=== PATIENT | female | born 1955 | race Caucasian/White ===

== ENCOUNTER 2018-04-07 22:37 | Emergency (ER) | payer BC ==
[2018-04-07 22:48] VITALS: RESP 18; TEMP 98
[2018-04-07] MEDS ORDERED: SODIUM CHLORIDE 0.9% 500 ML 500 ML IV STA (23:06)
[2018-04-07 23:51] LABS: Basophils # (A) 0.1 k/uL (0-0.2); Basophils % (A) 1 %; Eosinophils # (A) 0.3 k/uL (0-0.7); Eosinophils % (A) 3 %; HCT 47.1 % (34.0-46.0); HGB 15.8 gm/dL (11.4-16.0); Lymphocytes # (A) 3.2 k/uL (1.0-4.8); Lymphocytes % (A) 36 %; MCH 30.5 pg (25.0-35.0); MCHC 33.6 g/dL (31.0-37.0); MCV 90.6 fL (80.0-100.0); Mean Platelet Volume 6.6; Monocytes # (A) 0.4 k/uL (0-1.0); Monocytes % (A) 5 %; Neutrophils # (A) 4.8 k/uL (1.3-7.7); Neutrophils % (A) 54 %; Platelet Count 276 k/uL (150-450); RBC 5.19 m/uL (3.80-5.40); RDW 13.8 % (11.5-15.5); WBC 8.9 k/uL (3.8-10.6)
--- NOTE | 2018-04-08 00:03 | XR ---
EXAMINATION TYPE: XR chest 2V DATE OF EXAM: 04/07/2018 COMPARISON: NONE HISTORY: Chest pain TECHNIQUE: Frontal and lateral views of the chest are obtained. FINDINGS: There is no heart failure. There is linear density at the lung bases. Heart size is normal . Bony thorax is intact. There are chest leads. IMPRESSION: Subsegmental atelectasis at the lung bases. No heart failure. Normal heart.
--- NOTE | 2018-04-08 00:05 | ED ---
General Adult HPI - General Chief complaint: Chest Pain Stated complaint: Chest Pain Source: patient Mode of arrival: wheelchair Limitations: no limitations - History of Present Illness Initial comments: Dictation was produced using [employer] dictation software. please excuse any grammatical, word or spelling errors. Chief Complaint: 63-year-old female with no significant past medical history presents with left-sided chest pain. History of Present Illness: Patient is 63-year-old female presents with 2-3 days of left-sided chest pain. She states that she sleeps and opposition usually overnight after mastectomies. She states she will comply morning with sharp pain to her left chest. Patient states that her pain is exacerbated with movement. It's also worse with palpation. Denies any associated diaphoresis. There is no radiation of symptoms to her shoulders or jaw. Patient has any history of cardiac disease. Patient has history of smoking however quit 3 years ago. History of diabetes, hypertension, chronic disease. The ROS documented in this emergency department record has been reviewed and confirmed by me. Those systems with pertinent positive or negative responses have been documented in the HPI. All other systems are other negative and/or noncontributory. - Related Data Home Medications Medication Instructions Recorded Confirmed Calcium Carbonate/Vitamin D3 1 tab PO DAILY 04/07/18 04/07/18 [Calcium 600-Vit D3 200 Tablet] Cyanocobalamin (Vitamin B-12) 5,000 mcg PO DAILY 04/07/18 04/07/18 [Vitamin B12] Cyclobenzaprine [Flexeril] 10 mg PO HS PRN 04/07/18 04/07/18 Levothyroxine Sodium [Synthroid] 112 mcg PO DAILY 04/07/18 04/07/18 [place] 3,6,9 1600mg 1 cap PO DAILY 04/07/18 04/07/18 Vitamin B Complex 1 cap PO DAILY 04/07/18 04/07/18 Previous Rx's Medication Instructions Recorded Hydrocodone/Acetaminophen [[place] 1 tab PO Q6HR PRN 3 Days #10 tab 04/08/18 5-325] Allergies Allergy/AdvReac Type Severity Reaction Status Date / Time ciprofloxacin [From Cipro] AdvReac Nausea & Verified 04/07/18 23:17 Vomiting codeine AdvReac "GETS THE Verified 04/07/18 23:17 SHAKES" Review of Systems ROS Statement: Those systems with pertinent positive or pertinent negative responses have been documented in the HPI. ROS Other: All systems not noted in ROS Statement are negative. Past Medical History Past Medical History: Thyroid Disorder History of Any Multi-Drug Resistant Organisms: None Reported Past Surgical History: Appendectomy, Breast Surgery Past Psychological History: Anxiety Smoking Status: Former smoker Past Alcohol Use History: None Reported Past Drug Use History: None Reported General Exam - General Exam Comments Initial Comments: PHYSICAL EXAM: General Impression: Alert and oriented x3, not in acute distress HEENT: Normocephalic atraumatic, extra-ocular movements intact, pupils equal and reactive to light bilaterally, mucous membranes moist. Cardiovascular: Heart regular rate and rhythm, S1&S2 audible, no murmurs, rubs or gallops Chest: Tenderness to palpation reproduced with palpation and manipulation of left upper extremity. Abdomen: Bowel sounds present, abdomen soft, non-tender, non-distended, no organomegaly Musculoskeletal: Pulses present and equal in all extremities, no peripheral edema Motor: Power 5/5 bilaterally, no focal deficits noted Neurological: CN II-XII grossly intact, no focal motor or sensory deficits noted Skin: Intact with no visualized rashes Psych: Normal affect and mood Limitations: no limitations Course Vital Signs 04/07/18 04/07/18 04/08/18 22:43 23:51 00:54 Temperature 98.0 F Pulse Rate 121 H 111 H 111 H Respiratory 18 18 18 Rate Blood Pressure 165/115 180/100 189/111 O2 Sat by Pulse 96 94 L 96 Oximetry Medical Decision Making - Medical Decision Making ED course: 63-year-old female with atypical chest pain. Her pain is clearly atypical and musculoskeletal in origin. Vital signs upon arrival shows heart rate of 111. Blood pressure 180/100. Patient states she feels anxious and usually has elevated blood pressure and tachycardia in medical settings. EKGs benign showing sinus tachycardia. No signs of ischemia.Laboratory evaluation obtained. CBC unremarkable. Coag panel unremarkable. Metabolic panel is unremarkable. Cardiac enzymes are negative. Patient's clinical presentation is consistent with atypical chest pain. No need for further workup. Patient heart rate is improved however still tachycardic. Patient also has elevated blood pressure. Patient states that she has strong history of white coat hypertension. Patient not having any signs of hypertensive emergency. She given Toradol for her chest symptoms. She is given prescription for [place] to take when necessary pain. Patient warned of the dangers of opiates she is told to use this medication sparingly. She is understandable and agreeable to plan. Patient was requesting referral to a new primary care physician. EKG Interpretation: A 12 lead EKG was obtained. It was interpreted by myself and attending physician. There is a P wave before every QRS complex. Rate is 120. Rhythm is sinus tachycardia, DE interval 154, care is 72, QTc 469. QT is not prolonged. No ST segment depression or elevation. Overall, this EKG is unremarkable - Lab Data Result diagrams: 04/07/18 23:20 04/07/18 23:20 Lab Results 04/07/18 04/07/18 04/07/18 Range/Units 23:20 23:20 23:20 WBC 8.9 (3.8-10.6) k/uL RBC 5.19 (3.80-5.40) m/uL Hgb 15.8 (11.4-16.0) gm/dL Hct 47.1 H (34.0-46.0) % MCV 90.6 (80.0-100.0) fL MCH 30.5 (25.0-35.0) pg MCHC 33.6 (31.0-37.0) g/dL RDW 13.8 (11.5-15.5) % Plt Count 276 (150-450) k/uL Neutrophils % 54 % Lymphocytes % 36 % Monocytes % 5 % Eosinophils % 3 % Basophils % 1 % Neutrophils # 4.8 (1.3-7.7) k/uL Lymphocytes # 3.2 (1.0-4.8) k/uL Monocytes # 0.4 (0-1.0) k/uL Eosinophils # 0.3 (0-0.7) k/uL Basophils # 0.1 (0-0.2) k/uL PT (9.0-12.0) sec INR (<1.2) APTT (22.0-30.0) sec Sodium 138 (137-145) mmol/L Potassium 4.2 (3.5-5.1) mmol/L Chloride 103 (98-107) mmol/L Carbon Dioxide 26 (22-30) mmol/L Anion Gap 9 mmol/L BUN 15 (7-17) mg/dL Creatinine 1.02 (0.52-1.04) mg/dL Est GFR (CKD-EPI)AfAm 68 (>60 ml/min/1.73 sqM) Est GFR (CKD-EPI)NonAf 59 (>60 ml/min/1.73 sqM) Glucose 96 (74-99) mg/dL Calcium 10.9 H (8.4-10.2) mg/dL Magnesium 2.0 (1.6-2.3) mg/dL Total Bilirubin 0.6 (0.2-1.3) mg/dL AST 83 H (14-36) U/L ALT 46 (9-52) U/L Alkaline Phosphatase 152 H (38-126) U/L Total Creatine Kinase 114 (30-135) U/L CK-MB (CK-2) 0.7 (0.0-2.4) ng/mL CK-MB (CK-2) Rel Index 0.6 Troponin I 0.019 (0.000-0.034) ng/mL Total Protein 7.6 (6.3-8.2) g/dL Albumin 4.3 (3.5-5.0) g/dL 04/07/18 Range/Units 23:20 WBC (3.8-10.6) k/uL RBC (3.80-5.40) m/uL Hgb (11.4-16.0) gm/dL Hct (34.0-46.0) % MCV (80.0-100.0) fL MCH (25.0-35.0) pg MCHC (31.0-37.0) g/dL RDW (11.5-15.5) % Plt Count (150-450) k/uL Neutrophils % % Lymphocytes % % Monocytes % % Eosinophils % % Basophils % % Neutrophils # (1.3-7.7) k/uL Lymphocytes # (1.0-4.8) k/uL Monocytes # (0-1.0) k/uL Eosinophils # (0-0.7) k/uL Basophils # (0-0.2) k/uL PT 9.7 (9.0-12.0) sec INR 1.0 (<1.2) APTT 21.4 L (22.0-30.0) sec Sodium (137-145) mmol/L Potassium (3.5-5.1) mmol/L Chloride (98-107) mmol/L Carbon Dioxide (22-30) mmol/L Anion Gap mmol/L BUN (7-17) mg/dL Creatinine (0.52-1.04) mg/dL Est GFR (CKD-EPI)AfAm (>60 ml/min/1.73 sqM) Est GFR (CKD-EPI)NonAf (>60 ml/min/1.73 sqM) Glucose (74-99) mg/dL Calcium (8.4-10.2) mg/dL Magnesium (1.6-2.3) mg/dL Total Bilirubin (0.2-1.3) mg/dL AST (14-36) U/L ALT (9-52) U/L Alkaline Phosphatase (38-126) U/L Total Creatine Kinase (30-135) U/L CK-MB (CK-2) (0.0-2.4) ng/mL CK-MB (CK-2) Rel Index Troponin I (0.000-0.034) ng/mL Total Protein (6.3-8.2) g/dL Albumin (3.5-5.0) g/dL Disposition Clinical Impression: Strain of chest wall Disposition: HOME SELF-CARE Condition: Good Instructions: Costochondritis (ED) Prescriptions: Hydrocodone/Acetaminophen [[place] 5-325] 1 tab PO Q6HR PRN 3 Days #10 tab PRN Reason: Pain Is patient prescribed a controlled substance at d/c from ED?: Yes If prescribed controlled substance>3 days was MAPS reviewed?: Prescribed <3 Days Referrals: Toby Nava MD [REFERRING] - 1-2 days Time of Disposition: 01:15
[2018-04-08 00:11] LABS: Albumin 4.3 g/dL (3.5-5.0); Calcium 10.9 mg/dL (8.4-10.2); Potassium 4.2 mmol/L (3.5-5.1); Total Bilirubin 0.6 mg/dL (0.2-1.3); Total Protein 7.6 g/dL (6.3-8.2)
[2018-04-08 00:28] LABS: Creatine Kinase MB 0.7 ng/mL (0.0-2.4); Prothrombin Time 9.7 sec (9.0-12.0); Troponin I 0.019 ng/mL (0.000-0.034)
[2018-04-08 00:39] LABS: Partial Thromboplastin Time 21.4 sec (22.0-30.0)
[2018-04-08 00:56] VITALS: BP 189/111
[2018-04-08] MEDS ORDERED: KETOROLAC 30 MG/ML 1 ML VIAL IVP STA (01:12)
[2018-04-08 01:41] VITALS: PULSE 107
== END 2018-04-08 01:41 | disposition home or self-care (01) ==
LOC: EC 22:37
DX: S29.011A Strain of muscle and tendon of front wall of thorax, initial encounter (principal); R00.2 Palpitations; E07.9 Disorder of thyroid, unspecified; E11.9 Type 2 diabetes mellitus without complications; I10 Essential (primary) hypertension; Z79.899 Other long term (current) drug therapy; Z88.1 Allergy status to other antibiotic agents; Z88.5 Allergy status to narcotic agent; Z87.891 Personal history of nicotine dependence; X50.9XXA Other and unspecified overexertion or strenuous movements or postures, initial encounter
CPT/HCPCS: 36415; 93005; 80053; 82550; 82553; 83735; 84484; 85025; 85610; 85730; 71046; 99285; 96374; 96361 ×2; J1885

== ENCOUNTER 2018-04-18 11:18 | Emergency (ER) | payer BC ==
[2018-04-18] MEDS ORDERED: SODIUM CHLORIDE 0.9% 1,000 ML IV STA ×2 (11:55)
--- NOTE | 2018-04-18 12:57 | ED ---
Abdominal Pain HPI - General Chief Complaint: Abdominal Pain Stated Complaint: Vomiting and Diarrhea Time Seen by Provider: 04/18/18 11:55 Source: patient, RN notes reviewed, old records reviewed Mode of arrival: ambulatory Limitations: no limitations - History of Present Illness Initial Comments: 63-year-old male female presents emergency room today with 1 day of nausea vomiting and diarrhea. Patient ports she was treated for costochondritis is given I am slight Medrol and Toradol at PC's office yesterday. After that she started to have the vomiting and diarrhea. Patient states that she has been having some left-sided cost rope pain for the past few weeks. She was seen and treated in our emergency department 2 weeks ago for similar complaints. Her PCP was concerned on steroids and anti-inflammatory medication. Patient reports that at this time she has pain with moving on her left chest wall. History of mastectomy bilaterally few years ago. - Related Data Home Medications Medication Instructions Recorded Confirmed Calcium Carbonate/Vitamin D3 1 tab PO DAILY 04/07/18 04/18/18 [Calcium 600-Vit D3 200 Tablet] Cyanocobalamin (Vitamin B-12) 5,000 mcg PO DAILY 04/07/18 04/18/18 [Vitamin B12] Cyclobenzaprine [Flexeril] 10 mg PO HS PRN 04/07/18 04/18/18 Levothyroxine Sodium [Synthroid] 112 mcg PO DAILY 04/07/18 04/18/18 [place] 3,6,9 1600mg 1 cap PO DAILY 04/07/18 04/18/18 Vitamin B Complex 1 cap PO DAILY 04/07/18 04/18/18 Cholecalciferol (Vitamin D3) 2,000 unit PO DAILY 04/18/18 04/18/18 [Vitamin D3] Diclofenac Sodium [Voltaren] 75 mg PO DIRECTED 04/18/18 04/18/18 Flaxseed Oil 1,000 mg PO DAILY 04/18/18 04/18/18 L.acidoph,Paracasei, B.lactis 1 cap PO DAILY 04/18/18 04/18/18 [Probiotic] Magnesium Oxide [Mag-Ox] 250 mg PO TID 04/18/18 04/18/18 [place] 1 tab PO DAILY 04/18/18 Saffron Oil 1 cap PO DAILY 04/18/18 predniSONE [Deltasone] 40 mg PO DAILY 04/18/18 04/18/18 Previous Rx's Medication Instructions Recorded Hydrocodone/Acetaminophen [[place] 1 tab PO Q6HR PRN 3 Days #10 tab 04/08/18 5-325] Ondansetron Odt [Zofran Odt] 4 mg PO Q8HR PRN #12 tab 04/18/18 traMADol HCL [Ultram] 50 mg PO Q6HR PRN 3 Days #12 tab 04/18/18 Allergies Allergy/AdvReac Type Severity Reaction Status Date / Time ciprofloxacin [From Cipro] AdvReac Nausea & Verified 04/18/18 12:28 Vomiting codeine AdvReac "GETS THE Verified 04/18/18 12:28 SHAKES" Review of Systems ROS Statement: Those systems with pertinent positive or pertinent negative responses have been documented in the HPI. ROS Other: All systems not noted in ROS Statement are negative. Past Medical History Past Medical History: Thyroid Disorder History of Any Multi-Drug Resistant Organisms: None Reported Past Surgical History: Appendectomy, Breast Surgery Past Psychological History: Anxiety Smoking Status: Former smoker Past Alcohol Use History: None Reported Past Drug Use History: None Reported General Exam - General Exam Comments Initial Comments: Well appearing 63 year old female, no distress. Limitations: no limitations General appearance: alert, in no apparent distress Head exam: Present: atraumatic, normocephalic, normal inspection Eye exam: Present: normal appearance, PERRL, EOMI. Absent: scleral icterus, conjunctival injection, periorbital swelling ENT exam: Present: normal exam, mucous membranes moist Neck exam: Present: normal inspection. Absent: tenderness, meningismus, lymphadenopathy Respiratory exam: Present: normal lung sounds bilaterally, chest wall tenderness (over sternum and Left ribs). Absent: respiratory distress, wheezes , rales, rhonchi, stridor Cardiovascular Exam: Present: regular rate, normal rhythm, normal heart sounds. Absent: systolic murmur, diastolic murmur, rubs, gallop, clicks GI/Abdominal exam: Present: soft, normal bowel sounds. Absent: distended, tenderness, guarding, rebound, rigid Extremities exam: Present: normal inspection, full ROM, normal capillary refill. Absent: tenderness, pedal edema, joint swelling, calf tenderness Neurological exam: Present: alert, oriented X3, CN II-XII intact Psychiatric exam: Present: normal affect, normal mood Skin exam: Present: warm, dry, intact, normal color. Absent: rash Course Vital Signs 04/18/18 04/18/18 04/18/18 11:25 15:05 15:42 Temperature 98.3 F Pulse Rate 119 H 105 H 102 H Respiratory 18 20 Rate Blood Pressure 144/93 145/86 O2 Sat by Pulse 94 L 99 93 L Oximetry 04/18/18 18:15 Temperature 98.1 F Pulse Rate 106 H Respiratory 8 L Rate Blood Pressure 145/88 O2 Sat by Pulse 98 Oximetry Medical Decision Making - Medical Decision Making This is a 63 year old female with nausea, vomiting after receiving IM toradol and solumedrol for costochondritis. Patient has sternum tenderness. No abdominal tenderness. Patient has been given IV fluids. Labs show decreased GFR , likely due to dehydration. PAtient continued to complain of pleuritic chest pain, has had slgiht tachycardia. Patient was found to have an elevated Ddimer. She has history of breast cancer. VQ scan completed and low probability of PE. Liver enzymes were also increased, she had US gallbladder which was unremarkable. Discussed treatment for costochondritis and she will take meds from her PCP. Discussed return parametrs. - Lab Data Result diagrams: 04/18/18 12:45 04/18/18 12:45 Lab Results 04/18/18 04/18/18 04/18/18 Range/Units 12:45 12:45 12:45 WBC 12.3 H (3.8-10.6) k/uL RBC 5.02 (3.80-5.40) m/uL Hgb 15.0 (11.4-16.0) gm/dL Hct 46.3 H (34.0-46.0) % MCV 92.3 (80.0-100.0) fL MCH 29.9 (25.0-35.0) pg MCHC 32.4 (31.0-37.0) g/dL RDW 13.7 (11.5-15.5) % Plt Count 424 (150-450) k/uL Neutrophils % 76 % Lymphocytes % 18 % Monocytes % 4 % Eosinophils % 1 % Basophils % 0 % Neutrophils # 9.3 H (1.3-7.7) k/uL Lymphocytes # 2.2 (1.0-4.8) k/uL Monocytes # 0.5 (0-1.0) k/uL Eosinophils # 0.1 (0-0.7) k/uL Basophils # 0.1 (0-0.2) k/uL PT 10.1 (9.0-12.0) sec INR 1.0 (<1.2) APTT 22.9 (22.0-30.0) sec D-Dimer (<0.60) mg/L FEU Sodium 139 (137-145) mmol/L Potassium 4.2 (3.5-5.1) mmol/L Chloride 98 (98-107) mmol/L Carbon Dioxide 28 (22-30) mmol/L Anion Gap 13 mmol/L BUN 21 H (7-17) mg/dL Creatinine 1.47 H (0.52-1.04) mg/dL Est GFR (CKD-EPI)AfAm 43 (>60 ml/min/1.73 sqM) Est GFR (CKD-EPI)NonAf 37 (>60 ml/min/1.73 sqM) Glucose 105 H (74-99) mg/dL Calcium 11.4 H (8.4-10.2) mg/dL Total Bilirubin 0.8 (0.2-1.3) mg/dL AST 80 H (14-36) U/L ALT 70 H (9-52) U/L Alkaline Phosphatase 240 H (38-126) U/L Troponin I (0.000-0.034) ng/mL Total Protein 7.4 (6.3-8.2) g/dL Albumin 4.2 (3.5-5.0) g/dL Amylase 54 (30-110) U/L Lipase 73 (23-300) U/L Urine Color Urine Appearance (Clear) Urine pH (5.0-8.0) Ur Specific [place] (1.001-1.035) Urine Protein (Negative) Urine Glucose (UA) (Negative) Urine Ketones (Negative) Urine Blood (Negative) Urine Nitrite (Negative) Urine Bilirubin (Negative) Urine Urobilinogen (<2.0) mg/dL Ur Leukocyte Esterase (Negative) Urine RBC (0-5) /hpf Urine WBC (0-5) /hpf Ur Squamous Epith Cells (0-4) /hpf Hyaline Casts (0-2) /lpf Urine Mucus (None) /hpf 04/18/18 04/18/18 04/18/18 Range/Units 12:45 12:45 12:45 WBC (3.8-10.6) k/uL RBC (3.80-5.40) m/uL Hgb (11.4-16.0) gm/dL Hct (34.0-46.0) % MCV (80.0-100.0) fL MCH (25.0-35.0) pg MCHC (31.0-37.0) g/dL RDW (11.5-15.5) % Plt Count (150-450) k/uL Neutrophils % % Lymphocytes % % Monocytes % % Eosinophils % % Basophils % % Neutrophils # (1.3-7.7) k/uL Lymphocytes # (1.0-4.8) k/uL Monocytes # (0-1.0) k/uL Eosinophils # (0-0.7) k/uL Basophils # (0-0.2) k/uL PT (9.0-12.0) sec INR (<1.2) APTT (22.0-30.0) sec D-Dimer 5.00 H (<0.60) mg/L FEU Sodium (137-145) mmol/L Potassium (3.5-5.1) mmol/L Chloride (98-107) mmol/L Carbon Dioxide (22-30) mmol/L Anion Gap mmol/L BUN (7-17) mg/dL Creatinine (0.52-1.04) mg/dL Est GFR (CKD-EPI)AfAm (>60 ml/min/1.73 sqM) Est GFR (CKD-EPI)NonAf (>60 ml/min/1.73 sqM) Glucose (74-99) mg/dL Calcium (8.4-10.2) mg/dL Total Bilirubin (0.2-1.3) mg/dL AST (14-36) U/L ALT (9-52) U/L Alkaline Phosphatase (38-126) U/L Troponin I <0.012 (0.000-0.034) ng/mL Total Protein (6.3-8.2) g/dL Albumin (3.5-5.0) g/dL Amylase (30-110) U/L Lipase (23-300) U/L Urine Color Yellow Urine Appearance Clear (Clear) Urine pH 5.0 (5.0-8.0) Ur Specific [place] 1.008 (1.001-1.035) Urine Protein Negative (Negative) Urine Glucose (UA) Negative (Negative) Urine Ketones Negative (Negative) Urine Blood Negative (Negative) Urine Nitrite Negative (Negative) Urine Bilirubin Negative (Negative) Urine Urobilinogen <2.0 (<2.0) mg/dL Ur Leukocyte Esterase Trace H (Negative) Urine RBC 1 (0-5) /hpf Urine WBC 2 (0-5) /hpf Ur Squamous Epith Cells <1 (0-4) /hpf Hyaline Casts 29 H (0-2) /lpf Urine Mucus Rare H (None) /hpf 04/18/18 14:32 Sinus tach. Possible left atrial enlargement. Left at that urgent workup or 2. Normal EKG noted. Ventricular rate 102 beats per minute. MN intervals 148 ms. QRS duration 74 ms. QT QTc is 362/471 ms. No evidence of ST elevation or T-wave inversion. - Radiology Data Radiology results: report reviewed Gallbladder US is negative. VQ scan shows low probability for PE. Disposition Clinical Impression: Costochondritis, Nausea & vomiting, Dehydration, Elevated transaminase level, Elevated d-dimer Disposition: HOME SELF-CARE Condition: Good Instructions: Costochondritis (ED), Acute Nausea and Vomiting (ED) Additional Instructions: Patient advised to follow-up with primary care physician. Return to the emergency department if any alarming signs or symptoms occur. I would continue the medications as prescribed by her primary care physician. Nausea medicine as needed. Have strict return parameters if there is any worsening pains or symptoms please return to emergency department for reevaluation. Prescriptions: Ondansetron Odt [Zofran Odt] 4 mg PO Q8HR PRN #12 tab PRN Reason: Nausea traMADol HCL [Ultram] 50 mg PO Q6HR PRN 3 Days #12 tab PRN Reason: Pain Is patient prescribed a controlled substance at d/c from ED?: No Referrals: Ninoska Tovar MD [Primary Care Provider] - 1-2 days Mariza Cantor MD [STAFF PHYSICIAN] - 1-2 days Time of Disposition: 17:54
--- NOTE | 2018-04-18 13:01 | XR ---
EXAMINATION TYPE: XR chest 2V DATE OF EXAM: 04/18/2018 COMPARISON: 04/07/2018 HISTORY: Shortness of breath TECHNIQUE: Frontal and lateral views of the chest are obtained. FINDINGS: Scattered senescent parenchymal changes noted. Hyperinflation compatible with COPD. There is linear basilar atelectasis and small left-sided pleural effusion. Heart size is stable. Mediastinal structures are stable and grossly unremarkable. No evidence for hilar prominence. Degenerative changes dorsal spine. IMPRESSION: 1. No evidence for acute pulmonary disease.
[2018-04-18 13:06] LABS: Basophils # (A) 0.1 k/uL (0-0.2); Basophils % (A) 0 %; Eosinophils # (A) 0.1 k/uL (0-0.7); Eosinophils % (A) 1 %; HCT 46.3 % (34.0-46.0); Lymphocytes # (A) 2.2 k/uL (1.0-4.8); Lymphocytes % (A) 18 %; MCH 29.9 pg (25.0-35.0); MCHC 32.4 g/dL (31.0-37.0); MCV 92.3 fL (80.0-100.0); Mean Platelet Volume 6.4; Monocytes # (A) 0.5 k/uL (0-1.0); Monocytes % (A) 4 %; Neutrophils # (A) 9.3 k/uL (1.3-7.7); Neutrophils % (A) 76 %; Platelet Count 424 k/uL (150-450); RBC 5.02 m/uL (3.80-5.40); RDW 13.7 % (11.5-15.5); WBC 12.3 k/uL (3.8-10.6)
[2018-04-18 13:08] LABS: Albumin 4.2 g/dL (3.5-5.0); Calcium 11.4 mg/dL (8.4-10.2); Potassium 4.2 mmol/L (3.5-5.1); Total Bilirubin 0.8 mg/dL (0.2-1.3); Total Protein 7.4 g/dL (6.3-8.2)
[2018-04-18 13:11] LABS: Partial Thromboplastin Time 22.9 sec (22.0-30.0); Prothrombin Time 10.1 sec (9.0-12.0)
[2018-04-18 13:16] LABS: Appearance,Urine Clear (Clear); Bilirubin,Urine Negative (Negative); Blood,Urine Negative (Negative); Color,Urine Yellow; Glucose,Urine (UA) Negative (Negative); Hyaline Casts,Urine 29 /lpf (0-2); Ketones,Urine Negative (Negative); Leukocyte Esterase,Urine Trace (Negative); Mucus,Urine Rare /hpf; Nitrite,Urine Negative (Negative); Protein,Urine Negative (Negative); RBC,Urine 1 /hpf (0-5); Specific Gravity,Urine 1.008 (1.001-1.035); Squamous Epithelial Cell,Urine <1 /hpf (0-4); Urobilinogen,Urine <2.0 mg/dL (<2.0); WBC,Urine 2 /hpf (0-5)
[2018-04-18] MEDS ORDERED: ONDANSETRON 4 MG/2 ML VIAL IVP STA (13:26)
[2018-04-18] MEDS ORDERED: KETOROLAC 30 MG/ML 1 ML VIAL IVP STA (13:27)
--- NOTE | 2018-04-18 14:49 | US ---
EXAMINATION TYPE: US gallbladder DATE OF EXAM: 04/18/2018 COMPARISON: NONE CLINICAL HISTORY: Pain. Abdomen pain and N/V/D x 2 days EXAM MEASUREMENTS: Liver Length: 16.0 cm Gallbladder Wall: 0.2 cm CBD: 0.3 cm Right Kidney: 9.4 x 4.4 x 5.1 cm Pancreas: visualized portions wnl, limited by overlying midline bowel gas Liver: wnl Gallbladder: wnl Evidence for sonographic Kramer's sign: no CBD: visualized portions wnl, limited by overlying bowel gas Right Kidney: wnl IMPRESSION: 1.wnl
--- NOTE | 2018-04-18 17:37 | NM ---
EXAMINATION TYPE: NM pul vent and perfuse DATE OF EXAM: 04/18/2018 COMPARISON: PA and lateral chest radiographs 04/18/2018 at 1:00 PM HISTORY: Elevated d-dimer with chest pain and dyspnea TECHNIQUE: Utilizing inhalation of 41.4 mCi Tc 99m DTPA aerosol and intravenous injection of 5.3 mCi of Tc 99m MAA, ventilation and perfusion images are acquired post injection in multiple projections. FINDINGS: Prominent bilateral upper lung zone matched ventilation/perfusion photopenic defects are no eric. However, there is no evidence of mismatched defects. IMPRESSION: Low probability for the diagnosis of pulmonary embolism.
[2018-04-18 18:19] VITALS: BP 145/88; PULSE 106; RESP 8; TEMP 98.1
== END 2018-04-18 18:22 | disposition home or self-care (01) ==
LOC: EC 11:18
DX: M94.0 Chondrocostal junction syndrome [Tietze] (principal); R11.2 Nausea with vomiting, unspecified; E86.0 Dehydration; R74.0 Nonspecific elevation of levels of transaminase and lactic acid dehydrogenase [LDH]; R79.1 Abnormal coagulation profile; R00.0 Tachycardia, unspecified; E07.9 Disorder of thyroid, unspecified; F41.9 Anxiety disorder, unspecified; Z87.891 Personal history of nicotine dependence; Z79.52 Long term (current) use of systemic steroids; Z79.899 Other long term (current) drug therapy; Z88.1 Allergy status to other antibiotic agents; Z88.5 Allergy status to narcotic agent; Z90.49 Acquired absence of other specified parts of digestive tract
CPT/HCPCS: 36415; 93005; 85379; 80053; 82150; 83690; 84484; 85025; 85610; 85730; 81001; 71046; 76705; 78582; 99285; 96374; 96375; 96361; A9540; A9567; J2405; J1885

== ENCOUNTER 2018-07-16 07:44 | Inpatient (IN) | payer BC, MEDICARE ==
[2018-07-16] MEDS ORDERED: SODIUM CHLORIDE 0.9% 1,000 ML IV ONE ×3 (07:51→15:09)
--- NOTE | 2018-07-16 07:56 | ED ---
General Adult HPI - General Chief complaint: Altered Mental Status Stated complaint: unresponsive Time Seen by Provider: 07/16/18 07:44 Source: EMS, RN notes reviewed Mode of arrival: EMS Limitations: altered mental status - History of Present Illness Initial comments: This is a 63-year-old female who presents emergency Department unresponsive. According to EMS the states she's been like this for 24 hours. Patient has a history of hypothyroidism and I lateral mastectomies for breast cancer. Patient is unable to give any history is not here. No other history was available at this time. EMS stated her heart rate was about 160 bpm. Patient had a normal sugar and blood pressure was in the normal range. - Related Data Home Medications Medication Instructions Recorded Confirmed Calcium Carbonate/Vitamin D3 1 tab PO DAILY 04/07/18 07/16/18 [Calcium 600-Vit D3 200 Tablet] Cyclobenzaprine [Flexeril] 10 mg PO HS PRN 04/07/18 07/16/18 Levothyroxine Sodium [Synthroid] 112 mcg PO DAILY 04/07/18 07/16/18 [place] 3,6,9 1600mg 1 cap PO DAILY 04/07/18 07/16/18 Cholecalciferol (Vitamin D3) 2,000 unit PO DAILY 04/18/18 07/16/18 [Vitamin D3] Flaxseed Oil 1,000 mg PO DAILY 04/18/18 07/16/18 Magnesium Oxide [Mag-Ox] 500 mg PO DAILY 04/18/18 07/16/18 ALPRAZolam [Xanax] 0.25 mg PO HS PRN 07/16/18 07/16/18 Ascorbic Acid [Vitamin C] 1,000 mg PO DAILY 07/16/18 07/16/18 Cyanocobalamin (Vitamin B-12) 2,500 mcg PO DAILY 07/16/18 07/16/18 [Vitamin B-12] Ibuprofen [Motrin] 600 mg PO Q8HR 07/16/18 07/16/18 Ranitidine HCl [Zantac] 150 mg PO BID 07/16/18 07/16/18 Allergies Allergy/AdvReac Type Severity Reaction Status Date / Time ciprofloxacin [From Cipro] AdvReac Nausea & Verified 07/16/18 08:30 Vomiting codeine AdvReac "GETS THE Verified 07/16/18 08:30 SHAKES" Review of Systems ROS Statement: Those systems with pertinent positive or pertinent negative responses have been documented in the HPI. ROS Other: All systems not noted in ROS Statement are negative. Past Medical History Past Medical History: Thyroid Disorder History of Any Multi-Drug Resistant Organisms: None Reported Past Surgical History: Appendectomy, Breast Surgery Additional Past Surgical History / Comment(s): double mastectomy Past Psychological History: Anxiety Smoking Status: Former smoker Past Alcohol Use History: None Reported Past Drug Use History: None Reported General Exam - General Exam Comments Initial Comments: GENERAL: Patient is well-developed and is very dehydrated appearing. ENT: Neck is soft and supple. No significant lymphadenopathy is noted. Dry mucous membranes Neck has full range of motion without eliciting any pain. There is no thyroid enlargement and no masses were felt. EYES: The sclera were anicteric and conjunctiva were pink and moist. Pupils are equal and responsive to light PULMONARY: Unlabored respirations. Unable to assess fully. Because she does not take deep breaths CARDIOVASCULAR: Patient is tachycardic at over 150 beats a minute ABDOMEN: Soft and nontender with normal bowel sounds. SKIN: Skin is clear with no lesions or rashes and otherwise unremarkable. NEUROLOGIC: Patient does not answer any questions but she does respond to painful stimuli verbally. MUSCULOSKELETAL: Patient moves all 4 extremities difficult to assess range of motion LYMPHATICS: No significant lymphadenopathy is noted PSYCHIATRIC: Unable to assess Limitations: altered mental status Course Vital Signs 07/16/18 07/16/18 07/16/18 07:46 07:54 08:11 Temperature 101.6 F H Pulse Rate 165 H 149 H Respiratory 18 20 Rate Blood Pressure 186/136 172/127 O2 Sat by Pulse 86 L 94 L Oximetry 07/16/18 07/16/18 07/16/18 08:36 09:14 10:00 Temperature 98.5 F Pulse Rate 137 H 141 H 144 H Respiratory 18 18 20 Rate Blood Pressure 201/134 172/110 203/127 O2 Sat by Pulse 96 95 94 L Oximetry 07/16/18 07/16/18 10:46 11:15 Temperature Pulse Rate 151 H 152 H Respiratory 16 18 Rate Blood Pressure 178/154 163/102 O2 Sat by Pulse 93 L 93 L Oximetry Procedures - Lumbar Puncture Consent Obtained: verbal consent Indication for Procedure: fever work up Patient Position: right lateral decubitus Local Anesthetic Used: Lidocaine 1% Spinal Needle Gauge: 20G Spinal Needle Length: 3.5in Interspace Used: L4-L5 Fluid Initially Obtained: clear Complications: none Patient Tolerated Procedure: well Medical Decision Making - Medical Decision Making EKG shows sinus tachycardia at 157 bpm NM interval 220 QRS 72 QT interval 310 QTC is 51. arrived and stated that she's been unresponsive for 26 hours about. also stated for the last week she's had intermittent slurred speech and slight confusion and he describes her being confused when she was trying to use the remote control for the TV. He also has noted intermittent stumbling that the is having. All the symptoms seemed to worsen over the last 3 days until she became unresponsive yesterday. CT of the brain shows no intracranial masses however the skull does show some possible metastatic lytic lesions. Patient remains tachycardic and was given labetalol and slowed her heart rate down to 120. I spoke with Dr. akins he agreed to admit the patient I spoke with Dr. Narayanan he agreed to accept the patient the ICU he did want a CT of the chest and abdomen and wanted a lumbar puncture if possible. I performed a lumbar puncture excessively. CT of the chest abdomen pelvis showed metastatic disease to the bones diffusely. Patient also has a sternal fracture and hydronephrosis and hydroureter on the right. - Lab Data Result diagrams: 07/16/18 08:00 07/16/18 08:00 Lab Results 07/16/18 07/16/18 07/16/18 Range/Units 08:00 08:00 08:00 WBC 17.6 H (3.8-10.6) k/uL RBC 5.58 H (3.80-5.40) m/uL Hgb 17.0 H (11.4-16.0) gm/dL Hct 50.1 H (34.0-46.0) % MCV 89.9 (80.0-100.0) fL MCH 30.5 (25.0-35.0) pg MCHC 33.9 (31.0-37.0) g/dL RDW 14.3 (11.5-15.5) % Plt Count 384 (150-450) k/uL Neutrophils % 80 % Lymphocytes % 12 % Monocytes % 6 % Eosinophils % 1 % Basophils % 0 % Neutrophils # 14.1 H (1.3-7.7) k/uL Lymphocytes # 2.1 (1.0-4.8) k/uL Monocytes # 1.0 (0-1.0) k/uL Eosinophils # 0.2 (0-0.7) k/uL Basophils # 0.0 (0-0.2) k/uL PT (9.0-12.0) sec INR (<1.2) APTT (22.0-30.0) sec D-Dimer (<0.60) mg/L FEU Sodium 149 H (137-145) mmol/L Potassium 4.1 (3.5-5.1) mmol/L Chloride 103 (98-107) mmol/L Carbon Dioxide 30 (22-30) mmol/L Anion Gap 16 mmol/L BUN 44 H (7-17) mg/dL Creatinine 1.85 H (0.52-1.04) mg/dL Est GFR (CKD-EPI)AfAm 33 (>60 ml/min/1.73 sqM) Est GFR (CKD-EPI)NonAf 28 (>60 ml/min/1.73 sqM) Glucose 116 H (74-99) mg/dL POC Glucose (mg/dL) (75-99) mg/dL POC Glu Fermentologist ID Plasma Lactic Acid Maximino (0.7-2.0) mmol/L Calcium 18.0 H* (8.4-10.2) mg/dL Phosphorus (2.5-4.5) mg/dL Magnesium (1.6-2.3) mg/dL Total Bilirubin 1.1 (0.2-1.3) mg/dL AST 122 H (14-36) U/L ALT 43 (9-52) U/L Alkaline Phosphatase 181 H (38-126) U/L Creatine Kinase 497 H (30-135) U/L Troponin I 0.123 H* (0.000-0.034) ng/mL Total Protein 9.2 H (6.3-8.2) g/dL Albumin 5.1 H (3.5-5.0) g/dL TSH (0.465-4.680) mIU/L Free T4 (0.78-2.19) ng/dL Urine Color Urine Appearance (Clear) Urine pH (5.0-8.0) Ur Specific [place] (1.001-1.035) Urine Protein (Negative) Urine Glucose (UA) (Negative) Urine Ketones (Negative) Urine Blood (Negative) Urine Nitrite (Negative) Urine Bilirubin (Negative) Urine Urobilinogen (<2.0) mg/dL Ur Leukocyte Esterase (Negative) Urine RBC (0-5) /hpf Urine WBC (0-5) /hpf Hyaline Casts (0-2) /lpf Urine Mucus (None) /hpf Urine Opiates Screen (NotDetected) Ur Oxycodone Screen (NotDetected) Urine Methadone Screen (NotDetected) Ur Propoxyphene Screen (NotDetected) Ur Barbiturates Screen (NotDetected) U Tricyclic Antidepress (NotDetected) Ur Phencyclidine Scrn (NotDetected) Ur Amphetamines Screen (NotDetected) U Methamphetamines Scrn (NotDetected) U Benzodiazepines Scrn (NotDetected) Urine Cocaine Screen (NotDetected) U Marijuana (THC) Screen (NotDetected) Influenza Type A RNA (Not Detectd) Influenza Type B (PCR) (Not Detectd) 07/16/18 07/16/18 07/16/18 Range/Units 08:00 08:00 08:04 WBC (3.8-10.6) k/uL RBC (3.80-5.40) m/uL Hgb (11.4-16.0) gm/dL Hct (34.0-46.0) % MCV (80.0-100.0) fL MCH (25.0-35.0) pg MCHC (31.0-37.0) g/dL RDW (11.5-15.5) % Plt Count (150-450) k/uL Neutrophils % % Lymphocytes % % Monocytes % % Eosinophils % % Basophils % % Neutrophils # (1.3-7.7) k/uL Lymphocytes # (1.0-4.8) k/uL Monocytes # (0-1.0) k/uL Eosinophils # (0-0.7) k/uL Basophils # (0-0.2) k/uL PT (9.0-12.0) sec INR (<1.2) APTT (22.0-30.0) sec D-Dimer (<0.60) mg/L FEU Sodium (137-145) mmol/L Potassium (3.5-5.1) mmol/L Chloride (98-107) mmol/L Carbon Dioxide (22-30) mmol/L Anion Gap mmol/L BUN (7-17) mg/dL Creatinine (0.52-1.04) mg/dL Est GFR (CKD-EPI)AfAm (>60 ml/min/1.73 sqM) Est GFR (CKD-EPI)NonAf (>60 ml/min/1.73 sqM) Glucose (74-99) mg/dL POC Glucose (mg/dL) 100 H (75-99) mg/dL POC Glu Fermentologist ID Jonnie Weathers Plasma Lactic Acid Maxim[place] 3.0 H* (0.7-2.0) mmol/L Calcium (8.4-10.2) mg/dL Phosphorus 4.1 (2.5-4.5) mg/dL Magnesium 2.1 (1.6-2.3) mg/dL Total Bilirubin (0.2-1.3) mg/dL AST (14-36) U/L ALT (9-52) U/L Alkaline Phosphatase (38-126) U/L Creatine Kinase (30-135) U/L Troponin I (0.000-0.034) ng/mL Total Protein (6.3-8.2) g/dL Albumin (3.5-5.0) g/dL TSH <0.015 L (0.465-4.680) mIU/L Free T4 2.60 H (0.78-2.19) ng/dL Urine Color Urine Appearance (Clear) Urine pH (5.0-8.0) Ur Specific [place] (1.001-1.035) Urine Protein (Negative) Urine Glucose (UA) (Negative) Urine Ketones (Negative) Urine Blood (Negative) Urine Nitrite (Negative) Urine Bilirubin (Negative) Urine Urobilinogen (<2.0) mg/dL Ur Leukocyte Esterase (Negative) Urine RBC (0-5) /hpf Urine WBC (0-5) /hpf Hyaline Casts (0-2) /lpf Urine Mucus (None) /hpf Urine Opiates Screen (NotDetected) Ur Oxycodone Screen (NotDetected) Urine Methadone Screen (NotDetected) Ur Propoxyphene Screen (NotDetected) Ur Barbiturates Screen (NotDetected) U Tricyclic Antidepress (NotDetected) Ur Phencyclidine Scrn (NotDetected) Ur Amphetamines Screen (NotDetected) U Methamphetamines Scrn (NotDetected) U Benzodiazepines Scrn (NotDetected) Urine Cocaine Screen (NotDetected) U Marijuana (THC) Screen (NotDetected) Influenza Type A RNA (Not Detectd) Influenza Type B (PCR) (Not Detectd) 07/16/18 07/16/18 07/16/18 Range/Units 08:17 08:20 09:00 WBC (3.8-10.6) k/uL RBC (3.80-5.40) m/uL Hgb (11.4-16.0) gm/dL Hct (34.0-46.0) % MCV (80.0-100.0) fL MCH (25.0-35.0) pg MCHC (31.0-37.0) g/dL RDW (11.5-15.5) % Plt Count (150-450) k/uL Neutrophils % % Lymphocytes % % Monocytes % % Eosinophils % % Basophils % % Neutrophils # (1.3-7.7) k/uL Lymphocytes # (1.0-4.8) k/uL Monocytes # (0-1.0) k/uL Eosinophils # (0-0.7) k/uL Basophils # (0-0.2) k/uL PT 11.0 (9.0-12.0) sec INR 1.0 (<1.2) APTT 20.3 L (22.0-30.0) sec D-Dimer (<0.60) mg/L FEU Sodium (137-145) mmol/L Potassium (3.5-5.1) mmol/L Chloride (98-107) mmol/L Carbon Dioxide (22-30) mmol/L Anion Gap mmol/L BUN (7-17) mg/dL Creatinine (0.52-1.04) mg/dL Est GFR (CKD-EPI)AfAm (>60 ml/min/1.73 sqM) Est GFR (CKD-EPI)NonAf (>60 ml/min/1.73 sqM) Glucose (74-99) mg/dL POC Glucose (mg/dL) (75-99) mg/dL POC Glu Fermentologist ID Plasma Lactic Acid Maximino (0.7-2.0) mmol/L Calcium (8.4-10.2) mg/dL Phosphorus (2.5-4.5) mg/dL Magnesium (1.6-2.3) mg/dL Total Bilirubin (0.2-1.3) mg/dL AST (14-36) U/L ALT (9-52) U/L Alkaline Phosphatase (38-126) U/L Creatine Kinase (30-135) U/L Troponin I (0.000-0.034) ng/mL Total Protein (6.3-8.2) g/dL Albumin (3.5-5.0) g/dL TSH (0.465-4.680) mIU/L Free T4 (0.78-2.19) ng/dL Urine Color Yellow Urine Appearance Clear (Clear) Urine pH 5.5 (5.0-8.0) Ur Specific [place] 1.011 (1.001-1.035) Urine Protein 1+ H (Negative) Urine Glucose (UA) Negative (Negative) Urine Ketones Trace H (Negative) Urine Blood Trace H (Negative) Urine Nitrite Negative (Negative) Urine Bilirubin Negative (Negative) Urine Urobilinogen <2.0 (<2.0) mg/dL Ur Leukocyte Esterase Negative (Negative) Urine RBC 1 (0-5) /hpf Urine WBC 2 (0-5) /hpf Hyaline Casts 11 H (0-2) /lpf Urine Mucus Rare H (None) /hpf Urine Opiates Screen Not Detected (NotDetected) Ur Oxycodone Screen Not Detected (NotDetected) Urine Methadone Screen Not Detected (NotDetected) Ur Propoxyphene Screen Not Detected (NotDetected) Ur Barbiturates Screen Not Detected (NotDetected) U Tricyclic Antidepress Not Detected (NotDetected) Ur Phencyclidine Scrn Not Detected (NotDetected) Ur Amphetamines Screen Not Detected (NotDetected) U Methamphetamines Scrn Not Detected (NotDetected) U Benzodiazepines Scrn Not Detected (NotDetected) Urine Cocaine Screen Not Detected (NotDetected) U Marijuana (THC) Screen Not Detected (NotDetected) Influenza Type A RNA Not Detected (Not Detectd) Influenza Type B (PCR) Not Detected (Not Detectd) 07/16/18 Range/Units 09:00 WBC (3.8-10.6) k/uL RBC (3.80-5.40) m/uL Hgb (11.4-16.0) gm/dL Hct (34.0-46.0) % MCV (80.0-100.0) fL MCH (25.0-35.0) pg MCHC (31.0-37.0) g/dL RDW (11.5-15.5) % Plt Count (150-450) k/uL Neutrophils % % Lymphocytes % % Monocytes % % Eosinophils % % Basophils % % Neutrophils # (1.3-7.7) k/uL Lymphocytes # (1.0-4.8) k/uL Monocytes # (0-1.0) k/uL Eosinophils # (0-0.7) k/uL Basophils # (0-0.2) k/uL PT (9.0-12.0) sec INR (<1.2) APTT (22.0-30.0) sec D-Dimer 4.85 H (<0.60) mg/L FEU Sodium (137-145) mmol/L Potassium (3.5-5.1) mmol/L Chloride (98-107) mmol/L Carbon Dioxide (22-30) mmol/L Anion Gap mmol/L BUN (7-17) mg/dL Creatinine (0.52-1.04) mg/dL Est GFR (CKD-EPI)AfAm (>60 ml/min/1.73 sqM) Est GFR (CKD-EPI)NonAf (>60 ml/min/1.73 sqM) Glucose (74-99) mg/dL POC Glucose (mg/dL) (75-99) mg/dL POC Glu Fermentologist ID Plasma Lactic Acid Maximino (0.7-2.0) mmol/L Calcium (8.4-10.2) mg/dL Phosphorus (2.5-4.5) mg/dL Magnesium (1.6-2.3) mg/dL Total Bilirubin (0.2-1.3) mg/dL AST (14-36) U/L ALT (9-52) U/L Alkaline Phosphatase (38-126) U/L Creatine Kinase (30-135) U/L Troponin I (0.000-0.034) ng/mL Total Protein (6.3-8.2) g/dL Albumin (3.5-5.0) g/dL TSH (0.465-4.680) mIU/L Free T4 (0.78-2.19) ng/dL Urine Color Urine Appearance (Clear) Urine pH (5.0-8.0) Ur Specific [place] (1.001-1.035) Urine Protein (Negative) Urine Glucose (UA) (Negative) Urine Ketones (Negative) Urine Blood (Negative) Urine Nitrite (Negative) Urine Bilirubin (Negative) Urine Urobilinogen (<2.0) mg/dL Ur Leukocyte Esterase (Negative) Urine RBC (0-5) /hpf Urine WBC (0-5) /hpf Hyaline Casts (0-2) /lpf Urine Mucus (None) /hpf Urine Opiates Screen (NotDetected) Ur Oxycodone Screen (NotDetected) Urine Methadone Screen (NotDetected) Ur Propoxyphene Screen (NotDetected) Ur Barbiturates Screen (NotDetected) U Tricyclic Antidepress (NotDetected) Ur Phencyclidine Scrn (NotDetected) Ur Amphetamines Screen (NotDetected) U Methamphetamines Scrn (NotDetected) U Benzodiazepines Scrn (NotDetected) Urine Cocaine Screen (NotDetected) U Marijuana (THC) Screen (NotDetected) Influenza Type A RNA (Not Detectd) Influenza Type B (PCR) (Not Detectd) Critical Care Time Critical Care Time: Yes Total Critical Care Time: 50 Disposition Clinical Impression: Renal insufficiency, Elevated troponin, Hypercalcemia, Carcinoma of breast metastatic to bone, Sepsis Disposition: ADMITTED IP TO THIS HOSP Referrals: Ninoska Tovar MD [Primary Care Provider] - 1-2 days Time of Disposition: 12:23
[2018-07-16] MEDS ORDERED: ACETAMINOPHEN IV (For NPO) 1,000 MG in EMPTY BAG 1 BAG IVPB STA (07:58)
[2018-07-16] MEDS ORDERED: IBUPROFEN IV 800 MG in SODIUM CHLORIDE 0.9% 250 ML IV ONE (07:58)
[2018-07-16 08:05] LABS: Glucose,Whole Blood 100 mg/dL (75-99)
[2018-07-16] MEDS ORDERED: SODIUM CHLORIDE 0.9% 500 ML 500 ML IV ONE ×2 (08:15→11:21)
[2018-07-16 08:21] LABS: Basophils % (A) 0 %; Eosinophils # (A) 0.2 k/uL (0-0.7); Eosinophils % (A) 1 %; HCT 50.1 % (34.0-46.0); Lymphocytes # (A) 2.1 k/uL (1.0-4.8); Lymphocytes % (A) 12 %; MCH 30.5 pg (25.0-35.0); MCHC 33.9 g/dL (31.0-37.0); MCV 89.9 fL (80.0-100.0); Mean Platelet Volume 7.1; Monocytes % (A) 6 %; Neutrophils # (A) 14.1 k/uL (1.3-7.7); Neutrophils % (A) 80 %; Platelet Count 384 k/uL (150-450); RBC 5.58 m/uL (3.80-5.40); RDW 14.3 % (11.5-15.5); WBC 17.6 k/uL (3.8-10.6)
[2018-07-16 08:29] LABS: Albumin 5.1 g/dL (3.5-5.0); Total Bilirubin 1.1 mg/dL (0.2-1.3); Total Protein 9.2 g/dL (6.3-8.2)
[2018-07-16 08:44] LABS: Appearance,Urine Clear (Clear); Bilirubin,Urine Negative (Negative); Blood,Urine Trace (Negative); Color,Urine Yellow; Glucose,Urine (UA) Negative (Negative); Hyaline Casts,Urine 11 /lpf (0-2); Ketones,Urine Trace (Negative); Leukocyte Esterase,Urine Negative (Negative); Mucus,Urine Rare /hpf; Nitrite,Urine Negative (Negative); PH, Urine 5.5 (5.0-8.0); Protein,Urine 1+ (Negative); RBC,Urine 1 /hpf (0-5); Specific Gravity,Urine 1.011 (1.001-1.035); Urobilinogen,Urine <2.0 mg/dL (<2.0); WBC,Urine 2 /hpf (0-5)
[2018-07-16 08:47] LABS: Potassium 4.1 mmol/L (3.5-5.1)
[2018-07-16 08:50] LABS: Amphetamine Screen,Urine Not Detected (NotDetected); Barbiturate Screen,Urine Not Detected (NotDetected); Benzodiazepines Screen,Urine Not Detected (NotDetected); Cocaine Screen,Urine Not Detected (NotDetected); Methadone Screen, Urine Not Detected (NotDetected); Opiate Screen,Urine Not Detected (NotDetected); Oxycodone Screen, Urine Not Detected (NotDetected); Phencyclidine Screen,Urine Not Detected (NotDetected); Tricyclic Antidepressant,Urine Not Detected (NotDetected); Urn Cannabinoid Scrn Not Detected (NotDetected)
--- NOTE | 2018-07-16 09:19 | XR ---
EXAMINATION TYPE: XR chest 2V DATE OF EXAM: 07/16/2018 COMPARISON: 04/18/2018 TECHNIQUE: PA and lateral views submitted. HISTORY: Pain FINDINGS: Reduced inspiration with atherosclerotic change aorta. Coarsened interstitium with subsegmental conso lidation at both lung bases. Could not exclude tiny effusions. IMPRESSION: 1. Basilar atelectasis or early infiltrate with tiny effusion. Correlate for central interstitial pne umonitis or venous congestion.
[2018-07-16 09:31] LABS: Magnesium 2.1 mg/dL (1.6-2.3)
[2018-07-16 09:39] LABS: Phosphorus 4.1 mg/dL (2.5-4.5)
--- NOTE | 2018-07-16 09:59 | CT ---
EXAMINATION TYPE: CT brain wo con DATE OF EXAM: 07/16/2018 COMPARISON: None INDICATION: altered mental status DLP: 1217.4 mGycm, Automated exposure control for dose reduction was used. CONTRAST: None CT of the brain is performed utilizing 3 mm thick sections through the posterior fossa and 3 mm thick sections through the remaining calvarium. Study is performed within 24 hours of arrival to the hosp [place]. Beam hardening artifact from dental amalgam is present causing limitation in the posterior klaus a. No abnormal hyperdensity is present to suggest an acute intracranial hemorrhage. No mass lesion is evident. No acute infarcts are evident. There appears to be a prior infarct of the right occipital lobe. Some ex vacuo effect and prominence of the extra-axial space is present. Ventricles and sulci are appropriate for the patient age. Paranasal sinuses and mastoid air cells within the [id number] are clear. IMPRESSIONS: 1. 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 2. No acute intracranial process.
[2018-07-16 10:09] LABS: Partial Thromboplastin Time 20.3 sec (22.0-30.0)
[2018-07-16] MEDS ORDERED: hydrALAZINE HCL 20 MG/ML 1 ML VIAL IVP STA (10:19)
[2018-07-16] MEDS ORDERED: LABETALOL SYRINGE 5 MG/ML IVP STA ×2 (11:15→13:11)
--- NOTE | 2018-07-16 12:34 | CT ---
EXAMINATION TYPE: CT ChestAbdPelvis wo con DATE OF EXAM: 07/16/2018 INDICATION: pain COMPARISON: None CT DLP: 743 mGycm CONTRAST: Performed without Oral Contrast and no intravenous contrast TECHNIQUE: Axial images at 5 mm thick sections. Reconstructed images in the coronal plane. Delayed images through the kidneys. FINDINGS: CT CHEST: Portion of the thyroid visualized is normal. There is some compressive atelectasis and/or small left pleural effusion present. Emphysematous maurer es are present No enlarged mediastinal or hilar adenopathy is evident. Smaller lymph nodes are present The ascending aorta diameter at the level of the main pulmonary artery is 3.6 cm. The main pulmonary artery diameter at the bifurcation is 2.7 cm. Some coronary artery calcifications present. CT ABDOMEN: Liver: Normal Spleen: Normal Pancreas: Normal Adrenal glands: The adrenal glands are normal. Gallbladder: Normal Kidneys: No masses are evident. Some mild prominence the right renal collecting system may be present . Mild right hydroureter may be present. Extends towards the urinary bladder. No obstructing renal or ureteral stones are identified. Left renal collecting system appears normal No cysts are present. N o renal stones are identified. Aorta: Vascular calcification is within the aorta. Inferior vena cava: Normal. CT PELVIS: Loops of bowel within the abdomen and pelvis are normal. There are loops of bowel which are incom pletely distended or lack oral contrast limiting their evaluation. Prior bowel surgery at the cecum i s present. Appendix: Not visualized. This may be post surgically absent. Urinary bladder: Normal. Genitourinary structures: Uterus is unremarkable. Adnexal regions are clear. Osseous structures: There are scattered diffuse lytic areas. Most notably along the anterior medial r ight iliac wing with destruction of the cortical margin. Multiple metastatic lesions are within the v ertebral bodies of the lumbar spine but also present within lower thoracic and mid thoracic regions. Some upper thoracic lesions are present. Some sclerotic lesions may be within the left ribs. Old nonu nion rib fractures present on the right at T11. A midsternal fracture is present. Mild compression de formities of L2 and T9 are noted. Milder endplate changes may be present within additional vertebral levels. IMPRESSIONS: 1. Extensive osseous metastasis. 2. Mid sternal fracture. 3. Mild right hydronephrosis and hydroureter. A distal obstructing stone is not identified. 4. Mild compressive atelectasis and/or small left pleural effusion.
[2018-07-16] MEDS ORDERED: NALOXONE 0.4 MG/ML 1 ML VIAL IV PRN (12:53)
[2018-07-16 13:34] LABS: Glucose,CSF 74 mg/dL (40-70); Total Protein,CSF 62 mg/dL (12-60)
[2018-07-16 13:55] LABS: Appearance,CSF Clear; CSF Tube Number 4; CSF Tube Volume 0.8; Nucleated Cells, CSF 1 u/L (0-5); Red Blood Cell,CSF 2 u/L (0-10)
[2018-07-16] MEDS ORDERED: CALCITONIN INJ 200 UNIT/ML (MDV) VIAL SQ SCH (14:30)
--- NOTE | 2018-07-16 14:36 | P.HPIM ---
History of Present Illness 63-year-old female was brought emergency department with complaints of decreased responsiveness has been going on since Saturday progressively gotten worse and the patient is able to protect airway but barely arousable with verbal stimuli. Patient was comparing of her back pain sciatic pain for about 2 months or more. Patient has history of breast cancer with bilateral mastectomies in the past followed by hormonal therapy. She had a CAT scan which showed extensive osseous metastasis mild sternal fracture mild right- sided hydronephrosis and hydroureter I'm unable to get much of the history from the patient patient is afebrile patient is found to have highly elevated lactic acid and the patient's a serum calcium is around 16. Patient renal function is worse from her baseline of 1.04 to 1.8. Because of decreased responsiveness patient underwent lumbar puncture which which is not impression impressive for viral or bacterial meningitis. Although have has minimally elevated protein in the CSF. Patient had a CAT scan of the head which did not show any metastatic disease patient decreased responsiveness is probably metabolic in origin and the secondary to hypercalcemia patient is also hemoconcentrated. Patient is presently on IV fluids I'll start her on calcitonin. Patient Phyllis chest x-ray is not impressive for urinary tract infection or pneumonia because of the hydronephrosis although it and continue her Rocephin that was started in ER. Patient does have history of hypothyroidism with elevated T4 and low TSH will cut down the levothyroxine 100 from 112 Review of Systems Unable to obtain due to patient's clinical condition Past Medical History Past Medical History: Thyroid Disorder History of Any Multi-Drug Resistant Organisms: None Reported Past Surgical History: Appendectomy, Breast Surgery Additional Past Surgical History / Comment(s): double mastectomy Past Psychological History: Anxiety Smoking Status: Former smoker Past Alcohol Use History: None Reported Past Drug Use History: None Reported Medications and Allergies Home Medications Medication Instructions Recorded Confirmed Type Calcium Carbonate/Vitamin D3 1 tab PO DAILY 04/07/18 07/16/18 History [Calcium 600-Vit D3 200 Tablet] Cyclobenzaprine [Flexeril] 10 mg PO HS PRN 04/07/18 07/16/18 History Levothyroxine Sodium [Synthroid] 112 mcg PO DAILY 04/07/18 07/16/18 History [place] 3,6,9 1600mg 1 cap PO DAILY 04/07/18 07/16/18 History Cholecalciferol (Vitamin D3) 2,000 unit PO DAILY 04/18/18 07/16/18 History [Vitamin D3] Flaxseed Oil 1,000 mg PO DAILY 04/18/18 07/16/18 History Magnesium Oxide [Mag-Ox] 500 mg PO DAILY 04/18/18 07/16/18 History ALPRAZolam [Xanax] 0.25 mg PO HS PRN 07/16/18 07/16/18 History Ascorbic Acid [Vitamin C] 1,000 mg PO DAILY 07/16/18 07/16/18 History Cyanocobalamin (Vitamin B-12) 2,500 mcg PO DAILY 07/16/18 07/16/18 History [Vitamin B-12] Ibuprofen [Motrin] 600 mg PO Q8HR 07/16/18 07/16/18 History Ranitidine HCl [Zantac] 150 mg PO BID 07/16/18 07/16/18 History Allergies Allergy/AdvReac Type Severity Reaction Status Date / Time ciprofloxacin [From Cipro] AdvReac Nausea & Verified 07/16/18 08:30 Vomiting codeine AdvReac "GETS THE Verified 07/16/18 08:30 SHAKES" Physical Exam Vitals: Vital Signs Temp Pulse Resp BP Pulse Ox 07/16/18 12:52 131 H 171/110 91 L 07/16/18 11:15 152 H 18 163/102 93 L 07/16/18 10:46 151 H 16 178/154 93 L 07/16/18 10:00 98.5 F 144 H 20 203/127 94 L 07/16/18 09:14 141 H 18 172/110 95 07/16/18 08:36 137 H 18 201/134 96 07/16/18 08:11 149 H 20 172/127 94 L 07/16/18 07:54 101.6 F H 07/16/18 07:46 165 H 18 186/136 86 L Intake and Output 07/15/18 07/16/18 07/16/18 22:59 06:59 14:59 Other: Weight 73.9 kg PHYSICAL EXAMINATION: GENERAL: The patient is drowsy hard to arouse with her. Able to protect the airway, he appears to be lethargic HEENT: Pupils are round and equally reacting to light. EOMI. No scleral icterus. No conjunctival pallor. Normocephalic, atraumatic. No pharyngeal erythema. No thyromegaly. CARDIOVASCULAR: S1 and S2 present. No murmurs, rubs, or gallops. PULMONARY: Chest is clear to auscultation, no wheezing or crackles. ABDOMEN: Soft, nontender, nondistended, normoactive bowel sounds. No palpable organomegaly. MUSCULOSKELETAL: No joint swelling or deformity. EXTREMITIES: No cyanosis, clubbing, or pedal edema. NEUROLOGICAL: Patient is moving all 4 limbs unable to assess rest of the neuro system SKIN: No rashes. Results CBC & Chem 7: 07/16/18 08:00 07/16/18 08:00 Labs: Abnormal Lab Results - Last 24 Hours (Table) 07/16/18 07/16/18 07/16/18 Range/Units 08:00 08:00 08:00 WBC 17.6 H (3.8-10.6) k/uL RBC 5.58 H (3.80-5.40) m/uL Hgb 17.0 H (11.4-16.0) gm/dL Hct 50.1 H (34.0-46.0) % Neutrophils # 14.1 H (1.3-7.7) k/uL APTT (22.0-30.0) sec D-Dimer (<0.60) mg/L FEU Sodium 149 H (137-145) mmol/L BUN 44 H (7-17) mg/dL Creatinine 1.85 H (0.52-1.04) mg/dL Glucose 116 H (74-99) mg/dL POC Glucose (mg/dL) (75-99) mg/dL Plasma Lactic Acid Maximino (0.7-2.0) mmol/L Calcium 18.0 H* (8.4-10.2) mg/dL AST 122 H (14-36) U/L Alkaline Phosphatase 181 H (38-126) U/L Creatine Kinase 497 H (30-135) U/L Troponin I 0.123 H* (0.000-0.034) ng/mL Total Protein 9.2 H (6.3-8.2) g/dL Albumin 5.1 H (3.5-5.0) g/dL TSH (0.465-4.680) mIU/L Free T4 (0.78-2.19) ng/dL Urine Protein (Negative) Urine Ketones (Negative) Urine Blood (Negative) Hyaline Casts (0-2) /lpf Urine Mucus (None) /hpf CSF Glucose (40-70) mg/dL CSF Total Protein (12-60) mg/dL 07/16/18 07/16/18 07/16/18 Range/Units 08:00 08:00 08:04 WBC (3.8-10.6) k/uL RBC (3.80-5.40) m/uL Hgb (11.4-16.0) gm/dL Hct (34.0-46.0) % Neutrophils # (1.3-7.7) k/uL APTT (22.0-30.0) sec D-Dimer (<0.60) mg/L FEU Sodium (137-145) mmol/L BUN (7-17) mg/dL Creatinine (0.52-1.04) mg/dL Glucose (74-99) mg/dL POC Glucose (mg/dL) 100 H (75-99) mg/dL Plasma Lactic Acid Maximino 3.0 H* (0.7-2.0) mmol/L Calcium (8.4-10.2) mg/dL AST (14-36) U/L Alkaline Phosphatase (38-126) U/L Creatine Kinase (30-135) U/L Troponin I (0.000-0.034) ng/mL Total Protein (6.3-8.2) g/dL Albumin (3.5-5.0) g/dL TSH <0.015 L (0.465-4.680) mIU/L Free T4 2.60 H (0.78-2.19) ng/dL Urine Protein (Negative) Urine Ketones (Negative) Urine Blood (Negative) Hyaline Casts (0-2) /lpf Urine Mucus (None) /hpf CSF Glucose (40-70) mg/dL CSF Total Protein (12-60) mg/dL 07/16/18 07/16/18 07/16/18 Range/Units 08:20 09:00 09:00 WBC (3.8-10.6) k/uL RBC (3.80-5.40) m/uL Hgb (11.4-16.0) gm/dL Hct (34.0-46.0) % Neutrophils # (1.3-7.7) k/uL APTT 20.3 L (22.0-30.0) sec D-Dimer 4.85 H (<0.60) mg/L FEU Sodium (137-145) mmol/L BUN (7-17) mg/dL Creatinine (0.52-1.04) mg/dL Glucose (74-99) mg/dL POC Glucose (mg/dL) (75-99) mg/dL Plasma Lactic Acid Maximino (0.7-2.0) mmol/L Calcium (8.4-10.2) mg/dL AST (14-36) U/L Alkaline Phosphatase (38-126) U/L Creatine Kinase (30-135) U/L Troponin I (0.000-0.034) ng/mL Total Protein (6.3-8.2) g/dL Albumin (3.5-5.0) g/dL TSH (0.465-4.680) mIU/L Free T4 (0.78-2.19) ng/dL Urine Protein 1+ H (Negative) Urine Ketones Trace H (Negative) Urine Blood Trace H (Negative) Hyaline Casts 11 H (0-2) /lpf Urine Mucus Rare H (None) /hpf CSF Glucose (40-70) mg/dL CSF Total Protein (12-60) mg/dL 07/16/18 Range/Units 12:37 WBC (3.8-10.6) k/uL RBC (3.80-5.40) m/uL Hgb (11.4-16.0) gm/dL Hct (34.0-46.0) % Neutrophils # (1.3-7.7) k/uL APTT (22.0-30.0) sec D-Dimer (<0.60) mg/L FEU Sodium (137-145) mmol/L BUN (7-17) mg/dL Creatinine (0.52-1.04) mg/dL Glucose (74-99) mg/dL POC Glucose (mg/dL) (75-99) mg/dL Plasma Lactic Acid Maximino (0.7-2.0) mmol/L Calcium (8.4-10.2) mg/dL AST (14-36) U/L Alkaline Phosphatase (38-126) U/L Creatine Kinase (30-135) U/L Troponin I (0.000-0.034) ng/mL Total Protein (6.3-8.2) g/dL Albumin (3.5-5.0) g/dL TSH (0.465-4.680) mIU/L Free T4 (0.78-2.19) ng/dL Urine Protein (Negative) Urine Ketones (Negative) Urine Blood (Negative) Hyaline Casts (0-2) /lpf Urine Mucus (None) /hpf CSF Glucose 74 H (40-70) mg/dL CSF Total Protein 62 H (12-60) mg/dL Assessment and Plan Plan: -Altered mental status, unresponsiveness: Secondary to severe metabolic encephalopathy from acute renal failure lactic acidosis and hypercalcemia. -Hypercalcemia: Probably secondary to metastatic breast cancer which may have relapsed now oncology will be consulted patient was started on calcitonin continue with the IV fluids nephrology will be consulted will also obtain intact PTH in one 25 hydroxy vitamin D along with 25 hydroxyvitamin D levels. -Acute renal failure possibly multifactorial 1 prerenal azotemia from severe intravascular depletion dehydration, #2 hypercalcemia related to tubular injury , #3 ibuprofen. Patient does have hydronephrosis on the right side we'll obtain ultrasound of the kidney, nephrology was consulted will obtain urine random sodium urine and creatinine year did show proteinuria -Hydronephrosis: Although there is no evidence of urinary tract infection although continue with the ceftriaxone for now -Hypothyroidism with elevated free T4 and low TSH will cut down the levothyroxine dose. -Low back pain, radicular pain with extensive osseous metastasis mild compression deformities at L2 T9, will start her on Decadron. -Possible relapsed of breast cancer: Consulted oncology Patient will need pharmacologic GI and DVT prophylaxis
--- NOTE | 2018-07-16 14:52 | US ---
EXAMINATION TYPE: US kidneys/renal and bladder DATE OF EXAM: 07/16/2018 COMPARISON: CT CLINICAL HISTORY: Hydronephrosis. Abnormal CT EXAM MEASUREMENTS: Right Kidney: 10.5 x 5.6 x 6.2 cm Left Kidney: 10.1 x 5.8 x 4.8 cm Very limited views of right kidney due to pt's position and uncontrolled moving of body during exam Right Kidney: Limited views, unable to visualize medial collecting system Left Kidney: Appeared wnl Bladder: Unable to visualize due to pt's position IMPRESSION: Markedly limited exam as discussed above demonstrates no definite abnormality as visualized within th e left kidney. See above.
[2018-07-16] MEDS ORDERED: SODIUM CHLORIDE 0.9% 250 ML with PAMIDRONATE 60 MG IV ONE ×2 (15:02)
[2018-07-16] MEDS ORDERED: SODIUM CHLORIDE 0.9% 2,000 ML IV ONE (15:07)
[2018-07-16] MEDS: DEXAMETHASONE SOD PHOSPHATE 4 MG/ML 1 ML VIAL IV SCH ×2 (15:38→18:24)
--- NOTE | 2018-07-16 16:25 | P.CNPUL ---
History of Present Illness Consult date: 07/16/18 Chief complaint: Altered mental status History of present illness: This is a 63-year-old female patient was brought into the emergency department unresponsive. I cannot obtain any information from the patient and information was obtained from the . The patient has [facility] and as the patient moved to closer location to [place] the patient started coming into our hospital. She has a history of breast cancer and she has undergone bilateral mastectomy back in 2010 following that she had received Arimidex. According to the , he is not aware if there was any progression of her disease or breast cancer. The patient has been gradually getting worse pressure over the past 1 month. She had becoming progressively more weak, lethargic, tired, had been unsteady, on and off walking, and confused and over the past 3 days the patient became progressively more lethargic to the point where she became completely unresponsive and she was unable to eat and meter daily functions. For that reason the patient was brought into the hospital. In the ED, the patient was febrile. She was completely unresponsive. On and off she was moaning. There has been also history of ongoing pain which has been progressively getting worse. The patient had chest pain sternal pain in addition to back pain which was thought to be related to sciatica. The patient was found to have marked abnormal findings on her blood work. She was found to have hypercalcemia with a calcium level of 18. He was also found to have hyponatremia. She was in acute kidney injury. The patient was severely dehydrated. CAT scan of the brain was done that showed no acute abnormalities. Nevertheless, it showed subtle lucency in the left and the right calvarium consistent with lytic lesions. There was also some subarachnoid granulation within the calvarium. Based on that, at the patient to have a CAT scan of the chest abdomen and pelvis which got completed in the emergency department and the patient was found to have extensive osseous metastases. There was multiple mesenteric lesions within the vertebral body of the lumbar spine but also present in the lower thoracic and the midthoracic regions and some in the upper thoracic region. There was also sclerotic lesions within the left rib. An old rib fracture was present on the right at the level of T11. A mid sternal infection was also present. Compression fracture deformity at the level of L2 and T9 was also seen. Based on all this, the patient was started on aggressive IV fluid resuscitation. She had already received 3 L of IV fluids in the emergency department. I recommended an additional 2 L. I gave her a dose of pamidronate which has not been infused yet. The patient was started on IV Decadron and she was started also on Miacalcin 200 units IM twice a day. Had oral mucous membranes are extremely dry. Lumbar puncture was also done and the findings are essentially negative thus far. She was given IV Rocephin as empiric antibiotic coverage. She'll be moved to the intensive care unit for now. Review of Systems ROS unobtainable: due to mental status Past Medical History Past Medical History: Thyroid Disorder Additional Past Medical History / Comment(s): Breast cancer, with bilateral mastectomy followed by Arimidex treatment, hypothyroidism, COPD History of Any Multi-Drug Resistant Organisms: None Reported Past Surgical History: Appendectomy, Breast Surgery Additional Past Surgical History / Comment(s): double mastectomy Past Psychological History: Anxiety Smoking Status: Former smoker Past Alcohol Use History: None Reported Past Drug Use History: None Reported Medications and Allergies Home Medications Medication Instructions Recorded Confirmed Type Calcium Carbonate/Vitamin D3 1 tab PO DAILY 04/07/18 07/16/18 History [Calcium 600-Vit D3 200 Tablet] Cyclobenzaprine [Flexeril] 10 mg PO HS PRN 04/07/18 07/16/18 History Levothyroxine Sodium [Synthroid] 112 mcg PO DAILY 04/07/18 07/16/18 History [place] 3,6,9 1600mg 1 cap PO DAILY 04/07/18 07/16/18 History Cholecalciferol (Vitamin D3) 2,000 unit PO DAILY 04/18/18 07/16/18 History [Vitamin D3] Flaxseed Oil 1,000 mg PO DAILY 04/18/18 07/16/18 History Magnesium Oxide [Mag-Ox] 500 mg PO DAILY 04/18/18 07/16/18 History ALPRAZolam [Xanax] 0.25 mg PO HS PRN 07/16/18 07/16/18 History Ascorbic Acid [Vitamin C] 1,000 mg PO DAILY 07/16/18 07/16/18 History Cyanocobalamin (Vitamin B-12) 2,500 mcg PO DAILY 07/16/18 07/16/18 History [Vitamin B-12] Ibuprofen [Motrin] 600 mg PO Q8HR 07/16/18 07/16/18 History Ranitidine HCl [Zantac] 150 mg PO BID 07/16/18 07/16/18 History Allergies Allergy/AdvReac Type Severity Reaction Status Date / Time ciprofloxacin [From Cipro] AdvReac Nausea & Verified 07/16/18 08:30 Vomiting codeine AdvReac "GETS THE Verified 07/16/18 08:30 SHAKES" Physical Exam Vitals: Vital Signs Temp Pulse Resp BP Pulse Ox 07/16/18 12:52 131 H 171/110 91 L 07/16/18 11:15 152 H 18 163/102 93 L 07/16/18 10:46 151 H 16 178/154 93 L 07/16/18 10:00 98.5 F 144 H 20 203/127 94 L 07/16/18 09:14 141 H 18 172/110 95 07/16/18 08:36 137 H 18 201/134 96 07/16/18 08:11 149 H 20 172/127 94 L 07/16/18 07:54 101.6 F H 07/16/18 07:46 165 H 18 186/136 86 L Intake and Output 07/16/18 07/16/18 07/16/18 06:59 14:59 22:59 Other: Weight 73.9 kg The patient is unresponsive, lethargic, withdraws only to deep pain stimulation. She is laying down in bed on her right side. No agitation. Head exam was generally normal. There was no scleral icterus or corneal arcus. Mucous membranes were moist. No neck stiffness. Neck was supple and without jugular venous distension, thyromegaly, or carotid bruits. Carotids were easily palpable bilaterally. There was no adenopathy. The patient has significant dryness of the oral mucosa. Lungs were clear to auscultation and percussion, and with normal diaphragmatic excursion. No wheezes or rales were noted. Cardiac exam revealed the PMI to be normally situated and sized. The rhythm was regular and no extrasystoles were noted during several minutes of auscultation. The first and second heart sounds were normal and physiologic splitting of the second heart sound was noted. There were no murmurs, rubs, clicks, or gallops. Abdominal exam revealed normal bowel sounds. The abdomen was soft, non-tender, and without masses, organomegaly, or appreciable enlargement of the abdominal aorta. Examination of the extremities revealed easily palpable radial, femoral and pedal pulses. There was no cyanosis, clubbing or edema. Examination of the skin revealed no evidence of significant rashes, suspicious appearing nevi or other concerning lesions. The patient has scars of previous mastectomy bilaterally. Palpation of the axillary area and the supra clavicular area reveals no evidence of any lymphadenopathy. Neurologically, the patient has equal and symmetrical pupils. They are reactive to light. No neck stiffness. No facial asymmetry. She withdraws to only painful stimulation. No Babinski. No clonus. Results - Laboratory Findings CBC and BMP: 07/16/18 08:00 07/16/18 08:00 PT/INR, D-dimer PT 11.0 sec (9.0-12.0) 07/16/18 09:00 INR 1.0 (<1.2) 07/16/18 09:00 D-Dimer 4.85 mg/L FEU (<0.60) H 07/16/18 09:00 Abnormal lab findings: Abnormal Labs 07/16/18 07/16/18 07/16/18 08:00 08:00 08:00 WBC 17.6 H RBC 5.58 H Hgb 17.0 H Hct 50.1 H Neutrophils # 14.1 H APTT D-Dimer Sodium 149 H BUN 44 H Creatinine 1.85 H Glucose 116 H POC Glucose (mg/dL) Plasma Lactic Acid Maximino Calcium 18.0 H* AST 122 H Alkaline Phosphatase 181 H Creatine Kinase 497 H Troponin I 0.123 H* Total Protein 9.2 H Albumin 5.1 H TSH Free T4 Urine Protein Urine Ketones Urine Blood Hyaline Casts Urine Mucus CSF Glucose CSF Total Protein 07/16/18 07/16/18 07/16/18 08:00 08:00 08:04 WBC RBC Hgb Hct Neutrophils # APTT D-Dimer Sodium BUN Creatinine Glucose POC Glucose (mg/dL) 100 H Plasma Lactic Acid Maximino 3.0 H* Calcium AST Alkaline Phosphatase Creatine Kinase Troponin I Total Protein Albumin TSH <0.015 L Free T4 2.60 H Urine Protein Urine Ketones Urine Blood Hyaline Casts Urine Mucus CSF Glucose CSF Total Protein 07/16/18 07/16/18 07/16/18 08:20 09:00 09:00 WBC RBC Hgb Hct Neutrophils # APTT 20.3 L D-Dimer 4.85 H Sodium BUN Creatinine Glucose POC Glucose (mg/dL) Plasma Lactic Acid Maximino Calcium AST Alkaline Phosphatase Creatine Kinase Troponin I Total Protein Albumin TSH Free T4 Urine Protein 1+ H Urine Ketones Trace H Urine Blood Trace H Hyaline Casts 11 H Urine Mucus Rare H CSF Glucose CSF Total Protein 07/16/18 12:37 WBC RBC Hgb Hct Neutrophils # APTT D-Dimer Sodium BUN Creatinine Glucose POC Glucose (mg/dL) Plasma Lactic Acid Maximino Calcium AST Alkaline Phosphatase Creatine Kinase Troponin I Total Protein Albumin TSH Free T4 Urine Protein Urine Ketones Urine Blood Hyaline Casts Urine Mucus CSF Glucose 74 H CSF Total Protein 62 H - Diagnostic Findings Chest x-ray: image reviewed CT scan - chest: image reviewed Assessment and Plan Plan: Assessment 1 acute hypercalcemia with profound dehydration and intravascular volume depletion. The cause of the hypercalcemia is related to metastatic skeletal/ osseous involvement. The primary malignancy of origin is not clear. Could be related to metastatic breast cancer knowing that the patient has history of breast cancer and she is bilateral mastectomy back in 2010. Nevertheless, other solid tumors that have been metastatic to the skeletal system cannot be ruled out. Myeloma is within the differential diagnosis. 2 acute kidney injury secondary to massive dehydration and intravascular volume depletion 3 acute hyponatremia secondary to above 4 altered mentation secondary to above 5 history of breast cancer with bilateral mastectomy 2010 followed by Arimidex treatment 6 hypothyroidism 7 COPD which is currently inactive in stable 8 back pain related to skeletal metastases 9 fever, currently under investigation. Blood culture been sent. Doubt meningitis. Lumbar puncture has been performed Plan Give the patient additional 2 L of IV fluids of normal saline. Give the patient pamidronate. Give the patient calcitonin 200 units IM twice a day. Started patient on Decadron. Monitor mental status. Paredes catheter inserted. Send urine cultures. Send blood cultures. Empiric antibiotic coverage with Rocephin. Oncology consultation. Nephrology consultation. ICU transfer for further monitoring. DVT and GI prophylaxis. The patient will be switched to IV Synthroid 50 g on a daily basis. IV Protonix. Subcu heparin. Workup hypercalcemia. Serum protein electrophoresis. Intact PTH. Monitor the calcium level every 4 hours. We'll continue to follow. Prognosis poor state based on the above-mentioned comorbidities. Time with Patient: Greater than 30
[2018-07-16] MEDS: CALCITONIN INJ 200 UNIT/ML (MDV) VIAL IM SCH ×2 (17:13→18:23)
[2018-07-16 18:14] LABS: Glucose,Whole Blood 90 mg/dL (75-99)
[2018-07-16] MEDS ORDERED: hydrALAZINE HCL 20 MG/ML 1 ML VIAL IVP PRN (18:18)
[2018-07-16] MEDS: SODIUM CHLORIDE 0.9% 1,000 ML IV SCH ×2 (18:29→21:58)
[2018-07-16] MEDS: HEPARIN SODIUM,PORCINE 5,000 UNIT/ML 1 ML VIAL SQ SCH (18:48)
[2018-07-16] MEDS ORDERED: FAMOTIDINE 20 MG TAB PO SCH (21:00)
[2018-07-16] MEDS ORDERED: CALCITONIN INJ 200 UNIT/ML (MDV) VIAL IM SCH (21:00)
[2018-07-16] MEDS: CLEVIDIPINE BUTYRATE 25 MG in EMPTY BAG 1 BAG IV SCH (23:00)
[2018-07-16 23:07] LABS: Potassium 2.8 mmol/L (3.5-5.1)
[2018-07-17] MEDS: DEXAMETHASONE SOD PHOSPHATE 4 MG/ML 1 ML VIAL IV SCH ×5 (00:11→23:25)
[2018-07-17] MEDS: HEPARIN SODIUM,PORCINE 5,000 UNIT/ML 1 ML VIAL SQ SCH ×4 (00:11→23:28)
[2018-07-17] MEDS: POTASSIUM CHLORIDE 20 MEQ in WATER FOR INJECTION 1 100ML.BAG IVPB SCH ×5 (01:37→13:22)
[2018-07-17] MEDS: SODIUM CHLORIDE 0.9% 1,000 ML IV SCH (04:55)
[2018-07-17] MEDS: CLEVIDIPINE BUTYRATE 25 MG in EMPTY BAG 1 BAG IV SCH ×5 (04:57→23:21)
[2018-07-17] MEDS ORDERED: SODIUM CHLORIDE 0.45% 1,000 ML IV SCH (05:00)
[2018-07-17 05:18] LABS: HCT 45.6 % (34.0-46.0); HGB 14.6 gm/dL (11.4-16.0); MCH 29.5 pg (25.0-35.0); MCV 92.2 fL (80.0-100.0); Mean Platelet Volume 6.5; Platelet Count 275 k/uL (150-450); RBC 4.95 m/uL (3.80-5.40); RDW 14.8 % (11.5-15.5); WBC 14.2 k/uL (3.8-10.6)
[2018-07-17 05:29] LABS: Albumin 3.6 g/dL (3.5-5.0); Calcium 12.7 mg/dL (8.4-10.2); Potassium 3.8 mmol/L (3.5-5.1); Total Protein 6.6 g/dL (6.3-8.2)
[2018-07-17] MEDS ORDERED: LEVOTHYROXINE 100 MCG TAB PO SCH (06:30)
[2018-07-17] MEDS ORDERED: LEVOTHYROXINE 125 MCG TAB PO SCH (06:30)
[2018-07-17] MEDS: PANTOPRAZOLE 40 MG/10 ML VIAL IVP SCH (08:33)
[2018-07-17] MEDS: LEVOTHYROXINE IVP 100 MCG/5 ML VIAL IV SCH (08:34)
[2018-07-17] MEDS: CALCITONIN INJ 200 UNIT/ML (MDV) VIAL IM SCH ×2 (08:44→21:45)
--- NOTE | 2018-07-17 09:56 | P.NPCON ---
History of Present Illness - Reason for Consult acute renal failure - History of Present Illness Reason for consultation: Acute kidney injury and hypercalcemia History of present illness: Patient is a 63-year-old female seen in renal consultation for acute kidney injury and hypercalcemia. Patient's creatinine in March 2018 was near 1. It was elevated at 1.85 this admission and is down to 1.41 today. Additionally her calcium level was 18 on admission and is down to 12.7 today. She did receive a dose of pamidronate as well as 5 L of normal saline in the ER yesterday. She is currently maintained on half-normal saline at 1 50 mL an hour. According to her she's been quite lethargic the last 2-3 days. Her oral intake has been poor. No vomiting or diarrhea. She was taking Motrin 2-3 times daily. Additionally she was also taking calcium and vitamin D supplementation. is unsure as to how often she was taken this. She's been hypertensive and is maintained on clever proximal. Sodium level up to 153 today. She is nonoliguric. Vital signs are stable. General: The patient appears lethargic. Does not respond to verbal commands. HEENT: Head exam is unremarkable. Neck is without jugular venous distension. LUNGS: Breath sounds decreased. HEART: Rate and Rhythm are regular. First and second heart sounds normal. No murmurs, rubs or gallops. ABDOMEN: Abdominal exam reveals normal bowel sounds. Non-tender and non- distended. No evidence of peritonitis. EXTREMITITES: No clubbing, cyanosis, or edema. Past Medical History Past Medical History: Thyroid Disorder Additional Past Medical History / Comment(s): Breast cancer, with bilateral mastectomy followed by Arimidex treatment, hypothyroidism, COPD History of Any Multi-Drug Resistant Organisms: None Reported Past Surgical History: Appendectomy, Breast Surgery Additional Past Surgical History / Comment(s): double mastectomy Past Anesthesia/Blood Transfusion Reactions: No Reported Reaction Past Psychological History: Anxiety Smoking Status: Former smoker Past Alcohol Use History: None Reported Past Drug Use History: None Reported - Past Family History Mother Family Medical History: Liver Disease Additional Family Medical History / Comment(s): young from cirrhosis/etoh related Father Family Medical History: Cancer Additional Family Medical History / Comment(s): age 87 Medications and Allergies Home Medications Medication Instructions Recorded Confirmed Type Calcium Carbonate/Vitamin D3 1 tab PO DAILY 04/07/18 07/16/18 History [Calcium 600-Vit D3 200 Tablet] Cyclobenzaprine [Flexeril] 10 mg PO HS PRN 04/07/18 07/16/18 History Levothyroxine Sodium [Synthroid] 112 mcg PO DAILY 04/07/18 07/16/18 History [place] 3,6,9 1600mg 1 cap PO DAILY 04/07/18 07/16/18 History Cholecalciferol (Vitamin D3) 2,000 unit PO DAILY 04/18/18 07/16/18 History [Vitamin D3] Flaxseed Oil 1,000 mg PO DAILY 04/18/18 07/16/18 History Magnesium Oxide [Mag-Ox] 500 mg PO DAILY 04/18/18 07/16/18 History ALPRAZolam [Xanax] 0.25 mg PO HS PRN 07/16/18 07/16/18 History Ascorbic Acid [Vitamin C] 1,000 mg PO DAILY 07/16/18 07/16/18 History Cyanocobalamin (Vitamin B-12) 2,500 mcg PO DAILY 07/16/18 07/16/18 History [Vitamin B-12] Ibuprofen [Motrin] 600 mg PO Q8HR 07/16/18 07/16/18 History Ranitidine HCl [Zantac] 150 mg PO BID 07/16/18 07/16/18 History Allergies Allergy/AdvReac Type Severity Reaction Status Date / Time ciprofloxacin [From Cipro] AdvReac Nausea & Verified 07/16/18 08:30 Vomiting codeine AdvReac "GETS THE Verified 07/16/18 08:30 SHAKES" Physical Exam Vitals: Vital Signs Temp Pulse Resp BP Pulse Ox 07/17/18 09:00 134 H 31 H 141/90 94 L 07/17/18 08:00 99.2 F 138 H 28 H 123/77 95 07/17/18 07:00 137 H 40 H 148/78 96 07/17/18 06:00 138 H 9 L 144/91 94 L 07/17/18 05:00 141 H 31 H 152/83 95 07/17/18 04:00 98.8 F 140 H 28 H 139/82 95 07/17/18 03:00 141 H 20 152/80 94 L 07/17/18 02:00 141 H 26 H 150/85 94 L 07/17/18 01:00 140 H 43 H 149/77 94 L 07/17/18 00:00 98.1 F 146 H 18 141/83 95 07/16/18 23:00 147 H 20 181/98 95 07/16/18 22:00 142 H 31 H 175/104 94 L 07/16/18 21:00 140 H 11 L 156/94 95 07/16/18 20:00 98.4 F 141 H 12 163/92 91 L 07/16/18 19:00 137 H 24 189/113 93 L 07/16/18 18:00 129 H 14 93 L 07/16/18 17:30 98.6 F 128 H 22 191/129 93 L 07/16/18 17:00 123 H 20 189/117 94 L 07/16/18 16:30 125 H 20 182/116 93 L 07/16/18 15:30 123 H 20 174/110 93 L 07/16/18 14:00 117 H 156/98 07/16/18 13:30 114 H 171/106 07/16/18 13:00 171/110 07/16/18 12:52 131 H 171/110 91 L 07/16/18 12:30 126 H 184/122 07/16/18 12:00 120 H 149/100 07/16/18 11:30 158 H 163/102 92 L 07/16/18 11:15 154 H 18 165/108 91 L 07/16/18 10:46 151 H 16 178/154 93 L 07/16/18 10:00 98.5 F 144 H 20 203/127 94 L Intake and Output 07/16/18 07/17/18 07/17/18 22:59 06:59 14:59 Intake Total 5500 1509 459.033 Output Total 2550 1050 375 Balance 2950 459 84.033 Intake: IV 500 1200 450 .9 135 412 6946 150 Sodium Chloride 0.45% 1, 300 000 ml @ 150 mls/hr IV . Q6H40M [facility] Rx#:[id number] Intake, IV Titration 5000 309 9.033 Amount Clevidipine Butyrate 25 9 9.033 mg In Empty Bag 1 bag @ 1 MG/HR 2 mls/hr IV .Q24H [facility] Rx#:[id number] Potassium Chloride 20 meq 300 In Water For Injection 1 100ml.bag @ 50 mls/hr IVPB Q2H [facility] Rx#: [id number] Sodium Chloride 0.9% 1, 5000 000 ml @ 999 mls/hr IV . Q1H1M [facility] Rx#:[id number] Output: Urine 2550 1050 375 Other: Voiding Method Indwelling Catheter Indwelling Catheter Weight 74.2 kg Results - Lab Results Most recent lab results Calcium 12.7 mg/dL (8.4-10.2) H 07/17/18 05:00 Phosphorus 4.1 mg/dL (2.5-4.5) 07/16/18 08:00 Magnesium 2.1 mg/dL (1.6-2.3) 07/16/18 08:00 07/17/18 05:00 07/17/18 05:00 Assessment and Plan Plan: Assessment: 1. Acute kidney injury secondary to ATN secondary to hypercalcemia and nonsteroidals. Creatinine was 1.85 on admission and is 1.41 today. Creatinine in March 2018 was near 1. Urine eosinophils negative. No hydronephrosis noted on renal ultrasound. 2. Hypercalcemia secondary to calcium supplementation and volume contraction. She does have history of breast cancer as well. Improving. PTH was 30.6 which is still high for the level of hypercalcemia. 3. Hypokalemia from poor oral intake. Improved posterior placement. 4. Hypernatremia secondary to lack of oral water intake. 5. History of breast cancer. CAT scan this admission revealed extensive osseous metastasis. Plan: I will change IV fluids to D5W to be run at 125 mL an hour. Follow-up vitamin D, 125 D3 level as well as electrophoresis studies. Check AISSATOU and PTHrp. Check NM parathyroid scan. Maintain calcitonin for now. S/p pamidronate 60 mg 07/16. Follow-up oncology recommendations. Continue to monitor renal function and urine output. Continue to replace potassium. Repeat sodium level this evening. Thank you for the consultation. I will continue to follow the patient with you during her hospital stay.
[2018-07-17 11:48] LABS: Glucose,Whole Blood 117 mg/dL (75-99)
[2018-07-17] MEDS: DEXTROSE 5% IN WATER 1,000 ML IV SCH ×2 (11:56→18:02)
[2018-07-17 12:15] LABS: Magnesium 1.6 mg/dL (1.6-2.3); Phosphorus 1.5 mg/dL (2.5-4.5)
[2018-07-17] MEDS ORDERED: Potassium Replacement Protocol 1 EACH MISC MISCELLANE PRN (13:19)
[2018-07-17] MEDS: POTASSIUM CHLORIDE 10 MEQ in WATER FOR INJECTION 1 100ML.BAG IVPB SCH ×4 (13:36→16:42)
[2018-07-17] MEDS ORDERED: Phosphorus Replacement Protoco 1 EACH MISC MISCELLANE PRN (13:55)
[2018-07-17] MEDS ORDERED: Magnesium Replacement Protocol 1 EACH MISC MISCELLANE PRN (13:56)
[2018-07-17] MEDS ORDERED: POTASSIUM PHOSPHATE 10 MMOL in SODIUM CHLORIDE 0.9% 250 ML IV SCH (14:00)
[2018-07-17] MEDS: MAGNESIUM SULFATE-D5W PMX 1 GM in DEXTROSE/WATER 1 100ML.BAG IVPB SCH ×2 (14:08→15:18)
--- NOTE | 2018-07-17 14:39 | P.PN ---
Subjective 63-year-old female admitted secondary to unresponsiveness lethargy secondary to hypercalcemia, acute renal failure. Patient received calcitonin and pamidronate , improved serum calcium to 12 can you with IV fluids but IV fluids were switched to D5 water because of elevated serum sodium and chloride. Creatinine improved from 1.8-1.4. Troponin remained stable. AST and ALT are bit elevated which is a nonspecific elevation is still significant other provided abnormalities which we are correcting slowly. Patient is little bit more responsive than yesterday still unable to provide any history still bit lethargic was evaluated with pulmonology, nephrology, oncology. Objective - Vital Signs Vital signs: Vital Signs Temp 98.0 F 07/17/18 12:00 Pulse 123 H 07/17/18 14:00 Resp 21 07/17/18 14:00 BP 150/85 07/17/18 14:00 Pulse Ox 95 07/17/18 14:00 Intake & Output 07/16/18 07/17/18 07/17/18 18:59 06:59 18:59 Intake Total 5000 2009 1092.266 Output Total 1800 1800 825 Balance 3200 209 267.266 Weight 73.9 kg 74.2 kg Intake: IV 1700 1075 .9 150 1700 150 Dextrose 5% in Water 1, 625 000 ml @ 125 mls/hr IV . Q8H [facility] Rx#:[id number] Sodium Chloride 0.45% 1, 300 000 ml @ 150 mls/hr IV . Q6H40M [facility] Rx#:[id number] Intake, IV Titration 5000 309 17.266 Amount Clevidipine Butyrate 25 9 17.266 mg In Empty Bag 1 bag @ 1 MG/HR 2 mls/hr IV .Q24H [facility] Rx#:[id number] Potassium Chloride 20 meq 300 In Water For Injection 1 100ml.bag @ 50 mls/hr IVPB Q2H [facility] Rx#: [id number] Sodium Chloride 0.9% 1, 5000 000 ml @ 999 mls/hr IV . Q1H1M [facility] Rx#:[id number] Output: Urine 1800 1800 825 Other: Voiding Method Indwelling Catheter Indwelling Catheter Indwelling Catheter - Exam PHYSICAL EXAMINATION: GENERAL: More awake still quite a bit lethargic not in a position to give any history Able to protect the airway, he appears to be lethargic HEENT: Pupils are round and equally reacting to light. EOMI. No scleral icterus. No conjunctival pallor. Normocephalic, atraumatic. No pharyngeal erythema. No thyromegaly. CARDIOVASCULAR: S1 and S2 present. No murmurs, rubs, or gallops. PULMONARY: Chest is clear to auscultation, no wheezing or crackles. ABDOMEN: Soft, nontender, nondistended, normoactive bowel sounds. No palpable organomegaly. MUSCULOSKELETAL: No joint swelling or deformity. EXTREMITIES: No cyanosis, clubbing, or pedal edema. NEUROLOGICAL: Patient is moving all 4 limbs unable to assess rest of the neuro system SKIN: No rashes. - Labs CBC & Chem 7: 07/17/18 05:00 07/17/18 11:37 Labs: Abnormal Lab Results - Last 24 Hours (Table) 07/16/18 07/16/18 07/16/18 Range/Units 22:45 22:45 22:45 WBC (3.8-10.6) k/uL Sodium 151 H (137-145) mmol/L Potassium 2.8 L (3.5-5.1) mmol/L Chloride 117 H (98-107) mmol/L BUN 39 H (7-17) mg/dL Creatinine 1.52 H (0.52-1.04) mg/dL Glucose 112 H (74-99) mg/dL POC Glucose (mg/dL) (75-99) mg/dL Plasma Lactic Acid Maximino 2.1 H* (0.7-2.0) mmol/L Calcium 13.0 H (8.4-10.2) mg/dL Phosphorus (2.5-4.5) mg/dL AST (14-36) U/L ALT (9-52) U/L Alkaline Phosphatase (38-126) U/L Troponin I 0.133 H* (0.000-0.034) ng/mL Total Protein (PEP) (6.2-8.2) g/dL 07/17/18 07/17/18 07/17/18 Range/Units 05:00 05:00 05:00 WBC 14.2 H (3.8-10.6) k/uL Sodium (137-145) mmol/L Potassium (3.5-5.1) mmol/L Chloride (98-107) mmol/L BUN (7-17) mg/dL Creatinine (0.52-1.04) mg/dL Glucose (74-99) mg/dL POC Glucose (mg/dL) (75-99) mg/dL Plasma Lactic Acid Maximino (0.7-2.0) mmol/L Calcium (8.4-10.2) mg/dL Phosphorus (2.5-4.5) mg/dL AST (14-36) U/L ALT (9-52) U/L Alkaline Phosphatase (38-126) U/L Troponin I 0.178 H* (0.000-0.034) ng/mL Total Protein (PEP) 6.0 L (6.2-8.2) g/dL 07/17/18 07/17/18 07/17/18 Range/Units 05:00 05:00 11:37 WBC (3.8-10.6) k/uL Sodium 153 H (137-145) mmol/L Potassium 3.1 L (3.5-5.1) mmol/L Chloride 120 H (98-107) mmol/L BUN 40 H (7-17) mg/dL Creatinine 1.41 H (0.52-1.04) mg/dL Glucose 106 H (74-99) mg/dL POC Glucose (mg/dL) (75-99) mg/dL Plasma Lactic Acid Maximino (0.7-2.0) mmol/L Calcium 12.7 H (8.4-10.2) mg/dL Phosphorus 1.5 L (2.5-4.5) mg/dL AST 128 H (14-36) U/L ALT 66 H (9-52) U/L Alkaline Phosphatase 150 H (38-126) U/L Troponin I (0.000-0.034) ng/mL Total Protein (PEP) (6.2-8.2) g/dL 07/17/18 Range/Units 11:45 WBC (3.8-10.6) k/uL Sodium (137-145) mmol/L Potassium (3.5-5.1) mmol/L Chloride (98-107) mmol/L BUN (7-17) mg/dL Creatinine (0.52-1.04) mg/dL Glucose (74-99) mg/dL POC Glucose (mg/dL) 117 H (75-99) mg/dL Plasma Lactic Acid Maximino (0.7-2.0) mmol/L Calcium (8.4-10.2) mg/dL Phosphorus (2.5-4.5) mg/dL AST (14-36) U/L ALT (9-52) U/L Alkaline Phosphatase (38-126) U/L Troponin I (0.000-0.034) ng/mL Total Protein (PEP) (6.2-8.2) g/dL Microbiology - Last 24 Hours (Table) 07/16/18 08:00 Blood Culture - Preliminary Blood No Growth after 24 hours 07/16/18 12:37 CSF Gram Stain - Preliminary Cerebral Spinal Fluid CSF Culture - Preliminary Assessment and Plan Plan: -Altered mental status, unresponsiveness: Secondary to severe metabolic encephalopathy from acute renal failure lactic acidosis and hypercalcemia. All of these are improving at this time -Hypercalcemia: Probably secondary to metastatic breast cancer which may have relapsed now oncology will be consulted patient did receive calcitonin, pamidronate yesterday continue with the IV fluids nephrology evaluated the patient PTH levels are normal but such a high calcium PTH levels are expected to be low -Acute renal failure possibly multifactorial 1 prerenal azotemia from severe intravascular depletion dehydration, #2 hypercalcemia related to tubular injury , #3 ibuprofen. Ultrasound of the kidney did not see show any obstructive process -Hydronephrosis: Although there is no evidence of urinary tract infection although continue with the ceftriaxone for now. Ceftriaxone probably can be discontinued -Hypothyroidism with elevated free T4 and low TSH levothyroxine dose was cut down. -Low back pain, radicular pain with extensive osseous metastasis mild compression deformities at L2 T9, will start her on Decadron. -Possible relapsed of breast cancer: Oncology evaluated the patient -Hypertension patient was started on IV calcium channel maribell but will titrated to a higher blood pressure until her kidney function recovers Patient will need pharmacologic GI and DVT prophylaxis
--- NOTE | 2018-07-17 17:12 | P.PN ---
Subjective Progress Note Date: 07/17/18 This is a 63-year-old female patient was brought into the emergency department unresponsive. I cannot obtain any information from the patient and information was obtained from the . The patient has received her previous care at [facility] and [facility] and as the patient moved to closer location to [place] the patient started coming into our hospital. She has a history of breast cancer and she has undergone bilateral mastectomy back in 2010 following that she had received Arimidex. According to the , he is not aware if there was any progression of her disease or breast cancer. The patient has been gradually getting worse pressure over the past 1 month. She had becoming progressively more weak, lethargic, tired, had been unsteady, on and off walking, and confused and over the past 3 days the patient became progressively more lethargic to the point where she became completely unresponsive and she was unable to eat and meter daily functions. For that reason the patient was brought into the hospital. In the ED, the patient was febrile. She was completely unresponsive. On and off she was moaning. There has been also history of ongoing pain which has been progressively getting worse. The patient had chest pain sternal pain in addition to back pain which was thought to be related to sciatica. The patient was found to have marked abnormal findings on her blood work. She was found to have hypercalcemia with a calcium level of 18. He was also found to have hyponatremia. She was in acute kidney injury. The patient was severely dehydrated. CAT scan of the brain was done that showed no acute abnormalities. Nevertheless, it showed subtle lucency in the left and the right calvarium consistent with lytic lesions. There was also some subarachnoid granulation within the calvarium. Based on that, at the patient to have a CAT scan of the chest abdomen and pelvis which got completed in the emergency department and the patient was found to have extensive osseous metastases. There was multiple mesenteric lesions within the vertebral body of the lumbar spine but also present in the lower thoracic and the midthoracic regions and some in the upper thoracic region. There was also sclerotic lesions within the left rib. An old rib fracture was present on the right at the level of T11. A mid sternal infection was also present. Compression fracture deformity at the level of L2 and T9 was also seen. Based on all this, the patient was started on aggressive IV fluid resuscitation. She had already received 3 L of IV fluids in the emergency department. I recommended an additional 2 L. I gave her a dose of pamidronate which has not been infused yet. The patient was started on IV Decadron and she was started also on Miacalcin 200 units IM twice a day. Had oral mucous membranes are extremely dry. Lumbar puncture was also done and the findings are essentially negative thus far. She was given IV Rocephin as empiric antibiotic coverage. She'll be moved to the intensive care unit for now. On today's evaluation of 07/17/2018 the patient Is being seen in follow-up. I met the family again in the ICU. I was able to retrieve some of the records from her oncologist office. Apparently the patient had a stage II breast cancer treated with surgery and following that she was placed on hormonal treatment. She had an ER/VA positive disease with a HER-2 new negative disease. I also noted that her last calcium level at her oncologist office was borderline elevated. She progressively developed his hypercalcemia. She is currently being resuscitated IV fluids. The patient was switched to half- normal saline and subsequently to D5 water as the patient developed some hypernatremia. She has received pamidronate. She was given also calcitonin. Her most recent calcium level is down to 12.7. Neurologically, she is slightly more awake yet still not fully responsive. No neck stiffness. No fever or chills. The CSF findings showed a glucose of 74 and the protein was slightly elevated at 62 and the nucleated cells were negative. The cultures are also negative. Meanwhile, the patient is undergoing an investigation regarding his hypercalcemia. Serum protein electrophoresis and immune freezes were sent. Oncology consultation was also requested. Intact PTH is low. CAT scan of the brain was negative. He developed some hypertensive reaction overnight. For that reason the patient was started on side effects drip which is currently running at 1 mg an hour. The patient is also on empiric antibiotic coverage with IV ceftriaxone. The patient is on DVT and GI prophylaxis. Objective - Vital Signs Vital signs: Vital Signs Temp 97.8 F 07/17/18 16:00 Pulse 123 H 07/17/18 16:00 Resp 20 07/17/18 16:00 BP 147/95 07/17/18 16:00 Pulse Ox 93 L 07/17/18 16:00 Intake & Output 07/16/18 07/17/1807/17/19 18:59 06:59 18:59 Intake Total 5000 2009 1217.266 Output Total 1800 1800 970 Balance 3200 209 247.266 Weight 73.9 kg 74.2 kg Intake: IV 1700 1200 .9 150 1700 150 Dextrose 5% in Water 1, 750 000 ml @ 125 mls/hr IV . Q8H TEVIN Rx#:[id number] Sodium Chloride 0.45% 1, 300 000 ml @ 150 mls/hr IV . Q6H40M TEVIN Rx#:[id number] Intake, IV Titration 5000 309 17.266 Amount Clevidipine Butyrate 25 9 17.266 mg In Empty Bag 1 bag @ 1 MG/HR 2 mls/hr IV .Q24H TEVIN Rx#:[id number] Potassium Chloride 20 meq 300 In Water For Injection 1 100ml.bag @ 50 mls/hr IVPB Q2H TEVIN Rx#: [id number] Sodium Chloride 0.9% 1, 5000 000 ml @ 999 mls/hr IV . Q1H1M ONE Rx#:[id number] Output: Urine 1800 1800 970 Other: Voiding Method Indwelling Catheter Indwelling Catheter Indwelling Catheter - Exam The patient is more responsive compared to yesterday however still lethargic, withdraws only to deep pain stimulation. She would open up her eyes and she would look around and till now she is not following any commands. No neck stiffness. No facial asymmetry. She will go 4 extremities. Head exam was generally normal. There was no scleral icterus or corneal arcus. Mucous membranes were moist. No neck stiffness. Neck was supple and without jugular venous distension, thyromegaly, or carotid bruits. Carotids were easily palpable bilaterally. There was no adenopathy. The patient has significant dryness of the oral mucosa. Lungs were clear to auscultation and percussion, and with normal diaphragmatic excursion. No wheezes or rales were noted. Cardiac exam revealed the PMI to be normally situated and sized. The rhythm was regular and no extrasystoles were noted during several minutes of auscultation. The first and second heart sounds were normal and physiologic splitting of the second heart sound was noted. There were no murmurs, rubs, clicks, or gallops. Abdominal exam revealed normal bowel sounds. The abdomen was soft, non-tender, and without masses, organomegaly, or appreciable enlargement of the abdominal aorta. Examination of the extremities revealed easily palpable radial, femoral and pedal pulses. There was no cyanosis, clubbing or edema. Examination of the skin revealed no evidence of significant rashes, suspicious appearing nevi or other concerning lesions. The patient has scars of previous mastectomy bilaterally. Palpation of the axillary area and the supra clavicular area reveals no evidence of any lymphadenopathy. Neurologically, the patien is confused. She is able to talk. Worse but she is not making sense and she is moving moving all 4 extremities. No Babinski. No clonus. - Labs CBC & Chem 7: 07/17/18 05:00 07/17/18 11:37 Labs: Abnormal Lab Results - Last 24 Hours (Table) 07/16/18 07/16/18 07/16/18 Range/Units 22:45 22:45 22:45 WBC (3.8-10.6) k/uL Sodium 151 H (137-145) mmol/L Potassium 2.8 L (3.5-5.1) mmol/L Chloride 117 H (98-107) mmol/L BUN 39 H (7-17) mg/dL Creatinine 1.52 H (0.52-1.04) mg/dL Glucose 112 H (74-99) mg/dL POC Glucose (mg/dL) (75-99) mg/dL Plasma Lactic Acid Maximino 2.1 H* (0.7-2.0) mmol/L Calcium 13.0 H (8.4-10.2) mg/dL Phosphorus (2.5-4.5) mg/dL AST (14-36) U/L ALT (9-52) U/L Alkaline Phosphatase (38-126) U/L Troponin I 0.133 H* (0.000-0.034) ng/mL Total Protein (PEP) (6.2-8.2) g/dL 07/17/18 07/17/18 07/17/18 Range/Units 05:00 05:00 05:00 WBC 14.2 H (3.8-10.6) k/uL Sodium (137-145) mmol/L Potassium (3.5-5.1) mmol/L Chloride (98-107) mmol/L BUN (7-17) mg/dL Creatinine (0.52-1.04) mg/dL Glucose (74-99) mg/dL POC Glucose (mg/dL) (75-99) mg/dL Plasma Lactic Acid Maximino (0.7-2.0) mmol/L Calcium (8.4-10.2) mg/dL Phosphorus (2.5-4.5) mg/dL AST (14-36) U/L ALT (9-52) U/L Alkaline Phosphatase (38-126) U/L Troponin I 0.178 H* (0.000-0.034) ng/mL Total Protein (PEP) 6.0 L (6.2-8.2) g/dL 07/17/18 07/17/18 07/17/18 Range/Units 05:00 05:00 11:37 WBC (3.8-10.6) k/uL Sodium 153 H (137-145) mmol/L Potassium 3.1 L (3.5-5.1) mmol/L Chloride 120 H (98-107) mmol/L BUN 40 H (7-17) mg/dL Creatinine 1.41 H (0.52-1.04) mg/dL Glucose 106 H (74-99) mg/dL POC Glucose (mg/dL) (75-99) mg/dL Plasma Lactic Acid Maximino (0.7-2.0) mmol/L Calcium 12.7 H (8.4-10.2) mg/dL Phosphorus 1.5 L (2.5-4.5) mg/dL AST 128 H (14-36) U/L ALT 66 H (9-52) U/L Alkaline Phosphatase 150 H (38-126) U/L Troponin I (0.000-0.034) ng/mL Total Protein (PEP) (6.2-8.2) g/dL 07/17/18 Range/Units 11:45 WBC (3.8-10.6) k/uL Sodium (137-145) mmol/L Potassium (3.5-5.1) mmol/L Chloride (98-107) mmol/L BUN (7-17) mg/dL Creatinine (0.52-1.04) mg/dL Glucose (74-99) mg/dL POC Glucose (mg/dL) 117 H (75-99) mg/dL Plasma Lactic Acid Maximino (0.7-2.0) mmol/L Calcium (8.4-10.2) mg/dL Phosphorus (2.5-4.5) mg/dL AST (14-36) U/L ALT (9-52) U/L Alkaline Phosphatase (38-126) U/L Troponin I (0.000-0.034) ng/mL Total Protein (PEP) (6.2-8.2) g/dL Microbiology - Last 24 Hours (Table) 07/16/18 08:00 Blood Culture - Preliminary Blood No Growth after 24 hours 07/16/18 12:37 CSF Gram Stain - Preliminary Cerebral Spinal Fluid CSF Culture - Preliminary Assessment and Plan Plan: Assessment 1 acute hypercalcemia with profound dehydration and intravascular volume depletion. The cause of the hypercalcemia is related to metastatic skeletal/ osseous involvement. The primary malignancy of origin is not clear. Could be related to metastatic breast cancer knowing that the patient has history of breast cancer and she is bilateral mastectomy back in 2010. Nevertheless, other solid tumors that have been metastatic to the skeletal system cannot be ruled out. Myeloma is within the differential diagnosis. On 07/17/2018, the patient is was resuscitated IV fluids. The patient's calcium level is up to 12.7. The workup is in progress. Of concern is mental status which has not fully recovered yet. The patient is still confused. There is some progress in the mentation yet she is not making any sense.. I am concerned knowing that the electrodes are improving and her mentation should improve along with that. Will proceed with an MRI of the brain with the next 12 hours if there is no for the recovery of her mentation. 2 acute kidney injury secondary to massive dehydration and intravascular volume depletion, improving 3 acute hypernatremia currently on D5 water 4 altered mentation secondary to above, see discussion above 5 history of breast cancer with bilateral mastectomy 2010 followed by Arimidex treatment 6 hypothyroidism 7 COPD which is currently inactive in stable 8 back pain related to skeletal metastases Plan Continue D5 water. Order an MRI of the brain for tomorrow if the mental status has not improved. Proceed with a bone scan. Oncology consultation. Awaiting serum protein electrophoresis and immune phoresis. Monitor electrolytes. Aspiration precautions. DVT and GI prophylaxis. Keep the patient denies to follow 24 hours. Keep the Decadron. Keep the calcitonin.
[2018-07-17] MEDS: POTASSIUM PHOSPHATE 10 MMOL in SODIUM CHLORIDE 0.9% 250 ML IV SCH ×2 (17:37→20:54)
[2018-07-17 18:30] LABS: Glucose 112 mg/dL (74-99); Sodium 152 mmol/L (137-145)
--- NOTE | 2018-07-17 19:31 | P.CONS ---
History of Present Illness - Reason for Consult Consult date: 07/17/18 bone metastasis, malignant hypercalcemia, Hx breast cancer - History of Present Illness the patient is a 63-year-old white female, with overall well-controlled medical Problems. The patient was brought in by her family, because they had noted decreased responsiveness starting around 07/14/18. This had steadily progressed to where the patient had become barely arousable. Oral intake was markedly reduced since the onset of these symptoms. No seizure activity or actual loss of consciousness noted. The patient was brought into the emergency room, where labs revealed a markedly increased calcium of 18. Patient clinically appeared to be quite dehydrated, and creatinine was also elevated from her baseline. She underwent a CT scan of the chest abdomen and pelvis that showed widespread metastatic-appearing lesions in the skeleton. There was concern regarding the patient being able to protect her airway. She was therefore admitted to the ICU for further management and consult placed. The patient has been treated aggressively with IV hydration, as well as calcitonin. She also underwent a lumbar puncture to rule out meningitis. She was placed on IV antibiotics empirically. The patient is unable to provide any history. This is obtained from the patient's chart, as well as multiple family members including her daughter-in- law, son, and . The patient was diagnosed with bilateral breast cancer according to them, in 2010. She underwent bilateral mastectomy. According to the family, based on stage, chemotherapy or radiation was not recommended and the patient was treated with anastrozole for 5 years. She subsequently stopped the medication. Her care so far had been under Dr. Bonnie Doan at [facility]. Her last visit with her was in 03/06. According to the family, since then the patient had been having some back pain and chest wall pain that seems to have been somewhat nonspecific. She was seen in the ER twice in 04/06, with labs showing only mildly elevated calcium. Review of Systems Constitutional: Reports fatigue, Reports poor appetite, Reports weakness Eyes: denies blurred vision, denies pain Ears: deny: decreased hearing, ear discharge, earache, tinnitus Ears, nose, mouth and throat: Denies headache, Denies sore throat Breasts: Reports as per HPI Cardiovascular: Reports chest pain, Reports decreased exercise tolerance Respiratory: Denies cough Gastrointestinal: Reports constipation Genitourinary: Denies dysuria, Denies hematuria Menstruation: Reports postmenopausal Musculoskeletal: Reports as per HPI, Reports muscle weakness Integumentary: Reports as per HPI, Denies pruritus, Denies rash Neurological: Reports change in mentation, Reports change in speech, Reports confusion, Reports weakness Psychiatric: Reports confusion Endocrine: Reports fatigue Hematologic/Lymphatic: Reports as per HPI Past Medical History Past Medical History: Thyroid Disorder Additional Past Medical History / Comment(s): Breast cancer, with bilateral mastectomy followed by Arimidex treatment, hypothyroidism, COPD History of Any Multi-Drug Resistant Organisms: None Reported Past Surgical History: Appendectomy, Breast Surgery Additional Past Surgical History / Comment(s): double mastectomy Past Anesthesia/Blood Transfusion Reactions: No Reported Reaction Past Psychological History: Anxiety Smoking Status: Former smoker Past Alcohol Use History: None Reported Past Drug Use History: None Reported - Past Family History Mother Family Medical History: Liver Disease Additional Family Medical History / Comment(s): young from cirrhosis/etoh related Father Family Medical History: Cancer Additional Family Medical History / Comment(s): age 87 Medications and Allergies Home Medications Medication Instructions Recorded Confirmed Type Calcium Carbonate/Vitamin D3 1 tab PO DAILY 04/07/18 07/16/18 History [Calcium 600-Vit D3 200 Tablet] Cyclobenzaprine [Flexeril] 10 mg PO HS PRN 04/07/18 07/16/18 History Levothyroxine Sodium [Synthroid] 112 mcg PO DAILY 04/07/18 07/16/18 History [place] 3,6,9 1600mg 1 cap PO DAILY 04/07/18 07/16/18 History Cholecalciferol (Vitamin D3) 2,000 unit PO DAILY 04/18/18 07/16/18 History [Vitamin D3] Flaxseed Oil 1,000 mg PO DAILY 04/18/18 07/16/18 History Magnesium Oxide [Mag-Ox] 500 mg PO DAILY 04/18/18 07/16/18 History ALPRAZolam [Xanax] 0.25 mg PO HS PRN 07/16/18 07/16/18 History Ascorbic Acid [Vitamin C] 1,000 mg PO DAILY 07/16/18 07/16/18 History Cyanocobalamin (Vitamin B-12) 2,500 mcg PO DAILY 07/16/18 07/16/18 History [Vitamin B-12] Ibuprofen [Motrin] 600 mg PO Q8HR 07/16/18 07/16/18 History Ranitidine HCl [Zantac] 150 mg PO BID 07/16/18 07/16/18 History Allergies Allergy/AdvReac Type Severity Reaction Status Date / Time ciprofloxacin [From Cipro] AdvReac Nausea & Verified 07/16/18 08:30 Vomiting codeine AdvReac "GETS THE Verified 07/16/18 08:30 SHAKES" Physical Exam Vitals: Vital Signs Temp Pulse Resp BP Pulse Ox 07/17/18 19:00 125 H 31 H 154/95 92 L 07/17/18 18:00 125 H 30 H 164/99 92 L 07/17/18 17:00 124 H 28 H 150/97 92 L 07/17/18 16:00 97.8 F 123 H 20 147/95 93 L 07/17/18 15:00 123 H 31 H 131/91 94 L 07/17/18 14:00 123 H 21 150/85 95 07/17/18 13:00 124 H 17 146/90 94 L 07/17/18 12:00 98.0 F 124 H 14 147/92 95 07/17/18 11:00 128 H 27 H 159/90 95 07/17/18 10:00 131 H 57 H 157/93 94 L 07/17/18 09:00 134 H 31 H 141/90 94 L 07/17/18 08:00 99.2 F 138 H 28 H 123/77 95 07/17/18 07:00 137 H 40 H 148/78 96 07/17/18 06:00 138 H 9 L 144/91 94 L 07/17/18 05:00 141 H 31 H 152/83 95 07/17/18 04:00 98.8 F 140 H 28 H 139/82 95 07/17/18 03:00 141 H 20 152/80 94 L 07/17/18 02:00 141 H 26 H 150/85 94 L 07/17/18 01:00 140 H 43 H 149/77 94 L 07/17/18 00:00 98.1 F 146 H 18 141/83 95 07/16/18 23:00 147 H 20 181/98 95 07/16/18 22:00 142 H 31 H 175/104 94 L 07/16/18 21:00 140 H 11 L 156/94 95 07/16/18 20:00 98.4 F 141 H 12 163/92 91 L Intake and Output 07/17/18 07/17/18 07/17/18 06:59 14:59 22:59 Intake Total 1509 0090.873 5771 Output Total 1050 825 430 Balance 459 482.693 3416 Intake: IV 1200 1075 1475 .9 150 1200 150 Dextrose 5% in Water 1, 625 625 000 ml @ 125 mls/hr IV . Q8H TEVIN Rx#:[id number] Magnesium Sulfate-D5w Pmx 200 1 gm In Dextrose/Water 1 100ml.bag @ 100 mls/hr IVPB Q1H TEVIN Rx#: [id number] Potassium Chloride 10 meq 400 In Water For Injection 1 100ml.bag @ 100 mls/hr IVPB Q1HR TEVIN Rx#: [id number] Potassium Phosphate 10 250 mmol In Sodium Chloride 0 .9% 250 ml @ 125 mls/hr IV Q2H TEVIN Rx#:[id number] Sodium Chloride 0.45% 1, 300 000 ml @ 150 mls/hr IV . Q6H40M TEVIN Rx#:[id number] Intake, IV Titration 309 22.266 16 Amount Clevidipine Butyrate 25 9 22.266 16 mg In Empty Bag 1 bag @ 1 MG/HR 2 mls/hr IV .Q24H TEVIN Rx#:[id number] Potassium Chloride 20 meq 300 In Water For Injection 1 100ml.bag @ 50 mls/hr IVPB Q2H TEVIN Rx#: [id number] Output: Urine 1050 825 430 Other: Voiding Method Indwelling Catheter Indwelling Catheter Indwelling Catheter Weight 74.2 kg - Constitutional the patient is arousable and opens eyes to voice. However she has not appropriately responsive, or verbal. She is moving all extremities but no purposeful movements were observed General appearance: mild distress - EENT Eyes: EOMI ENT: hearing grossly normal, normal oropharynx - Neck Neck: no lymphadenopathy Thyroid: bilateral: normal size - Respiratory Respiratory: bilateral: CTA - Cardiovascular Rhythm: regular Heart sounds: normal: S1, S2 - Gastrointestinal General gastrointestinal: normal bowel sounds, soft - Integumentary Integumentary: normal - Neurologic mental status, as noted above Neurologic: CNII-XII intact - Musculoskeletal Musculoskeletal: generalized weakness, strength equal bilaterally - Psychiatric confused. As noted above Results CBC & Chem 7: 07/17/18 05:00 07/17/18 17:11 Labs: Abnormal Lab Results - Last 24 Hours (Table) 07/16/18 07/16/18 07/16/18 Range/Units 22:45 22:45 22:45 WBC (3.8-10.6) k/uL Sodium 151 H (137-145) mmol/L Potassium 2.8 L (3.5-5.1) mmol/L Chloride 117 H (98-107) mmol/L BUN 39 H (7-17) mg/dL Creatinine 1.52 H (0.52-1.04) mg/dL Glucose 112 H (74-99) mg/dL POC Glucose (mg/dL) (75-99) mg/dL Plasma Lactic Acid Maximino 2.1 H* (0.7-2.0) mmol/L Calcium 13.0 H (8.4-10.2) mg/dL Phosphorus (2.5-4.5) mg/dL AST (14-36) U/L ALT (9-52) U/L Alkaline Phosphatase (38-126) U/L Troponin I 0.133 H* (0.000-0.034) ng/mL Total Protein (PEP) (6.2-8.2) g/dL CA 15-3 Antigen (0.0-32.3) U/mL CA 27-29 (0.0-38.5) U/mL 07/17/18 07/17/18 07/17/18 Range/Units 05:00 05:00 05:00 WBC 14.2 H (3.8-10.6) k/uL Sodium (137-145) mmol/L Potassium (3.5-5.1) mmol/L Chloride (98-107) mmol/L BUN (7-17) mg/dL Creatinine (0.52-1.04) mg/dL Glucose (74-99) mg/dL POC Glucose (mg/dL) (75-99) mg/dL Plasma Lactic Acid Maximino (0.7-2.0) mmol/L Calcium (8.4-10.2) mg/dL Phosphorus (2.5-4.5) mg/dL AST (14-36) U/L ALT (9-52) U/L Alkaline Phosphatase (38-126) U/L Troponin I 0.178 H* (0.000-0.034) ng/mL Total Protein (PEP) 6.0 L (6.2-8.2) g/dL CA 15-3 Antigen (0.0-32.3) U/mL CA 27-29 (0.0-38.5) U/mL 07/17/18 07/17/18 07/17/18 Range/Units 05:00 05:00 11:37 WBC (3.8-10.6) k/uL Sodium 153 H (137-145) mmol/L Potassium (3.5-5.1) mmol/L Chloride 120 H (98-107) mmol/L BUN 40 H (7-17) mg/dL Creatinine 1.41 H (0.52-1.04) mg/dL Glucose 106 H (74-99) mg/dL POC Glucose (mg/dL) (75-99) mg/dL Plasma Lactic Acid Maximino (0.7-2.0) mmol/L Calcium 12.7 H (8.4-10.2) mg/dL Phosphorus 1.5 L (2.5-4.5) mg/dL AST 128 H (14-36) U/L ALT 66 H (9-52) U/L Alkaline Phosphatase 150 H (38-126) U/L Troponin I (0.000-0.034) ng/mL Total Protein (PEP) (6.2-8.2) g/dL CA 15-3 Antigen 975.5 H (0.0-32.3) U/mL CA 27-29 937.0 H (0.0-38.5) U/mL 07/17/18 07/17/18 07/17/18 Range/Units 11:37 11:45 17:11 WBC (3.8-10.6) k/uL Sodium 152 H (137-145) mmol/L Potassium 3.1 L (3.5-5.1) mmol/L Chloride (98-107) mmol/L BUN (7-17) mg/dL Creatinine (0.52-1.04) mg/dL Glucose 112 H (74-99) mg/dL POC Glucose (mg/dL) 117 H (75-99) mg/dL Plasma Lactic Acid Maximino (0.7-2.0) mmol/L Calcium (8.4-10.2) mg/dL Phosphorus (2.5-4.5) mg/dL AST (14-36) U/L ALT (9-52) U/L Alkaline Phosphatase (38-126) U/L Troponin I (0.000-0.034) ng/mL Total Protein (PEP) (6.2-8.2) g/dL CA 15-3 Antigen (0.0-32.3) U/mL CA 27-29 (0.0-38.5) U/mL Microbiology - Last 24 Hours (Table) 07/16/18 08:00 Blood Culture - Preliminary Blood No Growth after 24 hours 07/16/18 12:37 CSF Gram Stain - Preliminary Cerebral Spinal Fluid CSF Culture - Preliminary Chest x-ray: report reviewed CT scan - abdomen: report reviewed CT scan - chest: report reviewed CT Scan - head: report reviewed CT scan - pelvis: report reviewed US - abdomen: report reviewed Assessment and Plan (1) Hypercalcemia Narrative/Plan: Based on her clinical presentation, this definitely appears to be malignant hypercalcemia. It was discussed with the family, that this can explain her symptomatology on its own. Therefore correction of the same is the most acute concern The patient is being dehydrated, and is also on calcitonin. She has received pamidronate. Calcium level is improved though still higher than normal. Continue current treatment. Current Visit: Yes Status: Acute Code(s): E83.52 - HYPERCALCEMIA SNOMED Code(s): 77410921 (2) Renal insufficiency Narrative/Plan: due to dehydration, and hypercalcemia. Continue to monitor with expectation of improvement as these are corrected. Nephrology is on consult Current Visit: Yes Status: Acute Code(s): N28.9 - DISORDER OF KIDNEY AND URETER, UNSPECIFIED SNOMED Code(s): 528402472 (3) Carcinoma of breast metastatic to bone Narrative/Plan: Given the presence of multiple bone metastasis, and prior history of breast cancer, metastatic recurrence of breast cancer is the main differential diagnosis. However other primaries are not ruled out. - Breast cancer tumor markers will be ordered - The patient's CT scan of the chest abdomen and pelvis did not show any obvious visceral lesions. Her liver enzymes are elevated. If these are persistently elevated, then contrast study will be performed. When more stable , the patient will need a repeat biopsy to confirm the diagnosis. Even if this is recurrent breast cancer, given the time elapsed since her initial diagnosis, repeat biopsies recommended to check marker status. - If the patient's mental status does not return to baseline with correction of her calcium and hydration status, she will need to contrast imaging of the brain. Lumbar puncture has already been performed. Await CSF cytology Current Visit: Yes Status: Acute Code(s): C50.919 - MALIGNANT NEOPLASM OF UNSP SITE OF UNSPECIFIED FEMALE BREAST; C79.51 - SECONDARY MALIGNANT NEOPLASM OF BONE SNOMED Code(s): 899924341
[2018-07-18 01:24] LABS: Glucose,Whole Blood 128 mg/dL (75-99)
[2018-07-18] MEDS: DEXTROSE 5% IN WATER 1,000 ML IV SCH ×3 (02:30→20:31)
[2018-07-18] MEDS: DEXAMETHASONE SOD PHOSPHATE 4 MG/ML 1 ML VIAL IV SCH ×4 (05:41→23:52)
[2018-07-18 06:02] LABS: Basophils # (A) 0.1 k/uL (0-0.2); Basophils % (A) 0 %; Eosinophils # (A) 0.1 k/uL (0-0.7); Eosinophils % (A) 1 %; HCT 43.7 % (34.0-46.0); HGB 14.3 gm/dL (11.4-16.0); Lymphocytes # (A) 2.7 k/uL (1.0-4.8); Lymphocytes % (A) 17 %; MCH 30.5 pg (25.0-35.0); MCHC 32.7 g/dL (31.0-37.0); MCV 93.2 fL (80.0-100.0); Mean Platelet Volume 6.6; Monocytes # (A) 0.7 k/uL (0-1.0); Monocytes % (A) 5 %; Neutrophils # (A) 12.3 k/uL (1.3-7.7); Neutrophils % (A) 77 %; Platelet Count 319 k/uL (150-450); RBC 4.69 m/uL (3.80-5.40); RDW 14.9 % (11.5-15.5); WBC 15.9 k/uL (3.8-10.6)
[2018-07-18 06:06] LABS: Calcium 11.3 mg/dL (8.4-10.2); Magnesium 1.9 mg/dL (1.6-2.3); Potassium 3.3 mmol/L (3.5-5.1)
[2018-07-18 06:09] LABS: Glucose,Whole Blood 129 mg/dL (75-99)
[2018-07-18] MEDS: POTASSIUM CHLORIDE 10 MEQ in WATER FOR INJECTION 1 100ML.BAG IVPB SCH ×4 (06:47→10:32)
[2018-07-18] MEDS: MAGNESIUM SULFATE-D5W PMX 1 GM in DEXTROSE/WATER 1 100ML.BAG IVPB SCH ×2 (06:48→08:07)
[2018-07-18] MEDS: HEPARIN SODIUM,PORCINE 5,000 UNIT/ML 1 ML VIAL SQ SCH ×3 (07:50→23:52)
[2018-07-18] MEDS: PANTOPRAZOLE 40 MG/10 ML VIAL IVP SCH (07:50)
[2018-07-18] MEDS: LEVOTHYROXINE IVP 100 MCG/5 ML VIAL IV SCH (07:51)
[2018-07-18] MEDS: CALCITONIN INJ 200 UNIT/ML (MDV) VIAL IM SCH ×2 (07:59→20:30)
--- NOTE | 2018-07-18 08:26 | P.PN ---
Subjective Patient is seen in follow-up for acute kidney injury and hypercalcemia. Patient 's creatinine in March 2018 was near 1. It was elevated at 1.85 this admission and is down to 1.24 today. Calcium was 18 on admission and is down to 11.3 today. She is maintained on D5 W at 1 25 mL an hour. Sodium level is trending down. Her mentation has improved. She is more awake today. She remains nonoliguric. Vital signs are stable. General: The patient appeared well nourished and normally developed. HEENT: Head exam is unremarkable. Neck is without jugular venous distension. LUNGS: Lungs are clear to auscultation and percussion. Breath sounds decreased. HEART: Rate and Rhythm are regular. First and second heart sounds normal. No murmurs, rubs or gallops. ABDOMEN: Abdominal exam reveals normal bowel sounds. Non-tender and non- distended. No evidence of peritonitis. EXTREMITITES: No clubbing, cyanosis, or edema. Objective - Vital Signs Vital signs: Vital Signs Temp 97.8 F 07/18/18 08:00 Pulse 122 H 07/18/18 08:00 Resp 26 H 07/18/18 08:00 BP 160/102 07/18/18 08:00 Pulse Ox 91 L 07/18/18 08:00 Intake & Output 07/17/18 07/18/18 07/18/18 18:59 06:59 18:59 Intake Total 2463.266 1816.800 650 Output Total 1195 1310 120 Balance 1268.266 506.800 530 Weight 74.6 kg Intake: IV 2425 1750 650 .9 150 150 Dextrose 5% in Water 1, 1125 1500 250 000 ml @ 125 mls/hr IV . Q8H TEVIN Rx#:[id number] Magnesium Sulfate-D5w Pmx 200 200 1 gm In Dextrose/Water 1 100ml.bag @ 100 mls/hr IVPB Q1H TEVIN Rx#: [id number] Potassium Chloride 10 meq 400 200 In Water For Injection 1 100ml.bag @ 100 mls/hr IVPB Q1HR TEVIN Rx#: [id number] Potassium Phosphate 10 250 250 mmol In Sodium Chloride 0 .9% 250 ml @ 125 mls/hr IV Q2H TEVIN Rx#:[id number] Sodium Chloride 0.45% 1, 300 000 ml @ 150 mls/hr IV . Q6H40M TEVIN Rx#:[id number] Intake, IV Titration 38.266 66.800 Amount Clevidipine Butyrate 25 38.266 66.800 mg In Empty Bag 1 bag @ 1 MG/HR 2 mls/hr IV .Q24H TEIVN Rx#:[id number] Output: Urine 1195 1310 120 Other: Voiding Method Indwelling Catheter Indwelling Catheter - Labs CBC & Chem 7: 07/18/18 05:22 07/18/18 05:22 Labs: Abnormal Lab Results - Last 24 Hours (Table) 07/17/18 07/17/18 07/17/18 Range/Units 05:00 05:00 11:37 WBC (3.8-10.6) k/uL Neutrophils # (1.3-7.7) k/uL Sodium (137-145) mmol/L Potassium (3.5-5.1) mmol/L Chloride (98-107) mmol/L BUN (7-17) mg/dL Creatinine (0.52-1.04) mg/dL Glucose (74-99) mg/dL POC Glucose (mg/dL) (75-99) mg/dL Calcium (8.4-10.2) mg/dL Phosphorus 1.5 L (2.5-4.5) mg/dL Total Protein (PEP) 6.0 L (6.2-8.2) g/dL CA 15-3 Antigen 975.5 H (0.0-32.3) U/mL CA 27-29 937.0 H (0.0-38.5) U/mL 07/17/18 07/17/18 07/17/18 Range/Units 11:37 11:45 17:11 WBC (3.8-10.6) k/uL Neutrophils # (1.3-7.7) k/uL Sodium 152 H (137-145) mmol/L Potassium 3.1 L (3.5-5.1) mmol/L Chloride (98-107) mmol/L BUN (7-17) mg/dL Creatinine (0.52-1.04) mg/dL Glucose 112 H (74-99) mg/dL POC Glucose (mg/dL) 117 H (75-99) mg/dL Calcium (8.4-10.2) mg/dL Phosphorus (2.5-4.5) mg/dL Total Protein (PEP) (6.2-8.2) g/dL CA 15-3 Antigen (0.0-32.3) U/mL CA 27-29 (0.0-38.5) U/mL 07/18/18 07/18/18 07/18/18 Range/Units 01:21 05:22 05:22 WBC 15.9 H (3.8-10.6) k/uL Neutrophils # 12.3 H (1.3-7.7) k/uL Sodium 149 H (137-145) mmol/L Potassium 3.3 L (3.5-5.1) mmol/L Chloride 114 H (98-107) mmol/L BUN 32 H (7-17) mg/dL Creatinine 1.24 H (0.52-1.04) mg/dL Glucose 154 H (74-99) mg/dL POC Glucose (mg/dL) 128 H (75-99) mg/dL Calcium 11.3 H (8.4-10.2) mg/dL Phosphorus (2.5-4.5) mg/dL Total Protein (PEP) (6.2-8.2) g/dL CA 15-3 Antigen (0.0-32.3) U/mL CA 27-29 (0.0-38.5) U/mL 07/18/18 Range/Units 05:54 WBC (3.8-10.6) k/uL Neutrophils # (1.3-7.7) k/uL Sodium (137-145) mmol/L Potassium (3.5-5.1) mmol/L Chloride (98-107) mmol/L BUN (7-17) mg/dL Creatinine (0.52-1.04) mg/dL Glucose (74-99) mg/dL POC Glucose (mg/dL) 129 H (75-99) mg/dL Calcium (8.4-10.2) mg/dL Phosphorus (2.5-4.5) mg/dL Total Protein (PEP) (6.2-8.2) g/dL CA 15-3 Antigen (0.0-32.3) U/mL CA 27-29 (0.0-38.5) U/mL Microbiology - Last 24 Hours (Table) 07/16/18 08:00 Blood Culture - Preliminary Blood No Growth after 24 hours 07/16/18 12:37 CSF Gram Stain - Preliminary Cerebral Spinal Fluid CSF Culture - Preliminary Assessment and Plan Plan: Assessment: 1. Acute kidney injury secondary to ATN secondary to hypercalcemia and nonsteroidals. Creatinine was 1.85 on admission and is 1.24 today. Creatinine in March 2018 was near 1. Urine eosinophils negative. No hydronephrosis noted on renal ultrasound. 2. Hypercalcemia secondary to malignancy. Also component of calcium supplementation and volume contraction. Improving. PTH was 30.6 which is still high for the level of hypercalcemia. Vitamin D 64. 3. Hypokalemia from poor oral intake. 4. Hypernatremia secondary to lack of oral water intake. Improving. 5. History of breast cancer. CAT scan this admission revealed extensive osseous metastasis. Oncology following. Plan: Maintain D5W to be run at 125 mL an hour. Follow-up 125 D3 level as well as electrophoresis studies. Follow-up AISSATOU and PTHrp. Maintain calcitonin for now. S/p pamidronate 60 mg 07/16. Replace potassium. 60 mg today.
[2018-07-18] MEDS ORDERED: POTASSIUM CHLORIDE 20 MEQ in WATER FOR INJECTION 1 100ML.BAG IVPB ONE (11:00)
[2018-07-18 11:27] LABS: Albumin 2.97 g/dL (3.80-4.90); Gamma Globulin 0.82 g/dL (0.70-1.50)
[2018-07-18] MEDS: CLEVIDIPINE BUTYRATE 25 MG in EMPTY BAG 1 BAG IV SCH ×3 (11:54→23:51)
[2018-07-18 12:19] LABS: Glucose,Whole Blood 114 mg/dL (75-99)
--- NOTE | 2018-07-18 13:58 | P.PN ---
Subjective Progress Note Date: 07/18/18 This is a 63-year-old female patient was brought into the emergency department unresponsive. I cannot obtain any information from the patient and information was obtained from the . The patient has received her previous care at [facility] and [facility] and as the patient moved to closer location to [place] the patient started coming into our hospital. She has a history of breast cancer and she has undergone bilateral mastectomy back in 2010 following that she had received Arimidex. According to the , he is not aware if there was any progression of her disease or breast cancer. The patient has been gradually getting worse pressure over the past 1 month. She had becoming progressively more weak, lethargic, tired, had been unsteady, on and off walking, and confused and over the past 3 days the patient became progressively more lethargic to the point where she became completely unresponsive and she was unable to eat and meter daily functions. For that reason the patient was brought into the hospital. In the ED, the patient was febrile. She was completely unresponsive. On and off she was moaning. There has been also history of ongoing pain which has been progressively getting worse. The patient had chest pain sternal pain in addition to back pain which was thought to be related to sciatica. The patient was found to have marked abnormal findings on her blood work. She was found to have hypercalcemia with a calcium level of 18. He was also found to have hyponatremia. She was in acute kidney injury. The patient was severely dehydrated. CAT scan of the brain was done that showed no acute abnormalities. Nevertheless, it showed subtle lucency in the left and the right calvarium consistent with lytic lesions. There was also some subarachnoid granulation within the calvarium. Based on that, at the patient to have a CAT scan of the chest abdomen and pelvis which got completed in the emergency department and the patient was found to have extensive osseous metastases. There was multiple mesenteric lesions within the vertebral body of the lumbar spine but also present in the lower thoracic and the midthoracic regions and some in the upper thoracic region. There was also sclerotic lesions within the left rib. An old rib fracture was present on the right at the level of T11. A mid sternal infection was also present. Compression fracture deformity at the level of L2 and T9 was also seen. Based on all this, the patient was started on aggressive IV fluid resuscitation. She had already received 3 L of IV fluids in the emergency department. I recommended an additional 2 L. I gave her a dose of pamidronate which has not been infused yet. The patient was started on IV Decadron and she was started also on Miacalcin 200 units IM twice a day. Had oral mucous membranes are extremely dry. Lumbar puncture was also done and the findings are essentially negative thus far. She was given IV Rocephin as empiric antibiotic coverage. She'll be moved to the intensive care unit for now. On today's evaluation of 07/17/2018 the patient Is being seen in follow-up. I met the family again in the ICU. I was able to retrieve some of the records from her oncologist office. Apparently the patient had a stage II breast cancer treated with surgery and following that she was placed on hormonal treatment. She had an ER/[place] positive disease with a HER-2 new negative disease. I also noted that her last calcium level at her oncologist office was borderline elevated. She progressively developed his hypercalcemia. She is currently being resuscitated IV fluids. The patient was switched to half- normal saline and subsequently to D5 water as the patient developed some hypernatremia. She has received pamidronate. She was given also calcitonin. Her most recent calcium level is down to 12.7. Neurologically, she is slightly more awake yet still not fully responsive. No neck stiffness. No fever or chills. The CSF findings showed a glucose of 74 and the protein was slightly elevated at 62 and the nucleated cells were negative. The cultures are also negative. Meanwhile, the patient is undergoing an investigation regarding his hypercalcemia. Serum protein electrophoresis and immune freezes were sent. Oncology consultation was also requested. Intact PTH is low. CAT scan of the brain was negative. He developed some hypertensive reaction overnight. For that reason the patient was started on side effects drip which is currently running at 1 mg an hour. The patient is also on empiric antibiotic coverage with IV ceftriaxone. The patient is on DVT and GI prophylaxis. On today's evaluation, the patient is noted to be slightly more awake compared to yesterday. She was able to mention her name and her 's name. She is not agitated. She seems to be gradually recovering her mentation. However she is not fully alert and appropriate for the time being. The patient is on D5 water and her sodium level is improving. Calcium level is also down to 11.3. The patient has no fever. She is on drip for blood pressure control. She is not fully awake for feeding or oral intake yet. Family is at the bedside. The tumor markers including the CA 15 3 and CA-27-29 are both elevated. CSF cultures are negative. The patient's renal function is stable and is improving and the creatinine is down to 1.24. She is much better hydrated for now. Objective - Vital Signs Vital signs: Vital Signs Temp 97.5 F L 07/18/18 12:00 Pulse 118 H 07/18/18 12:00 Resp 18 07/18/18 12:00 BP 159/97 07/18/18 12:00 Pulse Ox 91 L 07/18/18 12:00 Intake & Output 07/17/18 07/18/18 07/18/18 18:59 06:59 18:59 Intake Total 2463.266 8977.865 9185.2 Output Total 1195 1310 445 Balance 1268.266 882.181 8872.2 Weight 74.6 kg Intake: IV 2425 1750 1750 .9 150 150 Dextrose 5% in Water 1, 1125 1500 750 000 ml @ 125 mls/hr IV . Q8H [facility] Rx#:[id number] Magnesium Sulfate-D5w Pmx 200 300 1 gm In Dextrose/Water 1 100ml.bag @ 100 mls/hr IVPB Q1H [facility] Rx#: [id number] Potassium Chloride 10 meq 400 500 In Water For Injection 1 100ml.bag @ 100 mls/hr IVPB Q1HR [facility] Rx#: [id number] Potassium Chloride 20 meq 100 In Water For Injection 1 100ml.bag @ 50 mls/hr IVPB ONCE ONE Rx#: [id number] Potassium Phosphate 10 250 250 mmol In Sodium Chloride 0 .9% 250 ml @ 125 mls/hr IV Q2H [facility] Rx#:[id number] Sodium Chloride 0.45% 1, 300 000 ml @ 150 mls/hr IV . Q6H40M [facility] Rx#:[id number] cefTRIAXone 1 gm In 100 Sodium Chloride 0.9% 50 ml @ 100 mls/hr IVPB Q24HR [facility] Rx#:[id number] Intake, IV Titration 38.266 66.800 12.2 Amount Clevidipine Butyrate 25 38.266 66.800 12.2 mg In Empty Bag 1 bag @ 1 MG/HR 2 mls/hr IV .Q24H [facility] Rx#:[id number] Output: Urine 1195 1310 445 Other: Voiding Method Indwelling Catheter Indwelling Catheter Indwelling Catheter - Exam The patient is more responsive compared to yesterday, and the patient was able to follow some commands. She is oriented to self not to place and time. Head exam was generally normal. There was no scleral icterus or corneal arcus. Mucous membranes were moist. No neck stiffness. Neck was supple and without jugular venous distension, thyromegaly, or carotid bruits. Carotids were easily palpable bilaterally. There was no adenopathy. The patient has significant dryness of the oral mucosa. Lungs were clear to auscultation and percussion, and with normal diaphragmatic excursion. No wheezes or rales were noted. Cardiac exam revealed the PMI to be normally situated and sized. The rhythm was regular and no extrasystoles were noted during several minutes of auscultation. The first and second heart sounds were normal and physiologic splitting of the second heart sound was noted. There were no murmurs, rubs, clicks, or gallops. Abdominal exam revealed normal bowel sounds. The abdomen was soft, non-tender, and without masses, organomegaly, or appreciable enlargement of the abdominal aorta. Examination of the extremities revealed easily palpable radial, femoral and pedal pulses. There was no cyanosis, clubbing or edema. Examination of the skin revealed no evidence of significant rashes, suspicious appearing nevi or other concerning lesions. The patient has scars of previous mastectomy bilaterally. Palpation of the axillary area and the supra clavicular area reveals no evidence of any lymphadenopathy. Neurologically, the patien is confused although much more alert and interactive compared to yesterday. She is not restless. She is comfortable in bed.. She is able to talk. Worse but she is not making sense and she is moving moving all 4 extremities. No Babinski. No clonus. - Labs CBC & Chem 7: 07/18/18 05:22 07/18/18 05:22 Labs: Abnormal Lab Results - Last 24 Hours (Table) 07/17/18 07/17/18 07/17/18 Range/Units 05:00 11:37 17:11 WBC (3.8-10.6) k/uL Neutrophils # (1.3-7.7) k/uL Sodium 152 H (137-145) mmol/L Potassium (3.5-5.1) mmol/L Chloride (98-107) mmol/L BUN (7-17) mg/dL Creatinine (0.52-1.04) mg/dL Glucose 112 H (74-99) mg/dL POC Glucose (mg/dL) (75-99) mg/dL Calcium (8.4-10.2) mg/dL Albumin (PEP) 2.97 L (3.80-4.90) g/dL Wexgt-3-Fmkhpmzlx 1.02 H (0.60-1.00) g/dL CA 15-3 Antigen 975.5 H (0.0-32.3) U/mL CA 27-29 937.0 H (0.0-38.5) U/mL 07/18/18 07/18/18 07/18/18 Range/Units 01:21 05:22 05:22 WBC 15.9 H (3.8-10.6) k/uL Neutrophils # 12.3 H (1.3-7.7) k/uL Sodium 149 H (137-145) mmol/L Potassium 3.3 L (3.5-5.1) mmol/L Chloride 114 H (98-107) mmol/L BUN 32 H (7-17) mg/dL Creatinine 1.24 H (0.52-1.04) mg/dL Glucose 154 H (74-99) mg/dL POC Glucose (mg/dL) 128 H (75-99) mg/dL Calcium 11.3 H (8.4-10.2) mg/dL Albumin (PEP) (3.80-4.90) g/dL Qeewg-6-Uqwyrcjma (0.60-1.00) g/dL CA 15-3 Antigen (0.0-32.3) U/mL CA 27-29 (0.0-38.5) U/mL 07/18/18 07/18/18 Range/Units 05:54 12:17 WBC (3.8-10.6) k/uL Neutrophils # (1.3-7.7) k/uL Sodium (137-145) mmol/L Potassium (3.5-5.1) mmol/L Chloride (98-107) mmol/L BUN (7-17) mg/dL Creatinine (0.52-1.04) mg/dL Glucose (74-99) mg/dL POC Glucose (mg/dL) 129 H 114 H (75-99) mg/dL Calcium (8.4-10.2) mg/dL Albumin (PEP) (3.80-4.90) g/dL Szqaw-2-Iorrzxhnv (0.60-1.00) g/dL CA 15-3 Antigen (0.0-32.3) U/mL CA 27-29 (0.0-38.5) U/mL Microbiology - Last 24 Hours (Table) 07/16/18 12:37 CSF Gram Stain - Preliminary Cerebral Spinal Fluid CSF Culture - Preliminary 07/16/18 08:00 Blood Culture - Preliminary Blood No Growth after 48 hours Assessment and Plan Plan: Assessment 1 acute hypercalcemia with profound dehydration and intravascular volume depletion. The cause of the hypercalcemia is related to metastatic skeletal/ osseous involvement. The primary malignancy of origin is not clear. Could be related to metastatic breast cancer knowing that the patient has history of breast cancer and she is bilateral mastectomy back in 2010. Nevertheless, other solid tumors that have been metastatic to the skeletal system cannot be ruled out. Myeloma is within the differential diagnosis. On 07/17/2018, the patient is was resuscitated IV fluids. The patient's calcium level is up to 12.7. The workup is in progress. Of concern is mental status which has not fully recovered yet. The patient is still confused. There is some progress in the mentation yet she is not making any sense.. I am concerned knowing that the electrodes are improving and her mentation should improve along with that. Will proceed with an MRI of the brain with the next 12 hours if there is no for the recovery of her mentation. On 07/18/2018, the patient continues to BE resuscitated. Electrolyte imbalance has improved in calcium level continues to improve. The patient also is on D5 water regarding her hypernatremia. This is most likely consistent with metastatic disease with hypercalcemia related to skeletal metastases. His serum markers for breast cancer including CA 15 3 and 27- 29 are both elevated. Oncology is on the case. 2 acute kidney injury secondary to massive dehydration and intravascular volume depletion, improving 3 acute hypernatremia currently on D5 water, improving 4 altered mentation secondary to above, see discussion above, improving although not fully alert and appropriate.. Rule out [employer] metastases. Rule out paraneoplastic syndrome. 5 history of breast cancer with bilateral mastectomy 2010 followed by Arimidex treatment 6 hypothyroidism 7 COPD which is currently inactive in stable 8 back pain related to skeletal metastases Plan Continue D5 water. Order an MRI of the brain once the patient is much more rested and appropriate. I don't think she'll be staying still in the MRI machine yet. She will need a bone scan to later stage. Continue fluid resuscitation. Continue blood pressure management. Renal function is improving. Sodium level is improved. Calcium level is improved. Oncology is on the case. Not ready for oral intake yet. We'll continue to follow.
--- NOTE | 2018-07-18 14:39 | P.PN ---
Subjective 63-year-old female admitted secondary to unresponsiveness lethargy secondary to hypercalcemia, acute renal failure. Patient received calcitonin and pamidronate , improved serum calcium to 12 can you with IV fluids but IV fluids were switched to D5 water because of elevated serum sodium and chloride. Creatinine improved from 1.8-1.4. Troponin remained stable. AST and ALT are bit elevated which is a nonspecific elevation is still significant other provided abnormalities which we are correcting slowly. Patient is little bit more responsive than yesterday still unable to provide any history still bit lethargic was evaluated with pulmonology, nephrology, oncology. 07/18/2018 Patient mental status significant improvement competitors today patient is almost alert oriented 2 able to tell her name she says she does remember me. Her for hypercalcemia is improving creatinine improved. Patient tumor markers are consistent with recurrence of breast cancer.CC is approved is not significantly elevated the other differential being leptomeningeal involvement possibly is extremely low as the as the CSF protein is not very high, he waking CSF cytology. There was an addendum added to the CAT scan of the hand which cannot completely rule out metastatic disease to the brain patient will need an MRI. Patient is already on Decadron which will be continued. Possibility of paraneoplastic syndromes is low Objective - Vital Signs Vital signs: Vital Signs Temp 97.5 F L 07/18/18 12:00 Pulse 118 H 07/18/18 12:00 Resp 18 07/18/18 12:00 BP 159/97 07/18/18 12:00 Pulse Ox 91 L 07/18/18 12:00 Intake & Output 07/17/18 07/18/18 07/18/18 18:59 06:59 18:59 Intake Total 2463.266 8137.036 8266.2 Output Total 1195 1310 445 Balance 1268.266 873.539 2680.2 Weight 74.6 kg Intake: IV 2425 1750 1750 .9 150 150 Dextrose 5% in Water 1, 1125 1500 750 000 ml @ 125 mls/hr IV . Q8H [facility] Rx#:[id number] Magnesium Sulfate-D5w Pmx 200 300 1 gm In Dextrose/Water 1 100ml.bag @ 100 mls/hr IVPB Q1H [facility] Rx#: [id number] Potassium Chloride 10 meq 400 500 In Water For Injection 1 100ml.bag @ 100 mls/hr IVPB Q1HR [facility] Rx#: [id number] Potassium Chloride 20 meq 100 In Water For Injection 1 100ml.bag @ 50 mls/hr IVPB ONCE ONE Rx#: [id number] Potassium Phosphate 10 250 250 mmol In Sodium Chloride 0 .9% 250 ml @ 125 mls/hr IV Q2H [facility] Rx#:[id number] Sodium Chloride 0.45% 1, 300 000 ml @ 150 mls/hr IV . Q6H40M [facility] Rx#:[id number] cefTRIAXone 1 gm In 100 Sodium Chloride 0.9% 50 ml @ 100 mls/hr IVPB Q24HR [facility] Rx#:[id number] Intake, IV Titration 38.266 66.800 12.2 Amount Clevidipine Butyrate 25 38.266 66.800 12.2 mg In Empty Bag 1 bag @ 1 MG/HR 2 mls/hr IV .Q24H [facility] Rx#:[id number] Output: Urine 1195 1310 445 Other: Voiding Method Indwelling Catheter Indwelling Catheter Indwelling Catheter - Exam PHYSICAL EXAMINATION: GENERAL: patient is alert oriented 2 still quite a bit confused. Able to protect the airway, he appears to be lethargic HEENT: Pupils are round and equally reacting to light. EOMI. No scleral icterus. No conjunctival pallor. Normocephalic, atraumatic. No pharyngeal erythema. No thyromegaly. CARDIOVASCULAR: S1 and S2 present. No murmurs, rubs, or gallops. PULMONARY: Chest is clear to auscultation, no wheezing or crackles. ABDOMEN: Soft, nontender, nondistended, normoactive bowel sounds. No palpable organomegaly. MUSCULOSKELETAL: No joint swelling or deformity. EXTREMITIES: No cyanosis, clubbing, or pedal edema. NEUROLOGICAL: Patient is moving all 4 limbs unable to assess rest of the neuro system SKIN: No rashes. - Labs CBC & Chem 7: 07/18/18 05:22 07/18/18 05:22 Labs: Abnormal Lab Results - Last 24 Hours (Table) 07/17/18 07/17/18 07/17/18 Range/Units 05:00 11:37 17:11 WBC (3.8-10.6) k/uL Neutrophils # (1.3-7.7) k/uL Sodium 152 H (137-145) mmol/L Potassium (3.5-5.1) mmol/L Chloride (98-107) mmol/L BUN (7-17) mg/dL Creatinine (0.52-1.04) mg/dL Glucose 112 H (74-99) mg/dL POC Glucose (mg/dL) (75-99) mg/dL Calcium (8.4-10.2) mg/dL Albumin (PEP) 2.97 L (3.80-4.90) g/dL Whgiv-4-Yagkjtzkt 1.02 H (0.60-1.00) g/dL CA 15-3 Antigen 975.5 H (0.0-32.3) U/mL CA 27-29 937.0 H (0.0-38.5) U/mL 07/18/18 07/18/18 07/18/18 Range/Units 01:21 05:22 05:22 WBC 15.9 H (3.8-10.6) k/uL Neutrophils # 12.3 H (1.3-7.7) k/uL Sodium 149 H (137-145) mmol/L Potassium 3.3 L (3.5-5.1) mmol/L Chloride 114 H (98-107) mmol/L BUN 32 H (7-17) mg/dL Creatinine 1.24 H (0.52-1.04) mg/dL Glucose 154 H (74-99) mg/dL POC Glucose (mg/dL) 128 H (75-99) mg/dL Calcium 11.3 H (8.4-10.2) mg/dL Albumin (PEP) (3.80-4.90) g/dL Uosll-2-Mihkcrgou (0.60-1.00) g/dL CA 15-3 Antigen (0.0-32.3) U/mL CA 27-29 (0.0-38.5) U/mL 07/18/18 07/18/18 Range/Units 05:54 12:17 WBC (3.8-10.6) k/uL Neutrophils # (1.3-7.7) k/uL Sodium (137-145) mmol/L Potassium (3.5-5.1) mmol/L Chloride (98-107) mmol/L BUN (7-17) mg/dL Creatinine (0.52-1.04) mg/dL Glucose (74-99) mg/dL POC Glucose (mg/dL) 129 H 114 H (75-99) mg/dL Calcium (8.4-10.2) mg/dL Albumin (PEP) (3.80-4.90) g/dL Fiscm-1-Vwsohmmdl (0.60-1.00) g/dL CA 15-3 Antigen (0.0-32.3) U/mL CA 27-29 (0.0-38.5) U/mL Microbiology - Last 24 Hours (Table) 07/16/18 12:37 CSF Gram Stain - Preliminary Cerebral Spinal Fluid CSF Culture - Preliminary 07/16/18 08:00 Blood Culture - Preliminary Blood No Growth after 48 hours Assessment and Plan Plan: -Altered mental status, unresponsiveness: Secondary to severe metabolic encephalopathy from acute renal failure lactic acidosis and hypercalcemia. All of these are improving at this timewe'll continue with IV fluids D5 water. Continue Decadron. Metastatic disease to the brain cannot be ruled out will obtain MRI and patient is bit more stable to get an MRI. -Hypercalcemia: Probably secondary to metastatic breast cancer which may have relapsed now oncology, tumor markers are consistent with breast cancer patient did receive calcitonin, pamidronate continue with the IV fluids nephrology evaluated the patient PTH levels are normal but such a high calcium PTH levels are expected to be low -Acute renal failure possibly multifactorial 1 prerenal azotemia from severe intravascular depletion dehydration, #2 hypercalcemia related to tubular injury , #3 ibuprofen. Ultrasound of the kidney did not see show any obstructive process, serum creatinine improving -Hydronephrosis: Although there is no evidence of urinary tract infection although continue with the ceftriaxone for now. Ceftriaxone probably can be discontinued -Hypothyroidism with elevated free T4 and low TSH levothyroxine dose was cut down. -Low back pain, radicular pain with extensive osseous metastasis mild compression deformities at L2 T9, will start her on Decadron. -Possible relapsed of breast cancer: Oncology evaluated the patient -Hypertension patient was started on IV calcium channel maribell but will titrated to a higher blood pressure until her kidney function recovers Patient will need pharmacologic GI and DVT prophylaxis
[2018-07-18 18:15] LABS: Glucose,Whole Blood 116 mg/dL (75-99)
--- NOTE | 2018-07-18 22:55 | P.PN ---
Subjective Progress Note Date: 07/18/18 Pt is now awake and verbal. She is still confused and intermittently lethargic. Per physician notes, she has been AO x 2 off and on. No f/c/n/v. Pain appears to be controlled Objective - Vital Signs Vital signs: Vital Signs Temp 98.4 F 07/18/18 20:00 Pulse 113 H 07/18/18 21:00 Resp 29 H 07/18/18 21:00 BP 154/96 07/18/18 21:00 Pulse Ox 91 L 07/18/18 21:00 Intake & Output 07/18/18 07/18/18 07/19/18 06:59 18:59 06:59 Intake Total 7863.673 0919.000 375 Output Total 1310 1005 190 Balance 176.850 9350.000 185 Weight 74.6 kg Intake: IV 1750 2500 375 Dextrose 5% in Water 1, 1500 1500 375 000 ml @ 125 mls/hr IV . Q8H [facility] Rx#:[id number] Magnesium Sulfate-D5w Pmx 300 1 gm In Dextrose/Water 1 100ml.bag @ 100 mls/hr IVPB Q1H [facility] Rx#: [id number] Potassium Chloride 10 meq 500 In Water For Injection 1 100ml.bag @ 100 mls/hr IVPB Q1HR [facility] Rx#: [id number] Potassium Chloride 20 meq 100 In Water For Injection 1 100ml.bag @ 50 mls/hr IVPB ONCE ONE Rx#: [id number] Potassium Phosphate 10 250 mmol In Sodium Chloride 0 .9% 250 ml @ 125 mls/hr IV Q2H [facility] Rx#:[id number] cefTRIAXone 1 gm In 100 Sodium Chloride 0.9% 50 ml @ 100 mls/hr IVPB Q24HR [facility] Rx#:[id number] Intake, IV Titration 66.800 59.000 Amount Clevidipine Butyrate 25 66.800 59.000 mg In Empty Bag 1 bag @ 1 MG/HR 2 mls/hr IV .Q24H [facility] Rx#:[id number] Output: Urine 1310 1005 190 Other: Voiding Method Indwelling Catheter Indwelling Catheter Indwelling Catheter - Constitutional General appearance: Present: no acute distress - EENT Eyes: Present: EOMI ENT: Present: hearing grossly normal, normal oropharynx - Respiratory Respiratory: bilateral: CTA - Cardiovascular Rhythm: regular Heart sounds: normal: S1, S2 - Gastrointestinal General gastrointestinal: Present: normal bowel sounds, soft - Integumentary Integumentary: Present: normal - Neurologic Neurologic: Present: CNII-XII intact - Musculoskeletal Musculoskeletal: Present: generalized weakness, strength equal bilaterally - Psychiatric Psychiatric Comment(s): As noted above - Labs CBC & Chem 7: 07/18/18 05:22 07/18/18 17:20 Labs: Abnormal Lab Results - Last 24 Hours (Table) 07/17/18 07/17/18 07/18/18 Range/Units 05:00 05:00 01:21 WBC (3.8-10.6) k/uL Neutrophils # (1.3-7.7) k/uL Sodium (137-145) mmol/L Potassium (3.5-5.1) mmol/L Chloride (98-107) mmol/L BUN (7-17) mg/dL Creatinine (0.52-1.04) mg/dL Glucose (74-99) mg/dL POC Glucose (mg/dL) 128 H (75-99) mg/dL Calcium (8.4-10.2) mg/dL Albumin (PEP) 2.97 L (3.80-4.90) g/dL Pvsfo-5-Tbvxmgjys 1.02 H (0.60-1.00) g/dL Vit D 1,25-Dihydroxy 16 L (20 - 79) pg/mL 07/18/18 07/18/18 07/18/18 Range/Units 05:22 05:22 05:54 WBC 15.9 H (3.8-10.6) k/uL Neutrophils # 12.3 H (1.3-7.7) k/uL Sodium 149 H (137-145) mmol/L Potassium 3.3 L (3.5-5.1) mmol/L Chloride 114 H (98-107) mmol/L BUN 32 H (7-17) mg/dL Creatinine 1.24 H (0.52-1.04) mg/dL Glucose 154 H (74-99) mg/dL POC Glucose (mg/dL) 129 H (75-99) mg/dL Calcium 11.3 H (8.4-10.2) mg/dL Albumin (PEP) (3.80-4.90) g/dL Wfall-6-Pcgckfekx (0.60-1.00) g/dL Vit D 1,25-Dihydroxy (20 - 79) pg/mL 07/18/18 07/18/18 Range/Units 12:17 17:59 WBC (3.8-10.6) k/uL Neutrophils # (1.3-7.7) k/uL Sodium (137-145) mmol/L Potassium (3.5-5.1) mmol/L Chloride (98-107) mmol/L BUN (7-17) mg/dL Creatinine (0.52-1.04) mg/dL Glucose (74-99) mg/dL POC Glucose (mg/dL) 114 H 116 H (75-99) mg/dL Calcium (8.4-10.2) mg/dL Albumin (PEP) (3.80-4.90) g/dL Djytb-5-Vnshijesq (0.60-1.00) g/dL Vit D 1,25-Dihydroxy (20 - 79) pg/mL Microbiology - Last 24 Hours (Table) 07/16/18 12:37 CSF Gram Stain - Preliminary Cerebral Spinal Fluid CSF Culture - Preliminary 07/16/18 08:00 Blood Culture - Preliminary Blood No Growth after 48 hours Assessment and Plan (1) Hypercalcemia Narrative/Plan: Continues to improve, to 11.3 today. S/P Pamidronate. Continue Iv hydration, calcitonin. Current Visit: Yes Status: Acute Code(s): E83.52 - HYPERCALCEMIA SNOMED Code(s): 72832951 (2) Renal insufficiency Narrative/Plan: This is improving with ongoing hydration and correction of ca++ Current Visit: Yes Status: Acute Code(s): N28.9 - DISORDER OF KIDNEY AND URETER, UNSPECIFIED SNOMED Code(s): 244217434 (3) Carcinoma of breast metastatic to bone Narrative/Plan: Breast ca Tumor markers are elevated in the [address] CAP did not show any visceral lesions. The clinical picture is most c/w metastatic recurrence of breast cancer. Pt has received Pamidronate. Plan for biopsy if possible, when pt is more stable Check bone scan for baseline Current Visit: Yes Status: Acute Code(s): C50.919 - MALIGNANT NEOPLASM OF UNSP SITE OF UNSPECIFIED FEMALE BREAST; C79.51 - SECONDARY MALIGNANT NEOPLASM OF BONE SNOMED Code(s): 404455185 (4) Mental status alteration Narrative/Plan: Most likely due to hypercalcemia, given improvement with reduction in Ca++. Case d/w IM, and Pulmonary medicine in detail. The mental status improvement can lag by 1-2 days behind the normalisation of ca++. CSF analysis so far is not s/o carcinomatosis. Await cytology. CT scan of the brain shows skull mets, but no parenchymal lesions. If mental status remains impaired after correction of Ca++, MRI will be ordered Current Visit: Yes Status: Acute Code(s): R41.82 - ALTERED MENTAL STATUS, UNSPECIFIED SNOMED Code(s): 615881187 Plan: Case d/w family
[2018-07-19 00:17] LABS: Glucose,Whole Blood 122 mg/dL (75-99)
[2018-07-19] MEDS: DEXTROSE 5% IN WATER 1,000 ML IV SCH ×3 (02:00→21:09)
[2018-07-19] MEDS: CLEVIDIPINE BUTYRATE 25 MG in EMPTY BAG 1 BAG IV SCH ×4 (04:28→21:07)
[2018-07-19 05:08] LABS: Basophils # (A) 0.1 k/uL (0-0.2); Basophils % (A) 1 %; Eosinophils # (A) 0.2 k/uL (0-0.7); Eosinophils % (A) 1 %; HCT 44.2 % (34.0-46.0); HGB 14.4 gm/dL (11.4-16.0); Lymphocytes # (A) 2.3 k/uL (1.0-4.8); Lymphocytes % (A) 16 %; MCHC 32.5 g/dL (31.0-37.0); MCV 92.3 fL (80.0-100.0); Mean Platelet Volume 6.5; Monocytes # (A) 0.4 k/uL (0-1.0); Monocytes % (A) 3 %; Neutrophils # (A) 11.7 k/uL (1.3-7.7); Neutrophils % (A) 79 %; Platelet Count 291 k/uL (150-450); RBC 4.79 m/uL (3.80-5.40); RDW 14.8 % (11.5-15.5); WBC 14.7 k/uL (3.8-10.6)
[2018-07-19 05:24] LABS: Calcium 9.5 mg/dL (8.4-10.2); Magnesium 1.9 mg/dL (1.6-2.3); Phosphorus 2.6 mg/dL (2.5-4.5)
[2018-07-19] MEDS: MAGNESIUM SULFATE-D5W PMX 1 GM in DEXTROSE/WATER 1 100ML.BAG IVPB SCH ×2 (05:44→06:55)
[2018-07-19] MEDS: DEXAMETHASONE SOD PHOSPHATE 4 MG/ML 1 ML VIAL IV SCH ×2 (05:45→11:46)
[2018-07-19] MEDS: HEPARIN SODIUM,PORCINE 5,000 UNIT/ML 1 ML VIAL SQ SCH ×2 (08:21→15:47)
[2018-07-19] MEDS: LEVOTHYROXINE IVP 100 MCG/5 ML VIAL IV SCH (08:21)
[2018-07-19] MEDS: CALCITONIN INJ 200 UNIT/ML (MDV) VIAL IM SCH ×2 (08:24→21:33)
[2018-07-19] MEDS: PANTOPRAZOLE 40 MG/10 ML VIAL IVP SCH (08:24)
[2018-07-19] MEDS: amLODIPine 5 MG TAB PO SCH (10:41)
--- NOTE | 2018-07-19 11:41 | P.PN ---
Subjective Progress Note Date: 07/19/18 Seen and examined for the follow-up of acute kidney injury and hypercalcemia. Today seems to be appropriate as per the nursing staff and the family. Talking in full sentences but at times getting confused. No nausea vomiting or diarrhea. Good urine output. Objective - Vital Signs Vital signs: Vital Signs Temp 97.5 F L 07/19/18 08:00 Pulse 106 H 07/19/18 11:00 Resp 26 H 07/19/18 11:00 BP 142/103 07/19/18 11:00 Pulse Ox 91 L 07/19/18 11:00 Intake & Output 07/18/18 07/19/18 07/19/18 18:59 06:59 18:59 Intake Total 2559.000 1689.234 475 Output Total 1005 965 190 Balance 1554.000 724.234 285 Weight 78.3 kg Intake: IV 2500 1500 475 Dextrose 5% in Water 1, 1500 1500 375 000 ml @ 125 mls/hr IV . Q8H [facility] Rx#:[id number] Magnesium Sulfate-D5w Pmx 300 1 gm In Dextrose/Water 1 100ml.bag @ 100 mls/hr IVPB Q1H [facility] Rx#: [id number] Potassium Chloride 10 meq 500 In Water For Injection 1 100ml.bag @ 100 mls/hr IVPB Q1HR [facility] Rx#: [id number] Potassium Chloride 20 meq 100 In Water For Injection 1 100ml.bag @ 50 mls/hr IVPB ONCE ONE Rx#: [id number] cefTRIAXone 1 gm In 100 100 Sodium Chloride 0.9% 50 ml @ 100 mls/hr IVPB Q24HR [facility] Rx#:[id number] Intake, IV Titration 59.000 189.234 Amount Clevidipine Butyrate 25 59.000 89.234 mg In Empty Bag 1 bag @ 1 MG/HR 2 mls/hr IV .Q24H [facility] Rx#:[id number] Magnesium Sulfate-D5w Pmx 100 1 gm In Dextrose/Water 1 100ml.bag @ 100 mls/hr IVPB Q1H [facility] Rx#: [id number] Output: Urine 1005 965 190 Other: Voiding Method Indwelling Catheter Indwelling Catheter Indwelling Catheter - Exam No acute distress S1-S2 heard Lungs clear Paredes catheter Trace edema - Labs CBC & Chem 7: 07/19/18 04:51 07/19/18 04:51 Labs: Abnormal Lab Results - Last 24 Hours (Table) 07/16/18 07/17/18 07/18/18 Range/Units 11:12 05:00 12:17 WBC (3.8-10.6) k/uL Neutrophils # (1.3-7.7) k/uL Chloride (98-107) mmol/L BUN (7-17) mg/dL Creatinine (0.52-1.04) mg/dL Glucose (74-99) mg/dL POC Glucose (mg/dL) 114 H (75-99) mg/dL Vit D 1,25-Dihydroxy 16 L (20 - 79) pg/mL HSV I DNA PCR DETECTED H (Not detected) 07/18/18 07/18/18 07/19/18 Range/Units 17:59 23:50 04:51 WBC (3.8-10.6) k/uL Neutrophils # (1.3-7.7) k/uL Chloride 109 H (98-107) mmol/L BUN 28 H (7-17) mg/dL Creatinine 1.05 H (0.52-1.04) mg/dL Glucose 144 H (74-99) mg/dL POC Glucose (mg/dL) 116 H 122 H (75-99) mg/dL Vit D 1,25-Dihydroxy (20 - 79) pg/mL HSV I DNA PCR (Not detected) 07/19/18 Range/Units 04:51 WBC 14.7 H (3.8-10.6) k/uL Neutrophils # 11.7 H (1.3-7.7) k/uL Chloride (98-107) mmol/L BUN (7-17) mg/dL Creatinine (0.52-1.04) mg/dL Glucose (74-99) mg/dL POC Glucose (mg/dL) (75-99) mg/dL Vit D 1,25-Dihydroxy (20 - 79) pg/mL HSV I DNA PCR (Not detected) Microbiology - Last 24 Hours (Table) 07/16/18 08:00 Blood Culture - Preliminary Blood No Growth after 72 hours 07/16/18 12:37 CSF Gram Stain - Preliminary Cerebral Spinal Fluid CSF Culture - Preliminary Assessment and Plan Assessment: #1 acute kidney injury secondary to prerenal process/ATN from hypercalcemia. Creatinine close to baseline. #2 hypercalcemia suspect malignancy with lytic lesions on the skull. PTH appropriately high which also raises underlying hyper parathyroidism. #3 encephalopathy suspect metabolic from hypercalcemia improving #4 hypokalemia with hypophosphatemia secondary to poor oral intake and hypercalcemia. #5 hypertension #6 history of breast cancer. Plan: #1 renal function back to baseline, calcium is better in normal range. #2 mental status improving, encourage oral intake. #3 myeloma workup pending, appreciate oncology input #4 stop calcitonin by tomorrow if calcium within normal range. #5 currently on D5 water, can be stopped once oral intake is better. #6 repeat labs in the morning
[2018-07-19 12:06] LABS: Glucose,Whole Blood 120 mg/dL (75-99)
--- NOTE | 2018-07-19 13:44 | P.PN ---
Subjective Progress Note Date: 07/19/18 This is a 63-year-old female patient was brought into the emergency department unresponsive. I cannot obtain any information from the patient and information was obtained from the . The patient has received her previous care at [facility] and [facility] and as the patient moved to closer location to [place] the patient started coming into our hospital. She has a history of breast cancer and she has undergone bilateral mastectomy back in 2010 following that she had received Arimidex. According to the , he is not aware if there was any progression of her disease or breast cancer. The patient has been gradually getting worse pressure over the past 1 month. She had becoming progressively more weak, lethargic, tired, had been unsteady, on and off walking, and confused and over the past 3 days the patient became progressively more lethargic to the point where she became completely unresponsive and she was unable to eat and meter daily functions. For that reason the patient was brought into the hospital. In the ED, the patient was febrile. She was completely unresponsive. On and off she was moaning. There has been also history of ongoing pain which has been progressively getting worse. The patient had chest pain sternal pain in addition to back pain which was thought to be related to sciatica. The patient was found to have marked abnormal findings on her blood work. She was found to have hypercalcemia with a calcium level of 18. He was also found to have hyponatremia. She was in acute kidney injury. The patient was severely dehydrated. CAT scan of the brain was done that showed no acute abnormalities. Nevertheless, it showed subtle lucency in the left and the right calvarium consistent with lytic lesions. There was also some subarachnoid granulation within the calvarium. Based on that, at the patient to have a CAT scan of the chest abdomen and pelvis which got completed in the emergency department and the patient was found to have extensive osseous metastases. There was multiple mesenteric lesions within the vertebral body of the lumbar spine but also present in the lower thoracic and the midthoracic regions and some in the upper thoracic region. There was also sclerotic lesions within the left rib. An old rib fracture was present on the right at the level of T11. A mid sternal infection was also present. Compression fracture deformity at the level of L2 and T9 was also seen. Based on all this, the patient was started on aggressive IV fluid resuscitation. She had already received 3 L of IV fluids in the emergency department. I recommended an additional 2 L. I gave her a dose of pamidronate which has not been infused yet. The patient was started on IV Decadron and she was started also on Miacalcin 200 units IM twice a day. Had oral mucous membranes are extremely dry. Lumbar puncture was also done and the findings are essentially negative thus far. She was given IV Rocephin as empiric antibiotic coverage. She'll be moved to the intensive care unit for now. On today's evaluation of 07/17/2018 the patient Is being seen in follow-up. I met the family again in the ICU. I was able to retrieve some of the records from her oncologist office. Apparently the patient had a stage II breast cancer treated with surgery and following that she was placed on hormonal treatment. She had an ER/[place] positive disease with a HER-2 new negative disease. I also noted that her last calcium level at her oncologist office was borderline elevated. She progressively developed his hypercalcemia. She is currently being resuscitated IV fluids. The patient was switched to half- normal saline and subsequently to D5 water as the patient developed some hypernatremia. She has received pamidronate. She was given also calcitonin. Her most recent calcium level is down to 12.7. Neurologically, she is slightly more awake yet still not fully responsive. No neck stiffness. No fever or chills. The CSF findings showed a glucose of 74 and the protein was slightly elevated at 62 and the nucleated cells were negative. The cultures are also negative. Meanwhile, the patient is undergoing an investigation regarding his hypercalcemia. Serum protein electrophoresis and immune freezes were sent. Oncology consultation was also requested. Intact PTH is low. CAT scan of the brain was negative. He developed some hypertensive reaction overnight. For that reason the patient was started on side effects drip which is currently running at 1 mg an hour. The patient is also on empiric antibiotic coverage with IV ceftriaxone. The patient is on DVT and GI prophylaxis. On today's evaluation, the patient is noted to be slightly more awake compared to yesterday. She was able to mention her name and her 's name. She is not agitated. She seems to be gradually recovering her mentation. However she is not fully alert and appropriate for the time being. The patient is on D5 water and her sodium level is improving. Calcium level is also down to 11.3. The patient has no fever. She is on drip for blood pressure control. She is not fully awake for feeding or oral intake yet. Family is at the bedside. The tumor markers including the CA 15 3 and CA-27-29 are both elevated. CSF cultures are negative. The patient's renal function is stable and is improving and the creatinine is down to 1.24. She is much better hydrated for now. On 07/19/2018, the patient is obviously more awake. She is able to speak full sentences. She was able to recognize the place and her and family members. She is making more sense compared to yesterday although, was still feel that there is an underlying component of confusion there is still present. The patient has no fever or chills. The patient is less tachycardic compared to yesterday. She is able to swallow as the patient is more awake and we're going to provide diet for her. No fever or chills. No nausea or vomiting. Abdominal pain. No focal neurological deficit. She strong and she should be able to sit up on a chair. As mentioned earlier, the tumor markers are elevated is consistent with metastatic breast cancer with skeletal involvement. Calcium level has normalized. The patient is still on clevidipine drip which will be weaned off and the patient will be started on oral antihypertensive medication in the form of Norvasc. Objective - Vital Signs Vital signs: Vital Signs Temp 98.2 F 07/19/18 12:00 Pulse 98 07/19/18 13:00 Resp 15 07/19/18 13:00 BP 161/116 07/19/18 13:00 Pulse Ox 92 L 07/19/18 13:00 Intake & Output 07/18/18 07/19/18 07/19/18 18:59 06:59 18:59 Intake Total 2559.000 1689.234 900 Output Total 1005 965 410 Balance 1554.000 724.234 490 Weight 78.3 kg Intake: IV 2500 1500 850 Dextrose 5% in Water 1, 1500 1500 750 000 ml @ 125 mls/hr IV . Q8H [facility] Rx#:[id number] Magnesium Sulfate-D5w Pmx 300 1 gm In Dextrose/Water 1 100ml.bag @ 100 mls/hr IVPB Q1H [facility] Rx#: [id number] Potassium Chloride 10 meq 500 In Water For Injection 1 100ml.bag @ 100 mls/hr IVPB Q1HR [facility] Rx#: [id number] Potassium Chloride 20 meq 100 In Water For Injection 1 100ml.bag @ 50 mls/hr IVPB ONCE ONE Rx#: [id number] cefTRIAXone 1 gm In 100 100 Sodium Chloride 0.9% 50 ml @ 100 mls/hr IVPB Q24HR [facility] Rx#:[id number] Intake, IV Titration 59.000 189.234 50 Amount Clevidipine Butyrate 25 59.000 89.234 50 mg In Empty Bag 1 bag @ 1 MG/HR 2 mls/hr IV .Q24H [facility] Rx#:[id number] Magnesium Sulfate-D5w Pmx 100 1 gm In Dextrose/Water 1 100ml.bag @ 100 mls/hr IVPB Q1H [facility] Rx#: [id number] Output: Urine 1005 965 410 Other: Voiding Method Indwelling Catheter Indwelling Catheter Indwelling Catheter - Exam The patient is awake and alert with episodes of confusion. She is making much more sense and she seems to more oriented compared to yesterday. Head exam was generally normal. There was no scleral icterus or corneal arcus. Mucous membranes were moist. No neck stiffness. Neck was supple and without jugular venous distension, thyromegaly, or carotid bruits. Carotids were easily palpable bilaterally. There was no adenopathy. The patient has significant dryness of the oral mucosa. Lungs were clear to auscultation and percussion, and with normal diaphragmatic excursion. No wheezes or rales were noted. Cardiac exam revealed the PMI to be normally situated and sized. The rhythm was regular and no extrasystoles were noted during several minutes of auscultation. The first and second heart sounds were normal and physiologic splitting of the second heart sound was noted. There were no murmurs, rubs, clicks, or gallops. Abdominal exam revealed normal bowel sounds. The abdomen was soft, non-tender, and without masses, organomegaly, or appreciable enlargement of the abdominal aorta. Examination of the extremities revealed easily palpable radial, femoral and pedal pulses. There was no cyanosis, clubbing or edema. Examination of the skin revealed no evidence of significant rashes, suspicious appearing nevi or other concerning lesions. The patient has scars of previous mastectomy bilaterally. Palpation of the axillary area and the supra clavicular area reveals no evidence of any lymphadenopathy. Neurologically, episodic confusion yet overall improved compared to yesterday.. She is comfortable in bed.. She is able to talk. He is moving all 4 extremities. No focal neurological deficit. No Babinski. No clonus. - Labs CBC & Chem 7: 07/19/18 04:51 07/19/18 04:51 Labs: Abnormal Lab Results - Last 24 Hours (Table) 07/16/18 07/17/18 07/18/18 Range/Units 11:12 05:00 17:59 WBC (3.8-10.6) k/uL Neutrophils # (1.3-7.7) k/uL Chloride (98-107) mmol/L BUN (7-17) mg/dL Creatinine (0.52-1.04) mg/dL Glucose (74-99) mg/dL POC Glucose (mg/dL) 116 H (75-99) mg/dL Vit D 1,25-Dihydroxy 16 L (20 - 79) pg/mL HSV I DNA PCR DETECTED H (Not detected) 07/18/18 07/19/18 07/19/18 Range/Units 23:50 04:51 04:51 WBC 14.7 H (3.8-10.6) k/uL Neutrophils # 11.7 H (1.3-7.7) k/uL Chloride 109 H (98-107) mmol/L BUN 28 H (7-17) mg/dL Creatinine 1.05 H (0.52-1.04) mg/dL Glucose 144 H (74-99) mg/dL POC Glucose (mg/dL) 122 H (75-99) mg/dL Vit D 1,25-Dihydroxy (20 - 79) pg/mL HSV I DNA PCR (Not detected) 07/19/18 Range/Units 11:50 WBC (3.8-10.6) k/uL Neutrophils # (1.3-7.7) k/uL Chloride (98-107) mmol/L BUN (7-17) mg/dL Creatinine (0.52-1.04) mg/dL Glucose (74-99) mg/dL POC Glucose (mg/dL) 120 H (75-99) mg/dL Vit D 1,25-Dihydroxy (20 - 79) pg/mL HSV I DNA PCR (Not detected) Microbiology - Last 24 Hours (Table) 07/16/18 12:37 CSF Gram Stain - Preliminary Cerebral Spinal Fluid CSF Culture - Preliminary 07/16/18 08:00 Blood Culture - Preliminary Blood No Growth after 72 hours Assessment and Plan Plan: Assessment 1 acute hypercalcemia with profound dehydration and intravascular volume depletion. The cause of the hypercalcemia is related to metastatic skeletal/ osseous involvement. The primary malignancy of origin is not clear. Could be related to metastatic breast cancer knowing that the patient has history of breast cancer and she is bilateral mastectomy back in 2010. Nevertheless, other solid tumors that have been metastatic to the skeletal system cannot be ruled out. Myeloma is within the differential diagnosis. On 07/17/2018, the patient is was resuscitated IV fluids. The patient's calcium level is up to 12.7. The workup is in progress. Of concern is mental status which has not fully recovered yet. The patient is still confused. There is some progress in the mentation yet she is not making any sense.. I am concerned knowing that the electrodes are improving and her mentation should improve along with that. Will proceed with an MRI of the brain with the next 12 hours if there is no for the recovery of her mentation. On 07/18/2018, the patient continues to BE resuscitated. Electrolyte imbalance has improved in calcium level continues to improve. The patient also is on D5 water regarding her hypernatremia. This is most likely consistent with metastatic disease with hypercalcemia related to skeletal metastases. His serum markers for breast cancer including CA 15 3 and 27- 29 are both elevated. Oncology is on the case. On 07/19/2018 the patient's calcium level is normalized. The patient is currently on D5 water at the rate of 1 25 mL an hour and the patient's sodium level is also down to 142. 2 acute kidney injury secondary to massive dehydration and intravascular volume depletion, improving, recovered, the creatinine is down to 1.05 3 acute hypernatremia currently on D5 water, , recovered 4 altered mentation secondary to above, see discussion above, improving although not fully alert and appropriate.. Rule out [employer] metastases. Rule out paraneoplastic syndrome. The patient has shown ongoing improvement in mental status over the past 24-48 hours. Despite this improvement, she is still having some episodes of on and off confusion. 5 history of breast cancer with bilateral mastectomy 2010 followed by Arimidex treatment 6 hypothyroidism 7 COPD which is currently inactive in stable 8 back pain related to skeletal metastases Plan Advance diet. Kept on D5 water to 50 mL an hour. Sodium level is normalized. Calcium level is normalized. Carotids on the case. Advance diet. Bone scan once more comfortable and cooperative. Possibly also MRI of the brain. Continue calcitonin. Continue Rocephin. Kept on the Decadron dose to once a day. We'll follow.
--- NOTE | 2018-07-19 14:55 | P.PN ---
Subjective 63-year-old female admitted secondary to unresponsiveness lethargy secondary to hypercalcemia, acute renal failure. Patient received calcitonin and pamidronate , improved serum calcium to 12 can you with IV fluids but IV fluids were switched to D5 water because of elevated serum sodium and chloride. Creatinine improved from 1.8-1.4. Troponin remained stable. AST and ALT are bit elevated which is a nonspecific elevation is still significant other provided abnormalities which we are correcting slowly. Patient is little bit more responsive than yesterday still unable to provide any history still bit lethargic was evaluated with pulmonology, nephrology, oncology. 07/18/2018 Patient mental status significant improvement competitors today patient is almost alert oriented 2 able to tell her name she says she does remember me. Her for hypercalcemia is improving creatinine improved. Patient tumor markers are consistent with recurrence of breast cancer.CC is approved is not significantly elevated the other differential being leptomeningeal involvement possibly is extremely low as the as the CSF protein is not very high, he waking CSF cytology. There was an addendum added to the CAT scan of the hand which cannot completely rule out metastatic disease to the brain patient will need an MRI. Patient is already on Decadron which will be continued. Possibility of paraneoplastic syndromes is low 07/19/2018 Patient the has significant clinical improving more awake alert oriented 2-3 today. Although patient may need an MRI to rule out any metastatic disease and kidney function improved serum Creatinine improved to 1.0 serum calcium has come down with disc any calcitonin tomorrow. Constitutional: Denied any fatigue denied any fever. Cardio vascular: denied any chest pain, palpitations Gastrointestinal denied any nausea vomiting Pulmonary: Denied any shortness of breath cough Neurologic denied any new focal deficits All inpatient medications were reviewed and appropriate changes in these medications as dictated in the interval history and assessment and plan. Objective - Vital Signs Vital signs: Vital Signs Temp 98.2 F 07/19/18 12:00 Pulse 87 07/19/18 14:00 Resp 22 07/19/18 14:00 BP 135/83 07/19/18 14:00 Pulse Ox 91 L 07/19/18 14:00 Intake & Output 07/18/18 07/19/18 07/19/18 18:59 06:59 18:59 Intake Total 2559.000 5832.187 6939 Output Total 1005 965 520 Balance 1554.000 724.234 480 Weight 78.3 kg Intake: IV 2500 1500 950 Dextrose 5% in Water 1, 1500 1500 850 000 ml @ 50 mls/hr IV . Q20H [facility] Rx#:[id number] Magnesium Sulfate-D5w Pmx 300 1 gm In Dextrose/Water 1 100ml.bag @ 100 mls/hr IVPB Q1H [facility] Rx#: [id number] Potassium Chloride 10 meq 500 In Water For Injection 1 100ml.bag @ 100 mls/hr IVPB Q1HR [facility] Rx#: [id number] Potassium Chloride 20 meq 100 In Water For Injection 1 100ml.bag @ 50 mls/hr IVPB ONCE ONE Rx#: [id number] cefTRIAXone 1 gm In 100 100 Sodium Chloride 0.9% 50 ml @ 100 mls/hr IVPB Q24HR [facility] Rx#:[id number] Intake, IV Titration 59.000 189.234 50 Amount Clevidipine Butyrate 25 59.000 89.234 50 mg In Empty Bag 1 bag @ 1 MG/HR 2 mls/hr IV .Q24H [facility] Rx#:[id number] Magnesium Sulfate-D5w Pmx 100 1 gm In Dextrose/Water 1 100ml.bag @ 100 mls/hr IVPB Q1H [facility] Rx#: [id number] Output: Urine 1005 965 520 Other: Voiding Method Indwelling Catheter Indwelling Catheter Indwelling Catheter - Exam PHYSICAL EXAMINATION: GENERAL: patient is alert oriented 3 still, confusion significant improved Able to protect the airway, he appears to be lethargic HEENT: Pupils are round and equally reacting to light. EOMI. No scleral icterus. No conjunctival pallor. Normocephalic, atraumatic. No pharyngeal erythema. No thyromegaly. CARDIOVASCULAR: S1 and S2 present. No murmurs, rubs, or gallops. PULMONARY: Chest is clear to auscultation, no wheezing or crackles. ABDOMEN: Soft, nontender, nondistended, normoactive bowel sounds. No palpable organomegaly. MUSCULOSKELETAL: No joint swelling or deformity. EXTREMITIES: No cyanosis, clubbing, or pedal edema. NEUROLOGICAL: And appeared to have any focal deficits at this time SKIN: No rashes. - Labs CBC & Chem 7: 07/19/18 04:51 07/19/18 04:51 Labs: Abnormal Lab Results - Last 24 Hours (Table) 07/16/18 07/17/18 07/18/18 Range/Units 11:12 05:00 17:59 WBC (3.8-10.6) k/uL Neutrophils # (1.3-7.7) k/uL Chloride (98-107) mmol/L BUN (7-17) mg/dL Creatinine (0.52-1.04) mg/dL Glucose (74-99) mg/dL POC Glucose (mg/dL) 116 H (75-99) mg/dL Vit D 1,25-Dihydroxy 16 L (20 - 79) pg/mL HSV I DNA PCR DETECTED H (Not detected) 07/18/18 07/19/18 07/19/18 Range/Units 23:50 04:51 04:51 WBC 14.7 H (3.8-10.6) k/uL Neutrophils # 11.7 H (1.3-7.7) k/uL Chloride 109 H (98-107) mmol/L BUN 28 H (7-17) mg/dL Creatinine 1.05 H (0.52-1.04) mg/dL Glucose 144 H (74-99) mg/dL POC Glucose (mg/dL) 122 H (75-99) mg/dL Vit D 1,25-Dihydroxy (20 - 79) pg/mL HSV I DNA PCR (Not detected) 07/19/18 Range/Units 11:50 WBC (3.8-10.6) k/uL Neutrophils # (1.3-7.7) k/uL Chloride (98-107) mmol/L BUN (7-17) mg/dL Creatinine (0.52-1.04) mg/dL Glucose (74-99) mg/dL POC Glucose (mg/dL) 120 H (75-99) mg/dL Vit D 1,25-Dihydroxy (20 - 79) pg/mL HSV I DNA PCR (Not detected) Microbiology - Last 24 Hours (Table) 07/16/18 12:37 CSF Gram Stain - Preliminary Cerebral Spinal Fluid CSF Culture - Preliminary 07/16/18 08:00 Blood Culture - Preliminary Blood No Growth after 72 hours Assessment and Plan Plan: -Altered mental status, unresponsiveness: Secondary to severe metabolic encephalopathy from acute renal failure lactic acidosis and hypercalcemia. All of these are improving at this timewe'll continue with IV fluids D5 water. Continue Decadron. Metastatic disease to the brain cannot be ruled out will obtain MRI and patient is bit more stable to get an MRI. Decreasing IV fluids to 75 mL per hour -Hypercalcemia: Probably secondary to metastatic breast cancer which may have relapsed now oncology, tumor markers are consistent with breast cancer patient did receive calcitonin, pamidronate continue with the IV fluids nephrology evaluated the patient PTH levels are normal but such a high calcium PTH levels are expected to be low -Acute renal failure possibly multifactorial 1 prerenal azotemia from severe intravascular depletion dehydration, #2 hypercalcemia related to tubular injury , #3 ibuprofen. Ultrasound of the kidney did not see show any obstructive process, serum creatinine improving -Hydronephrosis: Although there is no evidence of urinary tract infection although continue with the ceftriaxone for now. Ceftriaxone probably can be discontinued -Hypothyroidism with elevated free T4 and low TSH levothyroxine dose was cut down. -Low back pain, radicular pain with extensive osseous metastasis mild compression deformities at L2 T9, will start her on Decadron. -Possible relapsed of breast cancer: Oncology evaluated the patient -Hypertension patient was started on IV calcium channel maribell but will titrated to a higher blood pressure until her kidney function recovers Patient will need pharmacologic GI and DVT prophylaxis
--- NOTE | 2018-07-19 15:18 | PN ---
PROGRESS NOTE DATE OF SERVICE: 07/19/2018 CHIEF COMPLAINT: Tired. Melanie is seen today in followup. She feels tired and weak, but overall she feels better since she has been admitted. She is less confused. She recognizes where she is -- the place, the surroundings -- and she does not appear to be in acute distress. Her vital signs are temperature 98.2, afebrile. Pulse 98, regular, respiration 15, blood pressure 161/116. Again, she is alert. She answers questions appropriately. She knows where she is and she does not appear to be in distress. LABORATORY: Her laboratory workup from today shows WBC of 14.7, hemoglobin 14.4, hematocrit 44.2, platelets 295. Her calcium is 9.5. IMPRESSION: 1. Hypercalcemia secondary to diffuse bone metastases. 2. Metastatic bone disease without any visceral involvement. This is likely related to her remote history of breast carcinoma. RECOMMENDATIONS: 1. I did discuss the laboratory findings with the patient and her at bedside. 2. The plan is to continue IV hydration. Her calcium has significantly improved now after pamidronate treatment. 3. We will attempt to obtain a tissue diagnosis to confirm recurrent breast carcinoma. If this is confirmed and it is ER/OH positive and her 2 negative, then first-line hormonal therapy would be indicated such as a combination of oral CDK inhibitor along with either aromatase inhibitor or Faslodex. Also in the future the patient will benefit from intermittent treatment with either Xgeva or IV Zometa. The above was discussed with the patient and her at bedside, and I answered all their questions to their satisfaction. Thank you. BETH / AGATHA: [id number] /
[2018-07-19 17:29] LABS: Glucose,Whole Blood 104 mg/dL (75-99)
[2018-07-20] MEDS: HEPARIN SODIUM,PORCINE 5,000 UNIT/ML 1 ML VIAL SQ SCH ×3 (00:30→17:21)
[2018-07-20 05:22] LABS: Basophils # (A) 0.1 k/uL (0-0.2); Basophils % (A) 0 %; Eosinophils # (A) 0.1 k/uL (0-0.7); Eosinophils % (A) 1 %; HCT 43.9 % (34.0-46.0); HGB 14.4 gm/dL (11.4-16.0); Lymphocytes # (A) 3.2 k/uL (1.0-4.8); Lymphocytes % (A) 24 %; MCH 29.7 pg (25.0-35.0); MCHC 32.9 g/dL (31.0-37.0); MCV 90.3 fL (80.0-100.0); Monocytes # (A) 0.6 k/uL (0-1.0); Monocytes % (A) 5 %; Neutrophils % (A) 69 %; Platelet Count 207 k/uL (150-450); RBC 4.87 m/uL (3.80-5.40); RDW 14.8 % (11.5-15.5); WBC 13.1 k/uL (3.8-10.6)
[2018-07-20 05:47] LABS: Calcium 8.1 mg/dL (8.4-10.2); Potassium 3.9 mmol/L (3.5-5.1)
[2018-07-20] MEDS ORDERED: POTASSIUM CHLORIDE ER 20 MEQ TAB.ER PO SCH (06:00)
[2018-07-20] MEDS: amLODIPine 5 MG TAB PO SCH (08:09)
[2018-07-20] MEDS: PANTOPRAZOLE 40 MG/10 ML VIAL IVP SCH (08:15)
[2018-07-20] MEDS: DEXAMETHASONE SOD PHOSPHATE 4 MG/ML 1 ML VIAL IV SCH (08:19)
[2018-07-20] MEDS: LEVOTHYROXINE IVP 100 MCG/5 ML VIAL IV SCH (08:22)
[2018-07-20] MEDS: CALCITONIN INJ 200 UNIT/ML (MDV) VIAL IM SCH ×2 (09:55→21:24)
--- NOTE | 2018-07-20 12:08 | P.PN ---
Subjective Progress Note Date: 07/20/18 Seen and examined for the follow-up of acute kidney injury and hypercalcemia. Sitting in the chair. No nausea vomiting diarrhea. Tolerating oral diet. Mentally alert awake. Good urine output still has Paredes catheter in place Objective - Vital Signs Vital signs: Vital Signs Temp 98.3 F 07/20/18 08:00 Pulse 100 07/20/18 11:00 Resp 20 07/20/18 11:35 BP 118/82 07/20/18 11:00 Pulse Ox 94 L 07/20/18 11:00 Intake & Output 07/19/18 07/20/18 07/20/18 18:59 06:59 18:59 Intake Total 1226.267 696.567 250 Output Total 810 845 280 Balance 416.267 -148.433 -30 Weight 76.3 kg Intake: IV 1150 650 250 Dextrose 5% in Water 1, 1050 650 200 000 ml @ 50 mls/hr IV . Q20H [facility] Rx#:[id number] cefTRIAXone 1 gm In 100 50 Sodium Chloride 0.9% 50 ml @ 100 mls/hr IVPB Q24HR [facility] Rx#:[id number] Intake, IV Titration 76.267 46.567 Amount Clevidipine Butyrate 25 76.267 46.567 mg In Empty Bag 1 bag @ 1 MG/HR 2 mls/hr IV .Q24H [facility] Rx#:[id number] Output: Urine 810 845 280 Other: Voiding Method Indwelling Catheter Indwelling Catheter Indwelling Catheter - Exam No acute distress S1-S2 heard Lungs clear Paredes catheter Trace edema - Labs CBC & Chem 7: 07/20/18 04:50 07/20/18 04:50 Labs: Abnormal Lab Results - Last 24 Hours (Table) 07/19/18 07/19/18 07/20/18 Range/Units 11:50 17:14 04:50 WBC 13.1 H (3.8-10.6) k/uL Neutrophils # 9.0 H (1.3-7.7) k/uL Chloride (98-107) mmol/L BUN (7-17) mg/dL Glucose (74-99) mg/dL POC Glucose (mg/dL) 120 H 104 H (75-99) mg/dL Calcium (8.4-10.2) mg/dL 07/20/18 Range/Units 04:50 WBC (3.8-10.6) k/uL Neutrophils # (1.3-7.7) k/uL Chloride 109 H (98-107) mmol/L BUN 30 H (7-17) mg/dL Glucose 100 H (74-99) mg/dL POC Glucose (mg/dL) (75-99) mg/dL Calcium 8.1 L (8.4-10.2) mg/dL Microbiology - Last 24 Hours (Table) 07/16/18 12:37 CSF Gram Stain - Final Cerebral Spinal Fluid CSF Culture - Final 07/16/18 08:00 Blood Culture - Preliminary Blood No Growth after 96 hours Assessment and Plan Assessment: #1 acute kidney injury secondary to prerenal process/ATN from hypercalcemia. Creatinine close to baseline. #2 hypercalcemia suspect malignancy with lytic lesions on the skull. PTH appropriately high which also raises underlying hyper parathyroidism on top of malignancy. #3 encephalopathy suspect metabolic from hypercalcemia improving. #4 hypokalemia with hypophosphatemia secondary to poor oral intake and hypercalcemia. #5 hypertension #6 history of breast cancer with recurrence and suspected metastases. Plan: #1 renal function back to baseline, calcium is better in normal range. #2 mental status improving, encourage oral intake. #3 myeloma workup pending, appreciate oncology input #4 stop calcitonin #5 currently on D5 water, can be stopped once oral intake is better. #6 okay for MRI with contrast.
[2018-07-20 12:23] LABS: Glucose,Whole Blood 111 mg/dL (75-99)
--- NOTE | 2018-07-20 13:02 | P.PN ---
Subjective Progress Note Date: 07/20/18 This is a 63-year-old female patient was brought into the emergency department unresponsive. I cannot obtain any information from the patient and information was obtained from the . The patient has received her previous care at [facility] and [facility] and as the patient moved to closer location to [place] the patient started coming into our hospital. She has a history of breast cancer and she has undergone bilateral mastectomy back in 2010 following that she had received Arimidex. According to the , he is not aware if there was any progression of her disease or breast cancer. The patient has been gradually getting worse pressure over the past 1 month. She had becoming progressively more weak, lethargic, tired, had been unsteady, on and off walking, and confused and over the past 3 days the patient became progressively more lethargic to the point where she became completely unresponsive and she was unable to eat and meter daily functions. For that reason the patient was brought into the hospital. In the ED, the patient was febrile. She was completely unresponsive. On and off she was moaning. There has been also history of ongoing pain which has been progressively getting worse. The patient had chest pain sternal pain in addition to back pain which was thought to be related to sciatica. The patient was found to have marked abnormal findings on her blood work. She was found to have hypercalcemia with a calcium level of 18. He was also found to have hyponatremia. She was in acute kidney injury. The patient was severely dehydrated. CAT scan of the brain was done that showed no acute abnormalities. Nevertheless, it showed subtle lucency in the left and the right calvarium consistent with lytic lesions. There was also some subarachnoid granulation within the calvarium. Based on that, at the patient to have a CAT scan of the chest abdomen and pelvis which got completed in the emergency department and the patient was found to have extensive osseous metastases. There was multiple mesenteric lesions within the vertebral body of the lumbar spine but also present in the lower thoracic and the midthoracic regions and some in the upper thoracic region. There was also sclerotic lesions within the left rib. An old rib fracture was present on the right at the level of T11. A mid sternal infection was also present. Compression fracture deformity at the level of L2 and T9 was also seen. Based on all this, the patient was started on aggressive IV fluid resuscitation. She had already received 3 L of IV fluids in the emergency department. I recommended an additional 2 L. I gave her a dose of pamidronate which has not been infused yet. The patient was started on IV Decadron and she was started also on Miacalcin 200 units IM twice a day. Had oral mucous membranes are extremely dry. Lumbar puncture was also done and the findings are essentially negative thus far. She was given IV Rocephin as empiric antibiotic coverage. She'll be moved to the intensive care unit for now. On today's evaluation of 07/17/2018 the patient Is being seen in follow-up. I met the family again in the ICU. I was able to retrieve some of the records from her oncologist office. Apparently the patient had a stage II breast cancer treated with surgery and following that she was placed on hormonal treatment. She had an ER/DE positive disease with a HER-2 new negative disease. I also noted that her last calcium level at her oncologist office was borderline elevated. She progressively developed his hypercalcemia. She is currently being resuscitated IV fluids. The patient was switched to half- normal saline and subsequently to D5 water as the patient developed some hypernatremia. She has received pamidronate. She was given also calcitonin. Her most recent calcium level is down to 12.7. Neurologically, she is slightly more awake yet still not fully responsive. No neck stiffness. No fever or chills. The CSF findings showed a glucose of 74 and the protein was slightly elevated at 62 and the nucleated cells were negative. The cultures are also negative. Meanwhile, the patient is undergoing an investigation regarding his hypercalcemia. Serum protein electrophoresis and immune freezes were sent. Oncology consultation was also requested. Intact PTH is low. CAT scan of the brain was negative. He developed some hypertensive reaction overnight. For that reason the patient was started on side effects drip which is currently running at 1 mg an hour. The patient is also on empiric antibiotic coverage with IV ceftriaxone. The patient is on DVT and GI prophylaxis. On today's evaluation, the patient is noted to be slightly more awake compared to yesterday. She was able to mention her name and her 's name. She is not agitated. She seems to be gradually recovering her mentation. However she is not fully alert and appropriate for the time being. The patient is on D5 water and her sodium level is improving. Calcium level is also down to 11.3. The patient has no fever. She is on drip for blood pressure control. She is not fully awake for feeding or oral intake yet. Family is at the bedside. The tumor markers including the CA 15 3 and CA-27-29 are both elevated. CSF cultures are negative. The patient's renal function is stable and is improving and the creatinine is down to 1.24. She is much better hydrated for now. On 07/19/2018, the patient is obviously more awake. She is able to speak full sentences. She was able to recognize the place and her and family members. She is making more sense compared to yesterday although, was still feel that there is an underlying component of confusion there is still present. The patient has no fever or chills. The patient is less tachycardic compared to yesterday. She is able to swallow as the patient is more awake and we're going to provide diet for her. No fever or chills. No nausea or vomiting. Abdominal pain. No focal neurological deficit. She strong and she should be able to sit up on a chair. As mentioned earlier, the tumor markers are elevated is consistent with metastatic breast cancer with skeletal involvement. Calcium level has normalized. The patient is still on clevidipine drip which will be weaned off and the patient will be started on oral antihypertensive medication in the form of Norvasc. On 07/21/1999 and I do not see this patient for a follow-up. Mental status gradually continues to improve. Is not fully back to his baseline. She is awake and alert. She is conversing. She is following commands and answering questions appropriately. Calcium level is normalized. No electrodes imbalance. She is tolerating her diet. The plan is to undergo a MRI of the brain and a bone scan as part of her workup for metastatic breast cancer. Oncology is also on the case. No falls. No seizure activity. No aspiration. No other significant events overnight. Objective - Vital Signs Vital signs: Vital Signs Temp 98.6 F 07/20/18 12:00 Pulse 101 H 07/20/18 12:00 Resp 22 07/20/18 12:00 BP 129/88 07/20/18 12:00 Pulse Ox 93 L 07/20/18 12:00 Intake & Output 07/19/18 07/20/18 07/20/18 18:59 06:59 18:59 Intake Total 1226.267 696.567 300 Output Total 810 845 320 Balance 416.267 -148.433 -20 Weight 76.3 kg Intake: IV 1150 650 300 Dextrose 5% in Water 1, 1050 650 250 000 ml @ 50 mls/hr IV . Q20H TEVIN Rx#:[id number] cefTRIAXone 1 gm In 100 50 Sodium Chloride 0.9% 50 ml @ 100 mls/hr IVPB Q24HR TEVIN Rx#:[id number] Intake, IV Titration 76.267 46.567 Amount Clevidipine Butyrate 25 76.267 46.567 mg In Empty Bag 1 bag @ 1 MG/HR 2 mls/hr IV .Q24H TEVIN Rx#:[id number] Output: Urine 810 845 320 Other: Voiding Method Indwelling Catheter Indwelling Catheter Indwelling Catheter - Exam The patient is awake and alert with episodes of confusion. Head exam was generally normal. There was no scleral icterus or corneal arcus. Mucous membranes were moist. No neck stiffness. Neck was supple and without jugular venous distension, thyromegaly, or carotid bruits. Carotids were easily palpable bilaterally. There was no adenopathy. The patient has significant dryness of the oral mucosa. Lungs were clear to auscultation and percussion, and with normal diaphragmatic excursion. No wheezes or rales were noted. Cardiac exam revealed the PMI to be normally situated and sized. The rhythm was regular and no extrasystoles were noted during several minutes of auscultation. The first and second heart sounds were normal and physiologic splitting of the second heart sound was noted. There were no murmurs, rubs, clicks, or gallops. Abdominal exam revealed normal bowel sounds. The abdomen was soft, non-tender, and without masses, organomegaly, or appreciable enlargement of the abdominal aorta. Examination of the extremities revealed easily palpable radial, femoral and pedal pulses. There was no cyanosis, clubbing or edema. Examination of the skin revealed no evidence of significant rashes, suspicious appearing nevi or other concerning lesions. The patient has scars of previous mastectomy bilaterally. Palpation of the axillary area and the supra clavicular area reveals no evidence of any lymphadenopathy. Neurologically, episodic confusion yet overall improved compared to yesterday.. She is comfortable in bed.. She is able to talk. He is moving all 4 extremities. No focal neurological deficit. No Babinski. No clonus. - Labs CBC & Chem 7: 07/20/18 04:50 07/20/18 04:50 Labs: Abnormal Lab Results - Last 24 Hours (Table) 07/19/18 07/20/18 07/20/18 Range/Units 17:14 04:50 04:50 WBC 13.1 H (3.8-10.6) k/uL Neutrophils # 9.0 H (1.3-7.7) k/uL Chloride 109 H (98-107) mmol/L BUN 30 H (7-17) mg/dL Glucose 100 H (74-99) mg/dL POC Glucose (mg/dL) 104 H (75-99) mg/dL Calcium 8.1 L (8.4-10.2) mg/dL 07/20/18 Range/Units 12:19 WBC (3.8-10.6) k/uL Neutrophils # (1.3-7.7) k/uL Chloride (98-107) mmol/L BUN (7-17) mg/dL Glucose (74-99) mg/dL POC Glucose (mg/dL) 111 H (75-99) mg/dL Calcium (8.4-10.2) mg/dL Microbiology - Last 24 Hours (Table) 07/16/18 12:37 CSF Gram Stain - Final Cerebral Spinal Fluid CSF Culture - Final 07/16/18 08:00 Blood Culture - Preliminary Blood No Growth after 96 hours Assessment and Plan Plan: Assessment 1 acute hypercalcemia with profound dehydration and intravascular volume depletion. The cause of the hypercalcemia is related to metastatic skeletal/ osseous involvement. The primary malignancy of origin is not clear. Could be related to metastatic breast cancer knowing that the patient has history of breast cancer and she is bilateral mastectomy back in 2010. Nevertheless, other solid tumors that have been metastatic to the skeletal system cannot be ruled out. Myeloma is within the differential diagnosis. On 07/17/2018, the patient is was resuscitated IV fluids. The patient's calcium level is up to 12.7. The workup is in progress. Of concern is mental status which has not fully recovered yet. The patient is still confused. There is some progress in the mentation yet she is not making any sense.. I am concerned knowing that the electrodes are improving and her mentation should improve along with that. Will proceed with an MRI of the brain with the next 12 hours if there is no for the recovery of her mentation. On 07/18/2018, the patient continues to BE resuscitated. Electrolyte imbalance has improved in calcium level continues to improve. This is most likely consistent with metastatic disease with hypercalcemia related to skeletal metastases. His serum markers for breast cancer including CA 15 3 and 27- 29 are both elevated. Oncology is on the case. On 07/19/2018 the patient's calcium level is normalized. The patient is currently on D5 water at the rate of 1 25 mL an hour and the patient's sodium level is also down to 142. 3. Thousand 19 the calcium level remains within normal limits. The patient on calcitonin. 2 acute kidney injury secondary to massive dehydration and intravascular volume depletion, improving, recovered, the creatinine is down to 0.9 3 acute hypernatremia currently on D5 water, , recovered 4 altered mentation secondary to above, see discussion above, improving although not fully alert and appropriate.. Rule out ELECTRICIAN SHOP metastases. Rule out paraneoplastic syndrome. The patient has shown ongoing improvement in mental status over the past 24-48 hours. Despite this improvement, she is still having some episodes of on and off confusion. 5 history of breast cancer with bilateral mastectomy 2010 followed by Arimidex treatment 6 hypothyroidism 7 COPD which is currently inactive in stable 8 back pain related to skeletal metastases Plan This patient will be transferred to an oncology unit. Calcium level is within normal limits. The patient will need an MRI of the brain. Patient will need a bone scan. The patient has a controlled blood pressure. Sinus tachycardia is recovered. Currently she is on 5 mg of Norvasc. Transfer to oncology.
[2018-07-20] MEDS: DEXTROSE 5% IN WATER 1,000 ML IV SCH (13:21)
--- NOTE | 2018-07-20 13:34 | P.PN ---
Subjective 63-year-old female admitted secondary to unresponsiveness lethargy secondary to hypercalcemia, acute renal failure. Patient received calcitonin and pamidronate , improved serum calcium to 12 can you with IV fluids but IV fluids were switched to D5 water because of elevated serum sodium and chloride. Creatinine improved from 1.8-1.4. Troponin remained stable. AST and ALT are bit elevated which is a nonspecific elevation is still significant other provided abnormalities which we are correcting slowly. Patient is little bit more responsive than yesterday still unable to provide any history still bit lethargic was evaluated with pulmonology, nephrology, oncology. 07/18/2018 Patient mental status significant improvement competitors today patient is almost alert oriented 2 able to tell her name she says she does remember me. Her for hypercalcemia is improving creatinine improved. Patient tumor markers are consistent with recurrence of breast cancer.CC is approved is not significantly elevated the other differential being leptomeningeal involvement possibly is extremely low as the as the CSF protein is not very high, he waking CSF cytology. There was an addendum added to the CAT scan of the hand which cannot completely rule out metastatic disease to the brain patient will need an MRI. Patient is already on Decadron which will be continued. Possibility of paraneoplastic syndromes is low 07/19/2018 Patient the has significant clinical improving more awake alert oriented 2-3 today. Although patient may need an MRI to rule out any metastatic disease and kidney function improved serum Creatinine improved to 1.0 serum calcium has come down with disc any calcitonin tomorrow. 07/20/2018 Patient is doing much better sitting in the chair, this can you Paredes catheter and discontinue IV antibiotics. MRI of the head tomorrow. IV fluids are being switched to D5 half-normal. IV calcium channel maribell is being discussed and patient was started on oral that she began maribell patient will be transferred out of ICU. 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 Cardio vascular: denied any chest pain, palpitations Gastrointestinal denied any nausea vomiting Pulmonary: Denied any shortness of breath cough Neurologic denied any new focal deficits All inpatient medications were reviewed and appropriate changes in these medications as dictated in the interval history and assessment and plan. Objective - Vital Signs Vital signs: Vital Signs Temp 98.6 F 07/20/18 12:00 Pulse 108 H 07/20/18 13:00 Resp 18 07/20/18 13:00 BP 139/92 07/20/18 13:00 Pulse Ox 95 07/20/18 13:00 Intake & Output 07/19/18 07/20/18 07/20/18 18:59 06:59 18:59 Intake Total 1226.267 696.567 350 Output Total 810 845 322 Balance 416.267 -148.433 28 Weight 76.3 kg Intake: IV 1150 650 350 Dextrose 5% in Water 1, 1050 650 300 000 ml @ 50 mls/hr IV . Q20H TEVIN Rx#:[id number] cefTRIAXone 1 gm In 100 50 Sodium Chloride 0.9% 50 ml @ 100 mls/hr IVPB Q24HR TEVIN Rx#:[id number] Intake, IV Titration 76.267 46.567 Amount Clevidipine Butyrate 25 76.267 46.567 mg In Empty Bag 1 bag @ 1 MG/HR 2 mls/hr IV .Q24H TEVIN Rx#:[id number] Output: Urine 810 845 320 Stool 2 Other: Voiding Method Indwelling Catheter Indwelling Catheter Indwelling Catheter - Exam PHYSICAL EXAMINATION: GENERAL: patient is alert oriented 3, no confusion today Able to protect the airway, he appears to be lethargic HEENT: Pupils are round and equally reacting to light. EOMI. No scleral icterus. No conjunctival pallor. Normocephalic, atraumatic. No pharyngeal erythema. No thyromegaly. CARDIOVASCULAR: S1 and S2 present. No murmurs, rubs, or gallops. PULMONARY: Chest is clear to auscultation, no wheezing or crackles. ABDOMEN: Soft, nontender, nondistended, normoactive bowel sounds. No palpable organomegaly. MUSCULOSKELETAL: No joint swelling or deformity. EXTREMITIES: No cyanosis, clubbing, or pedal edema. NEUROLOGICAL: And appeared to have any focal deficits at this time SKIN: No rashes. - Labs CBC & Chem 7: 07/20/18 04:50 07/20/18 04:50 Labs: Abnormal Lab Results - Last 24 Hours (Table) 07/19/18 07/20/18 07/20/18 Range/Units 17:14 04:50 04:50 WBC 13.1 H (3.8-10.6) k/uL Neutrophils # 9.0 H (1.3-7.7) k/uL Chloride 109 H (98-107) mmol/L BUN 30 H (7-17) mg/dL Glucose 100 H (74-99) mg/dL POC Glucose (mg/dL) 104 H (75-99) mg/dL Calcium 8.1 L (8.4-10.2) mg/dL 07/20/18 Range/Units 12:19 WBC (3.8-10.6) k/uL Neutrophils # (1.3-7.7) k/uL Chloride (98-107) mmol/L BUN (7-17) mg/dL Glucose (74-99) mg/dL POC Glucose (mg/dL) 111 H (75-99) mg/dL Calcium (8.4-10.2) mg/dL Microbiology - Last 24 Hours (Table) 07/16/18 12:37 CSF Gram Stain - Final Cerebral Spinal Fluid CSF Culture - Final 07/16/18 08:00 Blood Culture - Preliminary Blood No Growth after 96 hours Assessment and Plan Plan: -Altered mental status, unresponsiveness: Secondary to severe metabolic encephalopathy from acute renal failure lactic acidosis and hypercalcemia. All of these are improving at this timewe'll continue with IV fluids D5 water. Continue Decadron. Metastatic disease to the brain cannot be ruled out Continue gentle hydration MRI tomorrow -Hypercalcemia: Probably secondary to metastatic breast cancer which may have relapsed now oncology, tumor markers are consistent with breast cancer patient did receive calcitonin, pamidronate and calcitonin can be discontinued continue with gentle hydration -Acute renal failure possibly multifactorial 1 prerenal azotemia from severe intravascular depletion dehydration, #2 hypercalcemia related to tubular injury , #3 ibuprofen. Patient's creatinine improved -Hydronephrosis: Although there is no evidence of urinary tract infection although continue with the ceftriaxone for now. Ceftriaxone was discontinued -Hypothyroidism with elevated free T4 and low TSH levothyroxine dose was cut down. -Low back pain, radicular pain with extensive osseous metastasis mild compression deformities at L2 T9, will start her on Decadron. -Possible relapsed of breast cancer: Oncology evaluated the patient -Hypertension patient was started on IV calcium channel maribell but will titrated to a higher blood pressure until her kidney function recovers Patient will need pharmacologic GI and DVT prophylaxis
[2018-07-21] MEDS: HEPARIN SODIUM,PORCINE 5,000 UNIT/ML 1 ML VIAL SQ SCH ×4 (00:32→23:54)
[2018-07-21] MEDS: amLODIPine 5 MG TAB PO SCH (08:13)
[2018-07-21] MEDS: DEXAMETHASONE SOD PHOSPHATE 4 MG/ML 1 ML VIAL IV SCH (08:13)
[2018-07-21] MEDS: PANTOPRAZOLE 40 MG/10 ML VIAL IVP SCH (08:13)
[2018-07-21] MEDS: LEVOTHYROXINE IVP 100 MCG/5 ML VIAL IV SCH (08:14)
[2018-07-21] MEDS: DEXTROSE 5% IN WATER 1,000 ML IV SCH (08:15)
[2018-07-21 08:25] LABS: HCT 43.9 % (34.0-46.0); HGB 14.4 gm/dL (11.4-16.0); MCH 30.1 pg (25.0-35.0); MCHC 32.9 g/dL (31.0-37.0); MCV 91.5 fL (80.0-100.0); Mean Platelet Volume 7.3; Platelet Count 230 k/uL (150-450); RBC 4.79 m/uL (3.80-5.40); RDW 14.7 % (11.5-15.5); WBC 11.1 k/uL (3.8-10.6)
[2018-07-21 08:39] LABS: Calcium 7.8 mg/dL (8.4-10.2); Potassium 3.8 mmol/L (3.5-5.1)
[2018-07-21] MEDS: CALCITONIN INJ 200 UNIT/ML (MDV) VIAL IM SCH (09:08)
--- NOTE | 2018-07-21 12:01 | MR ---
EXAMINATION TYPE: MR brain wo/w con DATE OF EXAM: 07/21/2018 COMPARISON: CT brain July 16, 2018. HISTORY: Recent abnormal CT with extensive osseous metastatic disease. Recent admission for confusion and altered mental status. TECHNIQUE: Multiplanar, multisequence images of the brain and brainstem is performed without and with IV contras t, utilizing 7.5 mL intravenous Gadavist . FINDINGS: Diffusion weighted images demonstrate no evidence of a recent infarct or other diffusion ab normality. There is no worrisome extra-axial fluid collection. There is mild ventricular and sulcal prominence consistent with mild diffuse age-related cerebral atrophy. There are multifocal areas of T 2 hyperintensity seen throughout the superficial, deep, and periventricular white matter. Lesions are nonspecific in appearance and distribution but most likely on basis of product of chronic small vess el ischemic change in patient of this age. There is focal area of old infarct or encephalomalacia rig ht occipital level near axial image 16 noted. This is less well-seen on CT due to marked tilting of h ead in the gantry causing streak artifact at skull base level. Midline structures demonstrate normal morphology. The craniocervical junction appears within normal limits. Post contrast images demonstrate small elongated area of homogeneous enhancement right infer ior frontal region axial image 35 series 603 measuring 7 x 6 mm, and sagittal and coronal images this is elongated extra-axial location and could reflect small meningioma. Eccentric vessel not excluded but felt less likely. No suspicious enhancing intraparenchymal masses are identified. Incidental aissatou nant left vertebral artery. The dural venous sinuses appear patent. The visualized sinuses are clear and the globes are intact. Multifocal osseous deposits felt present for reference right parietal lesi on axial image [address] vague lucent lesion. IMPRESSION: 1. Mild diffuse age-related cerebral atrophy and moderate chronic small vessel ischemic change. Suspe ct tiny inferior frontal meningioma just right of midline subcentimeter in size. No metastatic intrap arenchymal malignancy identified. Osseous metastatic disease felt present should be correlated with bone scan.
--- NOTE | 2018-07-21 12:43 | P.PN ---
Subjective Progress Note Date: 07/21/18 Principal diagnosis: Acute hypercalcemia and mental status change. This is a 63-year-old female patient was brought into the emergency department unresponsive. I cannot obtain any information from the patient and information was obtained from the . The patient has received her previous care at [facility] and [facility] and as the patient moved to closer location to [place] the patient started coming into our hospital. She has a history of breast cancer and she has undergone bilateral mastectomy back in 2010 following that she had received Arimidex. According to the , he is not aware if there was any progression of her disease or breast cancer. The patient has been gradually getting worse pressure over the past 1 month. She had becoming progressively more weak, lethargic, tired, had been unsteady, on and off walking, and confused and over the past 3 days the patient became progressively more lethargic to the point where she became completely unresponsive and she was unable to eat and meter daily functions. For that reason the patient was brought into the hospital. In the ED, the patient was febrile. She was completely unresponsive. On and off she was moaning. There has been also history of ongoing pain which has been progressively getting worse. The patient had chest pain sternal pain in addition to back pain which was thought to be related to sciatica. The patient was found to have marked abnormal findings on her blood work. She was found to have hypercalcemia with a calcium level of 18. He was also found to have hyponatremia. She was in acute kidney injury. The patient was severely dehydrated. CAT scan of the brain was done that showed no acute abnormalities. Nevertheless, it showed subtle lucency in the left and the right calvarium consistent with lytic lesions. There was also some subarachnoid granulation within the calvarium. Based on that, at the patient to have a CAT scan of the chest abdomen and pelvis which got completed in the emergency department and the patient was found to have extensive osseous metastases. There was multiple mesenteric lesions within the vertebral body of the lumbar spine but also present in the lower thoracic and the midthoracic regions and some in the upper thoracic region. There was also sclerotic lesions within the left rib. An old rib fracture was present on the right at the level of T11. A mid sternal infection was also present. Compression fracture deformity at the level of L2 and T9 was also seen. Based on all this, the patient was started on aggressive IV fluid resuscitation. She had already received 3 L of IV fluids in the emergency department. I recommended an additional 2 L. I gave her a dose of pamidronate which has not been infused yet. The patient was started on IV Decadron and she was started also on Miacalcin 200 units IM twice a day. Had oral mucous membranes are extremely dry. Lumbar puncture was also done and the findings are essentially negative thus far. She was given IV Rocephin as empiric antibiotic coverage. She'll be moved to the intensive care unit for now. On today's evaluation of 07/17/2018 the patient Is being seen in follow-up. I met the family again in the ICU. I was able to retrieve some of the records from her oncologist office. Apparently the patient had a stage II breast cancer treated with surgery and following that she was placed on hormonal treatment. She had an ER/NM positive disease with a HER-2 new negative disease. I also noted that her last calcium level at her oncologist office was borderline elevated. She progressively developed his hypercalcemia. She is currently being resuscitated IV fluids. The patient was switched to half- normal saline and subsequently to D5 water as the patient developed some hypernatremia. She has received pamidronate. She was given also calcitonin. Her most recent calcium level is down to 12.7. Neurologically, she is slightly more awake yet still not fully responsive. No neck stiffness. No fever or chills. The CSF findings showed a glucose of 74 and the protein was slightly elevated at 62 and the nucleated cells were negative. The cultures are also negative. Meanwhile, the patient is undergoing an investigation regarding his hypercalcemia. Serum protein electrophoresis and immune freezes were sent. Oncology consultation was also requested. Intact PTH is low. CAT scan of the brain was negative. He developed some hypertensive reaction overnight. For that reason the patient was started on side effects drip which is currently running at 1 mg an hour. The patient is also on empiric antibiotic coverage with IV ceftriaxone. The patient is on DVT and GI prophylaxis. On today's evaluation, the patient is noted to be slightly more awake compared to yesterday. She was able to mention her name and her 's name. She is not agitated. She seems to be gradually recovering her mentation. However she is not fully alert and appropriate for the time being. The patient is on D5 water and her sodium level is improving. Calcium level is also down to 11.3. The patient has no fever. She is on drip for blood pressure control. She is not fully awake for feeding or oral intake yet. Family is at the bedside. The tumor markers including the CA 15 3 and CA-27-29 are both elevated. CSF cultures are negative. The patient's renal function is stable and is improving and the creatinine is down to 1.24. She is much better hydrated for now. On 07/19/2018, the patient is obviously more awake. She is able to speak full sentences. She was able to recognize the place and her and family members. She is making more sense compared to yesterday although, was still feel that there is an underlying component of confusion there is still present. The patient has no fever or chills. The patient is less tachycardic compared to yesterday. She is able to swallow as the patient is more awake and we're going to provide diet for her. No fever or chills. No nausea or vomiting. Abdominal pain. No focal neurological deficit. She strong and she should be able to sit up on a chair. As mentioned earlier, the tumor markers are elevated is consistent with metastatic breast cancer with skeletal involvement. Calcium level has normalized. The patient is still on clevidipine drip which will be weaned off and the patient will be started on oral antihypertensive medication in the form of Norvasc. On 07/20/2018 and I do not see this patient for a follow-up. Mental status gradually continues to improve. Is not fully back to his baseline. She is awake and alert. She is conversing. She is following commands and answering questions appropriately. Calcium level is normalized. No electrodes imbalance. She is tolerating her diet. The plan is to undergo a MRI of the brain and a bone scan as part of her workup for metastatic breast cancer. Oncology is also on the case. No falls. No seizure activity. No aspiration. No other significant events overnight. Seen today on 07/21/2018, patient is doing well, in no distress, alert oriented 3 , and she has no gross focal deficits. Denies any cough no wheezing no shortness of breath. MRI of the brain came back basically nondiagnostic. Bone scan is pending. Her hypercalcemia is still felt to be related to diffuse bone metastasis, felt to be most likely related to her remote history of breast cancer. Patient remains on IV hydration, and she received pamidronate for her hypercalcemia. Patient is being considered for tissue diagnosis to confirm recurrent breast cancer. Pulmonary-torres, patient is doing great, and relatively asymptomatic. We were seeing the patient while she was in the ICU. Serum calcium today is 7.8. It was as high as 18.0 on admission. Objective - Vital Signs Vital signs: Vital Signs Temp 97.1 F L 07/21/18 05:00 Pulse 93 07/21/18 05:00 Resp 16 07/21/18 05:00 BP 168/78 07/21/18 05:00 Pulse Ox 94 L 07/21/18 05:00 Intake & Output 07/20/18 07/21/18 07/21/18 18:59 06:59 18:59 Intake Total 450 990 Output Total 322 Balance 128 990 Intake: IV 450 400 Dextrose 5% in Water 1, 400 400 000 ml @ 50 mls/hr IV . Q20H [facility] Rx#:[id number] cefTRIAXone 1 gm In 50 Sodium Chloride 0.9% 50 ml @ 100 mls/hr IVPB Q24HR [facility] Rx#:[id number] Oral 590 Output: Urine 320 Stool 2 Other: Voiding Method Toilet Toilet Toilet Diaper Incontinent # Voids 0 - Exam Physical Exam: Revealed a 63-year-old female in no distress. Head: Atraumatic normocephalic. HEENT:[Neck is supple.] [No neck masses.] [No thyromegaly.] [No JVD.] Chest: [Clear throughout, no crackles, no rhonchi, no wheezes.] Cardiac Exam: [Normal S1 and S2, no S3 gallop, no murmur.] Abdomen: [Soft, nontender, no megaly, no rebound, no guarding, normal bowel sounds.] Extremities: [No clubbing, no edema, no cyanosis.] Neurological Exam: [No focal neurologic deficit.] Skin: No rashes. Lymphatics: No lymphadenopathy. - Labs CBC & Chem 7: 07/21/18 08:08 07/21/18 08:08 Labs: Abnormal Lab Results - Last 24 Hours (Table) 07/21/18 07/21/18 Range/Units 08:08 08:08 WBC 11.1 H (3.8-10.6) k/uL BUN 26 H (7-17) mg/dL Glucose 104 H (74-99) mg/dL Calcium 7.8 L (8.4-10.2) mg/dL Microbiology - Last 24 Hours (Table) 07/16/18 08:00 Blood Culture - Preliminary Blood No Growth after 120 hours 07/16/18 12:37 CSF Gram Stain - Final Cerebral Spinal Fluid CSF Culture - Final Assessment and Plan Assessment: Impression: 1 acute hypercalcemia most likely secondary to skeletal metastasis of breast cancer. Awaiting tissue diagnosis, this is being recommended by oncology. 2 multiple comorbidities including acute kidney injury improved, responded to hydration, and it was related to intravascular volume depletion. 3 acute hypernatremia, improved. This was again related to dehydration. 4 in active COPD 5 history of breast cancer and bilateral mastectomy in 2010. 6 chronic back pain secondary to skeletal metastasis. Recommendation: Continue present treatment plan as per the admitting service, and as per oncology, will sign off, and we'll see the patient on when necessary basis. Discussed her condition with her was actually a patient of mine. Time with Patient: Less than 30
--- NOTE | 2018-07-21 15:02 | NM ---
EXAMINATION TYPE: NM bone scan whole body DATE OF EXAM: 07/21/2018 COMPARISON: CT chest, abdomen, and pelvis dated 07/16/2018 HISTORY: Osseous metastasis. Delayed whole-body scanning was performed following the injection of 21 mCi Tc 99m MDP. Images acqui red 3.5 hours post injection. FINDINGS: Diffuse osseous metastasis is confirmed as there is abnormal multifocal radiotracer uptake throughout the axial skeleton. Locations include multifocal uptake within the bilateral 11th ribs, left 12th ri b, left 10th rib, bilateral eighth ribs, left seventh and sixth rib, bilateral iliac bones and acetab ulum as well as left ischium, sternum, thoracic spine, cervical thoracic junction, lumbar spine, and proximal femurs. Degenerative uptake is seen within the sternoclavicular joints, glenohumeral joints, acromioclavicular joints, femoral acetabular joints, and sacroiliac joints. Diffuse calvarial uptake is also seen and suspicious for metastasis. IMPRESSION: Confirmation of multifocal osseous metastasis of the skull and axial skeleton and described above.
--- NOTE | 2018-07-21 15:32 | PN ---
PROGRESS NOTE Patient is seen for followup for hypercalcemia and acute kidney injury. Her renal function has improved. Calcium is also improved and she is actually low at 7.8. Patient was maintained on calcitonin which will now be discontinued. There is concern for metastatic bone disease, so is possibly breast cancer. However, it is not diagnosed yet. PHYSICAL EXAMINATION: This morning, blood pressure 121/77, heart rate 97 per minute. Patient is afebrile. Examination of the heart, S1, S2. Examination of the lungs, bilateral breath sounds are heard. Abdomen is soft, nontender. Examination of the lower extremities, shows no evidence of edema. [employer] exam is grossly intact. LABS: Revealed sodium 139, potassium 3.8, chloride 107, BUN 26, serum creatinine 1.0, calcium 7.8, hemoglobin 14.4 g/dL. ASSESSMENT: 1. Acute kidney injury secondary to hypercalcemia and prerenal state, currently improved significantly. 2. Hypercalcemia secondary to metastatic bone disease, currently improved. I will discontinue the calcitonin. PTH should have been lower than 30 for a calcium as high as 18 on initial admission. These will need to be rechecked down the road. 3. There is also concern for a small protein peak in the gamma region, on immunofixation. PLAN: DC calcitonin. Continue IV fluids. Repeat labs. Follow up on the skeletal survey. MMODL / IJN: [id number] /
[2018-07-21] MEDS: ACYCLOVIR SODIUM 750 MG in SODIUM CHLORIDE 0.9% 250 ML IV SCH ×2 (16:47→23:56)
--- NOTE | 2018-07-21 17:10 | P.PN ---
Subjective Progress Note Date: 07/21/18 Interval history:63-year-old female admitted secondary to unresponsiveness lethargy secondary to hypercalcemia, acute renal failure. Patient received calcitonin and pamidronate, improved serum calcium to 12 can you with IV fluids but IV fluids were switched to D5 water because of elevated serum sodium and chloride. Creatinine improved from 1.8-1.4. Troponin remained stable. AST and ALT are bit elevated which is a nonspecific elevation is still significant other provided abnormalities which we are correcting slowly. Patient is little bit more responsive than yesterday still unable to provide any history still bit lethargic was evaluated with pulmonology, nephrology, oncology. 07/18/2018 Patient mental status significant improvement competitors today patient is almost alert oriented 2 able to tell her name she says she does remember me. Her for hypercalcemia is improving creatinine improved. Patient tumor markers are consistent with recurrence of breast cancer.CC is approved is not significantly elevated the other differential being leptomeningeal involvement possibly is extremely low as the as the CSF protein is not very high, he waking CSF cytology. There was an addendum added to the CAT scan of the hand which cannot completely rule out metastatic disease to the brain patient will need an MRI. Patient is already on Decadron which will be continued. Possibility of paraneoplastic syndromes is low 07/19/2018 Patient the has significant clinical improving more awake alert oriented 2-3 today. Although patient may need an MRI to rule out any metastatic disease and kidney function improved serum Creatinine improved to 1.0 serum calcium has come down with disc any calcitonin tomorrow. 07/20/2018 Patient is doing much better sitting in the chair, this can you Paredes catheter and discontinue IV antibiotics. MRI of the head tomorrow. IV fluids are being switched to D5 half-normal. IV calcium channel maribell is being discussed and patient was started on oral that she began maribell patient will be transferred out of ICU. 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 Continues on Decadron. Maintaining on IV fluids of D5W. Sodium 139, Creatinine 1.0. Bone scan in progress. Calcium 7.8, calcitonin discontinued. Tissue biopsy to diagnose recurrent breast cancer being discussed. Constitutional: Denied any fatigue denied any fever. Cardio vascular: denied any chest pain, palpitations Gastrointestinal denied any nausea vomiting Pulmonary: Denied any shortness of breath cough Neurologic denied any new focal deficits All inpatient medications were reviewed and appropriate changes in these medications as dictated in the interval history and assessment and plan. Objective - Vital Signs Vital signs: Vital Signs Temp 97.1 F L 07/21/18 05:00 Pulse 93 07/21/18 05:00 Resp 16 07/21/18 05:00 BP 168/78 07/21/18 05:00 Pulse Ox 94 L 07/21/18 05:00 Intake & Output 07/20/18 07/21/18 07/21/18 18:59 06:59 18:59 Intake Total 450 990 Output Total 322 Balance 128 990 Intake: IV 450 400 Dextrose 5% in Water 1, 400 400 000 ml @ 50 mls/hr IV . Q20H [facility] Rx#:[id number] cefTRIAXone 1 gm In 50 Sodium Chloride 0.9% 50 ml @ 100 mls/hr IVPB Q24HR [facility] Rx#:[id number] Oral 590 Output: Urine 320 Stool 2 Other: Voiding Method Toilet Toilet # Voids 0 - Exam EXAMINATION: GENERAL: patient is sitting up in chair, alert oriented 3, conversing appropriately, lethargic HEENT: Pupils are round and equally reacting to light. EOMI. No scleral icterus. No conjunctival pallor. Normocephalic, atraumatic. CARDIOVASCULAR: S1 and S2 present. No murmurs, rubs, or gallops. PULMONARY: Chest is clear to auscultation, no wheezing or crackles. ABDOMEN: Soft, nontender, nondistended, normoactive bowel sounds. No palpable organomegaly. MUSCULOSKELETAL: No joint swelling or deformity. EXTREMITIES: No cyanosis, clubbing, or pedal edema. NEUROLOGICAL: And appeared to have any focal deficits at this time SKIN: No rashes. Microbiology 07/16/18 08:00 Blood Blood Culture - Preliminary No Growth after 120 hours 07/16/18 12:37 Cerebral Spinal Fluid CSF Gram Stain - Final 07/16/18 12:37 Cerebral Spinal Fluid CSF Culture - Final - Labs CBC & Chem 7: 07/21/18 08:08 07/21/18 08:08 Labs: Abnormal Lab Results - Last 24 Hours (Table) 07/20/18 Range/Units 12:19 POC Glucose (mg/dL) 111 H (75-99) mg/dL Microbiology - Last 24 Hours (Table) 07/16/18 12:37 CSF Gram Stain - Final Cerebral Spinal Fluid CSF Culture - Final 07/16/18 08:00 Blood Culture - Preliminary Blood No Growth after 96 hours Assessment and Plan Assessment: -Altered mental status, unresponsiveness: Secondary to severe metabolic encephalopathy from acute renal failure lactic acidosis and hypercalcemia. All of these are improving. -Metastatic disease to the brain cannot be ruled out -Hypercalcemia: Probably secondary to metastatic breast cancer, -Acute renal failure possibly multifactorial;1) prerenal azotemia from severe intravascular depletion dehydration, #2 hypercalcemia related to tubular injury , #3 ibuprofen. -Hydronephrosis, without evidence of UTI -Hypothyroidism with elevated free T4 and low TSH levothyroxine dose decreased -Low back pain, radicular pain with extensive osseous metastasis mild compression deformities at L2 T9 -Possible relapsed of breast cancer, tumor markers consistent with breast cancer -Hypertension -Acute hypernatremia secondary to dehydration, improved -History of breast cancer with bilateral mastectomy 2010 Plan: Continue on current medication regime ,monitoring and symptomatic treatment. Maintain Decadron, gentle IV fluid hydration. Brain MRI pending. Bone scan results pending. PT OT. Potential subacute rehab with discharge planning in progress possibly as soon as tomorrow-tissue biopsy for diagnosis of breast cancer being discussed. Close monitoring of renal function, electrolytes, repeat labs ordered for a.m. prognosis guarded given multiple complex medical issues. The impression and plan of care has been dictated as directed. : I performed a history and examination of this patient, discussed the same with the dictator. I agree with the dictator's note ,documented as a scribe. Any additional findings or plans will be noted.
--- NOTE | 2018-07-21 21:07 | P.PN ---
Subjective Progress Note Date: 07/21/18 Principal diagnosis: Suspect hypercalcemia of metastatic breast malignancy Pt continues to have some trouble with putting information together and staying on track with conversation, mild confusion but, states significantly improved mental status from admit. Pt denies fever, has mild nausea and thinks she may be constipated, no KATLYN, chest discomfort. Objective - Vital Signs Vital signs: Vital Signs Temp 97.9 F 07/21/18 12:47 Pulse 97 07/21/18 16:00 Resp 16 07/21/18 16:00 BP 121/77 07/21/18 12:47 Pulse Ox 97 07/21/18 12:47 Intake & Output 07/21/18 07/21/18 07/22/18 06:59 18:59 06:59 Intake Total 990 2110 Balance 990 2110 Intake: IV 400 600 Dextrose 5% in Water 1, 400 600 000 ml @ 50 mls/hr IV . Q20H [facility] Rx#:[id number] Oral 590 1510 Other: Voiding Method Toilet Toilet # Voids 2 - Constitutional General appearance: Present: average body habitus, cooperative, no acute distress - EENT Eyes: Present: anicteric sclerae, EOMI ENT: Present: hearing grossly normal, normal oropharynx - Respiratory Respiratory: bilateral: CTA - Cardiovascular Heart sounds: normal: S1, S2 Abnormal Heart Sounds: Absent: systolic murmur, diastolic murmur, rub, S3 Gallop , S4 Gallop, click, other - Peripheral edema leg Peripheral Edema: bilateral: None - Gastrointestinal General gastrointestinal: Present: soft - Integumentary Integumentary: Present: pale - Musculoskeletal Musculoskeletal: Present: strength equal bilaterally - Psychiatric Psychiatric: Present: A&O x's 3, appropriate affect - Labs CBC & Chem 7: 07/21/18 08:08 07/21/18 08:08 Labs: Abnormal Lab Results - Last 24 Hours (Table) 07/16/18 07/21/18 07/21/18 Range/Units 11:12 08:08 08:08 WBC 11.1 H (3.8-10.6) k/uL BUN 26 H (7-17) mg/dL Glucose 104 H (74-99) mg/dL Calcium 7.8 L (8.4-10.2) mg/dL HSV I DNA PCR DETECTED H (Not detected) Microbiology - Last 24 Hours (Table) 07/16/18 08:00 Blood Culture - Preliminary Blood No Growth after 120 hours Assessment and Plan (1) Carcinoma of breast metastatic to bone Narrative/Plan: Highly suspect with abnormal calcium-bone scan pending this AM. Also, tumor markers are significantly elevated. Will follow up Current Visit: Yes Status: Acute Priority: High Code(s): C50.919 - MALIGNANT NEOPLASM OF UNSP SITE OF UNSPECIFIED FEMALE BREAST; C79.51 - SECONDARY MALIGNANT NEOPLASM OF BONE SNOMED Code(s): 142320162 (2) Hypercalcemia Narrative/Plan: Treated with pamodronate and fluids, Resolved Current Visit: Yes Status: Acute Priority: High Code(s): E83.52 - HYPERCALCEMIA SNOMED Code(s): 70492484 (3) Mental status alteration Narrative/Plan: Secondary to hypercalcemia, Improved per , speech is clear, some confusing statements at times. MRI brain is negative for malignancy CSF was not sent for cytology, request has been made, order will be faxed Current Visit: Yes Status: Acute Code(s): R41.82 - ALTERED MENTAL STATUS, UNSPECIFIED SNOMED Code(s): 492934125 Plan: It appears as though there may be plans for rehabilitation. All treatments would be held until such time that pt completes rehab and is able to return home. Pt states she would like to follow up with her previous Oncologist for another opinion before beginning any treatment here.
--- NOTE | 2018-07-22 01:01 | CONS ---
CONSULTATION DATE OF SERVICE: 07/21/2018. REASON FOR CONSULTATION: Positive CSF HSV 1 PCR. HISTORY OF PRESENT ILLNESS: The patient is a 63-year-old female who was brought into the ER at [facility] on 07/16/2018 by the with chief complaint of unresponsiveness. EMS was called to the patient's house as per as the patient had been unresponsive for 24 hours before calling EMS. The patient's did mention that she was getting slowly weaker a few days before and when she became unresponsive he had to call the EMS. He did not recall if the patient was having any fever at home. However, on arrival to the ER, the patient did have a fever of 101 degrees Fahrenheit. The patient on admission did have elevated white count of 17.6, however, she was noticed to have a calcium level of 18. The patient has been subsequently evaluated by Nephrology and Oncology Services. The patient did have a history of breast cancer and workup did reveal diffuse bony metastatic lesions. The patient was found unresponsive after having a lumbar puncture completed on the , which showed a glucose at 52, white count of . The patient's came back positive today, almost 6 days after the test had been completed. That prompted this infectious disease consultation. Patient subsequently on admission did not show improvement in her mentation. She was awake and noted she was in the hospital at [facility]. Mild headache but denies any photophobia. No chest pain or shortness of breath or cough. No abdominal pain. No nausea, vomiting, diarrhea. However, the still mentioned the patient seemed to be confused off and on at times. REVIEW OF SYSTEMS: Positive points have been mentioned in HPI. Rest of the systems has been negative. PAST MEDICAL HISTORY: Metastatic breast cancer, hypothyroidism. PAST SURGERY HISTORY: Bilateral mastectomy, appendectomy. SOCIAL HISTORY: No history of smoking. . No drinking or drug use. FAMILY HISTORY: Mother with history of liver disease and cirrhosis. Father of old age at 87. ALLERGIES: CIPROFLOXACIN and CODEINE. MEDICATIONS: The patient is currently on , Decadron, heparin, hydralazine, Synthroid, Narcan, Protonix. PHYSICAL EXAMINATION: Blood pressure is 121/77, pulse 97, temperature is 97.9, she is 97% on room air. GENERAL DESCRIPTION: A middle-aged female lying in bed in no distress. No tachypnea or accessory muscle of respiration use. HEENT: Shows no pallor or scleral icterus. Oral mucous membranes dry. NECK: No thrush. Trachea central. No thyromegaly. LUNGS: Unlabored breathing. Clear to auscultation anteriorly. No wheeze or crackle. HEART: S1, S2. Regular rate and rhythm. ABDOMEN: Soft, no tenderness. No guarding or rigidity. No organomegaly. EXTREMITIES: No edema of the feet. SKIN: No rash or mass palpable. NEUROLOGIC: The patient is awake, alert, oriented x3. Mood and affect normal. LABS: Hemoglobin 14.4, white count 11.2, admission white count 17.6 with a BUN of 26, creatinine 1.0. Blood count has been normal. Urine has been negative. CSF glucose 74, protein 32. . DIAGNOSTIC IMPRESSION AND PLAN: Patient admitted to the hospital with mental status changes likely multifactorial. 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 No other clinical focus of infection. PLAN: 1. We will check serum HSV 1 in 2, IgM and IgG. 2. Will add acyclovir 10 mg/kg every 8 hours while watching the kidney function and clinical course closely. 3. We will follow up on clinical condition and further adjust medication if needed. Thank you for this consultation. Will follow this patient along with you. MMODL / IJN: [id number] /
[2018-07-22] MEDS: LEVOTHYROXINE 100 MCG TAB PO SCH (06:10)
[2018-07-22 07:44] LABS: Basophils # (A) 0.1 k/uL (0-0.2); Basophils % (A) 1 %; Eosinophils # (A) 0.2 k/uL (0-0.7); Eosinophils % (A) 2 %; HGB 13.1 gm/dL (11.4-16.0); Lymphocytes # (A) 2.4 k/uL (1.0-4.8); Lymphocytes % (A) 17 %; MCH 30.4 pg (25.0-35.0); MCHC 32.7 g/dL (31.0-37.0); Mean Platelet Volume 6.8; Monocytes # (A) 0.4 k/uL (0-1.0); Monocytes % (A) 3 %; Neutrophils # (A) 10.5 k/uL (1.3-7.7); Neutrophils % (A) 76 %; Platelet Count 217 k/uL (150-450); WBC 13.8 k/uL (3.8-10.6)
[2018-07-22 08:06] LABS: Calcium 7.6 mg/dL (8.4-10.2); Potassium 3.4 mmol/L (3.5-5.1)
[2018-07-22] MEDS: DEXTROSE 5% IN WATER 1,000 ML IV SCH (08:14)
[2018-07-22] MEDS: HEPARIN SODIUM,PORCINE 5,000 UNIT/ML 1 ML VIAL SQ SCH ×3 (08:24→23:26)
[2018-07-22] MEDS: PANTOPRAZOLE 40 MG TABLET PO SCH (08:24)
[2018-07-22] MEDS: DEXAMETHASONE SOD PHOSPHATE 4 MG/ML 1 ML VIAL IV SCH (08:24)
[2018-07-22] MEDS: amLODIPine 5 MG TAB PO SCH (08:24)
[2018-07-22] MEDS: ACYCLOVIR SODIUM 750 MG in SODIUM CHLORIDE 0.9% 250 ML IV SCH ×3 (08:25→23:26)
--- NOTE | 2018-07-22 11:44 | PN ---
PROGRESS NOTE Patient is seen for followup for hypercalcemia and acute kidney injury. Renal function has currently improved significantly with creatinine down to 0.8 from 1.85 at peak. Calcium is also improved down to 7.6 now. The patient was found to have multiple metastatic lesions. She did have a previous history of breast cancer. Light chains were also elevated. Patient is being followed by Heme-Onc. The patient was on calcitonin, which is now stopped. Calcium is down to 7.6 now. PHYSICAL EXAMINATION: On examination today, blood pressure was 116/72, heart rate 102 per minute. Patient is afebrile. EXAMINATION OF THE HEART: S1 and S2. EXAMINATION OF THE LUNGS: Bilateral breath sounds are heard. Abdomen is soft, nontender. Examination of the lower extremities shows no evidence of edema. PIN MACHINE TENDER exam shows patient moving all 4 extremities. LAB: Labs show sodium 137, potassium 3.4, BUN 19, serum creatinine 0.88. Hemoglobin 13.1 g/dL. ASSESSMENT: 1. Acute kidney injury secondary to hypercalcemia and prerenal state, currently improved. Creatinine is down to 0.8. 2. Hypokalemia. We will replace. 3. Hypercalcemia secondary to lytic bone lesions and bony metastasis, currently improved, status post calcitonin. 4. Hypertension, currently controlled. 5. Hypothyroidism. PLAN: Discontinue IV fluids. Continue to encourage increased oral intake. We will sign off. Please do not hesitate to call for any further questions. MMODL / IJN: [id number] /
[2018-07-22] MEDS ORDERED: POTASSIUM CHLORIDE ER 20 MEQ TAB.ER PO STA (12:36)
[2018-07-22 13:03] VITALS: BMI 27.1
--- NOTE | 2018-07-22 14:11 | P.PN ---
Subjective 63-year-old female admitted secondary to unresponsiveness lethargy secondary to hypercalcemia, acute renal failure. Patient received calcitonin and pamidronate , improved serum calcium to 12 can you with IV fluids but IV fluids were switched to D5 water because of elevated serum sodium and chloride. Creatinine improved from 1.8-1.4. Troponin remained stable. AST and ALT are bit elevated which is a nonspecific elevation is still significant other provided abnormalities which we are correcting slowly. Patient is little bit more responsive than yesterday still unable to provide any history still bit lethargic was evaluated with pulmonology, nephrology, oncology. 07/18/2018 Patient mental status significant improvement competitors today patient is almost alert oriented 2 able to tell her name she says she does remember me. Her for hypercalcemia is improving creatinine improved. Patient tumor markers are consistent with recurrence of breast cancer.CC is approved is not significantly elevated the other differential being leptomeningeal involvement possibly is extremely low as the as the CSF protein is not very high, he waking CSF cytology. There was an addendum added to the CAT scan of the hand which cannot completely rule out metastatic disease to the brain patient will need an MRI. Patient is already on Decadron which will be continued. Possibility of paraneoplastic syndromes is low 07/19/2018 Patient the has significant clinical improving more awake alert oriented 2-3 today. Although patient may need an MRI to rule out any metastatic disease and kidney function improved serum Creatinine improved to 1.0 serum calcium has come down with disc any calcitonin tomorrow. 07/20/2018 Patient is doing much better sitting in the chair, this can you Paredes catheter and discontinue IV antibiotics. MRI of the head tomorrow. IV fluids are being switched to D5 half-normal. IV calcium channel maribell is being discussed and patient was started on oral that she began maribell patient will be transferred out of ICU. Patient is CSF didn't show any HSV but has serum HSV-1 antibodies were positive which is not significant and doesn't need any intervention 07/22/2018 Patient overall has significant improvement still bit confused alert oriented 2 today and this confusion is probably hospitalization related delirium patient is was almost alert oriented 3 yesterday. Patient is tachycardic was monitored overnight if he she can use to be tachycardic will obtain a CAT scan to rule out pulmonary embolism patient's TSH was low because of which levothyroxine dose was increased when she was admitted to the hospital patient probably can be discharged to subacute rehabilitation tomorrow Constitutional: Denied any fatigue denied any fever. Cardio vascular: denied any chest pain, palpitations Gastrointestinal denied any nausea vomiting Pulmonary: Denied any shortness of breath cough Neurologic denied any new focal deficits All inpatient medications were reviewed and appropriate changes in these medications as dictated in the interval history and assessment and plan. Objective - Vital Signs Vital signs: Vital Signs Temp 97.6 F 07/22/18 11:14 Pulse 116 H 07/22/18 11:14 Resp 18 07/22/18 11:14 BP 123/80 07/22/18 11:14 Pulse Ox 93 L 07/22/18 11:14 Intake & Output 07/21/18 07/22/18 07/22/18 18:59 06:59 18:59 Intake Total 2110 100 1800 Output Total 41 Balance 2110 100 1759 Weight 76.3 kg Intake: IV 600 100 350 Dextrose 5% in Water 1, 600 100 350 000 ml @ 50 mls/hr IV . Q20H TEVIN Rx#:[id number] Intake, IV Titration 250 Amount Acyclovir Sodium 750 mg 250 In Sodium Chloride 0.9% 250 ml @ 265 mls/hr IV Q8HR TEVIN Rx#:[id number] Oral 1510 1200 Output: Urine 40 Stool 1 Other: Voiding Method Toilet Toilet Toilet # Voids 2 2 2 # Bowel Movements 1 - Exam PHYSICAL EXAMINATION: GENERAL: patient is alert oriented 2, no confusion today Able to protect the airway, he appears to be lethargic HEENT: Pupils are round and equally reacting to light. EOMI. No scleral icterus. No conjunctival pallor. Normocephalic, atraumatic. No pharyngeal erythema. No thyromegaly. CARDIOVASCULAR: S1 and S2 present. No murmurs, rubs, or gallops. PULMONARY: Chest is clear to auscultation, no wheezing or crackles. ABDOMEN: Soft, nontender, nondistended, normoactive bowel sounds. No palpable organomegaly. MUSCULOSKELETAL: No joint swelling or deformity. EXTREMITIES: No cyanosis, clubbing, or pedal edema. NEUROLOGICAL: And appeared to have any focal deficits at this time SKIN: No rashes. - Labs CBC & Chem 7: 07/22/18 07:11 07/22/18 07:11 Labs: Abnormal Lab Results - Last 24 Hours (Table) 07/16/18 07/22/18 07/22/18 Range/Units 11:12 07:11 07:11 WBC 13.8 H (3.8-10.6) k/uL Neutrophils # 10.5 H (1.3-7.7) k/uL Potassium 3.4 L (3.5-5.1) mmol/L Chloride 108 H (98-107) mmol/L BUN 19 H (7-17) mg/dL Glucose 110 H (74-99) mg/dL Calcium 7.6 L (8.4-10.2) mg/dL HSV I DNA PCR DETECTED H (Not detected) Microbiology - Last 24 Hours (Table) 07/16/18 08:00 Blood Culture - Final Blood No Growth after 144 hours Assessment and Plan Plan: -Altered mental status, unresponsiveness: Secondary to severe metabolic encephalopathy from acute renal failure lactic acidosis and hypercalcemia. IV fluids were discontinued MRA of the brain did show a lesion probably metastatic cancer although being read as meningioma possibility of which is low patient does have some moderate small vessel there are osseous metastatic changes on the bone scan -Hypercalcemia: Probably secondary to metastatic breast cancer which may have relapsed now oncology, tumor markers are consistent with breast cancer patient did receive calcitonin, pamidronate and calcitonin can be discontinued continue with gentle hydration Tachycardia will monitor for now patient has sinus tachycardia may be related to pain and ambulation she remains tachycardic overnight will obtain a CAT scan of the chest rule out pulmonary embolism -Acute renal failure possibly multifactorial 1 prerenal azotemia from severe intravascular depletion dehydration, #2 hypercalcemia related to tubular injury , #3 ibuprofen. Patient's creatinine improved -Hydronephrosis: Although there is no evidence of urinary tract infection although continue with the ceftriaxone for now. Ceftriaxone was discontinued -Hypothyroidism with elevated free T4 and low TSH levothyroxine dose was cut down. -Low back pain, radicular pain with extensive osseous metastasis mild compression deformities at L2 T9, will start her on Decadron. -Possible relapsed of breast cancer: Oncology evaluated the patient -Hypertension patient was started on IV calcium channel maribell but will titrated to a higher blood pressure until her kidney function recovers Patient is on pharmacologic GI and DVT prophylaxis
--- NOTE | 2018-07-23 00:22 | PN ---
PROGRESS NOTE DATE OF SERVICE: 07/22/2018. REASON FOR FOLLOWUP: Herpes encephalitis. INTERVAL HISTORY: The patient is currently afebrile. The patient is breathing comfortably. Denies having any headache. No chest pain, shortness of breath or cough. No abdominal pain or any diarrhea. EXAMINATION: Blood pressure 126/77 with a pulse of 105. Temperature is 97.6. She is 94% on room air. General description is a middle aged female up in the bed in no distress. Respiratory system: Unlabored breathing. Clear to auscultation anteriorly. Heart S1, S2. Regular rate and rhythm. ABDOMEN: Soft, no tenderness. EXTREMITIES: No edema of the feet. LABS: White count slightly elevated at 13,000. Blood cultures negative. DIAGNOSTIC IMPRESSION AND PLAN: Patient admitted to the hospital with a fever with mental status changes, unresponsive in this patient who did have with slightly elevated white count the PCR was currently positive, likely component of herpes encephalitis. Patient currently covered with 10 mg/kg q.8 hours. That should continue for at least 2 weeks with close outpatient followup. Continue supportive care. MMODL / IJN: [id number] /
[2018-07-23] MEDS: LEVOTHYROXINE 100 MCG TAB PO SCH (05:46)
[2018-07-23] MEDS: PANTOPRAZOLE 40 MG TABLET PO SCH (08:39)
[2018-07-23] MEDS: ACYCLOVIR SODIUM 750 MG in SODIUM CHLORIDE 0.9% 250 ML IV SCH ×2 (08:39→17:09)
[2018-07-23] MEDS: DEXAMETHASONE SOD PHOSPHATE 4 MG/ML 1 ML VIAL IV SCH (08:40)
[2018-07-23] MEDS: amLODIPine 5 MG TAB PO SCH (08:40)
[2018-07-23] MEDS: HEPARIN SODIUM,PORCINE 5,000 UNIT/ML 1 ML VIAL SQ SCH ×2 (08:40→17:07)
--- NOTE | 2018-07-23 14:35 | PN ---
PROGRESS NOTE DATE OF SERVICE: 07/23/2018 REASON FOR FOLLOWUP: Herpes encephalitis. INTERVAL HISTORY: The patient is currently afebrile. The patient is breathing comfortably. Denies having any headache. No nausea, no vomiting. No abdominal pain. No diarrhea. The patient seemed to be slightly upset, has been told she has to go to a detention. PHYSICAL EXAMINATION: Blood pressure 137/82 with a pulse of 107, temperature 98.1, she is 93% on room air. General description is a middle aged female, up in the bed in no distress. RESPIRATORY SYSTEM: Unlabored breathing with decreased breath sounds at the bases, no wheeze. HEART: S1, S2. Regular rate and rhythm. ABDOMEN: Soft, no tenderness. EXTREMITIES: No edema of the feet. LABS: No new labs have been obtained today and creatinine was 0.8 as of yesterday. DIAGNOSTIC IMPRESSION AND PLAN: Patient with a positive CSF HSV 1 DNA but PCR positive respiratory and mild elevated protein on the CSF finding. 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 The patient is to continue with the acyclovir 10 mg/kg for another 2 weeks with close outpatient followup. Plan of care discussed with the with case management and the admitting physician as well as the . Continue supportive care. MMODL / IJN: [id number] /
[2018-07-23 15:10] LABS: Calcium 8.3 mg/dL (8.4-10.2); Potassium 3.7 mmol/L (3.5-5.1)
[2018-07-23] MEDS ORDERED: POTASSIUM CHLORIDE ER 20 MEQ TAB.ER PO STA (15:22)
--- NOTE | 2018-07-23 15:24 | P.DS ---
Providers Date of admission: 07/16/18 12:53 Attending physician: Ervin Lorenz MD Consults: 07/16/18 12:53 Consult Physician Urgent Consulting Provider: Silverio Narayanan Consult Reason/Comments: Critical care management Do you want consulting provider notified?: Yes 07/16/18 14:17 Consult Physician Routine Consulting Provider: Jefferson gA Consult Reason/Comments: Hypercalcemia, DAVID Do you want consulting provider notified?: Yes 07/16/18 14:18 Consult Physician Routine Consulting Provider: Angel Oneill Consult Reason/Comments: Breast cancer with mets Do you want consulting provider notified?: Yes 07/21/18 15:40 Consult Physician Routine Consulting Provider: Kellie Myers Consult Reason/Comments: positive CSF fluid Do you want consulting provider notified?: Yes Primary care physician: [facility] Course: 63-year-old female admitted secondary to unresponsiveness lethargy secondary to hypercalcemia, acute renal failure. Patient received calcitonin and pamidronate , improved serum calcium to 12 can you with IV fluids but IV fluids were switched to D5 water because of elevated serum sodium and chloride. Creatinine improved from 1.8-1.4. Troponin remained stable. AST and ALT are bit elevated which is a nonspecific elevation is still significant other provided abnormalities which we are correcting slowly. Patient is little bit more responsive than yesterday still unable to provide any history still bit lethargic was evaluated with pulmonology, nephrology, oncology. 07/18/2018 Patient mental status significant improvement competitors today patient is almost alert oriented 2 able to tell her name she says she does remember me. Her for hypercalcemia is improving creatinine improved. Patient tumor markers are consistent with recurrence of breast cancer.CC is approved is not significantly elevated the other differential being leptomeningeal involvement possibly is extremely low as the as the CSF protein is not very high, he waking CSF cytology. There was an addendum added to the CAT scan of the hand which cannot completely rule out metastatic disease to the brain patient will need an MRI. Patient is already on Decadron which will be continued. Possibility of paraneoplastic syndromes is low 07/19/2018 Patient the has significant clinical improving more awake alert oriented 2-3 today. Although patient may need an MRI to rule out any metastatic disease and kidney function improved serum Creatinine improved to 1.0 serum calcium has come down with disc any calcitonin tomorrow. 07/20/2018 Patient is doing much better sitting in the chair, this can you Paredes catheter and discontinue IV antibiotics. MRI of the head tomorrow. IV fluids are being switched to D5 half-normal. IV calcium channel maribell is being discussed and patient was started on oral that she began maribell patient will be transferred out of ICU. Patient is CSF didn't show any HSV but has serum HSV-1 antibodies were positive which is not significant and doesn't need any intervention 07/22/2018 Patient overall has significant improvement still bit confused alert oriented 2 today and this confusion is probably hospitalization related delirium patient is was almost alert oriented 3 yesterday. Patient is tachycardic was monitored overnight if he she can use to be tachycardic will obtain a CAT scan to rule out pulmonary embolism patient's TSH was low because of which levothyroxine dose was increased when she was admitted to the hospital patient probably can be discharged to subacute rehabilitation tomorrow 07/23/2018 Patient confusion completely resolved patient is doing well will not require any subacute rehabilitation will be discharged to home after her morning dose of IV acyclovir as recommended by infectious disease for possible HSV encephalitis. I cannot prove or disprove that patient has HSV encephalitis and patient serum is positive for HSV. Patient still remained tachycardic with but improved patient does not have any signs or symptoms of pulmonary embolism start her on 9 metoprolol as for her tach. Estimated as patient may have metastatic lesion on MRI, MRA was read as possible meningioma please refer to documentation by oncology for further details PHYSICAL EXAMINATION: GENERAL: The patient is alert and oriented x3, not in any acute distress. Well developed, well nourished. HEENT: Pupils are round and equally reacting to light. EOMI. No scleral icterus. No conjunctival pallor. Normocephalic, atraumatic. No pharyngeal erythema. No thyromegaly. CARDIOVASCULAR: S1 and S2 present. No murmurs, rubs, or gallops. PULMONARY: Chest is clear to auscultation, no wheezing or crackles. ABDOMEN: Soft, nontender, nondistended, normoactive bowel sounds. No palpable organomegaly. MUSCULOSKELETAL: No joint swelling or deformity. EXTREMITIES: No cyanosis, clubbing, or pedal edema. NEUROLOGICAL: Gross neurological examination did not reveal any focal deficits. SKIN: No rashes. Assessment and Plan Plan: -Altered mental status, unresponsiveness: Secondary to severe metabolic encephalopathy from acute renal failure lactic acidosis and hypercalcemia. Resolved now HSV encephalitis cannot be ruled out -Hypercalcemia: Probably secondary to metastatic breast cancer which may have relapsed now oncology, improved now Tachycardia etiology is not clear does not have it to have PE clinically may be still related to hyperthyroidism levothyroxine dose was decreased and patient will be discharged on metoprolol -Acute renal failure possibly multifactorial 1 prerenal azotemia from severe intravascular depletion dehydration, #2 hypercalcemia related to tubular injury , #3 ibuprofen. Patient's creatinine improved -Hydronephrosis: Patient was treated for UTI although there is no clear-cut evidence off urinary tract infection -Hypothyroidism with elevated free T4 and low TSH levothyroxine dose was cut down. -Low back pain, radicular pain with extensive osseous metastasis mild compression deformities at L2 T9, we will be discharged on weaning dose of Decadron -Possible relapsed of breast cancer: Oncology evaluated the patient -Hypertension blood pressure is well controlled with amlodipine Plan - Discharge Summary Discharge Rx Participant: Yes New Discharge Prescriptions: New amLODIPine [Norvasc] 5 mg PO DAILY #30 tab Dexamethasone [Decadron] 4 mg PO TID #100 tablet Levothyroxine Sodium [Synthroid] 100 mcg PO DAILY@0630 #30 tab Metoprolol Tartrate [Lopressor] 25 mg PO BID #60 tab Continue [place] 3,6,9 1600mg 1 cap PO DAILY Cyclobenzaprine [Flexeril] 10 mg PO HS PRN PRN Reason: Muscle Spasm Flaxseed Oil 1,000 mg PO DAILY Magnesium Oxide [Mag-Ox] 500 mg PO DAILY Cyanocobalamin (Vitamin B-12) [Vitamin B-12] 2,500 mcg PO DAILY Ranitidine HCl [Zantac] 150 mg PO BID Changed Ibuprofen [Motrin] 400 mg PO Q8HR PRN #0 PRN Reason: Pain Discontinued Levothyroxine Sodium [Synthroid] 112 mcg PO DAILY Calcium Carbonate/Vitamin D3 [Calcium 600-Vit D3 200 Tablet] 1 tab PO DAILY Cholecalciferol (Vitamin D3) [Vitamin D3] 2,000 unit PO DAILY ALPRAZolam [Xanax] 0.25 mg PO HS PRN PRN Reason: Anxiety Ascorbic Acid [Vitamin C] 1,000 mg PO DAILY Discharge Medication List Cyclobenzaprine [Flexeril] 10 mg PO HS PRN 04/07/18 [History] [place] 3,6,9 1600mg 1 cap PO DAILY 04/07/18 [History] Flaxseed Oil 1,000 mg PO DAILY 04/18/18 [History] Magnesium Oxide [Mag-Ox] 500 mg PO DAILY 04/18/18 [History] Cyanocobalamin (Vitamin B-12) [Vitamin B-12] 2,500 mcg PO DAILY 07/16/18 [ History] Ranitidine HCl [Zantac] 150 mg PO BID 07/16/18 [History] Dexamethasone [Decadron] 4 mg PO TID #100 tablet 07/23/18 [Rx] Ibuprofen [Motrin] 400 mg PO Q8HR PRN #0 07/23/18 [Rx] Levothyroxine Sodium [Synthroid] 100 mcg PO DAILY@0630 #30 tab 07/23/18 [Rx] Metoprolol Tartrate [Lopressor] 25 mg PO BID #60 tab 07/23/18 [Rx] amLODIPine [Norvasc] 5 mg PO DAILY #30 tab 07/23/18 [Rx] Follow up Appointment(s)/Referral(s): Ninoska Tovar MD [Primary Care Provider] - 1-2 days Kellie Myers MD [STAFF PHYSICIAN] - 1 Week Discharge Disposition: HOME WITH HOME HEALTH SERVICES
--- NOTE | 2018-07-23 16:25 | P.PN ---
Subjective Progress Note Date: 07/23/18 Principal diagnosis: Suspect hypercalcemia of metastatic breast malignancy In f/u today pt is much more alert and oriented, she does not remember much of the last week. Denies fever, nausea, vomiting, KATLYN, abd pain, diarrhea or constipation, she is weak. Objective - Vital Signs Vital signs: Vital Signs Temp 98.4 F 07/23/18 11:59 Pulse 107 H 07/23/18 11:59 Resp 16 07/23/18 11:59 BP 137/82 07/23/18 11:59 Pulse Ox 93 L 07/23/18 11:59 Intake & Output 07/22/18 07/23/18 07/23/18 18:59 06:59 18:59 Intake Total 2039 730 250 Output Total 83 2 Balance 1956 728 250 Weight 76.3 kg Intake: IV 350 Dextrose 5% in Water 1, 350 000 ml @ 50 mls/hr IV . Q20H TEVIN Rx#:[id number] Intake, IV Titration 250 250 250 Amount Acyclovir Sodium 750 mg 250 250 250 In Sodium Chloride 0.9% 250 ml @ 265 mls/hr IV Q8HR TEVIN Rx#:[id number] Oral 1440 480 Output: Urine 80 2 Stool 3 Other: Voiding Method Toilet Toilet Toilet # Voids 2 1 # Bowel Movements 1 - Constitutional General appearance: Present: average body habitus, cooperative, no acute distress - EENT Eyes: Present: anicteric sclerae, EOMI ENT: Present: hearing grossly normal, normal oropharynx - Respiratory Respiratory: bilateral: CTA - Cardiovascular Heart sounds: normal: S1, S2 - Peripheral edema leg Peripheral Edema: bilateral: None - Gastrointestinal General gastrointestinal: Present: normal bowel sounds, soft - Integumentary Integumentary: Present: pale - Neurologic Neurologic: Present: CNII-XII intact - Musculoskeletal Musculoskeletal: Present: generalized weakness, strength equal bilaterally - Psychiatric Psychiatric: Present: A&O x's 3, appropriate affect, intact judgment & insight - Labs CBC & Chem 7: 07/22/18 07:11 07/23/18 14:43 Labs: Abnormal Lab Results - Last 24 Hours (Table) 07/23/18 Range/Units 14:43 Chloride 108 H (98-107) mmol/L Carbon Dioxide 21 L (22-30) mmol/L Glucose 170 H (74-99) mg/dL Calcium 8.3 L (8.4-10.2) mg/dL - Imaging and Cardiology CSF cytology report reviewed Assessment and Plan (1) Carcinoma of breast metastatic to bone Narrative/Plan: Highly suspect with abnormal calcium, bone scan describing diffuse metastatic disease, tumor markers are significantly elevated. Requested CD of images for to take to Dr. Machuca for review and discussion. Several reports have been faxed to as well. Current Visit: Yes Status: Acute Priority: High Code(s): C50.919 - MALIGNANT NEOPLASM OF UNSP SITE OF UNSPECIFIED FEMALE BREAST; C79.51 - SECONDARY MALIGNANT NEOPLASM OF BONE SNOMED Code(s): 950202464 (2) Hypercalcemia Narrative/Plan: Corrected, resolved Current Visit: Yes Status: Acute Priority: High Code(s): E83.52 - HYPERCALCEMIA SNOMED Code(s): 35600307 (3) Mental status alteration Narrative/Plan: Continues to improve, on exam pt is comprehending information today Current Visit: Yes Status: Acute Code(s): R41.82 - ALTERED MENTAL STATUS, UNSPECIFIED SNOMED Code(s): 030148416
[2018-07-23] MEDS: METOPROLOL TARTRATE 25 MG TAB PO SCH (20:51)
--- NOTE | 2018-07-23 20:56 | PN ---
PROGRESS NOTE Patient is seen for followup for acute kidney injury and hypercalcemia. Her renal function has improved significantly. Calcium has also improved. It is at 8.3 now. Patient was, however, hypokalemic, and she has had potassium replacement. She has metastatic disease, which was the source of her hypercalcemia. There are plans for discharge. Patient will follow up as outpatient. Tumor markers for breast cancer were elevated. On examination today, patient is comfortable. Blood pressure 137/82, heart rate 107 per minute. She is afebrile. EXAMINATION OF THE HEART: S1 and S2. EXAMINATION OF LUNGS: Bilateral breath sounds are heard. ABDOMEN: Soft, non-tender. Examination of lower extremities shows no significant edema. EXPLOSIVE TECHNICIAN exam is grossly intact. Labs show sodium 138, potassium 3.7, chloride 108, BUN 15, serum creatinine 0.8, calcium 8.3. ASSESSMENT: 1. Acute kidney injury secondary to hypercalcemia, currently improved and resolved. 2. Hypercalcemia associated with bony metastasis. Serum calcium was 18 on initial admission. It is now at about 8.3. Calcitonin has been discontinued. Patient is maintained on steroids. 3. Hypertension, currently controlled. 4. Hypokalemia, status post replacement. PLAN: Patient is stable for discharge from nephrology standpoint. We will sign off. Please do not hesitate to call for any questions. MMODL / IJN: [id number] /
[2018-07-24] MEDS: HEPARIN SODIUM,PORCINE 5,000 UNIT/ML 1 ML VIAL SQ SCH ×2 (00:22→08:54)
[2018-07-24] MEDS: ACYCLOVIR SODIUM 750 MG in SODIUM CHLORIDE 0.9% 250 ML IV SCH ×2 (00:22→08:46)
[2018-07-24] MEDS ORDERED: LEVOTHYROXINE 100 MCG TAB ONE (05:40)
[2018-07-24] MEDS: LEVOTHYROXINE 100 MCG TAB PO SCH (06:23)
[2018-07-24] MEDS: amLODIPine 5 MG TAB PO SCH (08:53)
[2018-07-24] MEDS: METOPROLOL TARTRATE 25 MG TAB PO SCH (08:53)
[2018-07-24] MEDS: DEXAMETHASONE SOD PHOSPHATE 4 MG/ML 1 ML VIAL IV SCH (08:54)
[2018-07-24] MEDS: PANTOPRAZOLE 40 MG TABLET PO SCH (08:54)
--- NOTE | 2018-07-24 11:23 | PN ---
PROGRESS NOTE DATE OF SERVICE: 07/24/2018 REASON FOR FOLLOWUP: Herpes encephalitis. INTERVAL HISTORY: The patient is currently afebrile. The patient is breathing comfortably. Denies having any headache. No nausea, no vomiting. No abdominal pain. No diarrhea. She did admit . Patient to be discharged today with continuation of IV acyclovir in the outpatient setting. PHYSICAL EXAMINATION: Blood pressure 134/83 with a pulse of 105, temperature 97.5. She is 95% on room air. General description is a middle-aged female, up in the room in no distress. RESPIRATORY SYSTEM: Unlabored breathing, clear to auscultation anteriorly. HEART: S1, S2. Regular rate and rhythm. ABDOMEN: Soft, no tenderness. EXTREMITIES: No edema of the feet. LABS: BUN of 15, creatinine 0.81. HSV 1 and 2 serology came back positive as well. 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 Patient to continue with acyclovir 750 mg q.8 hours for another 2 weeks on discharge and close outpatient followup with weekly monitoring of CBC and BMP. present at bedside. Questions were answered. MMODL / IJN: [id number] /
[2018-07-24 12:28] VITALS: BP 154/80; PULSE 94; RESP 16; TEMP 97.9
--- NOTE | 2018-07-24 13:54 | P.DS ---
Providers Date of admission: 07/16/18 12:53 Attending physician: Ervin Lorenz MD Consults: 07/16/18 12:53 Consult Physician Urgent Consulting Provider: Silverio Narayanan Consult Reason/Comments: Critical care management Do you want consulting provider notified?: Yes 07/16/18 14:17 Consult Physician Routine Consulting Provider: Jefferson Ag Consult Reason/Comments: Hypercalcemia, DAVID Do you want consulting provider notified?: Yes 07/16/18 14:18 Consult Physician Routine Consulting Provider: Angel Oneill Consult Reason/Comments: Breast cancer with mets Do you want consulting provider notified?: Yes 07/21/18 15:40 Consult Physician Routine Consulting Provider: Kellie Myers Consult Reason/Comments: positive CSF fluid Do you want consulting provider notified?: Yes Primary care physician: [facility] Course: Patient was seen and examined today as she was not discharged yesterday patient received her morning dose of acyclovir and patient is being discharged now. PHYSICAL EXAMINATION: GENERAL: The patient is alert and oriented x3, not in any acute distress. Well developed, well nourished. HEENT: Pupils are round and equally reacting to light. EOMI. No scleral icterus. No conjunctival pallor. Normocephalic, atraumatic. No pharyngeal erythema. No thyromegaly. CARDIOVASCULAR: S1 and S2 present. No murmurs, rubs, or gallops. PULMONARY: Chest is clear to auscultation, no wheezing or crackles. ABDOMEN: Soft, nontender, nondistended, normoactive bowel sounds. No palpable organomegaly. MUSCULOSKELETAL: No joint swelling or deformity. EXTREMITIES: No cyanosis, clubbing, or pedal edema. NEUROLOGICAL: Gross neurological examination did not reveal any focal deficits. SKIN: No rashes. Please refer to my dictation of discharge summary from yesterday for further details of hospitalization course and medical problems that were addressed during this hospitalization Plan - Discharge Summary Discharge Rx Participant: Yes New Discharge Prescriptions: New amLODIPine [Norvasc] 5 mg PO DAILY #30 tab Dexamethasone [Decadron] 4 mg PO TID #100 tablet Levothyroxine Sodium [Synthroid] 100 mcg PO DAILY@0630 #30 tab Metoprolol Tartrate [Lopressor] 25 mg PO BID #60 tab Continue [place] 3,6,9 1600mg 1 cap PO DAILY Cyclobenzaprine [Flexeril] 10 mg PO HS PRN PRN Reason: Muscle Spasm Flaxseed Oil 1,000 mg PO DAILY Magnesium Oxide [Mag-Ox] 500 mg PO DAILY Cyanocobalamin (Vitamin B-12) [Vitamin B-12] 2,500 mcg PO DAILY Ranitidine HCl [Zantac] 150 mg PO BID Changed Ibuprofen [Motrin] 400 mg PO Q8HR PRN #0 PRN Reason: Pain Discontinued Levothyroxine Sodium [Synthroid] 112 mcg PO DAILY Calcium Carbonate/Vitamin D3 [Calcium 600-Vit D3 200 Tablet] 1 tab PO DAILY Cholecalciferol (Vitamin D3) [Vitamin D3] 2,000 unit PO DAILY ALPRAZolam [Xanax] 0.25 mg PO HS PRN PRN Reason: Anxiety Ascorbic Acid [Vitamin C] 1,000 mg PO DAILY Discharge Medication List Cyclobenzaprine [Flexeril] 10 mg PO HS PRN 04/07/18 [History] [place] 3,6,9 1600mg 1 cap PO DAILY 04/07/18 [History] Flaxseed Oil 1,000 mg PO DAILY 04/18/18 [History] Magnesium Oxide [Mag-Ox] 500 mg PO DAILY 04/18/18 [History] Cyanocobalamin (Vitamin B-12) [Vitamin B-12] 2,500 mcg PO DAILY 07/16/18 [History] Ranitidine HCl [Zantac] 150 mg PO BID 07/16/18 [History] Dexamethasone [Decadron] 4 mg PO TID #100 tablet 07/23/18 [Rx] Ibuprofen [Motrin] 400 mg PO Q8HR PRN #0 07/23/18 [Rx] Levothyroxine Sodium [Synthroid] 100 mcg PO DAILY@0630 #30 tab 07/23/18 [Rx] Metoprolol Tartrate [Lopressor] 25 mg PO BID #60 tab 07/23/18 [Rx] amLODIPine [Norvasc] 5 mg PO DAILY #30 tab 07/23/18 [Rx] Follow up Appointment(s)/Referral(s): Ninoska Tovar MD [Primary Care Provider] - 07/30/18 11:20 am [facility] [NON-STAFF] - As Needed Kellie Myers MD [STAFF PHYSICIAN] - 08/04/18 10:30 am () [facility] Visiting Nurse, [NON-STAFF] - As Needed Patient Instructions/Handouts: Metoprolol (By mouth), Levothyroxine (By mouth), Amlodipine (By mouth), Acyclovir (By injection), Dexamethasone (By mouth) Activity/Diet/Wound Care/Special Instructions: Activity as tolerated. Discharge Disposition: HOME WITH HOME HEALTH SERVICES
[2018-07-25 03:35] LABS: Herpes simplex IgG I Ab 6.32 (< or = 0.90); Herpes simplex IgG II Ab 1.73 (< or = 0.90)
== END 2018-07-24 14:15 | disposition home health service (06) | DRG 97 ==
LOC: EC 07:44 → 2SICU 12:53 → 3NMEDONC 07-20 15:32
PROVIDERS: ADMIT Internal Medicine; ATTEND Internal Medicine
PROC: 009U3ZX Drainage of Spinal Canal, Percutaneous Approach, Diagnostic (ICD-10-PCS; principal; 2018-07-16)
DX: B00.4 Herpesviral encephalitis (principal); G93.41 Metabolic encephalopathy; N17.0 Acute kidney failure with tubular necrosis; C79.51 Secondary malignant neoplasm of bone; E87.2 Acidosis; N13.30 Unspecified hydronephrosis; E87.0 Hyperosmolality and hypernatremia; C79.31 Secondary malignant neoplasm of brain; M84.58XA Pathological fracture in neoplastic disease, other specified site, initial encounter for fracture; E83.52 Hypercalcemia; E83.39 Other disorders of phosphorus metabolism; G89.3 Neoplasm related pain (acute) (chronic); E86.0 Dehydration; M54.40 Lumbago with sciatica, unspecified side; E87.6 Hypokalemia; J44.9 Chronic obstructive pulmonary disease, unspecified; E03.9 Hypothyroidism, unspecified; I10 Essential (primary) hypertension; F41.9 Anxiety disorder, unspecified; Z79.1 Long term (current) use of non-steroidal anti-inflammatories (NSAID); Z79.890 Hormone replacement therapy; Z79.51 Long term (current) use of inhaled steroids; Z79.899 Other long term (current) drug therapy; Z85.3 Personal history of malignant neoplasm of breast; Z90.49 Acquired absence of other specified parts of digestive tract; Z90.13 Acquired absence of bilateral breasts and nipples; Z87.311 Personal history of (healed) other pathological fracture; Z87.891 Personal history of nicotine dependence; Z88.1 Allergy status to other antibiotic agents; Z88.5 Allergy status to narcotic agent; Z83.79 Family history of other diseases of the digestive system; Z80.9 Family history of malignant neoplasm, unspecified
CPT/HCPCS: 36410; 36415; 51702; 62270; 70450; 70553; 71046; 71250; 74176; 76770; 76937; 78306; 80048; 80053; 80306; 81001; 82164; 82306; 82550; 82570; 82652; 82945; 82947; 83519; 83605; 83735; 83970; 84100; 84132; 84157; 84165; 84295; 84300; 84439; 84443; 84484; 85025; 85027; 85379; 85610; 85730; 86300; 86694; 86695; 86696; 87040; 87070; 87205; 87502; 87529; 88108; 89050; 93005; 96360; 96361; 96365; 96367; 96372; 96375; 96376; 99291

== ENCOUNTER 2018-07-25 13:45 | Emergency (ER) | payer BC, MEDICARE ==
[2018-07-25] MEDS ORDERED: ACYCLOVIR SODIUM 750 MG in SODIUM CHLORIDE 0.9% 250 ML IV ONE (15:19)
--- NOTE | 2018-07-25 15:53 | ED ---
Recheck HPI - General Chief Complaint: Recheck/Abnormal Lab/Rx Stated Complaint: Revisit-picc line problems Time Seen by Provider: 07/25/18 13:58 Source: patient Mode of arrival: wheelchair Limitations: no limitations - History of Present Illness Initial Comments: 63-year-old female presenting today for chief complaint of PICC line dysfunction. Patient states she had a PICC line placed yesterday, she states this is for HSV encephalitis acyclovir q8hr for the next 2 weeks. Patient states that during her IV a second. This morning he began to dysfunction. She states her hunker took a look at the IV site and states that there was an obvious break and she was unable to flush after repeated attempts. Patient sent to ER for administration of acyclovir as well as evaluation of PICC line dysfunction. PICC line was not able to be flushed in the emergency department. Remaining review of system negative, Patient denies any recent fever, chills, sh ortness of breath, chest pain, back pain, abdominal pain, nausea or vomiting, numbness or tingling, dysuria or hematuria, constipation or diarrhea, headaches or visual changes, or any other complaints. Patient crying stating she does not want be in the hospital and she just wants this fixed so she go home. - Related Data Home Medications Medication Instructions Recorded Confirmed Cyclobenzaprine [Flexeril] 10 mg PO HS PRN 04/07/18 07/25/18 [place] 3,6,9 1600mg 1 cap PO DAILY 04/07/18 07/25/18 Flaxseed Oil 1,000 mg PO DAILY 04/18/18 07/25/18 Magnesium Oxide [Mag-Ox] 500 mg PO DAILY 04/18/18 07/25/18 Cyanocobalamin (Vitamin B-12) 2,500 mcg PO DAILY 07/16/18 07/25/18 [Vitamin B-12] Ranitidine HCl [Zantac] 150 mg PO BID 07/16/18 07/25/18 Previous Rx's Medication Instructions Recorded Dexamethasone [Decadron] 4 mg PO TID #100 tablet 07/23/18 Ibuprofen [Motrin] 400 mg PO Q8HR PRN #0 07/23/18 Levothyroxine Sodium [Synthroid] 100 mcg PO DAILY@0630 #30 tab 07/23/18 Metoprolol Tartrate [Lopressor] 25 mg PO BID #60 tab 07/23/18 amLODIPine [Norvasc] 5 mg PO DAILY #30 tab 07/23/18 Allergies Allergy/AdvReac Type Severity Reaction Status Date / Time ciprofloxacin [From Cipro] AdvReac Nausea & Verified 07/25/18 13:59 Vomiting codeine AdvReac "GETS THE Verified 07/25/18 13:59 SHAKES" Review of Systems ROS Statement: Those systems with pertinent positive or pertinent negative responses have been documented in the HPI. ROS Other: All systems not noted in ROS Statement are negative. Past Medical History Past Medical History: Thyroid Disorder Additional Past Medical History / Comment(s): Breast cancer, with bilateral mastectomy followed by Arimidex treatment, hypothyroidism, COPD History of Any Multi-Drug Resistant Organisms: None Reported Past Surgical History: Appendectomy, Breast Surgery Additional Past Surgical History / Comment(s): double mastectomy,PICC line Past Anesthesia/Blood Transfusion Reactions: No Reported Reaction Past Psychological History: Anxiety Smoking Status: Former smoker Past Alcohol Use History: None Reported Past Drug Use History: None Reported - Past Family History Mother Family Medical History: Liver Disease Additional Family Medical History / Comment(s): young from cirrhosis/etoh related Father Family Medical History: Cancer Additional Family Medical History / Comment(s): age 87 General Exam - General Exam Comments Initial Comments: General: The patient is awake and alert, in no distress, and does not appear acutely ill. Eye: Pupils are equal, round and reactive to light, extra-ocular movements are intact. No nystagmus. There is normal conjunctiva bilaterally. No signs of icterus. Ears, nose, mouth and throat: There are moist mucous membranes and no oral lesions. Neck: The neck is supple, there is no tenderness or JVD. Cardiovascular: There is a regular rate and rhythm. No murmur, rub or gallop is appreciated. Respiratory: Lungs are clear to auscultation, respirations are non-labored, breath sounds are equal. No wheezes, stridor, rales, or rhonchi. Gastrointestinal: Soft, non-distended, non-tender abdomen without masses or organomegaly noted. There is no rebound or guarding present. No CVA tenderness. Bowel sounds are unremarkable. Musculoskeletal: Normal ROM, no tenderness. Strength 5/5. Sensation intact. Pulses equal bilaterally 2+. Neurological: A&O x 3. CN II-XII intact, There are no obvious motor or sensory deficits. Coordination appears grossly intact. Speech is normal. Skin: Skin is warm and dry and no rashes or lesions are noted. Midline in place left UE. Psychiatric: Cooperative, appropriate mood & affect, normal judgment. Limitations: no limitations Course Vital Signs 07/25/18 07/25/18 13:46 18:01 Temperature 97.6 F 98 F Pulse Rate 100 61 Respiratory 18 16 Rate Blood Pressure 134/77 151/86 O2 Sat by Pulse 96 96 Oximetry Medical Decision Making - Medical Decision Making Upon review of patient's note patient had midline placed 07/24/2018 in the Instrument Adjuster. Unable to flush midline in the emergency department. Patient prescribed acyclovir as recommended by Dr. Myers. Dr. Myers contacted. Recommended PICC line placement. PICC line was placed by interventional radiologist Dr. Stallworth. Procedure was successful. Patient received acyclovir 10mg/kg in the emergency department. Patient has no other complaints. Patient appears well and nontoxic. Patient examination unremarkable. Patient will be discharged with continuation of type viral therapy as prescribed and follow up as previously s cheduled. Patient will is agreeable with discharge and it excited to be able to go home. Deny questions at this time. Discharged appearing well. Case is discussed at length with Dr. Robles who had spoke with both infectious disease as well as interventional radiology, agreed with plan and discharged. Disposition Clinical Impression: S/P PICC central line placement Disposition: HOME SELF-CARE Condition: Good Instructions (If sedation given, give patient instructions): Peripherally Inserted Central Catheters and Midline Catheters (DC) Additional Instructions: Please use medication as discussed. Please follow-up with family doctor in the next 2 days. Please return to emergency room if the symptoms increase or worsen or for any other concerns. Is patient prescribed a controlled substance at d/c from ED?: No Referrals: Ninoska Tovar MD [Primary Care Provider] - 1-2 days Time of Disposition: 16:55
--- NOTE | 2018-07-25 16:56 | IR ---
EXAMINATION TYPE: IR cvc insert >=5 years DATE OF EXAM: 07/25/2018 COMPARISON: NONE CLINICAL HISTORY: Infection Needs long-term intravenous access for antiviral therapy. PROCEDURE: After informed consent, the skin overlying the right basilic vein was localized with ultrasound and n oted to be compressible and patent. An ultrasound image was obtained and submitted on the patient's chart. The overlying skin was prepped and draped and Lidocaine was used for local anesthesia. A ski n stuart was made with a scalpel. Access was gained to the vein under ultrasound guidance with a 21 ga uge needle and a 0.018 inch wire was advanced. Access site was dilated with Peel-Away sheath and cat heter tailored to the appropriate length and advanced such that the distal tip is at the cavoatrial j unction. Spot image was obtained verifying placement. Catheter was fixed to the skin and a sterile dressing was placed following hemostasis. Catheter was aspirated and flushed with saline. Patient w as discharged in stable condition without complication.Maximal barrier technique is utilized. Ultras ound image is documented on the chart. Ultrasound used with sterile technique. Fluoro time and fluoroscopic images submitted to document procedure: 0.3 minutes fluoroscopy time, 17 intraoperative images document the procedure IMPRESSION: STATUS POST ULTRASOUND AND FLUOROSCOPIC GUIDED PICC LINE PLACEMENT, READY FOR USE. THIS PROCEDURE WAS PERFORMED BY THE UNDERSIGNED.
[2018-07-25 18:09] VITALS: BP 151/86; PULSE 61; RESP 16; TEMP 98
== END 2018-07-25 18:09 | disposition home or self-care (01) ==
LOC: EC 13:45
DX: Z45.2 Encounter for adjustment and management of vascular access device (principal); Z79.899 Other long term (current) drug therapy; Z88.1 Allergy status to other antibiotic agents; Z88.5 Allergy status to narcotic agent; Z85.3 Personal history of malignant neoplasm of breast; Z90.13 Acquired absence of bilateral breasts and nipples; Z87.891 Personal history of nicotine dependence
CPT/HCPCS: 99282; 96365; 96366; 36573; C1751; C1769; J0133

== ENCOUNTER 2018-07-28 13:35 | Inpatient (IN) | payer BC ==
[2018-07-28] MEDS ORDERED: ACETAMINOPHEN TAB 500 MG TAB PO STA (14:34)
[2018-07-28] MEDS ORDERED: MORPHINE SULFATE 4 MG/ML SYRINGE IVP STA (14:45)
--- NOTE | 2018-07-28 15:05 | ED ---
Abdominal Pain HPI <Fritz Jerome - Last Filed: 07/28/18 17:02> - General Source: patient, RN notes reviewed, old records reviewed Mode of arrival: ambulatory Limitations: no limitations <Genevieve Lentz - Last Filed: 07/28/18 17:05> - General Chief Complaint: Abdominal Pain Stated Complaint: Abd Pain Time Seen by Provider: 07/28/18 14:24 - History of Present Illness Initial Comments: Patient 63-year-old female with complicated recent medical history consistent with HSV encephalitis presents emergency department today with complaints of diffuse abdominal pain. She reports symptoms started over the weekend complaining abdominal pain. She is currently had a PICC line placed on Saturday. Patient states that she's had right upper quadrant abdominal pain. Surgical history includes appendectomy. As bowel movement was 2 days ago. She reports pain with urination. (Genevieve Lentz) - Related Data Home Medications Medication Instructions Recorded Confirmed Acyclovir 750mg Infusion 750 mg IVPB TID@0000,0800,1600 07/28/18 07/28/18 Dexamethasone [Decadron] See Taper PO TID 07/28/18 07/28/18 Previous Rx's Medication Instructions Recorded Levothyroxine Sodium [Synthroid] 100 mcg PO DAILY@0630 #30 tab 07/23/18 Metoprolol Tartrate [Lopressor] 25 mg PO BID #60 tab 07/23/18 amLODIPine [Norvasc] 5 mg PO DAILY #30 tab 07/23/18 Allergies Allergy/AdvReac Type Severity Reaction Status Date / Time ciprofloxacin [From Cipro] AdvReac Nausea & Verified 07/28/18 14:25 Vomiting codeine AdvReac "GETS THE Verified 07/28/18 14:25 SHAKES" Review of Systems ROS Other: All systems not noted in ROS Statement are negative. <Fritz Jerome - Last Filed: 07/28/18 17:02> ROS Other: All systems not noted in ROS Statement are negative. <Genevieve Lentz - Last Filed: 07/28/18 17:05> ROS Statement: Those systems with pertinent positive or pertinent negative responses have been documented in the HPI. Past Medical History Past Medical History: Thyroid Disorder Additional Past Medical History / Comment(s): Breast cancer, with bilateral mastectomy followed by Arimidex treatment, hypothyroidism, COPD History of Any Multi-Drug Resistant Organisms: None Reported Past Surgical History: Appendectomy, Breast Surgery Additional Past Surgical History / Comment(s): double mastectomy,PICC line Past Anesthesia/Blood Transfusion Reactions: No Reported Reaction Past Psychological History: Anxiety Smoking Status: Former smoker Past Alcohol Use History: None Reported Past Drug Use History: None Reported - Past Family History Mother Family Medical History: Liver Disease Additional Family Medical History / Comment(s): young from cirrhosis/etoh related Father Family Medical History: Cancer Additional Family Medical History / Comment(s): age 87 <Genevieve Lentz - Last Filed: 07/28/18 17:05> General Exam Limitations: no limitations General appearance: alert, in no apparent distress Head exam: Present: atraumatic, normocephalic, normal inspection Eye exam: Present: normal appearance, PERRL, EOMI. Absent: scleral icterus, conjunctival injection, periorbital swelling ENT exam: Present: normal exam, mucous membranes moist Neck exam: Present: normal inspection. Absent: tenderness, meningismus, lymphadenopathy Respiratory exam: Present: normal lung sounds bilaterally. Absent: respiratory distress, wheezes, rales, rhonchi, stridor Cardiovascular Exam: Present: regular rate, normal rhythm, normal heart sounds. Absent: systolic murmur, diastolic murmur, rubs, gallop, clicks GI/Abdominal exam: Present: soft, tenderness (Diffuse abdominal tenderness. Guarding and rigid.), guarding, normal bowel sounds. Absent: distended, rebound, rigid Extremities exam: Present: normal inspection, full ROM, normal capillary refill. Absent: tenderness, pedal edema, joint swelling, calf tenderness Back exam: Present: normal inspection Neurological exam: Present: alert, oriented X3, CN II-XII intact Psychiatric exam: Present: normal affect, normal mood Skin exam: Present: warm, dry, intact, normal color. Absent: rash <Genevieve Lentz - Last Filed: 07/28/18 17:05> - General Exam Comments Initial Comments: 63-year-old female. Patient appears weak. (Genevieve Lentz) Course <Fritz Jerome - Last Filed: 07/28/18 17:02> <Genevieve Lentz - Last Filed: 07/28/18 17:05> Vital Signs 07/28/18 13:58 Temperature 100.4 F H Pulse Rate 110 H Respiratory 16 Rate Blood Pressure 141/92 O2 Sat by Pulse 93 L Oximetry - Reevaluation(s) Reevaluation #1: 07/28/18 17:02 PA supervision: I proceeded [id number] evaluation the patient did discuss the findings with her and her . Patient has had abdominal pain for about a week but they get really bad 2 days ago. She had some tenderness palpation. She did have a recent admission for HSV encephalitis. She is on IV acyclovir. CAT scan was done does show evidence of pneumoperitoneum. I did discuss the case with Dr. Coats who is on surgical call today. He is agreed to see the patient. Patient does have a history of hiatal hernia no prior history of ulcers however. (Fritz Jerome) 07/28/18 16:56 Patient reports that she is a full code. (Genevieve Lentz) Medical Decision Making - Lab Data Result diagrams: 07/28/18 15:35 07/28/18 15:35 <Fritz Jerome - Last Filed: 07/28/18 17:02> - Lab Data Result diagrams: 07/28/18 15:35 07/28/18 15:35 - Radiology Data Radiology results: report reviewed <Genevieve Lentz - Last Filed: 07/28/18 17:05> - Medical Decision Making 63-year-old female presents emergency department today with acute abdominal pain. Extensive past medical history with region HSV encephalitis. She had a PICC line placed on Saturday. This time Patient is rigid and guarding abdomen. Evidence of moderate pneumoperitoneum. CT results were dictated by phone to Dr. Hernandez by me. Patient was started on fluids and was given Rocephin and IV Flagyl. Remaining nothing by mouth. She does not have a surgeon at this facility. Also extensive metastestes are noted. Patient has history of primary breast cancer with bilateral mastectomy. Patient is taken directly to surgery by Dr. Coats. Dr. Jerome discussed the case with Dr. Farah. (Genevieve Lentz) - Lab Data Lab Results 07/28/18 07/28/18 07/28/18 Range/Units 15:35 15:35 15:35 WBC 9.5 (3.8-10.6) k/uL RBC 4.63 (3.80-5.40) m/uL Hgb 13.8 (11.4-16.0) gm/dL Hct 42.1 (34.0-46.0) % MCV 90.9 (80.0-100.0) fL MCH 29.8 (25.0-35.0) pg MCHC 32.8 (31.0-37.0) g/dL RDW 16.1 H (11.5-15.5) % Plt Count 334 (150-450) k/uL PT (9.0-12.0) sec INR (<1.2) APTT (22.0-30.0) sec Sodium 135 L (137-145) mmol/L Potassium 4.2 (3.5-5.1) mmol/L Chloride 106 (98-107) mmol/L Carbon Dioxide 20 L (22-30) mmol/L Anion Gap 9 mmol/L BUN 20 H (7-17) mg/dL Creatinine 0.63 (0.52-1.04) mg/dL Est GFR (CKD-EPI)AfAm >90 (>60 ml/min/1.73 sqM) Est GFR (CKD-EPI)NonAf >90 (>60 ml/min/1.73 sqM) Glucose 116 H (74-99) mg/dL Plasma Lactic Acid Maximino 1.8 (0.7-2.0) mmol/L Calcium 8.5 (8.4-10.2) mg/dL Total Bilirubin 1.1 (0.2-1.3) mg/dL AST 79 H (14-36) U/L ALT 120 H (9-52) U/L Alkaline Phosphatase 416 H (38-126) U/L Troponin I (0.000-0.034) ng/mL Total Protein 5.6 L (6.3-8.2) g/dL Albumin 2.8 L (3.5-5.0) g/dL Urine Color Urine Appearance (Clear) Urine pH (5.0-8.0) Ur Specific [place] (1.001-1.035) Urine Protein (Negative) Urine Glucose (UA) (Negative) Urine Ketones (Negative) Urine Blood (Negative) Urine Nitrite (Negative) Urine Bilirubin (Negative) Urine Urobilinogen (<2.0) mg/dL Ur Leukocyte Esterase (Negative) 07/28/18 07/28/1819 Range/Units 15:35 15:35 Unknown WBC (3.8-10.6) k/uL RBC (3.80-5.40) m/uL Hgb (11.4-16.0) gm/dL Hct (34.0-46.0) % MCV (80.0-100.0) fL MCH (25.0-35.0) pg MCHC (31.0-37.0) g/dL RDW (11.5-15.5) % Plt Count (150-450) k/uL PT 11.0 (9.0-12.0) sec INR 1.0 (<1.2) APTT 20.1 L (22.0-30.0) sec Sodium (137-145) mmol/L Potassium (3.5-5.1) mmol/L Chloride (98-107) mmol/L Carbon Dioxide (22-30) mmol/L Anion Gap mmol/L BUN (7-17) mg/dL Creatinine (0.52-1.04) mg/dL Est GFR (CKD-EPI)AfAm (>60 ml/min/1.73 sqM) Est GFR (CKD-EPI)NonAf (>60 ml/min/1.73 sqM) Glucose (74-99) mg/dL Plasma Lactic Acid Maximino (0.7-2.0) mmol/L Calcium (8.4-10.2) mg/dL Total Bilirubin (0.2-1.3) mg/dL AST (14-36) U/L ALT (9-52) U/L Alkaline Phosphatase (38-126) U/L Troponin I <0.012 (0.000-0.034) ng/mL Total Protein (6.3-8.2) g/dL Albumin (3.5-5.0) g/dL Urine Color Yellow Urine Appearance Clear (Clear) Urine pH 5.5 (5.0-8.0) Ur Specific [place] 1.013 (1.001-1.035) Urine Protein Trace H (Negative) Urine Glucose (UA) Negative (Negative) Urine Ketones Negative (Negative) Urine Blood Negative (Negative) Urine Nitrite Negative (Negative) Urine Bilirubin Negative (Negative) Urine Urobilinogen <2.0 (<2.0) mg/dL Ur Leukocyte Esterase Negative (Negative) 07/28/18 15:55 EKG performed at 1452 shows sinus tach cardia possible left atrial enlargement. EKG. Ventricular rate of 110 bpm. Was 1:30 milliseconds. QS duration 70 ms. QT QTc is 340/460 ms. (Genevieve Lentz) - Radiology Data Chest x-ray shows chronic emphysema changes cardiomegaly and persistent left greater than right bibasilar acute atelectasis. Moderate pneumoperitoneum. Site of perforation is difficult to elucidate. Suspect colonic site. There small bowel ileus. Extensive osseous metastases are redemonstrated. (Genevieve Lentz) Disposition <Fritz Jerome - Last Filed: 07/28/18 17:02> Is patient prescribed a controlled substance at d/c from ED?: No Time of Disposition: 17:05 <Genevieve Lentz - Last Filed: 07/28/18 17:05> Clinical Impression: Carcinoma of breast metastatic to bone, Sepsis, Surgical pneumoperitoneum Disposition: ADMITTED IP TO THIS HOSP Condition: Stable Referrals: Ninoska Tovar MD [Primary Care Provider] - 1-2 days
--- NOTE | 2018-07-28 15:31 | XR ---
EXAMINATION TYPE: XR chest 2V DATE OF EXAM: 07/28/2018 COMPARISON: CT and chest x-ray July 16, 2018 HISTORY: Fever. TECHNIQUE: Frontal and lateral views of the chest are obtained. FINDINGS: There is chronic emphysematous change with left greater than right bibasilar opacity. The cardiac silhouette size remains enlarged with atherosclerotic aorta. Overlying EKG leads are seen kn own osseous metastatic disease on CT is less well seen on plain films. Demineralization is present.. IMPRESSION: Chronic emphysematous change and cardiomegaly with persistent left greater than right bi basilar acute atelectasis and/or infiltrate.
[2018-07-28 16:08] LABS: ALT 120 U/L (9-52); AST 79 U/L (14-36); Albumin 2.8 g/dL (3.5-5.0); Alkaline Phosphatase 416 U/L (38-126); Anion Gap 9 mmol/L; Blood Urea Nitrogen 20 mg/dL (7-17); Calcium 8.5 mg/dL (8.4-10.2); Carbon Dioxide 20 mmol/L (22-30); Chloride 106 mmol/L (98-107); Glucose 116 mg/dL (74-99); Potassium 4.2 mmol/L (3.5-5.1); Sodium 135 mmol/L (137-145); Total Bilirubin 1.1 mg/dL (0.2-1.3); Total Protein 5.6 g/dL (6.3-8.2)
[2018-07-28 16:15] LABS: Appearance,Urine Clear (Clear); Bilirubin,Urine Negative (Negative); Blood,Urine Negative (Negative); Color,Urine Yellow; Glucose,Urine (UA) Negative (Negative); Ketones,Urine Negative (Negative); Leukocyte Esterase,Urine Negative (Negative); Nitrite,Urine Negative (Negative); PH, Urine 5.5 (5.0-8.0); Protein,Urine Trace (Negative); Specific Gravity,Urine 1.013 (1.001-1.035); Urobilinogen,Urine <2.0 mg/dL (<2.0)
[2018-07-28 16:16] LABS: Anisocytosis Slight; HCT 42.1 % (34.0-46.0); HGB 13.8 gm/dL (11.4-16.0); MCH 29.8 pg (25.0-35.0); MCHC 32.8 g/dL (31.0-37.0); MCV 90.9 fL (80.0-100.0); Mean Platelet Volume 6.5; Platelet Count 334 k/uL (150-450); RBC 4.63 m/uL (3.80-5.40); RDW 16.1 % (11.5-15.5); WBC 9.5 k/uL (3.8-10.6)
[2018-07-28 16:17] LABS: Partial Thromboplastin Time 20.1 sec (22.0-30.0)
[2018-07-28] MEDS: SODIUM CHLORIDE 0.9% 500 ML 500 ML IV SCH ×3 (16:25→16:49)
--- NOTE | 2018-07-28 16:26 | CT ---
EXAMINATION TYPE: CT abdomen pelvis w con DATE OF EXAM: 07/28/2018 COMPARISON: 07/16/2018 HISTORY: Abdominal pain CT DLP: 694.8 mGycm CONTRAST: CT scan of the abdomen and pelvis is performed without Oral Contrast and with IV Contrast, patient in jected with 100 mL of Isovue 300. FINDINGS: LUNG BASES-: No visible nodule. No infiltrate. Small bilateral pleural effusions noted. LIVER/GB: No calcified gallstones. No space occupying hepatic lesion. Biliary tree is of normal ca liber. PANCREAS: No inflammation. No distinct mass. SPLEEN: No splenic enlargement. No lesion seen. ADRENALS: No nodule. No thickening. KIDNEYS/BLADDER: No hydronephrosis. No nephrolithiasis. No distinct renal mass. Urinary bladder g rossly unremarkable. BOWEL: There is evidence of pneumoperitoneum. Site of perforation is difficult to elucidate. Site of perforation may include the sigmoid colon versus cecum. The other appears to be mild inflammatory will nge about the cecum as well as postoperative change in this region. There is extensive sigmoid divert iculosis. There is distention of small bowel noted as well which may reflect ileus. There is evidence of ascites. No discernible abscess at this time. GENITAL ORGANS: No gross abnormality. LYMPH NODES: No greater than 1cm abdominal or pelvic lymph nodes are appreciated. AORTA: No significant abnormality. OSSEOUS STRUCTURES: Extensive osseous metastases redemonstrated. OTHER: No significant additional abnormality is seen. IMPRESSION: 1. Moderate pneumoperitoneum. Site of perforation is difficult to elucidate. Suspect colonic site. 2. Small bowel ileus. 3. Extensive osseous metastases redemonstrated.
[2018-07-28] MEDS ORDERED: metroNIDAZOLE-NS PMX 500 MG in SALINE 1 100ML.BAG IVPB STA (16:33)
[2018-07-28] MEDS: IBUPROFEN IV 600 MG in SODIUM CHLORIDE 0.9% 250 ML IV STA ×2 (16:49→20:44)
[2018-07-28] MEDS ORDERED: ONDANSETRON 4 MG/2 ML VIAL IVP PRN ×2 (17:06→19:15)
[2018-07-28] MEDS ORDERED: NALOXONE 0.4 MG/ML 1 ML VIAL IV PRN (17:06)
[2018-07-28] MEDS ORDERED: HYDROmorphone 1 MG/ML 1 ML SYRINGE IVP PRN (17:06)
--- NOTE | 2018-07-28 17:34 | P.GSHP ---
History of Present Illness H&P Date: 07/28/18 Chief Complaint: Abdominal pain with This is a 63-year-old female who presents emergency room with complaints of acute abdominal pain. Patient awake CAT scan found have Pneumoperitoneum. Patient states that her pain started suddenly today. She denies any significant NSAID use.. Past Medical History Past Medical History: Thyroid Disorder Additional Past Medical History / Comment(s): Breast cancer, with bilateral mastectomy followed by Arimidex treatment, hypothyroidism, COPD History of Any Multi-Drug Resistant Organisms: None Reported Past Surgical History: Appendectomy, Breast Surgery Additional Past Surgical History / Comment(s): double mastectomy,PICC line Past Anesthesia/Blood Transfusion Reactions: No Reported Reaction Past Psychological History: Anxiety Smoking Status: Former smoker Past Alcohol Use History: None Reported Past Drug Use History: None Reported - Past Family History Mother Family Medical History: Liver Disease Additional Family Medical History / Comment(s): young from cirrhosis/etoh related Father Family Medical History: Cancer Additional Family Medical History / Comment(s): age 87 Medications and Allergies Home Medications Medication Instructions Recorded Confirmed Type Levothyroxine Sodium [Synthroid] 100 mcg PO DAILY@0630 #30 tab 07/23/18 07/28/18 Rx Metoprolol Tartrate [Lopressor] 25 mg PO BID #60 tab 07/23/18 07/28/18 Rx amLODIPine [Norvasc] 5 mg PO DAILY #30 tab 07/23/18 07/28/18 Rx Acyclovir 750mg Infusion 750 mg IVPB TID@0000,0800,1600 07/28/18 07/28/18 History Dexamethasone [Decadron] See Taper PO TID 07/28/18 07/28/18 History Allergies Allergy/AdvReac Type Severity Reaction Status Date / Time ciprofloxacin [From Cipro] AdvReac Nausea & Verified 07/28/18 14:25 Vomiting codeine AdvReac "GETS THE Verified 07/28/18 14:25 SHAKES" Surgical - Exam Vital Signs Temp Pulse Resp BP Pulse Ox 100.4 F H 110 H 16 141/92 93 L 07/28/18 13:58 07/28/18 13:58 07/28/18 13:58 07/28/18 13:58 07/28/18 13:58 Patient appears uncomfortable - General moderate distress - Eyes PERRL - ENT normal pinna - Neck no masses - Respiratory normal expansion - Cardiovascular Rhythm: regular - Abdomen Abdomen is distended. There is significant tenderness with rebound and guarding. Results - Labs 07/28/18 15:35 07/28/18 15:35 Abnormal Lab Results - Last 24 Hours (Table) 07/28/18 07/28/18 07/28/18 Range/Units 15:35 15:35 15:35 RDW 16.1 H (11.5-15.5) % APTT 20.1 L (22.0-30.0) sec Sodium 135 L (137-145) mmol/L Carbon Dioxide 20 L (22-30) mmol/L BUN 20 H (7-17) mg/dL Glucose 116 H (74-99) mg/dL AST 79 H (14-36) U/L ALT 120 H (9-52) U/L Alkaline Phosphatase 416 H (38-126) U/L Total Protein 5.6 L (6.3-8.2) g/dL Albumin 2.8 L (3.5-5.0) g/dL Urine Protein (Negative) 07/28/18 Range/Units Unknown RDW (11.5-15.5) % APTT (22.0-30.0) sec Sodium (137-145) mmol/L Carbon Dioxide (22-30) mmol/L BUN (7-17) mg/dL Glucose (74-99) mg/dL AST (14-36) U/L ALT (9-52) U/L Alkaline Phosphatase (38-126) U/L Total Protein (6.3-8.2) g/dL Albumin (3.5-5.0) g/dL Urine Protein Trace H (Negative) Diabetes panel 07/28/18 Range/Units 15:35 Sodium 135 L (137-145) mmol/L Potassium 4.2 (3.5-5.1) mmol/L Chloride 106 (98-107) mmol/L Carbon Dioxide 20 L (22-30) mmol/L BUN 20 H (7-17) mg/dL Creatinine 0.63 (0.52-1.04) mg/dL Glucose 116 H (74-99) mg/dL Calcium 8.5 (8.4-10.2) mg/dL AST 79 H (14-36) U/L ALT 120 H (9-52) U/L Alkaline Phosphatase 416 H (38-126) U/L Total Protein 5.6 L (6.3-8.2) g/dL Albumin 2.8 L (3.5-5.0) g/dL Calcium panel 07/28/18 Range/Units 15:35 Calcium 8.5 (8.4-10.2) mg/dL Albumin 2.8 L (3.5-5.0) g/dL Pituitary panel 07/28/18 Range/Units 15:35 Sodium 135 L (137-145) mmol/L Potassium 4.2 (3.5-5.1) mmol/L Chloride 106 (98-107) mmol/L Carbon Dioxide 20 L (22-30) mmol/L BUN 20 H (7-17) mg/dL Creatinine 0.63 (0.52-1.04) mg/dL Glucose 116 H (74-99) mg/dL Calcium 8.5 (8.4-10.2) mg/dL Adrenal panel 07/28/18 Range/Units 15:35 Sodium 135 L (137-145) mmol/L Potassium 4.2 (3.5-5.1) mmol/L Chloride 106 (98-107) mmol/L Carbon Dioxide 20 L (22-30) mmol/L BUN 20 H (7-17) mg/dL Creatinine 0.63 (0.52-1.04) mg/dL Glucose 116 H (74-99) mg/dL Calcium 8.5 (8.4-10.2) mg/dL Total Bilirubin 1.1 (0.2-1.3) mg/dL AST 79 H (14-36) U/L ALT 120 H (9-52) U/L Alkaline Phosphatase 416 H (38-126) U/L Total Protein 5.6 L (6.3-8.2) g/dL Albumin 2.8 L (3.5-5.0) g/dL Assessment and Plan Assessment: Acute abdomen. Patient will undergo exploratory laparotomy. I discussed the patient and her that she may require a bowel resection or possible colos jarrod.
[2018-07-28] MEDS ORDERED: HYDROmorphone (PF) 1 MG/ML ONE (17:44)
[2018-07-28] MEDS ORDERED: NEOSTIGMINE 1 MG/ML 10 ML VIAL ONE (17:44)
[2018-07-28] MEDS ORDERED: LIDOCAINE 1% INJ 10MG/ML (20 ML MDV) ONE (17:44)
[2018-07-28] MEDS ORDERED: PROPOFOL 10 MG/ML 20 ML VIAL IV ONE (17:44)
[2018-07-28] MEDS ORDERED: ROCURONIUM BROMIDE 10 MG/ML 10 ML VIAL IV ONE (17:44)
[2018-07-28] MEDS ORDERED: fentaNYL (PF) 50 MCG/ML 2 ML AMP ONE (17:44)
[2018-07-28] MEDS ORDERED: GLYCOPYRROLATE 0.2 MG/ML 2 ML VIAL ONE (17:44)
[2018-07-28] MEDS ORDERED: LIDOCAINE 2% SYG (PF) 100 MG/5 ML ONE (17:44)
[2018-07-28] MEDS ORDERED: MIDAZOLAM 2 MG/2 ML VIAL ONE (17:44)
[2018-07-28] MEDS ORDERED: IBUPROFEN 600 MG TAB PO ONE (17:44)
[2018-07-28] MEDS ORDERED: ONDANSETRON 4 MG/2 ML VIAL ONE (17:44)
[2018-07-28] MEDS ORDERED: ESMOLOL 100 MG/10 ML VIAL ONE (17:44)
[2018-07-28] MEDS ORDERED: DEXAMETHASONE SOD PHOS (MDV) 100 MG/10 ML VIAL ONE (17:44)
[2018-07-28] MEDS ORDERED: IV FLUID CONTINUATION 1,000 ML IV ONE (18:00)
[2018-07-28] MEDS ORDERED: SODIUM CHLORIDE 0.9% 50 ML with ceFAZolin 2,000 MG IV ONE ×2 (18:00)
[2018-07-28 18:13] LABS: Anisocytosis (M) Present; Band Neutrophils % 20 %; Lymphocytes # (M) 1.14 k/uL (1.0-4.8); Neutrophils % (M) 68 %; Nucleated Red Blood Cells 0 /100 WBC (0-0); Poikilocytosis (M) Present; Polychromasia Present; Total Cells Counted 100
[2018-07-28] MEDS ORDERED: LACTATED RINGERS 1,000 ML IV ONE ×2 (18:23)
[2018-07-28] MEDS ORDERED: PIPERACILLIN-TAZOBACTAM 3.375 GM in SODIUM CHLORIDE 0.9% 100 ML IVPB STA (18:26)
[2018-07-28] MEDS ORDERED: BENZOCAINE/MENTHOL LOZENG 1 EACH LOZENGE MUCOUS MEM PRN (19:15)
--- NOTE | 2018-07-28 19:24 | P.OP ---
Date of Procedure: 07/28/18 Preoperative Diagnosis: Perforated viscus Postoperative Diagnosis: Diverticulitis with interloop abscess Incarcerated ventral hernia Procedure(s) Performed: Sigmoid colectomy with end colostomy Takedown flexure Partial omentectomy Incarcerated ventral hernia Anesthesia: NEHEMIAS Surgeon: Chuy Coats Estimated Blood Loss (ml): 100 Pathology: other (Sigmoid colon, omentum) Condition: stable Disposition: ICU Description of Procedure: The patient's placed the operative table in the supine position. She received general anesthesia. Her abdomen was prepped and draped usual sterile fashion. The area was entered through a midline incision. There was a small incarcerated midline incarcerated antral hernia hernia. Upon entering the peritoneal cavity there was some feculent ascites. This was cultured. The Bookwalter retractors placed a wound. The abdomen explored. There is no evidence of any ulcers. There were several interloop abscesses in the small bowel. The right colon transverse colon appeared normal. The descending colon appeared normal. In the sigmoid colon there was gross inflammation suggestive of diverticulitis. At this point the left colon was mobilized by dividing the white line of Toldt's and then the sigmoid colon was transected at the distal left colon with the linear cutter.. And then using the Enseal device the mesentery the sigmoid colon was divided and then the rectum was transected with the contour stapler. The rectal stump was tagged with a 2-0 Prolene suture. At this point the splenic flexure was mobilized in order to provide enough length for a colostomy. The abdomen was irrigated. The colostomy was brought out through the abdominal wall in the left periumbilical area. A AUGUSTIN drain is placed through separate stab incision and brought out through the right abdominal wall. The omentum was visualized and appeared to be some omental necrosis and this was transected using the Enseal device and sent to pathology. The fascia was then closed with looped #1 PDS suture. The ventral hernia was repaired during fascial closure. The skin was closed yesi. The colostomy was matured with 3-0 Vicryl. Patient top she will was sent to the ICU in stable condition.
[2018-07-28] MEDS: LACTATED RINGERS 1,000 ML IV SCH (20:09)
[2018-07-28] MEDS: SODIUM CHLORIDE 0.9% 1,000 ML IV SCH (20:44)
[2018-07-28 21:05] LABS: HCT 42.3 % (34.0-46.0); HGB 13.5 gm/dL (11.4-16.0); MCH 29.5 pg (25.0-35.0); MCHC 31.9 g/dL (31.0-37.0); MCV 92.4 fL (80.0-100.0); Mean Platelet Volume 7.1; Platelet Count 277 k/uL (150-450); RBC 4.57 m/uL (3.80-5.40); RDW 15.5 % (11.5-15.5); WBC 6.4 k/uL (3.8-10.6)
[2018-07-28 21:12] LABS: Anion Gap 6 mmol/L; Blood Urea Nitrogen 20 mg/dL (7-17); Calcium 7.1 mg/dL (8.4-10.2); Carbon Dioxide 19 mmol/L (22-30); Chloride 111 mmol/L (98-107); Glucose 128 mg/dL (74-99); Potassium 4.2 mmol/L (3.5-5.1); Sodium 136 mmol/L (137-145)
[2018-07-28 21:38] LABS: Band Neutrophils % 14 %; Crenated RBC Present; Lymphocytes # (M) 0.96 k/uL (1.0-4.8); Neutrophils % (M) 71 %; Nucleated Red Blood Cells 0 /100 WBC (0-0); Poikilocytosis (M) Present; Total Cells Counted 100; Toxic Granulation Present
[2018-07-28 21:39] LABS: Anisocytosis (M) Present
[2018-07-28] MEDS: FAMOTIDINE 20 MG/2 ML VIAL IV SCH (22:18)
[2018-07-29 00:13] LABS: Glucose,Whole Blood 123 mg/dL (75-99)
[2018-07-29] MEDS: LACTATED RINGERS 1,000 ML IV SCH ×4 (04:30→23:30)
[2018-07-29] MEDS: PIPERACILLIN-TAZOBACTAM 3.375 GM in SODIUM CHLORIDE 0.9% 100 ML IVPB SCH ×3 (04:54→22:00)
[2018-07-29] MEDS ORDERED: PIPERACILLIN-TAZOBACTAM 3.375 GM in SODIUM CHLORIDE 0.9% 100 ML IVPB SCH ×3 (05:00)
[2018-07-29 05:43] LABS: HCT 37.6 % (34.0-46.0); HGB 12.1 gm/dL (11.4-16.0); MCH 29.8 pg (25.0-35.0); MCHC 32.4 g/dL (31.0-37.0); MCV 92.2 fL (80.0-100.0); Platelet Count 265 k/uL (150-450); RBC 4.07 m/uL (3.80-5.40); RDW 15.7 % (11.5-15.5); WBC 10.1 k/uL (3.8-10.6)
[2018-07-29 05:53] LABS: Albumin 2.1 g/dL (3.5-5.0); Calcium 7.5 mg/dL (8.4-10.2); Potassium 4.3 mmol/L (3.5-5.1); Total Bilirubin 1.1 mg/dL (0.2-1.3); Total Protein 4.4 g/dL (6.3-8.2)
[2018-07-29 07:24] LABS: Anisocytosis (M) Present; Band Neutrophils % 47 %; Lymphocytes # (M) 1.31 k/uL (1.0-4.8); Metamyelocytes % 1 %; Neutrophils % (M) 39 %; Nucleated Red Blood Cells 0 /100 WBC (0-0); Polychromasia Present; Total Cells Counted 200
[2018-07-29 07:25] LABS: Crenated RBC Present; Poikilocytosis (M) Present
--- NOTE | 2018-07-29 08:55 | CONS ---
CONSULTATION PULMONARY CRITICAL CARE CONSULTATION: DATE OF SERVICE: 07/29/2018 ICU management, status post exploratory laparotomy are the reasons. This is a 63-year-old female with a complicated medical history including herpes simplex viral encephalitis who presents to the emergency department with complaints of diffuse abdominal pain. She apparently had pain that was started over the weekend. The patient was evaluated and found to have a perforated viscus. She is currently postop day #1, status post exploratory laparotomy, sigmoid colectomy and colostomy, ventral hernia repair and partial omentectomy. The surgery was done by Dr. Coats. He did call me yesterday. He mentioned that she probably would get extubated in recovery room and she did. Currently, she is on 50% venturi mask and she receiving IV fluids with lactated Ringer's at 150 mL an hour. She does have a history of breast cancer with bilateral mastectomy, history of hypothyroidism, COPD, and a history of herpes simplex virus encephalitis. . CURRENT HOME MEDICATIONS: Included acyclovir and Decadron. She is also apparently on metoprolol, amlodipine, and Synthroid. ALLERGIES: Include CIPROFLOXACIN and CODEINE. SURGICAL HISTORY: Includes double mastectomy and PICC line placement as well as appendectomy. PAST MEDICAL HISTORY: As mentioned include breast cancer, hypothyroidism, possible COPD, and herpes simplex virus encephalopathy. SOCIAL HISTORY: Positive for previous tobacco use. She denies alcohol or illicit drug use. FAMILY HISTORY: Positive for liver cirrhosis and cancer. REVIEW OF SYSTEMS: Difficult to obtain. The patient is still a bit groggy. Her mental status is not clear. She does not have any major complaints other than the fact that she does not like the Venturi mask that she is wearing, she would like it off. She does have an NG tube in place and she is complaining about that as well. Current vital signs are reviewed. Temperature is 96.9, heart rate is 98, respiratory rate 16, blood pressure 129/79 with mean 95, and saturations are 96% on 50% venturi mask. She appears in no acute distress. She is somewhat groggy and sleepy. Hard to get any history from her. HEENT examination is grossly unremarkable. There is an NG tube in place. She has got a Venti mask in place. Neck is supple. Full range of motion. No adenopathy or thyromegaly. Neck veins are flat. Cardiovascular examination reveals regular rhythm and rate. Heart rate about 90 to 95 beats per minute. It is regular. S1, S2 normal. No hear any murmur. LUNGS: Diminished breath sounds. She does not really take deep breaths. There is a few scattered rhonchi. No wheezes or crackles. ABDOMEN: Soft, but there are no bowel sounds. End colostomy is noted. Extremities are intact. There is no cyanosis, clubbing, or edema. Skin without rash. Neurologic examination is difficult to assess, but she does move all 4 extremities. A chest x-ray was one in the emergency room yesterday and showed evidence of cardiomegaly with bibasilar atelectasis and changes of COPD. The CT scan of the abdomen and pelvis yesterday showed moderate pneumoperitoneum and small bowel ileus. She has also got extensive osseous metastasis from her from her breast cancer. LABS: Reviewed. White count 10.1, hemoglobin 12.1, hematocrit 37.6, platelet count 365, 000, sodium 138, potassium 4.3, chloride is 110, CO2 is 20 , anion gap is 8, BUN and creatinine were 24 and 1.14. Alkaline phosphatases is 253. AST and ALT are elevated at 51 and 80 respectively. Albumin is 2.1. Urine is negative. Medications are reviewed. Microbiology is negative. She is receiving Zosyn as her antibiotic. ASSESSMENT: 1. Postoperative day #1 status post exploratory laparotomy, sigmoid colectomy and colostomy, ventral hernia repair and partial omentectomy for perforated viscus. 2. Metastatic breast cancer with multiple osseous metastasis. 3. Status post bilateral mastectomy. 4. 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 5. Hypothyroidism. 6. Hypertension by history. PLAN: The patient will be encouraged to use the incentive spirometer q.1 hour while awake. Hopefully, her mental status will improve a bit. Will also encourage deep breathing, coughing and clearing of secretions. Labs will be checked. Additional recommendations and suggestions are forthcoming. Prognosis is very guarded given her underlying history of metastatic breast cancer. She will continue on antibiotics. Will continue to follow. Prognosis is very guarded. Microbiology is negative thus far. Additional recommendations and suggestions will be made as she progresses. MMODL / IJN: [id number] /
[2018-07-29] MEDS: FAMOTIDINE 20 MG/2 ML VIAL IV SCH (09:29)
--- NOTE | 2018-07-29 10:09 | P.PN ---
Subjective Progress Note Date: 07/29/18 CHIEF COMPLAINT: abdominal pain HISTORY OF PRESENT ILLNESS: 63-year-old female who underwent sigmoid colectomy with end colostomy, partial omentectomy, and repair of incarcerated ventral hernia. POD #1. Patient is examined this morning in the ICU. She reports her pain is tolerable. She just received a dose of IV dilaudid. WBC 10.1. Hemoglobin 12.1. PHYSICAL EXAM: VITAL SIGNS: Currently stable. GENERAL: Well-developed in no acute distress. HEENT: No sclera icterus. Extraocular movements grossly intact. Moist buccal mucosa. Head is atraumatic, normocephalic. Hears conversational speech. No nasal drainage. NECK: Supple without lymphadenopathy. CHEST: Non-labored respirations and equal bilateral excursions. Oxygen sat urations greater than 92% on Ventimask. CARDIOVASCULAR: Regular rate with regular rhythm. Palpable 2+ radial pulses. ABDOMEN: Soft. Nondistended. Dressing to midline incision. Ostomy to left lower quadrant with small amount of dark drainage. No gas or stool. MUSCULOSKELETAL: No clubbing, cyanosis or edema. NEUROLOGIC: No focal or lateralizing signs. Cranial nerves II through XII grossly intact. PSYCH: Awake and alert. Oriented to self. SKIN: Good skin turgor. Well-perfused. No cyanosis. ASSESSMENT: 1. Pneumoperitoneum, perforated viscus s/p sigmoid colectomy with end colostomy, partial omentectomy, and repair of incarcerated ventral hernia PLAN: 1. NPO 2. Await return of bowel function 3. Pain control 4. Incentive spirometry 5. Continue antibiotics. Monitor WBC. ID on consult. 6. Consult in place for ostomy teaching Nurse practitioner note has been reviewed by physician. Signing provider agrees with the documented findings, assessment, and plan of care. Objective - Vital Signs Vital signs: Vital Signs Temp 97.7 F 07/29/18 08:00 Pulse 94 07/29/18 09:30 Resp 13 07/29/18 09:30 BP 145/92 07/29/18 09:30 Pulse Ox 95 07/29/18 09:30 Intake & Output 07/28/18 07/29/18 07/29/18 18:59 06:59 18:59 Intake Total 1000 1850 300 Output Total 1150 135 Balance 1000 700 165 Weight 74.661 kg 76.2 kg Intake: IV 1000 Intake, IV Titration 1850 300 Amount Lactated Ringers 1,000 ml 1650 300 @ 150 mls/hr IV .Q6H40M [facility] TO [facility] Rx#:[id number] Piperacillin-Tazobactam 3 100 .375 gm In Sodium Chloride 0.9% 100 ml @ 25 mls/hr IVPB ONCE STA Rx# :[id number] Piperacillin-Tazobactam 3 100 .375 gm In Sodium Chloride 0.9% 100 ml @ 25 mls/hr IVPB Q8H [facility]ENDING [facility] TO [facility] Rx#: [id number] Output: Drainage 235 Right Abdomen 235 Urine 865 135 Estimated Blood Loss 50 Other: Voiding Method Indwelling Catheter - Labs CBC & Chem 7: 07/29/18 05:00 07/29/18 05:00 Labs: Abnormal Lab Results - Last 24 Hours (Table) 07/28/18 07/28/18 07/28/18 Range/Units 15:35 15:35 15:35 RDW 16.1 H (11.5-15.5) % Neutrophils # (Manual) 8.30 H (1.3-7.7) k/uL Lymphocytes # (Manual) (1.0-4.8) k/uL Metamyelocytes # (Man) (0) k/uL APTT 20.1 L (22.0-30.0) sec Sodium 135 L (137-145) mmol/L Chloride (98-107) mmol/L Carbon Dioxide 20 L (22-30) mmol/L BUN 20 H (7-17) mg/dL Creatinine (0.52-1.04) mg/dL Glucose 116 H (74-99) mg/dL POC Glucose (mg/dL) (75-99) mg/dL Calcium (8.4-10.2) mg/dL AST 79 H (14-36) U/L ALT 120 H (9-52) U/L Alkaline Phosphatase 416 H (38-126) U/L Total Protein 5.6 L (6.3-8.2) g/dL Albumin 2.8 L (3.5-5.0) g/dL Urine Protein (Negative) 07/28/18 07/28/18 07/28/18 Range/Units 20:55 20:55 Unknown RDW (11.5-15.5) % Neutrophils # (Manual) (1.3-7.7) k/uL Lymphocytes # (Manual) 0.96 L (1.0-4.8) k/uL Metamyelocytes # (Man) (0) k/uL APTT (22.0-30.0) sec Sodium 136 L (137-145) mmol/L Chloride 111 H (98-107) mmol/L Carbon Dioxide 19 L (22-30) mmol/L BUN 20 H (7-17) mg/dL Creatinine (0.52-1.04) mg/dL Glucose 128 H (74-99) mg/dL POC Glucose (mg/dL) (75-99) mg/dL Calcium 7.1 L (8.4-10.2) mg/dL AST (14-36) U/L ALT (9-52) U/L Alkaline Phosphatase (38-126) U/L Total Protein (6.3-8.2) g/dL Albumin (3.5-5.0) g/dL Urine Protein Trace H (Negative) 07/29/18 07/29/18 07/29/18 Range/Units 00:11 05:00 05:00 RDW 15.7 H (11.5-15.5) % Neutrophils # (Manual) 8.60 H (1.3-7.7) k/uL Lymphocytes # (Manual) (1.0-4.8) k/uL Metamyelocytes # (Man) 0.10 H (0) k/uL APTT (22.0-30.0) sec Sodium (137-145) mmol/L Chloride 110 H (98-107) mmol/L Carbon Dioxide 20 L (22-30) mmol/L BUN 24 H (7-17) mg/dL Creatinine 1.14 H (0.52-1.04) mg/dL Glucose 105 H (74-99) mg/dL POC Glucose (mg/dL) 123 H (75-99) mg/dL Calcium 7.5 L (8.4-10.2) mg/dL AST 51 H (14-36) U/L ALT 80 H (9-52) U/L Alkaline Phosphatase 253 H (38-126) U/L Total Protein 4.4 L (6.3-8.2) g/dL Albumin 2.1 L (3.5-5.0) g/dL Urine Protein (Negative) Microbiology - Last 24 Hours (Table) 07/28/18 19:15 Gram Stain - Preliminary Abdomen Wound Culture - Preliminary 07/28/18 18:00 Urine Culture - Preliminary Urine,Voided 07/28/18 19:15 Anaerobic Culture - Preliminary Abdomen
[2018-07-29] MEDS: ACYCLOVIR SODIUM 750 MG in SODIUM CHLORIDE 0.9% 250 ML IVPB SCH ×2 (10:41→20:39)
[2018-07-29] MEDS: HYDROmorphone 0.5 MG/0.5 ML SYRINGE IVP PRN (13:53)
--- NOTE | 2018-07-29 16:53 | P.CONS ---
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 CT abdomen and pelvis in the ER showed moderate pneumoperitoneum. Site of perforation is difficult to induce date. Suspect colonic site. Small bowel ileus and extensive osseous metastasis was redemonstrated. Patient was seen by general surgery and underwent sigmoid colectomy with end colostomy. Patient was extubated postoperatively. Currently abdominal pain is controlled with medications. No nausea vomiting. Able to tolerate ice cubes. No nausea vomiting. No complaints of chest pain or shortness of breath. No fever no chills. Review of Systems Constitutional: Patient denies any fever or chills . No generalized weakness or weight loss. Abdomen: No nausea no vomiting. Patient does have abdominal soreness.. Cardiovascular: Patient denies any chest pain or short of breath no palpitations. Respiratory: patient denied any cough is from production. No shortness of breath Neurologic: Patient denied any numbness or tingling headache. Musculoskeletal: Patient denies any complaints of joint swelling or deformity. Skin: Negative Psychiatric: Negative Endocrine: No heat or cold intolerance. No recent weight gain. Genitourinary: No dysuria or hematuria. All other 14 point ROS negative except the above Past Medical History Past Medical History: Thyroid Disorder Additional Past Medical History / Comment(s): Breast cancer, with bilateral mastectomy followed by Arimidex treatment, hypothyroidism, COPD History of Any Multi-Drug Resistant Organisms: None Reported Past Surgical History: Appendectomy, Breast Surgery Additional Past Surgical History / Comment(s): double mastectomy,PICC line Past Anesthesia/Blood Transfusion Reactions: No Reported Reaction Past Psychological History: Anxiety Smoking Status: Former smoker Past Alcohol Use History: None Reported Past Drug Use History: None Reported - Past Family History Mother Family Medical History: Liver Disease Additional Family Medical History / Comment(s): young from cirrhosis/etoh related Father Family Medical History: Cancer Additional Family Medical History / Comment(s): age 87 Medications and Allergies Home Medications Medication Instructions Recorded Confirmed Type Levothyroxine Sodium [Synthroid] 100 mcg PO DAILY@0630 #30 tab 07/23/18 07/28/18 Rx Metoprolol Tartrate [Lopressor] 25 mg PO BID #60 tab 07/23/18 07/28/18 Rx amLODIPine [Norvasc] 5 mg PO DAILY #30 tab 07/23/18 07/28/18 Rx Acyclovir 750mg Infusion 750 mg IVPB TID@0000,0800,1600 07/28/18 07/28/18 History Dexamethasone [Decadron] See Taper PO TID 07/28/18 07/28/18 History Allergies Allergy/AdvReac Type Severity Reaction Status Date / Time ciprofloxacin [From Cipro] AdvReac Nausea & Verified 07/28/18 14:25 Vomiting codeine AdvReac "GETS THE Verified 07/28/18 14:25 SHAKES" Physical Exam Vitals: Vital Signs Temp Pulse Pulse Resp BP BP Pulse Ox 07/29/18 10:00 77 13 145/92 95 07/29/18 09:50 96 16 145/92 95 07/29/18 09:40 110 H 16 145/92 94 L 07/29/18 09:30 94 13 145/92 95 07/29/18 09:20 93 15 145/92 94 L 07/29/18 09:10 114 H 18 145/92 97 07/29/18 09:00 126 H 14 126/75 96 07/29/18 08:50 111 H 14 126/75 93 L 07/29/18 08:40 84 14 126/75 95 07/29/18 08:30 90 14 126/75 96 07/29/18 08:20 85 17 126/75 96 07/29/18 08:10 101 H 13 126/75 96 07/29/18 08:00 97.7 F 99 19 124/71 96 07/29/18 07:50 79 13 124/71 96 07/29/18 07:40 90 12 124/71 96 07/29/18 07:30 94 12 124/71 96 07/29/18 07:20 94 12 124/71 96 07/29/18 07:10 95 13 124/71 95 07/29/18 07:00 88 89 13 129/79 124/71 95 07/29/18 06:50 109 H 18 129/79 95 07/29/18 06:40 76 24 129/79 95 07/29/18 06:30 86 12 129/79 96 07/29/18 06:20 94 11 L 129/79 96 07/29/18 06:10 101 H 19 129/79 96 07/29/18 06:00 99 101 H 13 128/76 129/79 95 07/29/18 05:50 84 14 128/76 96 07/29/18 05:40 96 8 L 128/76 95 07/29/18 05:30 87 12 128/76 95 07/29/18 05:20 99 17 128/76 95 07/29/18 05:10 106 H 15 128/76 95 07/29/18 05:00 82 98 16 105/83 128/76 95 07/29/18 04:50 86 12 105/83 96 07/29/18 04:40 96 12 105/83 95 07/29/18 04:30 94 15 105/83 96 07/29/18 04:20 93 12 105/83 95 07/29/18 04:10 95 11 L 105/83 95 07/29/18 04:00 96.9 F L 96 100 12 104/73 105/83 95 07/29/18 03:50 89 12 104/73 95 07/29/18 03:40 96 12 104/73 95 07/29/18 03:30 94 9 L 104/73 94 L 07/29/18 03:20 97 13 104/73 94 L 07/29/18 03:10 111 H 26 H 104/73 95 07/29/18 03:00 93 93 8 L 99/70 104/73 96 07/29/18 02:50 96 12 99/70 96 07/29/18 02:40 94 13 99/70 96 07/29/18 02:30 92 13 99/70 95 07/29/18 02:20 97 13 99/70 96 07/29/18 02:10 99 13 99/70 95 07/29/18 02:00 96 98 16 103/71 99/70 96 07/29/18 01:50 107 H 9 L 103/71 95 07/29/18 01:40 98 16 103/71 95 07/29/18 01:30 101 H 13 103/71 95 07/29/18 01:20 101 H 11 L 103/71 95 07/29/18 01:00 104 H 16 103/71 96 07/29/18 00:00 98.3 F 118 H 17 94/63 95 07/28/18 23:05 94 L 07/28/18 23:00 110 H 18 102/71 95 07/28/18 22:53 97.3 F L 110 H 18 103/65 95 07/28/18 22:00 111 H 17 103/65 94 L 07/28/18 21:06 94 L 07/28/18 21:00 106 H 18 113/77 95 07/28/18 20:00 97.3 F L 110 H 17 146/96 96 07/28/18 19:32 92 L 07/28/18 17:00 100.3 F H 100 19 142/95 98 07/28/18 16:30 100.0 F H 98 16 139/90 07/28/18 16:00 100.1 F H 103 H 18 142/86 07/28/18 15:30 97 16 140/90 07/28/18 15:00 114 H 18 136/87 91 L 07/28/18 14:02 93 L 07/28/18 13:58 100.4 F H 110 H 16 141/92 93 L Intake and Output 07/28/18 07/29/18 07/29/18 22:59 06:59 14:59 Intake Total 1550 1300 600 Output Total 660 490 305 Balance 890 810 295 Intake: IV 1000 Intake, IV Titration 550 1300 600 Amount Lactated Ringers 1,000 ml 450 1200 600 @ 150 mls/hr IV .Q6H40M [facility] Rx#:[id number] Piperacillin-Tazobactam 3 100 .375 gm In Sodium Chloride 0.9% 100 ml @ 25 mls/hr IVPB ONCE STA Rx# :[id number] Piperacillin-Tazobactam 3 100 .375 gm In Sodium Chloride 0.9% 100 ml @ 25 mls/hr IVPB Q8H [facility] Rx#: [id number] Output: Drainage 75 160 Right Abdomen 75 160 Urine 535 330 305 Estimated Blood Loss 50 Other: Voiding Method Indwelling Catheter Indwelling Catheter Weight 76.2 kg PHYSICAL EXAMINATION: Patient is lying in the bed comfortably, no acute distress, awake alert and oriented.. HEENT: Normocephalic. Neck is supple. Pupils reactive. Nostrils clear. Oral c avity is moist. Ears reveal no drainage. Neck reveals no JVD, carotid bruits, or thyromegaly. CHEST EXAMINATION: Trachea is central. Symmetrical expansion. Decreased bibasilar air entry. No wheezing.. CARDIAC: Normal S1, S2 with no gallops. No murmurs ABDOMEN: Soft. Bowel sounds diminished. Surgical site is bandaged. No organomegaly. No abdominal bruits. Extremities: reveal no edema. No clubbing or cyanosis Neurologically awake, alert, oriented x3 with well-coordinated movements. No f ocal deficits noted Skin: No rash or skin lesions. Psychiatric: Coperative. Nonsuicidal Musculoskeletal: No joint swelling or deformity. Normal range of motion. Results CBC & Chem 7: 07/29/18 05:00 07/29/18 05:00 Labs: Abnormal Lab Results - Last 24 Hours (Table) 07/28/18 07/28/18 07/28/18 Range/Units 15:35 15:35 15:35 RDW 16.1 H (11.5-15.5) % Neutrophils # (Manual) 8.30 H (1.3-7.7) k/uL Lymphocytes # (Manual) (1.0-4.8) k/uL Metamyelocytes # (Man) (0) k/uL APTT 20.1 L (22.0-30.0) sec Sodium 135 L (137-145) mmol/L Chloride (98-107) mmol/L Carbon Dioxide 20 L (22-30) mmol/L BUN 20 H (7-17) mg/dL Creatinine (0.52-1.04) mg/dL Glucose 116 H (74-99) mg/dL POC Glucose (mg/dL) (75-99) mg/dL Calcium (8.4-10.2) mg/dL AST 79 H (14-36) U/L ALT 120 H (9-52) U/L Alkaline Phosphatase 416 H (38-126) U/L Total Protein 5.6 L (6.3-8.2) g/dL Albumin 2.8 L (3.5-5.0) g/dL Urine Protein (Negative) 07/28/18 07/28/18 07/28/18 Range/Units 20:55 20:55 Unknown RDW (11.5-15.5) % Neutrophils # (Manual) (1.3-7.7) k/uL Lymphocytes # (Manual) 0.96 L (1.0-4.8) k/uL Metamyelocytes # (Man) (0) k/uL APTT (22.0-30.0) sec Sodium 136 L (137-145) mmol/L Chloride 111 H (98-107) mmol/L Carbon Dioxide 19 L (22-30) mmol/L BUN 20 H (7-17) mg/dL Creatinine (0.52-1.04) mg/dL Glucose 128 H (74-99) mg/dL POC Glucose (mg/dL) (75-99) mg/dL Calcium 7.1 L (8.4-10.2) mg/dL AST (14-36) U/L ALT (9-52) U/L Alkaline Phosphatase (38-126) U/L Total Protein (6.3-8.2) g/dL Albumin (3.5-5.0) g/dL Urine Protein Trace H (Negative) 07/29/18 07/29/18 07/29/18 Range/Units 00:11 05:00 05:00 RDW 15.7 H (11.5-15.5) % Neutrophils # (Manual) 8.60 H (1.3-7.7) k/uL Lymphocytes # (Manual) (1.0-4.8) k/uL Metamyelocytes # (Man) 0.10 H (0) k/uL APTT (22.0-30.0) sec Sodium (137-145) mmol/L Chloride 110 H (98-107) mmol/L Carbon Dioxide 20 L (22-30) mmol/L BUN 24 H (7-17) mg/dL Creatinine 1.14 H (0.52-1.04) mg/dL Glucose 105 H (74-99) mg/dL POC Glucose (mg/dL) 123 H (75-99) mg/dL Calcium 7.5 L (8.4-10.2) mg/dL AST 51 H (14-36) U/L ALT 80 H (9-52) U/L Alkaline Phosphatase 253 H (38-126) U/L Total Protein 4.4 L (6.3-8.2) g/dL Albumin 2.1 L (3.5-5.0) g/dL Urine Protein (Negative) Microbiology - Last 24 Hours (Table) 07/28/18 19:15 Gram Stain - Preliminary Abdomen Wound Culture - Preliminary 07/28/18 18:00 Urine Culture - Preliminary Urine,Voided 07/28/18 19:15 Anaerobic Culture - Preliminary Abdomen Assessment and Plan Assessment: Pneumoperitoneum due to perforated viscus status post sigmoid colectomy with and colostomy, partial omentectomy and repair of incarcerated ventral hernia on 07/28/2018 Metastatic breast cancer with metastases to bone, with history of bilateral mastectomy. On Arimidex treatment Recent history of HSV encephalitis. Currently on acyclovir and dexamethasone at home Hypothyroidism COPD Hypertension. Currently blood pressure is not elevated. Anxiety Acute kidney injury most likely prerenal history of smoking Plan: Patient will be continued on IV hydration and pain management with Dilaudid. Antibiotics in the form of Zosyn. Will be continued on acyclovir. Currently nothing by mouth except ice chips. Continued supportive management. Pulmonary and general surgery is on board. Further recommendations based on the clinical course. Prognosis is guarded. We will continue to follow with you. Extra Thank you for your consult. Time with Patient: Greater than 30
[2018-07-29] MEDS: HYDROmorphone 1 MG/ML 1 ML SYRINGE IVP PRN ×2 (16:58→20:39)
--- NOTE | 2018-07-30 00:31 | CONS ---
CONSULTATION DATE OF SERVICE: 07/29/2018 REASON FOR CONSULTATION: 1. Abdominal abscess. 2. . HISTORY OF PRESENT ILLNESS: The patient is a 63-year-old female, who was recently admitted to this facility with mental status changes and fever. The patient was diagnosed with . He did get a midline and was advised a 2 week course of IV Acyclovir. Subsequently presented to the ER on 07/25 with nonfunctioning midline and she did get a PICC line. The patient started having abdominal pain that afternoon/evening on Saturday. The pain has been mostly in the lower abdominal area. The pain continued to get worse over the next 3 days. Has been mostly the lower abdominal area chronic in nature and at the time she presented to hospital with nausea, no vomiting and no diarrhea. With these symptoms, the patient was evaluated by the ER physician. On arrival to the ER with admission, the patient did have a fever of 100.4-100.3 degrees Fahrenheit. The patient was tachycardic with a heart rate in the 110s. Blood pressure lowest has been 99/70 systolic and did have a normal white count. The patient did have a CT abdomen and pelvis that was suggestive of pneumoperitoneum. Subsequently the patient was taken to the OR. The patient is status post laparotomy. She was noticed to have interloop abscess with incarcerated ventral hernia. The patient is status post repair of the ventral incarcerated hernia, drainage of the abscess and diverting colostomy. Patient has been admitted to the ICU being treated with Zosyn. Infectious Disease was consulted for further recommendations regarding antibiotic therapy as well as antivirals. The patient evaluated earlier this afternoon. The patient has been afebrile. Pain is currently controlled with pain medications. She did have an NG and was requested for something to drink. No chest pain, shortness of breath or cough or any headache. REVIEW OF SYSTEMS: Positive points have been mentioned in HPI. Rest of the systems have been negative. PAST MEDICAL HISTORY: Metastatic breast cancer, hypothyroidism, herpes encephalitis. PAST SURGICAL HISTORY: Bilateral mastectomy, appendectomy. SOCIAL HISTORY: No history of smoking, drinking or drug use. . Lives with her . FAMILY HISTORY: Mother with history of disease. Father of old age 87. ALLERGIES: CIPROFLOXACIN and CODEINE. MEDICATIONS: Medications currently include the patient is on: Acyclovir 750 every 12 hours, Pepcid, Dilaudid, Narcan, Zofran, and Zosyn 3.75 g q.8 hours. PHYSICAL EXAMINATION: Blood pressure is 131/77 with a pulse of 113, temperature 98. She is 95% on 2 L nasal canula. General description is a middle aged female up in the bed in no distress. No tachypnea or accessory muscles of respiration use. HEENT: Shows no pallor or scleral icterus. Oral mucosal membranes are dry. No pharyngeal erythema or thrush. Neck: Trachea central. No thyromegaly. Heart: S1-S2 regular rate and rhythm. ABDOMEN: Soft, no distention. No guarding or rigidity. No output in the colostomy bag. EXTREMITIES: No edema of the feet. SKIN: No rash or mass palpable. NEUROLOGICAL: Patient is awake, alert, and oriented times three. Mood and affect normal. LAB: Hemoglobin is 12.1, white count 10.1, BUN of 24, creatinine is 1.14. Electrolytes have been normal. Abdominal cultures currently showing a gram negative bacilli. Blood cultures negative so far. DIAGNOSTIC IMPRESSION AND PLAN: 1. Patient admitted to the hospital with sepsis in this patient who did have a fever tachycardia. Source is incarcerated ventral hernia and interloop abscess, status post laparotomy and drainage of the abscess cover the gram negative erlin, both aerobes and anaerobes showing in the cultures. 2. The patient with herpes encephalitis for which the patient currently complete treatment. PLAN: 1. Zosyn 3.375 g q.8 hours should provide coverage for both enteric gram-negative as well as Enterococcus. The patient is penicillin sensitive. 2. Acyclovir 10 mg/kg dose adjusted to 12 hours that will be discussed further with the pharmacy to monitor kidney function closely. 3. We will follow up on clinical condition as well as cultures to further adjust medication if needed. Her was present at bedside. His questions and concerns were answered. MMODL / IJN: [id number] /
[2018-07-30] MEDS: HYDROmorphone 1 MG/ML 1 ML SYRINGE IVP PRN ×3 (02:48→16:06)
[2018-07-30] MEDS: LACTATED RINGERS 1,000 ML IV SCH ×3 (05:27→20:40)
[2018-07-30] MEDS: PIPERACILLIN-TAZOBACTAM 3.375 GM in SODIUM CHLORIDE 0.9% 100 ML IVPB SCH ×3 (05:27→20:40)
[2018-07-30 05:30] LABS: Anisocytosis Slight; Basophils % (A) 0 %; Eosinophils # (A) 0.1 k/uL (0-0.7); Eosinophils % (A) 1 %; HCT 32.2 % (34.0-46.0); HGB 10.4 gm/dL (11.4-16.0); Lymphocytes # (A) 1.1 k/uL (1.0-4.8); Lymphocytes % (A) 12 %; MCH 30.9 pg (25.0-35.0); MCHC 32.4 g/dL (31.0-37.0); MCV 95.3 fL (80.0-100.0); Mean Platelet Volume 6.7; Monocytes # (A) 0.1 k/uL (0-1.0); Monocytes % (A) 1 %; Neutrophils % (A) 86 %; Platelet Count 248 k/uL (150-450); RBC 3.38 m/uL (3.80-5.40); RDW 16.8 % (11.5-15.5); WBC 9.3 k/uL (3.8-10.6)
[2018-07-30 05:41] LABS: Albumin 2.1 g/dL (3.5-5.0); Total Bilirubin 0.8 mg/dL (0.2-1.3); Total Protein 4.3 g/dL (6.3-8.2)
[2018-07-30] MEDS ORDERED: Magnesium Replacement Protocol 1 EACH MISC MISCELLANE PRN ×3 (06:49→06:56)
[2018-07-30 06:51] LABS: Magnesium 1.6 mg/dL (1.6-2.3); Phosphorus 3.3 mg/dL (2.5-4.5)
[2018-07-30] MEDS ORDERED: MAGNESIUM SULFATE-D5W PMX 1 GM in DEXTROSE/WATER 1 100ML.BAG IVPB SCH (07:00)
[2018-07-30 07:49] LABS: Glucose,Whole Blood 77 mg/dL (75-99)
[2018-07-30] MEDS ORDERED: VANCOMYCIN 1,500 MG in SODIUM CHLORIDE 0.9% 250 ML IVPB STA (08:22)
[2018-07-30] MEDS: FAMOTIDINE 20 MG/2 ML VIAL IV SCH (08:57)
--- NOTE | 2018-07-30 10:08 | PN ---
PROGRESS NOTE DATE OF SERVICE: 07/30/2018 This is a 63-year-old female seen yesterday in consultation. She is postop day #2, status post exploratory laparotomy, sigmoid colectomy and colostomy, ventral hernia repair and partial omentectomy for perforated viscus. She has metastatic breast cancer with multiple osseous metastasis. She is status post bilateral mastectomy. Has a history of herpes simplex viral encephalitis, currently on acyclovir and also has a history of both hypothyroidism and benign essential hypertension. Today, she seems to be doing a bit better. She is more awake. She is able to respond appropriately. She wants to be discharged home, but we told her that she is not quite ready to go home as yet. The patient remains on O2 at 4 L. She is getting an IV of lactated Ringer's at 150 mL an hour. We are going to give her one dose of vancomycin. There is some group D enterococci in her urine and wound culture. It could be vancomycin-resistant enterococci. In addition, she will stay on the other antibiotic that she is on. The patient continues to do reasonably well on her incentive spirometer and she is encouraged to deep breathe, cough, and clear secretions. Her biggest issue is pain at the surgical site. Current vital signs are reviewed. Her temperature is 98.9, heart rate 80, respiratory rate 12, blood pressure 143/83, mean 103 and 4 L saturation 93%. Appears in no acute distress. HEENT examination is grossly unremarkable. Mucous membranes are moist. Nasal O2 was noted. NECK: Supple. Full range of motion. No adenopathy, thyromegaly or neck vein distention. Cardiovascular examination reveals regular rhythm and rate. S1, S2 normal. No S3, S4. Heart rate 80. No murmur. Lungs reveal mostly clear breath sounds. There are a few scattered rhonchi. No wheezes or crackles. Abdomen is relatively soft. She is tender on palpation. No bowel sounds are noted. Extremities are intact. No cyanosis, clubbing, or edema. Skin without rash. Neurologic examination is brief but nonfocal. Microbiology shows gram-negative bacilli in group D enterococcus from the wound culture. There is group D enterococcus in the urine. Again, sensitivities have not been performed. Labs are reviewed. White count 9.3, hemoglobin 10.4, hematocrit 32.2, platelet count 248,000. Sodium 140, potassium 4, chloride 111, CO2 is 23, BUN and creatinine were 22 and 0.83. Anion gap is 6. Bilirubin 0.8, AST 48, ALT 59, alkaline phosphatase 216, albumin 2.1. No chest x-ray to report. Medications are reviewed. In addition to the one time dose of vancomycin, the patient is currently on Zosyn. Will await sensitivities. She also was on acyclovir for the herpes simplex viral encephalitis. ASSESSMENT: 1. Postoperative day #2, status post exploratory laparotomy, sigmoid colectomy and colostomy, ventral hernia repair and partial omentectomy for perforated viscus. 2. Metastatic breast cancer with multiple osseous metastasis. 3. Status post bilateral mastectomy. 4. 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 5. Hypothyroidism. 6. Hypertension by history. PLAN: The patient received one dose of vancomycin today, 1.5 gram. The patient remains on Zosyn as well. Culture data is reviewed. Labs and medications are all reviewed. Clinically, she is more stable. We also recommend that she do deep breathing coughing and clearing of secretions. We also recommend that she use the incentive spirometer q.1 hour while awake. Overall prognosis remains poor given her metastatic breast cancer. From the surgical standpoint, she seems to be doing well relatively well. We will continue to follow. Prognosis is guarded. MMODL / IJN: [id number] /
[2018-07-30] MEDS: ACYCLOVIR SODIUM 750 MG in SODIUM CHLORIDE 0.9% 250 ML IVPB SCH ×2 (10:11→20:25)
[2018-07-30] MEDS: MAGNESIUM SULFATE-D5W PMX 1 GM in DEXTROSE/WATER 1 100ML.BAG IVPB SCH ×2 (10:12→11:49)
--- NOTE | 2018-07-30 10:54 | P.PN ---
Subjective Progress Note Date: 07/30/18 CHIEF COMPLAINT: abdominal pain HISTORY OF PRESENT ILLNESS: 63-year-old female who underwent sigmoid colectomy with end colostomy, partial omentectomy, and repair of incarcerated ventral hernia. POD #2. Patient is examined this morning in the ICU. She reports her pain is tolerable. She is thirsty and requesting something to drink. NG was discontinued yesterday. WBC 9.3. Hemoglobin 10.4. PHYSICAL EXAM: VITAL SIGNS: Currently stable. GENERAL: Well-developed in no acute distress. HEENT: No sclera icterus. Extraocular movements grossly intact. Moist buccal mucosa. Head is atraumatic, normocephalic. Hears conversational speech. No nasal drainage. NECK: Supple without lymphadenopathy. CHEST: Non-labored respirations and equal bilateral excursions. CARDIOVASCULAR: Regular rate with regular rhythm. Palpable 2+ radial pulses. ABDOMEN: Soft. Nondistended. Dressing to midline incision. Ostomy to left lower quadrant with small amount of dark drainage. No gas or stool. MUSCULOSKELETAL: No clubbing, cyanosis or edema. NEUROLOGIC: No focal or lateralizing signs. Cranial nerves II through XII grossly intact. PSYCH: Awake and alert. Oriented to self. SKIN: Good skin turgor. Well-perfused. No cyanosis. ASSESSMENT: 1. Pneumoperitoneum, perforated viscus s/p sigmoid colectomy with end co lostomy, partial omentectomy, and repair of incarcerated ventral hernia PLAN: 1. Patient may have ice chips and popsicles 2. Await return of bowel function. Once gas in ostomy, may begin clear liquid diet. 3. Pain control 4. Incentive spirometry Nurse practitioner note has been reviewed by physician. Signing provider agrees with the documented findings, assessment, and plan of care. Objective - Vital Signs Vital signs: Vital Signs Temp 98.9 F 07/30/18 08:00 Pulse 110 H 07/30/18 10:00 Resp 15 07/30/18 10:00 BP 141/79 07/30/18 10:00 Pulse Ox 94 L 07/30/18 10:00 Intake & Output 07/29/18 07/30/18 07/30/18 18:59 06:59 18:59 Intake Total 2650 2250 850 Output Total 765 695 285 Balance 1885 1555 565 Weight 82.9 kg Intake: IV 450 Lactated Ringers 1,000 ml 450 @ 150 mls/hr IV .Q6H40M [facility] Rx#:[id number] Intake, IV Titration 2650 2250 400 Amount Acyclovir Sodium 750 mg 250 250 In Sodium Chloride 0.9% 250 ml @ 265 mls/hr IVPB Q12HR [facility] Rx#:[id number] Lactated Ringers 1,000 ml 2300 1800 150 @ 150 mls/hr IV .Q6H40M [facility] Rx#:[id number] Piperacillin-Tazobactam 3 100 100 .375 gm In Sodium Chloride 0.9% 100 ml @ 25 mls/hr IVPB Q8H [facility] Rx#: [id number] Piperacillin-Tazobactam 3 100 .375 gm In Sodium Chloride 0.9% 100 ml @ 25 mls/hr IVPB Q8HR [facility] Rx# :[id number] Vancomycin 1,500 mg In 250 Sodium Chloride 0.9% 250 ml @ 125 mls/hr IVPB ONCE [facility] Rx#:[id number] Output: Urine 765 695 285 Other: Voiding Method Indwelling Catheter Indwelling Catheter - Labs CBC & Chem 7: 07/30/18 04:58 07/30/18 04:58 Labs: Abnormal Lab Results - Last 24 Hours (Table) 07/30/18 07/30/18 Range/Units 04:58 04:58 RBC 3.38 L (3.80-5.40) m/uL Hgb 10.4 L (11.4-16.0) gm/dL Hct 32.2 L (34.0-46.0) % RDW 16.8 H (11.5-15.5) % Neutrophils # 8.0 H (1.3-7.7) k/uL Chloride 111 H (98-107) mmol/L BUN 22 H (7-17) mg/dL Glucose 70 L (74-99) mg/dL Calcium 8.0 L (8.4-10.2) mg/dL AST 48 H (14-36) U/L ALT 59 H (9-52) U/L Alkaline Phosphatase 216 H (38-126) U/L Total Protein 4.3 L (6.3-8.2) g/dL Albumin 2.1 L (3.5-5.0) g/dL Microbiology - Last 24 Hours (Table) 07/28/18 18:00 Urine Culture - Preliminary Urine,Voided Group D Enterococcus 07/28/18 19:15 Gram Stain - Preliminary Abdomen Wound Culture - Preliminary Group D Enterococcus Gram Neg Bacilli 07/28/18 15:35 Blood Culture - Preliminary Blood No Growth after 24 hours
[2018-07-30] MEDS: amLODIPine 5 MG TAB PO SCH (15:11)
[2018-07-30] MEDS: METOPROLOL TARTRATE 25 MG TAB PO SCH (18:26)
--- NOTE | 2018-07-30 23:35 | PN ---
PROGRESS NOTE DATE OF SERVICE: 07/30/2018 REASON FOR FOLLOWUP: 1. Abdominal abscess from incarcerated ventral hernia. 2. Herpes encephalitis. INTERVAL HISTORY: The patient is currently afebrile. The patient is breathing comfortably. Denies having any chest pain or cough. Abdominal pain is currently controlled. No nausea, no vomiting. NG has been discontinued. Did have output in her colostomy bag. PHYSICAL EXAMINATION: Blood pressure 151/88 with a pulse of 93, temperature 98.6. She is 93% on 4 L nasal cannula. General description is a middle-aged female lying in bed in no distress. RESPIRATORY SYSTEM: Unlabored breathing. Clear to auscultation anteriorly. HEART: S1, S2. Regular rate and rhythm. ABDOMEN: Soft. Incision is clean. Did have minimal output in the colostomy bag. EXTREMITIES: No edema of the feet. LABS: Hemoglobin is 10.4, white count 9.3 with a BUN of 22, creatinine 0.83. Liver enzymes are slightly elevated. Abdominal culture with Enterococcus faecalis, Citrobacter and E coli. Urine with group D Enterococcus. Blood culture with gram-positive bacilli. DIAGNOSTIC IMPRESSION AND PLAN: 1. Patient with abdominal abscess from an incarcerated ventral hernia, status post laparotomy, colectomy and diverting colostomy and drainage of the abscess. Patient is currently covered with Zosyn. The abdominal culture did grow enterococcus, Citrobacter and E coli, all of them sensitive to Zosyn, which the patient is currently on. 2. Herpes encephalitis, currently on acyclovir, dose to be adjusted up to q.12 in view of improvement in her kidney function. This will be discussed further with the pharmacy. 3. Positive blood cultures with gram-positive bacilli, likely a skin contamination. No need for further therapy for the same. Blood culture has been repeated. Continue supportive care. MMODL / IJN: [id number] /
[2018-07-31] MEDS: METOPROLOL TARTRATE 25 MG TAB PO SCH ×3 (00:30→20:23)
[2018-07-31] MEDS: PIPERACILLIN-TAZOBACTAM 3.375 GM in SODIUM CHLORIDE 0.9% 100 ML IVPB SCH ×3 (04:43→21:31)
[2018-07-31 04:58] LABS: Anisocytosis Slight; Basophils % (A) 0 %; Eosinophils # (A) 0.1 k/uL (0-0.7); Eosinophils % (A) 2 %; HCT 32.1 % (34.0-46.0); HGB 10.4 gm/dL (11.4-16.0); Lymphocytes # (A) 1.4 k/uL (1.0-4.8); Lymphocytes % (A) 16 %; MCH 30.4 pg (25.0-35.0); MCHC 32.4 g/dL (31.0-37.0); MCV 93.7 fL (80.0-100.0); Mean Platelet Volume 6.7; Monocytes # (A) 0.2 k/uL (0-1.0); Monocytes % (A) 2 %; Neutrophils # (A) 7.2 k/uL (1.3-7.7); Neutrophils % (A) 81 %; Platelet Count 245 k/uL (150-450); RBC 3.42 m/uL (3.80-5.40); RDW 16.6 % (11.5-15.5)
[2018-07-31 05:09] LABS: ALT 47 U/L (9-52); AST 62 U/L (14-36); Albumin 2.1 g/dL (3.5-5.0); Alkaline Phosphatase 318 U/L (38-126); Anion Gap 5 mmol/L; Blood Urea Nitrogen 14 mg/dL (7-17); Calcium 8.2 mg/dL (8.4-10.2); Carbon Dioxide 25 mmol/L (22-30); Chloride 107 mmol/L (98-107); Glucose 69 mg/dL (74-99); Magnesium 1.8 mg/dL (1.6-2.3); Potassium 3.6 mmol/L (3.5-5.1); Sodium 137 mmol/L (137-145); Total Bilirubin 0.9 mg/dL (0.2-1.3); Total Protein 4.5 g/dL (6.3-8.2)
[2018-07-31] MEDS: MAGNESIUM SULFATE-D5W PMX 1 GM in DEXTROSE/WATER 1 100ML.BAG IVPB SCH ×2 (05:35→06:50)
[2018-07-31 06:19] LABS: Glucose,Whole Blood 79 mg/dL (75-99)
[2018-07-31] MEDS ORDERED: POTASSIUM CHLORIDE ER 20 MEQ TAB.ER PO SCH (07:00)
[2018-07-31] MEDS: LEVOTHYROXINE 100 MCG TAB PO SCH (09:13)
[2018-07-31] MEDS: ACYCLOVIR SODIUM 750 MG in SODIUM CHLORIDE 0.9% 250 ML IVPB SCH ×2 (09:15→20:24)
[2018-07-31] MEDS: amLODIPine 5 MG TAB PO SCH (09:16)
[2018-07-31] MEDS: FAMOTIDINE 20 MG/2 ML VIAL IV SCH (09:16)
--- NOTE | 2018-07-31 10:06 | P.PN ---
Subjective Progress Note Date: 07/31/18 CHIEF COMPLAINT: abdominal pain HISTORY OF PRESENT ILLNESS: 63-year-old female who underwent sigmoid colectomy with end colostomy, partial omentectomy, and repair of incarcerated ventral hernia. POD #3. Patient is examined this morning in the ICU. She reports her pain is tolerable. Denies nausea or vomiting. She is tolerating clear liquid diet. Ostomy without gas or stool noted. Pathology positive for diverticulosis with perforated diverticulitis and pericolic abscess formation. WBC 9.0. Hemoglobin 10.4. PHYSICAL EXAM: VITAL SIGNS: Currently stable. GENERAL: Well-developed in no acute distress. HEENT: No sclera icterus. Extraocular movements grossly intact. Moist buccal mucosa. Head is atraumatic, normocephalic. Hears conversational speech. No nasal drainage. NECK: Supple without lymphadenopathy. CHEST: Non-labored respirations and equal bilateral excursions. CARDIOVASCULAR: Regular rate with regular rhythm. Palpable 2+ radial pulses. ABDOMEN: Soft. Nondistended. Dressing to midline incision. Ostomy to left lower quadrant with no gas or stool noted. MUSCULOSKELETAL: No clubbing, cyanosis or edema. NEUROLOGIC: No focal or lateralizing signs. Cranial nerves II through XII grossly intact. PSYCH: Awake and alert. Oriented to self. SKIN: Good skin turgor. Well-perfused. No cyanosis. ASSESSMENT: 1. Pneumoperitoneum, perforated viscus s/p sigmoid colectomy with end colost lacy, partial omentectomy, and repair of incarcerated ventral hernia PLAN: 1. Continue clear liquid diet. Do not advance until ostomy has stool. 2. Discontinue urinary catheter 3. Pain control 4. Incentive spirometry 5. Patient may transfer out of the ICU today Nurse practitioner note has been reviewed by physician. Signing provider agrees with the documented findings, assessment, and plan of care. Objective - Vital Signs Vital signs: Vital Signs Temp 97.7 F 07/31/18 00:00 Pulse 86 07/31/18 09:00 Resp 14 07/31/18 09:00 BP 148/84 07/31/18 09:00 Pulse Ox 94 L 07/31/18 09:00 Intake & Output 07/30/18 07/31/18 07/31/18 18:59 06:59 18:59 Intake Total 2770 1440 550 Output Total 1018 1320 520 Balance 1752 120 30 Weight 85.5 kg Intake: IV 1300 1200 450 Acyclovir Sodium 750 mg 250 In Sodium Chloride 0.9% 250 ml @ 265 mls/hr IVPB Q12HR [facility] Rx#:[id number] Lactated Ringers 1,000 ml 1300 1200 200 @ 100 mls/hr IV .Q10H [facility] Rx#:[id number] Intake, IV Titration 750 Amount Acyclovir Sodium 750 mg 250 In Sodium Chloride 0.9% 250 ml @ 265 mls/hr IVPB Q12HR [facility] Rx#:[id number] Lactated Ringers 1,000 ml 150 @ 100 mls/hr IV .Q10H [facility] Rx#:[id number] Piperacillin-Tazobactam 3 100 .375 gm In Sodium Chloride 0.9% 100 ml @ 25 mls/hr IVPB Q8H [facility] Rx#: [id number] Vancomycin 1,500 mg In 250 Sodium Chloride 0.9% 250 ml @ 125 mls/hr IVPB ONCE [facility] Rx#:[id number] Oral 720 240 100 Output: Drainage 43 25 Right Abdomen 43 25 Urine 975 1295 520 Other: Voiding Method Indwelling Catheter Indwelling Catheter # Bowel Movements 1 - Labs CBC & Chem 7: 07/31/18 04:45 07/31/18 04:45 Labs: Abnormal Lab Results - Last 24 Hours (Table) 07/31/18 07/31/18 Range/Units 04:45 04:45 RBC 3.42 L (3.80-5.40) m/uL Hgb 10.4 L (11.4-16.0) gm/dL Hct 32.1 L (34.0-46.0) % RDW 16.6 H (11.5-15.5) % Glucose 69 L (74-99) mg/dL Calcium 8.2 L (8.4-10.2) mg/dL AST 62 H (14-36) U/L Alkaline Phosphatase 318 H (38-126) U/L Total Protein 4.5 L (6.3-8.2) g/dL Albumin 2.1 L (3.5-5.0) g/dL Microbiology - Last 24 Hours (Table) 07/28/18 18:00 Urine Culture - Final Urine,Voided Enterococcus faecalis 07/28/18 19:15 Gram Stain - Final Abdomen Wound Culture - Final Enterococcus faecalis Citrobacter species Escherichia coli 07/28/18 15:35 Blood Culture Gram Stain - Preliminary Blood 07/28/18 15:35 Blood Culture - Final Blood
[2018-07-31] MEDS: HYDROmorphone 0.5 MG/0.5 ML SYRINGE IVP PRN (11:00)
--- NOTE | 2018-07-31 11:06 | PN ---
PROGRESS NOTE DATE OF SERVICE: 07/31/2018 A 63-year-old female who was seen in consultation a couple days ago. She is postop day #3, status post exploratory laparotomy, sigmoid colectomy and colostomy, ventral hernia repair, and partial omentectomy for perforated viscus. She has a history of metastatic breast cancer with multiple insignificant osseous metastasis. This was seen on a recent bone scan dated July 2018. She is also status post bilateral mastectomy. 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 Cultures of the abdominal wound showed evidence of both E coli, Enterococcus faecalis and Citrobacter species. We will ask her ID to come up with a regimen. Currently, the patient is relatively stable. She is getting O2 at 2 L by nasal cannula. Her IV is lactated Ringer's at 100 mL an hour. I think she might be well enough to leave the unit today. Anyway, the patient otherwise is showing progress. I had a long talk with her today. I did show him the results of the bone scan. She herself has no major complaints other than the fact that she wants to be discharged home as soon as possible. Current vital signs are reviewed. Temperature is 97.7 heart rate 86, respiratory rate 14, blood pressure 131/91 mean 104 and 2 L saturation 94%. She appears in no acute distress. HEENT examination is grossly unremarkable. Mucous membranes are moist. No oral lesions. Neck is supple. Full range of motion. No adenopathy or thyromegaly. Neck veins are flat. Nasal O2 was noted by the way. Cardiovascular examination reveals regular rhythm and rate. Heart rate is 86 and regular. S1, S2 normal. No murmur. Lungs reveal a few scattered rhonchi. No wheeze or crackles. Breath sounds are diminished. There is prolongation. Abdomen is soft. Bowel sounds are heard. Extremities are intact. There is no cyanosis, clubbing, or edema. Skin without rash. Neurologic examination is brief but nonfocal. Microbiologic studies as mentioned above, show Enterococcus faecalis in the urine, Enterococcus faecalis, Citrobacter species and E. coli in the wound cultures. Labs are reviewed. White count 9, hemoglobin 10.4, hematocrit 32.1, platelet count 345,000, Sodium 137, potassium 3.6, chloride 107, CO2 is 25, BUN and creatinine were 14 and 0.6. The rest of the labs look relatively stable. No recent x-ray to report. Medications are reviewed. ASSESSMENT: 1. Postoperative day #3, status post exploratory laparotomy, sigmoid colectomy and colostomy, ventral hernia repair, and partial omentectomy for perforated viscus. 2. Metastatic breast cancer with multiple osseous metastasis. 3. Status post bilateral mastectomy. 4. 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 5. Hypothyroidism. 6. History of hypertension. PLAN: Will ask the Infectious Disease doctors for a regimen of antibiotics to cover the E coli, Enterococcus faecalis and Citrobacter species. The patient otherwise is stable. The patient could be transferred out of the unit. The patient is currently on Zosyn. We encourage deep breathing, coughing, clearing of secretions and hourly use of incentive spirometer. I also showed her the result of the bone scan that was done in July. Additional recommendations and suggestions are forthcoming. Prognosis is guarded. Will continue to follow. MMODL / IJN: [id number] /
--- NOTE | 2018-07-31 14:41 | PN ---
PROGRESS NOTE DATE OF SERVICE: 07/31/2018 REASON FOR FOLLOWUP: 1. Herpes encephalitis. 2. Abdominal abscess. INTERVAL HISTORY: The patient is currently afebrile. The patient is breathing comfortably. Denies having any chest pain or any cough. No nausea, vomiting, or abdominal pain. She wants real food. PHYSICAL EXAMINATION: Blood pressure 132/81 with a pulse of 84, temperature 98.7. She is 92% on 2 L nasal cannula. General description is a middle-aged female up in the bed in no distress. RESPIRATORY SYSTEM: Unlabored breathing, clear to auscultation anteriorly. HEART: S1, S2. Regular rate and rhythm. ABDOMEN: Soft, no tenderness. LABS: Hemoglobin 10.4, white count 9.0 with a BUN of 14, creatinine 0.60. Micro culture with Enterococcus faecalis, Citrobacter E coli. DIAGNOSTIC IMPRESSION AND PLAN: 1. Patient with abdominal abscess from the necrotic ventral hernia, status post laparotomy and diverting colostomy. The patient's abdominal cultures did show Escherichia coli and Citrobacter which is sensitive to penicillin. Hence the patient is covered with Zosyn. No need for any addition of ciprofloxacin. 2. The patient with herpes encephalitis, currently covered with acyclovir, dose should be adjusted to q.8 hours in view of improvement of kidney function. Continue supportive care. MMODL / IJN: [id number] /
[2018-07-31] MEDS: LACTATED RINGERS 1,000 ML IV SCH ×2 (18:41→20:34)
[2018-07-31] MEDS: HYDROmorphone 1 MG/ML 1 ML SYRINGE IVP PRN (20:22)
--- NOTE | 2018-07-31 22:42 | P.PN ---
Subjective Progress Note Date: 07/30/18 Principal diagnosis: perforated viscus status post sigmoid colectomy with and colostomy, partial omentectomy and repair of incarcerated ventral hernia Patient is a 63-year-old female with a known history of breast cancer status post bilateral mastectomy followed by Arimidex treatment, hypothyroidism, COPD, anxiety and other multiple medical problems, recent history of HSV encephalitis currently on acyclovir and dexamethasone at home presents to ER with complaints of abdominal pain mainly in the lower abdomen. CT abdomen and pelvis in the ER showed moderate pneumoperitoneum. Site of perforation is difficult to induce date. Suspect colonic site. Small bowel ileus and extensive osseous metastasis was redemonstrated. Patient was seen by general surgery and underwent sigmoid colectomy with end colostomy. Patient was extubated postoperatively. Currently abdominal pain is controlled with medications. No nausea vomiting. Able to tolerate ice cubes. No nausea vomiting. No complaints of chest pain or shortness of breath. No fever no chills. 07/30/2018 Patient says that her abdominal pain is better. Patient is able to tolerate ice chips. No stool noted in the colostomy back. No fever no chills. Continued on IV hydration and antibiotics. No fever no chills. ID and surgery is following. No nausea vomiting. No chest pain or shortness of breath. Current medications reviewed Objective - Vital Signs Vital signs: Vital Signs Temp 98.3 F 07/30/18 16:00 Pulse 109 H 07/30/18 16:00 Resp 22 07/30/18 16:00 BP 164/94 07/30/18 16:00 Pulse Ox 92 L 07/30/18 16:00 Intake & Output 07/29/18 07/30/18 07/30/18 18:59 06:59 18:59 Intake Total 2650 2250 2210 Output Total 765 695 800 Balance 1885 1555 1410 Weight 82.9 kg Intake: IV 1100 Lactated Ringers 1,000 ml 1100 @ 100 mls/hr IV .Q10H [facility] Rx#:[id number] Intake, IV Titration 2650 2250 750 Amount Acyclovir Sodium 750 mg 250 250 250 In Sodium Chloride 0.9% 250 ml @ 265 mls/hr IVPB Q12HR [facility] Rx#:[id number] Lactated Ringers 1,000 ml 2300 1800 150 @ 100 mls/hr IV .Q10H [facility] Rx#:[id number] Piperacillin-Tazobactam 3 100 100 100 .375 gm In Sodium Chloride 0.9% 100 ml @ 25 mls/hr IVPB Q8H [facility] Rx#: [id number] Piperacillin-Tazobactam 3 100 .375 gm In Sodium Chloride 0.9% 100 ml @ 25 mls/hr IVPB Q8HR [facility] Rx# :[id number] Vancomycin 1,500 mg In 250 Sodium Chloride 0.9% 250 ml @ 125 mls/hr IVPB ONCE [facility] Rx#:[id number] Oral 360 Output: Urine 765 695 800 Other: Voiding Method Indwelling Catheter Indwelling Catheter # Bowel Movements 1 - Exam PHYSICAL EXAMINATION: Patient is lying in the bed comfortably, no acute distress, awake alert and o riented.. HEENT: Normocephalic. Neck is supple. Pupils reactive. Nostrils clear. Oral cavity is moist. Ears reveal no drainage. Neck reveals no JVD, carotid bruits, or thyromegaly. CHEST EXAMINATION: Trachea is central. Symmetrical expansion. Decreased bibasilar air entry. No wheezing.. CARDIAC: Normal S1, S2 with no gallops. No murmurs ABDOMEN: Soft. Bowel sounds diminished. Colostomy bag in place. No organomegaly. No abdominal bruits. Extremities: reveal no edema. No clubbing or cyanosis Neurologically awake, alert, oriented x3 with well-coordinated movements. No focal deficits noted Skin: No rash or skin lesions. Psychiatric: Coperative. Nonsuicidal Musculoskeletal: No joint swelling or deformity. Normal range of motion. - Labs CBC & Chem 7: 07/31/18 04:45 07/31/18 04:45 Labs: Abnormal Lab Results - Last 24 Hours (Table) 07/30/18 07/30/18 Range/Units 04:58 04:58 RBC 3.38 L (3.80-5.40) m/uL Hgb 10.4 L (11.4-16.0) gm/dL Hct 32.2 L (34.0-46.0) % RDW 16.8 H (11.5-15.5) % Neutrophils # 8.0 H (1.3-7.7) k/uL Chloride 111 H (98-107) mmol/L BUN 22 H (7-17) mg/dL Glucose 70 L (74-99) mg/dL Calcium 8.0 L (8.4-10.2) mg/dL AST 48 H (14-36) U/L ALT 59 H (9-52) U/L Alkaline Phosphatase 216 H (38-126) U/L Total Protein 4.3 L (6.3-8.2) g/dL Albumin 2.1 L (3.5-5.0) g/dL Microbiology - Last 24 Hours (Table) 07/28/18 15:35 Blood Culture Gram Stain - Preliminary Blood 07/28/18 15:35 Blood Culture - Final Blood 07/28/18 18:00 Urine Culture - Preliminary Urine,Voided Group D Enterococcus 07/28/18 19:15 Gram Stain - Preliminary Abdomen Wound Culture - Preliminary Group D Enterococcus Gram Neg Bacilli Assessment and Plan Assessment: Pneumoperitoneum due to perforated viscus status post sigmoid colectomy with and colostomy, partial omentectomy and repair of incarcerated ventral hernia on 07/28/2018 Metastatic breast cancer with metastases to bone, with history of bilateral mastectomy. On Arimidex treatment Recent history of HSV encephalitis. Currently on acyclovir and dexamethasone at home Hypothyroidism COPD Hypertension. Currently blood pressure is not elevated. Anxiety Acute kidney injury most likely prerenal history of smoking Plan: Patient will be continued on IV hydration and pain management with Dilaudid. Antibiotics in the form of Zosyn. Will be continued on acyclovir. Patient is tolerating ice chips. Pending bowel function to resume for advanced diet. Continued supportive management. Pulmonary and general surgery is on board. Further recommendations based on the clinical course. Prognosis is guarded. We will continue to follow with you. Time with Patient: Greater than 30
--- NOTE | 2018-07-31 22:49 | P.PN ---
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 CT abdomen and pelvis in the ER showed moderate pneumoperitoneum. Site of perforation is difficult to induce date. Suspect colonic site. Small bowel ileus and extensive osseous metastasis was redemonstrated. Patient was seen by general surgery and underwent sigmoid colectomy with end colostomy. Patient was extubated postoperatively. Currently abdominal pain is controlled with medications. No nausea vomiting. Able to tolerate ice cubes. No nausea vomiting. No complaints of chest pain or shortness of breath. No fever no chills. 07/30/2018 Patient says that her abdominal pain is better. Patient is able to tolerate ice chips. No stool noted in the colostomy back. No fever no chills. Continued on IV hydration and antibiotics. No fever no chills. ID and surgery is following. No nausea vomiting. No chest pain or shortness of breath. 07/31/2018 Patient is able to sit in the chair today. No bowel movement or gas noted in the colostomy bag. No complains of nausea vomiting. Tolerating clear liquid diet. No fever no chills. Urine culture showed enterococcus faecalis. Wound cultures showed E. coli and enterococcus fecalis and Citrobacter. Continued on antibiotics the form of Zosyn. Current medications reviewed Objective - Vital Signs Vital signs: Vital Signs Temp 99.3 F 07/31/18 20:00 Pulse 99 07/31/18 20:00 Resp 21 07/31/18 20:00 BP 148/84 07/31/18 20:00 Pulse Ox 92 L 07/31/18 20:00 Intake & Output 07/31/18 07/31/18 08/01/18 06:59 18:59 06:59 Intake Total 1440 1650 100 Output Total 1320 1610 275 Balance 120 40 -175 Weight 85.5 kg 85.5 kg Intake: IV 1200 1350 100 Acyclovir Sodium 750 mg 250 In Sodium Chloride 0.9% 250 ml @ 265 mls/hr IVPB Q12HR [facility] Rx#:[id number] Lactated Ringers 1,000 ml 1200 1100 100 @ 100 mls/hr IV .Q10H [facility] Rx#:[id number] Intake, IV Titration 100 Amount Piperacillin-Tazobactam 3 100 .375 gm In Sodium Chloride 0.9% 100 ml @ 25 mls/hr IVPB Q8H [facility] Rx#: [id number] Oral 240 200 Output: Drainage 25 25 Right Abdomen 25 25 Urine 1295 1585 275 Other: Voiding Method Indwelling Catheter Indwelling Catheter Indwelling Catheter - Exam PHYSICAL EXAMINATION: Patient is lying in the bed comfortably, no acute distress, awake alert and oriented.. HEENT: Normocephalic. Neck is supple. Pupils reactive. Nostrils clear. Oral cavity is moist. Ears reveal no drainage. Neck reveals no JVD, carotid bruits, or thyromegaly. CHEST EXAMINATION: Trachea is central. Symmetrical expansion. Decreased bibasilar air entry. No wheezing.. CARDIAC: Normal S1, S2 with no gallops. No murmurs ABDOMEN: Soft. Bowel sounds diminished. Colostomy bag in place. No organomegaly. No abdominal bruits. Extremities: reveal no edema. No clubbing or cyanosis Neurologically awake, alert, oriented x3 with well-coordinated movements. No focal deficits noted Skin: No rash or skin lesions. Psychiatric: Coperative. Nonsuicidal Musculoskeletal: No joint swelling or deformity. Normal range of motion. - Labs CBC & Chem 7: 07/31/18 04:45 07/31/18 04:45 Labs: Abnormal Lab Results - Last 24 Hours (Table) 07/31/18 07/31/18 Range/Units 04:45 04:45 RBC 3.42 L (3.80-5.40) m/uL Hgb 10.4 L (11.4-16.0) gm/dL Hct 32.1 L (34.0-46.0) % RDW 16.6 H (11.5-15.5) % Glucose 69 L (74-99) mg/dL Calcium 8.2 L (8.4-10.2) mg/dL AST 62 H (14-36) U/L Alkaline Phosphatase 318 H (38-126) U/L Total Protein 4.5 L (6.3-8.2) g/dL Albumin 2.1 L (3.5-5.0) g/dL Microbiology - Last 24 Hours (Table) 07/28/18 19:15 Anaerobic Culture - Final Abdomen Anaerobic Gm Negative Bacilli Anaerobic Gm Negative Bacilli#2 07/30/18 12:51 Blood Culture - Preliminary Blood No Growth after 24 hours 07/28/18 18:00 Urine Culture - Final Urine,Voided Enterococcus faecalis 07/28/18 19:15 Gram Stain - Final Abdomen Wound Culture - Final Enterococcus faecalis Citrobacter species Escherichia coli Assessment and Plan Assessment: Pneumoperitoneum due to perforated viscus status post sigmoid colectomy with and colostomy, partial omentectomy and repair of incarcerated ventral hernia on 07/28/2018 Metastatic breast cancer with metastases to bone, with history of bilateral mastectomy. On Arimidex treatment Recent history of HSV encephalitis. Currently on acyclovir and dexamethasone at home Hypothyroidism COPD Hypertension. Currently blood pressure is not elevated. Anxiety Acute kidney injury most likely prerenal history of smoking Plan: Patient will be continued on IV hydration and pain management with Dilaudid. Antibiotics in the form of Zosyn. Will be continued on acyclovir. Patient is tolerating ice chips. Pending bowel function to resume for advanced diet. Continued supportive management. Pulmonary and general surgery is on board. Further recommendations based on the clinical course. Prognosis is guarded. We will continue to follow with you.
[2018-08-01] MEDS: LACTATED RINGERS 1,000 ML IV SCH ×2 (04:35→15:13)
[2018-08-01] MEDS: PIPERACILLIN-TAZOBACTAM 3.375 GM in SODIUM CHLORIDE 0.9% 100 ML IVPB SCH ×3 (04:35→23:36)
[2018-08-01 04:56] LABS: Anisocytosis Slight; Basophils % (A) 0 %; Eosinophils # (A) 0.1 k/uL (0-0.7); Eosinophils % (A) 2 %; HCT 32.5 % (34.0-46.0); Lymphocytes # (A) 1.8 k/uL (1.0-4.8); Lymphocytes % (A) 20 %; MCH 28.8 pg (25.0-35.0); MCHC 30.8 g/dL (31.0-37.0); MCV 93.5 fL (80.0-100.0); Mean Platelet Volume 7.1; Monocytes # (A) 0.2 k/uL (0-1.0); Monocytes % (A) 2 %; Neutrophils # (A) 6.8 k/uL (1.3-7.7); Neutrophils % (A) 76 %; Platelet Count 253 k/uL (150-450); RBC 3.47 m/uL (3.80-5.40); RDW 16.4 % (11.5-15.5); WBC 8.9 k/uL (3.8-10.6)
[2018-08-01 05:07] LABS: ALT 45 U/L (9-52); AST 64 U/L (14-36); Alkaline Phosphatase 328 U/L (38-126); Anion Gap 4 mmol/L; Blood Urea Nitrogen 10 mg/dL (7-17); Calcium 8.1 mg/dL (8.4-10.2); Carbon Dioxide 26 mmol/L (22-30); Chloride 105 mmol/L (98-107); Glucose 67 mg/dL (74-99); Potassium 3.3 mmol/L (3.5-5.1); Sodium 135 mmol/L (137-145); Total Bilirubin 0.9 mg/dL (0.2-1.3); Total Protein 4.3 g/dL (6.3-8.2)
[2018-08-01] MEDS: LEVOTHYROXINE 100 MCG TAB PO SCH (05:57)
[2018-08-01] MEDS: HYDROmorphone 1 MG/ML 1 ML SYRINGE IVP PRN (06:00)
[2018-08-01] MEDS: POTASSIUM CHLORIDE ER 20 MEQ TAB.ER PO SCH ×2 (06:25→08:15)
[2018-08-01] MEDS: METOPROLOL TARTRATE 25 MG TAB PO SCH ×2 (08:15→22:32)
[2018-08-01] MEDS: FAMOTIDINE 20 MG/2 ML VIAL IV SCH (08:15)
[2018-08-01] MEDS: amLODIPine 5 MG TAB PO SCH (08:15)
[2018-08-01] MEDS: ACYCLOVIR SODIUM 750 MG in SODIUM CHLORIDE 0.9% 250 ML IVPB SCH ×2 (09:06→22:31)
--- NOTE | 2018-08-01 10:06 | P.PN ---
Subjective Progress Note Date: 08/01/18 CHIEF COMPLAINT: abdominal pain HISTORY OF PRESENT ILLNESS: 63-year-old female who underwent sigmoid colectomy with end colostomy, partial omentectomy, and repair of incarcerated ventral hernia. POD #4. Patient is examined this morning in the ICU. She reports her pain is tolerable. Denies nausea or vomiting. She is tolerating clear liquid diet. Ostomy without gas or stool noted. Pathology positive for diverticulosis with perforated diverticulitis and pericolic abscess formation. Pathology discussed with patient and her at bedside. WBC 8.9. Hemoglobin 10.0. PHYSICAL EXAM: VITAL SIGNS: Currently stable. GENERAL: Well-developed in no acute distress. HEENT: No sclera icterus. Extraocular movements grossly intact. Moist buccal mucosa. Head is atraumatic, normocephalic. Hears conversational speech. No nasal drai nage. NECK: Supple without lymphadenopathy. CHEST: Non-labored respirations and equal bilateral excursions. CARDIOVASCULAR: Regular rate with regular rhythm. Palpable 2+ radial pulses. ABDOMEN: Soft. Nondistended. Dressing to midline incision. Ostomy to left lower quadrant with no gas or stool noted. AUGUSTIN drain intact. MUSCULOSKELETAL: No clubbing, cyanosis or edema. NEUROLOGIC: No focal or lateralizing signs. Cranial nerves II through XII grossly intact. PSYCH: Awake and alert and oriented. SKIN: Good skin turgor. Well-perfused. No cyanosis. ASSESSMENT: 1. Pneumoperitoneum, perforated viscus s/p sigmoid colectomy with end colostomy, partial omentectomy, and repair of incarcerated ventral hernia PLAN: 1. Continue clear liquid diet. Do not advance until ostomy has gas/stool. 2. Reglan 10mg IV Q6 hours 3. Pain control 4. Incentive spirometry Nurse practitioner note has been reviewed by physician. Signing provider agrees with the documented findings, assessment, and plan of care. Objective - Vital Signs Vital signs: Vital Signs Temp 98.2 F 08/01/18 08:00 Pulse 92 08/01/18 08:00 Resp 15 08/01/18 08:00 BP 168/93 08/01/18 08:00 Pulse Ox 92 L 08/01/18 08:00 Intake & Output 07/31/18 08/01/18 08/01/18 18:59 06:59 18:59 Intake Total 1650 1400 450 Output Total 1610 1420 Balance 40 -20 450 Weight 85.5 kg 88.8 kg Intake: IV 1350 900 350 Acyclovir Sodium 750 mg 250 250 In Sodium Chloride 0.9% 250 ml @ 265 mls/hr IVPB Q12HR [facility] Rx#:[id number] Lactated Ringers 1,000 ml 1100 900 100 @ 100 mls/hr IV .Q10H [facility] Rx#:[id number] Intake, IV Titration 100 100 Amount Piperacillin-Tazobactam 3 100 .375 gm In Sodium Chloride 0.9% 100 ml @ 25 mls/hr IVPB Q8H [facility] Rx#: [id number] Piperacillin-Tazobactam 3 100 .375 gm In Sodium Chloride 0.9% 100 ml @ 25 mls/hr IVPB Q8HR [facility] Rx# :[id number] Oral 200 500 Output: Drainage 25 20 Right Abdomen 25 20 Urine 1585 1400 Other: Voiding Method Indwelling Catheter Indwelling Catheter Bedpan # Voids 1 - Labs CBC & Chem 7: 08/01/18 04:42 08/01/18 04:42 Labs: Abnormal Lab Results - Last 24 Hours (Table) 08/01/18 08/01/18 Range/Units 04:42 04:42 RBC 3.47 L (3.80-5.40) m/uL Hgb 10.0 L (11.4-16.0) gm/dL Hct 32.5 L (34.0-46.0) % MCHC 30.8 L (31.0-37.0) g/dL RDW 16.4 H (11.5-15.5) % Sodium 135 L (137-145) mmol/L Potassium 3.3 L (3.5-5.1) mmol/L Glucose 67 L (74-99) mg/dL Calcium 8.1 L (8.4-10.2) mg/dL AST 64 H (14-36) U/L Alkaline Phosphatase 328 H (38-126) U/L Total Protein 4.3 L (6.3-8.2) g/dL Albumin 2.0 L (3.5-5.0) g/dL Microbiology - Last 24 Hours (Table) 07/28/18 19:15 Anaerobic Culture - Final Abdomen Anaerobic Gm Negative Bacilli Anaerobic Gm Negative Bacilli#2 07/30/18 12:51 Blood Culture - Preliminary Blood No Growth after 24 hours
--- NOTE | 2018-08-01 11:13 | PN ---
PROGRESS NOTE DATE OF SERVICE: August 01, 2018 This is a 63-year-old female who is postop day #4, status post exploratory laparotomy, sigmoid colectomy, end colostomy, ventral hernia repair, and partial omentectomy for perforated viscus. The patient has been doing relatively well here in the ICU. Actually yesterday, we thought she could go out of the ICU. She does unfortunately have a history of metastatic breast cancer with multiple and significant osseous metastasis. This was seen on a recent bone scan in July. She also has a history of status post bilateral mastectomy. She is on IV acyclovir for a number of days more because of herpes simplex viral encephalitis and she is on the Zosyn for abdominal sepsis. Her wound culture showed evidence of Escherichia coli, Enterococcus faecalis and Citrobacter species. ID thought the Zosyn was adequate for all 3. Anyway, she is doing better. She is feeling well. No major complaints. She does want to get out of the ICU and she hopes to get home pretty soon. I had a long talk with her yesterday. I did show him results of the bone scan. He was unaware of the multiple osseous metastasis. Currently, she is on O2 at 2 L by nasal cannula and getting an IV of lactated Ringer's at 100, which could be dropped back to 50 mL an hour. Again, she is waiting for a bed on the general medical floor. Current vital signs are reviewed. Temperature 98.2, heart rate 92, respiratory rate 15, blood pressure 168/93, mean 118, and saturations are between 92% and 95% on 2 L. Appears in no acute distress. Feels well. No audible wheezing. No conversational dyspnea. No use of accessory muscles. HEENT examination is grossly unremarkable. Mucous membranes are moist. Nasal O2 noted. NECK: Supple. Full range of motion. No adenopathy, thyromegaly or neck vein distention. Cardiovascular examination reveals regular rhythm rate. Heart rate about 90. S1, S2 normal. There is no murmur. Lungs reveal a few scattered rhonchi. Breath sounds equal bilaterally. No wheezes or crackles. Abdomen relatively soft. Bowel sounds are not noted. Extremities are intact. No edema, cyanosis, or clubbing. Skin without rash. Neurologic examination is brief but nonfocal. Culture data is again reviewed. Labs are reviewed. White count 8.9, hemoglobin 10, hematocrit 32.5, platelet count is 253,000. Sodium 135, potassium 3.3, chloride 105, CO2 of 26. BUN and creatinine were 10 and 0.52. The rest of the labs look pretty good. Microbiologic studies are reviewed. No chest x-ray to report. Medications are reviewed. She remains just on Zosyn for the infection. In addition, she is receiving acyclovir for her herpes simplex viral encephalitis. ASSESSMENT: 1. Postoperative day #4, status post exploratory laparotomy, sigmoid colectomy, end colostomy, ventral hernia repair and partial omentectomy for perforated viscus. 2. Metastatic breast cancer with multiple osseous metastasis. 3. Status post bilateral mastectomy. 4. 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 5. History of hypothyroidism. 6. History of hypertension. PLAN: Dr. Myers thought the Zosyn was adequate for the E coli, Enterococcus faecalis and Citrobacter species. The patient is doing well clinically. We again recommend deep breathing, coughing, clearing secretions and hourly use of the incentive spirometer. Her blood work looks fine. We will continue to follow closely. Hope to get her out to the floor today. Additional recommendations and suggestions are forthcoming. Prognosis is guarded given her multiple osseous metastasis. MMODL / IJN: [id number] /
[2018-08-01] MEDS: HYDROmorphone 0.5 MG/0.5 ML SYRINGE IVP PRN ×2 (13:15→17:08)
[2018-08-01] MEDS: METOCLOPRAMIDE 5 MG/ML 2 ML VIAL IVP SCH ×3 (13:15→23:36)
[2018-08-01] MEDS: ENOXAPARIN 40 MG/0.4 ML SYRINGE SQ SCH (22:32)
--- NOTE | 2018-08-01 23:16 | PN ---
PROGRESS NOTE DATE OF SERVICE: 08/01/2018. REASON FOR FOLLOWUP: 1. Abdominal sepsis . 2. Herpes encephalitis. INTERVAL HISTORY: The patient is currently afebrile. The patient has been breathing comfortably. Denies any chest pain or any cough. Abdominal pain is currently improved. No nausea, vomiting. Did open her colostomy bag. PHYSICAL EXAMINATION: Blood pressure 150/90 with a pulse of 107, temperature 97.9. She is 92% on room air. General description is a middle-aged female up in the chair in no distress. Respiratory system: Unlabored breathing. Clear to auscultation anteriorly. Heart S1, S2. Regular rate and rhythm. Abdomen soft, no tenderness. LABORATORY DATA: Hemoglobin is 10.2, white count 8.9, BUN of 10, creatinine 0.52. DIAGNOSTIC IMPRESSION AND PLAN: 1. Patient with abdominal sepsis from incarcerated , status post laparotomy and resection and diverting colostomy, abdominal culture obtained, showed pathogens which is currently covered with Zosyn. 2. The patient with herpes encephalitis in view of normal creatinine the patient should be on q.8 hours dose instead of q.12 hours. 3. Monitor function closely. Continue supportive care. MMODL / IJN: [id number] /
--- NOTE | 2018-08-02 00:28 | P.PN ---
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 CT abdomen and pelvis in the ER showed moderate pneumoperitoneum. Site of perforation is difficult to induce date. Suspect colonic site. Small bowel ileus and extensive osseous metastasis was redemonstrated. Patient was seen by general surgery and underwent sigmoid colectomy with end colostomy. Patient was extubated postoperatively. Currently abdominal pain is controlled with medications. No nausea vomiting. Able to tolerate ice cubes. No nausea vomiting. No complaints of chest pain or shortness of breath. No fever no chills. 07/30/2018 Patient says that her abdominal pain is better. Patient is able to tolerate ice chips. No stool noted in the colostomy back. No fever no chills. Continued on IV hydration and antibiotics. No fever no chills. ID and surgery is following. No nausea vomiting. No chest pain or shortness of breath. 07/31/2018 Patient is able to sit in the chair today. No bowel movement or gas noted in the colostomy bag. No complains of nausea vomiting. Tolerating clear liquid diet. No fever no chills. Urine culture showed enterococcus faecalis. Wound cultures showed E. coli and enterococcus fecalis and Citrobacter. Continued on antibiotics the form of Zosyn. 08/01/2018 Patient is able to tolerate liquid diet. No bowel movement or gas found in the colostomy bag. Otherwise patient is able to sit in the chair. Encourage ambulation continue with current management. Current with antibiotics. Patient is being transferred to medical floor today. Current medications reviewed Objective - Vital Signs Vital signs: Vital Signs Temp 97.9 F 08/01/18 19:20 Pulse 107 H 08/01/18 19:20 Resp 18 08/01/18 19:20 BP 152/98 08/01/18 19:20 Pulse Ox 92 L 08/01/18 19:20 Intake & Output 08/01/18 08/01/18 08/02/18 06:59 18:59 06:59 Intake Total 1400 500 Output Total 1420 Balance -20 500 Weight 88.8 kg Intake: IV 900 400 Acyclovir Sodium 750 mg 250 In Sodium Chloride 0.9% 250 ml @ 265 mls/hr IVPB Q12HR [facility] Rx#:[id number] Lactated Ringers 1,000 ml 900 150 @ 50 mls/hr IV .Q20H [facility] Rx#:[id number] Intake, IV Titration 100 Amount Piperacillin-Tazobactam 3 100 .375 gm In Sodium Chloride 0.9% 100 ml @ 25 mls/hr IVPB Q8HR [facility] Rx# :[id number] Oral 500 Output: Drainage 20 Right Abdomen 20 Urine 1400 Other: Voiding Method Indwelling Catheter Bedpan # Voids 1 - Exam PHYSICAL EXAMINATION: Patient is lying in the bed comfortably, no acute distress, awake alert and oriented.. HEENT: Normocephalic. Neck is supple. Pupils reactive. Nostrils clear. Oral cavity is moist. Ears reveal no drainage. Neck reveals no JVD, carotid bruits, or thyromegaly. CHEST EXAMINATION: Trachea is central. Symmetrical expansion. Decreased bibasilar air entry. No wheezing.. CARDIAC: Normal S1, S2 with no gallops. No murmurs ABDOMEN: Soft. Bowel sounds diminished. Colostomy bag in place. No organomegaly. No abdominal bruits. Extremities: reveal no edema. No clubbing or cyanosis Neurologically awake, alert, oriented x3 with well-coordinated movements. No focal deficits noted Skin: No rash or skin lesions. Psychiatric: Coperative. Nonsuicidal Musculoskeletal: No joint swelling or deformity. Normal range of motion. - Labs CBC & Chem 7: 08/01/18 04:42 08/01/18 04:42 Labs: Abnormal Lab Results - Last 24 Hours (Table) 08/01/18 08/01/18 Range/Units 04:42 04:42 RBC 3.47 L (3.80-5.40) m/uL Hgb 10.0 L (11.4-16.0) gm/dL Hct 32.5 L (34.0-46.0) % MCHC 30.8 L (31.0-37.0) g/dL RDW 16.4 H (11.5-15.5) % Sodium 135 L (137-145) mmol/L Potassium 3.3 L (3.5-5.1) mmol/L Glucose 67 L (74-99) mg/dL Calcium 8.1 L (8.4-10.2) mg/dL AST 64 H (14-36) U/L Alkaline Phosphatase 328 H (38-126) U/L Total Protein 4.3 L (6.3-8.2) g/dL Albumin 2.0 L (3.5-5.0) g/dL Microbiology - Last 24 Hours (Table) 07/30/18 12:51 Blood Culture - Preliminary Blood No Growth after 48 hours 07/28/18 19:15 Anaerobic Culture - Final Abdomen Anaerobic Gm Negative Bacilli Anaerobic Gm Negative Bacilli#2 Assessment and Plan Assessment: Pneumoperitoneum due to perforated viscus status post sigmoid colectomy with and colostomy, partial omentectomy and repair of incarcerated ventral hernia on 07/28/2018 Metastatic breast cancer with metastases to bone, with history of bilateral mastectomy. On Arimidex treatment Recent history of HSV encephalitis. Currently on acyclovir and dexamethasone at home Hypothyroidism COPD Hypertension. Currently blood pressure is not elevated. Anxiety Acute kidney injury most likely prerenal history of smoking Plan: Patient will be continued on IV hydration and pain management with Dilaudid. Antibiotics in the form of Zosyn. Will be continued on acyclovir. Patient is tolerating liquid diet.. Pending bowel function to resume for advanced diet. Continued supportive management. Pulmonary and general surgery is on board. Further recommendations based on the clinical course. Prognosis is guarded. We will continue to follow with you.
[2018-08-02] MEDS: METOCLOPRAMIDE 5 MG/ML 2 ML VIAL IVP SCH ×3 (05:06→18:03)
[2018-08-02] MEDS: ACYCLOVIR SODIUM 750 MG in SODIUM CHLORIDE 0.9% 250 ML IVPB SCH ×3 (05:06→22:52)
[2018-08-02] MEDS: LEVOTHYROXINE 100 MCG TAB PO SCH (05:06)
[2018-08-02] MEDS: HYDROmorphone 0.5 MG/0.5 ML SYRINGE IVP PRN (05:09)
[2018-08-02] MEDS: PIPERACILLIN-TAZOBACTAM 3.375 GM in SODIUM CHLORIDE 0.9% 100 ML IVPB SCH ×2 (06:38→16:47)
[2018-08-02 08:07] LABS: Anisocytosis Slight; Basophils % (A) 0 %; Eosinophils # (A) 0.1 k/uL (0-0.7); Eosinophils % (A) 1 %; HGB 10.9 gm/dL (11.4-16.0); Lymphocytes # (A) 1.7 k/uL (1.0-4.8); Lymphocytes % (A) 21 %; MCH 30.4 pg (25.0-35.0); MCHC 32.2 g/dL (31.0-37.0); MCV 94.5 fL (80.0-100.0); Mean Platelet Volume 6.8; Monocytes # (A) 0.2 k/uL (0-1.0); Monocytes % (A) 2 %; Neutrophils # (A) 6.3 k/uL (1.3-7.7); Neutrophils % (A) 75 %; Platelet Count 252 k/uL (150-450); RDW 16.8 % (11.5-15.5); WBC 8.4 k/uL (3.8-10.6)
[2018-08-02 08:34] LABS: ALT 39 U/L (9-52); AST 60 U/L (14-36); Albumin 2.2 g/dL (3.5-5.0); Alkaline Phosphatase 308 U/L (38-126); Anion Gap 6 mmol/L; Blood Urea Nitrogen 7 mg/dL (7-17); Calcium 8.6 mg/dL (8.4-10.2); Carbon Dioxide 25 mmol/L (22-30); Chloride 104 mmol/L (98-107); Glucose 65 mg/dL (74-99); Magnesium 1.6 mg/dL (1.6-2.3); Potassium 3.5 mmol/L (3.5-5.1); Sodium 135 mmol/L (137-145); Total Bilirubin 1.2 mg/dL (0.2-1.3); Total Protein 4.6 g/dL (6.3-8.2)
[2018-08-02] MEDS: SODIUM CHLORIDE 0.9% 1,000 ML IV SCH (08:57)
--- NOTE | 2018-08-02 10:01 | P.PN ---
Progress Note - Text Progress Note Date: 08/02/18 The patient has some complaints of incisional pain. On exam her vital signs appear stable. Her abdomen is soft. There is some stool liquid in the colostomy bag Status post Jessy procedure for perforated diverticula is. Patient is progressing. We will advance her diet slowly.
[2018-08-02] MEDS: ENOXAPARIN 40 MG/0.4 ML SYRINGE SQ SCH (10:15)
[2018-08-02] MEDS: FAMOTIDINE 20 MG/2 ML VIAL IV SCH (10:16)
[2018-08-02] MEDS: METOPROLOL TARTRATE 25 MG TAB PO SCH ×2 (10:16→22:51)
[2018-08-02] MEDS: amLODIPine 5 MG TAB PO SCH (10:16)
[2018-08-02] MEDS: LACTATED RINGERS 1,000 ML IV SCH (10:18)
[2018-08-02] MEDS: HYDROcodone/APAP 7.5-325MG 1 EACH TAB PO PRN ×2 (10:41→18:17)
--- NOTE | 2018-08-02 17:14 | PN ---
PROGRESS NOTE DATE OF SERVICE: 08/02/2018. REASON FOR FOLLOWUP: 1. Abdominal abscess. 2. Herpes encephalitis. INTERVAL HISTORY: The patient is currently afebrile. The patient is breathing comfortably. Denies having any headache. No chest pain. No shortness of breath. No cough. Abdominal pain has improved. Has been tolerating a diet. No nausea, vomiting. PHYSICAL EXAMINATION: Blood pressure 157/97, pulse 100. Temperature 98.4, she is a 91% on 3 L nasal cannula. General description is a middle-aged female up in the bed in no distress. Respiratory system: Unlabored breathing. Clear to auscultation anteriorly. Heart S1, S2. Regular rate and rhythm. ABDOMEN: Soft, no tenderness. LABS: Hemoglobin is 10.1, white count of 8.4, BUN of 7, creatinine 0.52. DIAGNOSTIC IMPRESSION AND PLAN: 1. Patient with abdominal abscess from incarcerated bowel, status post laparotomy resection and diverting colostomy, pathogen for which the patient is currently covered with Zosyn to continue for now. 2. Patient with herpes encephalitis for which the patient is currently on acyclovir to finish a course of therapy monitoring her clinical course as well as kidney function closely. Continue supportive care. was present at bedside. Multiple questions were answered. MMODL / IJN: [id number] /
[2018-08-02] MEDS: MAGNESIUM SULFATE-D5W PMX 1 GM in DEXTROSE/WATER 1 100ML.BAG IVPB SCH ×2 (17:53→19:05)
[2018-08-03] MEDS: METOCLOPRAMIDE 5 MG/ML 2 ML VIAL IVP SCH ×4 (00:37→16:56)
[2018-08-03] MEDS: PIPERACILLIN-TAZOBACTAM 3.375 GM in SODIUM CHLORIDE 0.9% 100 ML IVPB SCH ×3 (00:37→16:56)
--- NOTE | 2018-08-03 00:56 | P.PN ---
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 CT abdomen and pelvis in the ER showed moderate pneumoperitoneum. Site of perforation is difficult to induce date. Suspect colonic site. Small bowel ileus and extensive osseous metastasis was redemonstrated. Patient was seen by general surgery and underwent sigmoid colectomy with end colostomy. Patient was extubated postoperatively. Currently abdominal pain is controlled with medications. No nausea vomiting. Able to tolerate ice cubes. No nausea vomiting. No complaints of chest pain or shortness of breath. No fever no chills. 07/30/2018 Patient says that her abdominal pain is better. Patient is able to tolerate ice chips. No stool noted in the colostomy back. No fever no chills. Continued on IV hydration and antibiotics. No fever no chills. ID and surgery is following. No nausea vomiting. No chest pain or shortness of breath. 07/31/2018 Patient is able to sit in the chair today. No bowel movement or gas noted in the colostomy bag. No complains of nausea vomiting. Tolerating clear liquid diet. No fever no chills. Urine culture showed enterococcus faecalis. Wound cultures showed E. coli and enterococcus fecalis and Citrobacter. Continued on antibiotics the form of Zosyn. 08/01/2018 Patient is able to tolerate liquid diet. No bowel movement or gas found in the colostomy bag. Otherwise patient is able to sit in the chair. Encourage ambulation continue with current management. Current with antibiotics. Patient is being transferred to medical floor today. 08/02/2018 Patient denied any complains of chest pain or shortness of breath. No complaints of abdominal pain. Patient does have some decreased urine the colostomy back. Tolerating liquid diet and will be advanced. No fever no chills. No other acute overnight issues. Current medications reviewed Objective - Vital Signs Vital signs: Vital Signs Temp 98.1 F 08/02/18 19:39 Pulse 99 08/02/18 19:39 Resp 16 03/16/19 19:39 BP 147/80 08/02/18 19:39 Pulse Ox 92 L 08/02/18 19:39 Intake & Output 08/02/18 08/02/18 08/03/18 06:59 18:59 06:59 Output Total 30 20 Balance -30 -20 Output: Drainage 30 20 Right Abdomen 30 20 Other: Voiding Method Bedside Commode Bedside Commode Bedpan # Voids 2 - Exam PHYSICAL EXAMINATION: Patient is lying in the bed comfortably, no acute distress, awake alert and oriented.. HEENT: Normocephalic. Neck is supple. Pupils reactive. Nostrils clear. Oral cavity is moist. Ears reveal no drainage. Neck reveals no JVD, carotid bruits, or thyromegaly. CHEST EXAMINATION: Trachea is central. Symmetrical expansion. Decreased bibasilar air entry. No wheezing.. CARDIAC: Normal S1, S2 with no gallops. No murmurs ABDOMEN: Soft. Bowel sounds diminished. Colostomy bag in place. No organomegaly. No abdominal bruits. Extremities: reveal no edema. No clubbing or cyanosis Neurologically awake, alert, oriented x3 with well-coordinated movements. No focal deficits noted Skin: No rash or skin lesions. Psychiatric: Coperative. Nonsuicidal Musculoskeletal: No joint swelling or deformity. Normal range of motion. - Labs CBC & Chem 7: 08/02/18 07:52 08/02/18 07:52 Labs: Abnormal Lab Results - Last 24 Hours (Table) 08/02/18 08/02/18 Range/Units 07:52 07:52 RBC 3.60 L (3.80-5.40) m/uL Hgb 10.9 L (11.4-16.0) gm/dL RDW 16.8 H (11.5-15.5) % Sodium 135 L (137-145) mmol/L Glucose 65 L (74-99) mg/dL AST 60 H (14-36) U/L Alkaline Phosphatase 308 H (38-126) U/L Total Protein 4.6 L (6.3-8.2) g/dL Albumin 2.2 L (3.5-5.0) g/dL Microbiology - Last 24 Hours (Table) 07/30/18 12:51 Blood Culture - Preliminary Blood No Growth after 72 hours 07/28/18 15:35 Blood Culture Gram Stain - Final Blood Blood Culture - Final Eubacterium limosum Assessment and Plan Assessment: Pneumoperitoneum due to perforated viscus status post sigmoid colectomy with and colostomy, partial omentectomy and repair of incarcerated ventral hernia on 07/18 Metastatic breast cancer with metastases to bone, with history of bilateral mastectomy. On Arimidex treatment Recent history of HSV encephalitis. Currently on acyclovir and dexamethasone at home Hypothyroidism COPD Hypertension. Currently blood pressure is not elevated. Anxiety Acute kidney injury most likely prerenal history of smoking Plan: Patient will be continued on IV hydration and pain management with Dilaudid. Antibiotics in the form of Zosyn. Will be continued on acyclovir. Patient is tolerating liquid diet.. Bowel function is improving. Continued supportive management. Pulmonary and general surgery is on board. Further recommendations based on the clinical course. Prognosis is guarded. We will continue to follow with you. Time with Patient: Greater than 30
[2018-08-03] MEDS: HYDROcodone/APAP 7.5-325MG 1 EACH TAB PO PRN ×4 (01:35→22:28)
[2018-08-03] MEDS: ACYCLOVIR SODIUM 750 MG in SODIUM CHLORIDE 0.9% 250 ML IVPB SCH ×3 (05:49→22:28)
[2018-08-03] MEDS: LEVOTHYROXINE 100 MCG TAB PO SCH (05:49)
[2018-08-03] MEDS: LACTATED RINGERS 1,000 ML IV SCH (05:51)
[2018-08-03] MEDS: METOPROLOL TARTRATE 25 MG TAB PO SCH ×2 (08:15→22:27)
[2018-08-03] MEDS: amLODIPine 5 MG TAB PO SCH (08:15)
[2018-08-03] MEDS: ENOXAPARIN 40 MG/0.4 ML SYRINGE SQ SCH (08:15)
[2018-08-03] MEDS: FAMOTIDINE 20 MG/2 ML VIAL IV SCH (08:15)
[2018-08-03] MEDS: MAGNESIUM SULFATE-D5W PMX 1 GM in DEXTROSE/WATER 1 100ML.BAG IVPB SCH ×2 (13:09→15:22)
--- NOTE | 2018-08-03 13:13 | P.PN ---
Progress Note - Text Progress Note Date: 08/03/18 The patient is doing well. She has minimal complaints of abdominal pain. Her stoma is functioning. There is stool in the colostomy appliance. On exam her vital signs are stable. Her abdomen is soft. Incision site is clean dry intact. Status post Jessy procedure for perforated diverticulitis. Patient will have her diet advanced.
--- NOTE | 2018-08-03 23:15 | PN ---
PROGRESS NOTE DATE OF SERVICE: 08/03/2018. REASON FOR FOLLOWUP: Abdominal abscess, herpes encephalitis. INTERVAL HISTORY: The patient is currently afebrile. The patient is breathing comfortably. Denies having any chest pain or any cough. No abdominal pain. No nausea or vomiting. PHYSICAL EXAMINATION: Blood pressure 160/89 with a pulse of 100, temperature 98.3, she is 93% 4 L nasal cannula. GENERAL DESCRIPTION: A middle-aged female lying in bed in no distress. RESPIRATORY SYSTEM: Unlabored breathing with decreased breath sounds at the bases. No wheeze. HEART: S1, S2. Regular rate and rhythm. ABDOMEN: Soft, no tenderness. LABS: Hemoglobin is 10.8, white count 8.4, BUN of 7, creatinine 0.52. DIAGNOSTIC IMPRESSION AND PLAN: 1. Patient with abdominal abscess from incarcerated hernia, status post repair of the same and diverting colostomy. Abdominal culture with multiple pathogen, Citrobacter did have resistant pattern. The patient is currently on Zosyn which should cover all of these pathogens. Plan to continue for another week in the rehab facility. 2. The patient has herpes encephalitis. Continue IV Ceftin for another week to finish a course of therapy. Continue supportive care. MMODL / IJN: [id number] /
[2018-08-04] MEDS: METOCLOPRAMIDE 5 MG/ML 2 ML VIAL IVP SCH ×4 (00:19→17:10)
[2018-08-04] MEDS: PIPERACILLIN-TAZOBACTAM 3.375 GM in SODIUM CHLORIDE 0.9% 100 ML IVPB SCH ×3 (00:19→16:03)
[2018-08-04] MEDS: LACTATED RINGERS 1,000 ML IV SCH (03:22)
[2018-08-04] MEDS: LEVOTHYROXINE 100 MCG TAB PO SCH (06:01)
[2018-08-04] MEDS: ACYCLOVIR SODIUM 750 MG in SODIUM CHLORIDE 0.9% 250 ML IVPB SCH ×3 (06:02→22:42)
[2018-08-04] MEDS: HYDROcodone/APAP 7.5-325MG 1 EACH TAB PO PRN ×3 (06:13→23:02)
[2018-08-04] MEDS: ENOXAPARIN 40 MG/0.4 ML SYRINGE SQ SCH (10:07)
[2018-08-04] MEDS: FAMOTIDINE 20 MG/2 ML VIAL IV SCH (10:07)
[2018-08-04] MEDS: METOPROLOL TARTRATE 25 MG TAB PO SCH ×2 (10:07→21:09)
[2018-08-04] MEDS: amLODIPine 5 MG TAB PO SCH (10:07)
--- NOTE | 2018-08-04 10:39 | P.PN ---
Subjective Progress Note Date: 08/04/18 CHIEF COMPLAINT: abdominal pain HISTORY OF PRESENT ILLNESS: 63-year-old female who underwent sigmoid colectomy with end colostomy, partial omentectomy, and repair of incarcerated ventral hernia. POD #7. Patient is tolerating regular diet. Ostomy with stool and gas present. Denies nausea or vomiting. Patient did develop oozing from distal end of the midline incision this morning. AUGUSTIN drain intact with minimal serous fluid. PHYSICAL EXAM: VITAL SIGNS: Currently stable. GENERAL: Well-developed in no acute distress. HEENT: No sclera icterus. Extraocular movements grossly intact. Moist buccal mucosa. Head is atraumatic, normocephalic. Hears conversational speech. No nasal drainage. NECK: Supple without lymphadenopathy. CHEST: Non-labored respirations and equal bilateral excursions. CARDIOVASCULAR: Regular rate with regular rhythm. Palpable 2+ radial pulses. ABDOMEN: Soft. Nondistended. Dressing to midline incision. Ostomy to left lower quadrant with stool present. AUGUSTIN with minimal serous fluid. MUSCULOSKELETAL: No clubbing, cyanosis or edema. NEUROLOGIC: No focal or lateralizing signs. Cranial nerves II through XII grossly intact. PSYCH: Awake and alert and oriented. SKIN: Good skin turgor. Well-perfused. No cyanosis. ASSESSMENT: 1. Pneumoperitoneum, perforated viscus s/p sigmoid colectomy with end colostomy, partial omentectomy, and repair of incarcerated ventral hernia 2. Sepsis, present on admission, secondary to above PLAN: Continue current diet. Patient with oozing from distal end of midline incision. Continue gauze dressings. Change as needed. Nurse practitioner note has been reviewed by physician. Signing provider agrees with the documented findings, assessment, and plan of care. Objective - Vital Signs Vital signs: Vital Signs Temp 98.8 F 08/04/18 07:00 Pulse 111 H 08/04/18 07:00 Resp 16 08/04/18 07:00 BP 153/91 08/04/18 07:00 Pulse Ox 92 L 08/04/18 07:00 Intake & Output 08/03/18 08/04/18 08/04/18 18:59 06:59 18:59 Intake Total 400 1440 Output Total 10 Balance 400 1430 Intake: IV 400 Lactated Ringers 1,000 ml 400 @ 50 mls/hr IV .Q20H [facility] Rx#:[id number] Intake, IV Titration 850 Amount Acyclovir Sodium 750 mg 250 In Sodium Chloride 0.9% 250 ml @ 265 mls/hr IVPB Q8H [facility] Rx#:[id number] Lactated Ringers 1,000 ml 500 @ 50 mls/hr IV .Q20H [facility] Rx#:[id number] Piperacillin-Tazobactam 3 100 .375 gm In Sodium Chloride 0.9% 100 ml @ 25 mls/hr IVPB Q8H [facility] Rx#: [id number] Oral 590 Output: Drainage 10 Right Abdomen 10 Other: Voiding Method Bedside Commode # Voids 2 2 - Labs CBC & Chem 7: 08/02/18 07:52 08/02/18 07:52 Labs: Microbiology - Last 24 Hours (Table) 07/30/18 12:51 Blood Culture - Preliminary Blood No Growth after 96 hours 07/28/18 15:35 Blood Culture Gram Stain - Final Blood Blood Culture - Final Eubacterium limosum
--- NOTE | 2018-08-04 11:13 | CDI ---
Documentation Clarification Form Date: 08/04/2018 10:52:21 AM From: Ivelisse CooperPérezHERMAN inman, CCDS Admit Date: 07/28/2018 5:01:00 PM Patient Name: Melanie Posada Visit Number: [id number] Discharge Date: ATTENTION: The Clinical Documentation Specialists (CDI) and [facility] Coding Staff appreciate your assistance in clarifying documentation. Please respond to the clarification below the line at the bottom and electronically sign. The CDI & [facility] Coding staff will review the response and follow-up if needed. Please note: Queries are made part of the Legal Health Record. If you have any questions, please contact the author of this message via ITS. Dr. Chuy Coats: Per the Infectious Disease consult: "Patient admitted to the hospital with sepsis in this patient who did have a fever tachycardia." "Source is incarcerated ventral hernia and interloop abscess, status post laparotomy and drainage of the abscess cover the gram negative erlin, both aerobes and anaerobes showing in the cultures." History/Risk Factors: Breast CA status post bilateral mastectomy. Former smoker. 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 VS: T 100.4^, P 110^, R 16, BP 141/92^, PO 93 RA LAB: WBC (9.5), Neut 8.30^, Total Protein 5.6*, Albumin 2.8*, Lactic Acid (1.8) 07/28 Blood cx: Eubacterium Limosum; Urine Cx: Enterococcus faecalis; Abdominal Wound Cx: Enterococcus faecalis, Citrobacter species, E Coli; Abdominal Anaerobic cx: Gm Neg Bacilli Treatment: IV Rocephin, IV Ibuprofen, IV Morphine, IV fluid 1000, IV Flagyl, IV Dilaudid, IV Zosyn, IV Mag Sulfate In your professional opinion, please clarify if these findings signify one of the following conditions, whether the condition is POA, and cause, if known: o Sepsis ruled out o Sepsis o Severe Sepsis o Septic Shock o Other, please specify: o Unable to determine Present on Admission o Yes o No (Last Revision: August 2017) MTDD
[2018-08-04] MEDS: MAGNESIUM SULFATE-D5W PMX 1 GM in DEXTROSE/WATER 1 100ML.BAG IVPB SCH ×2 (13:43→17:10)
--- NOTE | 2018-08-04 16:11 | XR ---
EXAMINATION TYPE: XR chest 1V portable DATE OF EXAM: 08/04/2018 COMPARISON: 07/28/2017 HISTORY: Hypoxia TECHNIQUE: Single frontal view of the chest is obtained. FINDINGS: There is a retrocardiac density and layering small left pleural effusion as well as a trac e right pleural effusion blunting the costophrenic angle. Right-sided PICC line appears to terminate appropriately within the superior right atrium although the distal tip is not clearly defined. IMPRESSION: Increasing retrocardiac airspace disease, small layering left pleural effusion and trace right pleural effusion in comparison to the prior 07/28/2018.
[2018-08-05] MEDS: PIPERACILLIN-TAZOBACTAM 3.375 GM in SODIUM CHLORIDE 0.9% 100 ML IVPB SCH ×2 (00:56→07:04)
[2018-08-05] MEDS: METOCLOPRAMIDE 5 MG/ML 2 ML VIAL IVP SCH ×4 (00:56→19:13)
[2018-08-05] MEDS: LACTATED RINGERS 1,000 ML IV SCH ×2 (01:06→19:17)
[2018-08-05] MEDS: ACYCLOVIR SODIUM 750 MG in SODIUM CHLORIDE 0.9% 250 ML IVPB SCH ×3 (04:58→22:34)
--- NOTE | 2018-08-05 05:28 | PN ---
PROGRESS NOTE DATE OF SERVICE: 08/04/2018 REASON FOR FOLLOWUP: 1. Acute herpes encephalitis. 2. Abdominal abscess from incarcerated ventral hernia. INTERVAL HISTORY: The patient is afebrile. The patient noticed to have some blood-stained drainage from the lower end of the incision. The patient denies significant pain to the abdominal area. There is minimal redness. Denies any chest pain. No shortness of breath or cough. No diarrhea. PHYSICAL EXAMINATION: On examination, blood pressure 141/79 with a pulse of 105, temperature 98.5. She is 92% on 4 L nasal cannula. General description is a middle-aged female lying in bed in no distress. RESPIRATORY SYSTEM: Unlabored breathing, clear to auscultation anteriorly. HEART: S1, S2. Regular rate and rhythm. ABDOMEN: Soft. Midline incision with minimal erythema with minimal pressure with no evidence of any purulence. LABS: Hemoglobin is 10.9, white count 8.4 with a BUN of 7, creatinine 0.52. Abdominal culture with Enterococcus faecalis, Citrobacter, E coli. DIAGNOSTIC IMPRESSION AND PLAN: 1. Patient with abdominal abscess from a perforated/incarcerated ventral hernia, status post sigmoid colectomy with diverting colostomy. Patient at this time covered with Zosyn to continue for now. We will monitor clinical course closely. 2. The patient with herpes encephalitis. Patient currently on acyclovir, tolerating it, to finish a total of course of therapy including antibiotic she received per the last admission and at home. Continue supportive care. MMODL / IJN: [id number] /
[2018-08-05] MEDS: LEVOTHYROXINE 100 MCG TAB PO SCH (07:04)
[2018-08-05 07:57] LABS: Anisocytosis Slight; Basophils % (A) 0 %; Eosinophils # (A) 0.1 k/uL (0-0.7); Eosinophils % (A) 2 %; HCT 30.4 % (34.0-46.0); HGB 9.6 gm/dL (11.4-16.0); Lymphocytes # (A) 1.7 k/uL (1.0-4.8); Lymphocytes % (A) 21 %; MCH 29.7 pg (25.0-35.0); MCHC 31.7 g/dL (31.0-37.0); MCV 93.9 fL (80.0-100.0); Mean Platelet Volume 7.3; Monocytes # (A) 0.2 k/uL (0-1.0); Monocytes % (A) 3 %; Neutrophils # (A) 5.9 k/uL (1.3-7.7); Neutrophils % (A) 73 %; Platelet Count 338 k/uL (150-450); RBC 3.24 m/uL (3.80-5.40); RDW 16.5 % (11.5-15.5); WBC 8.1 k/uL (3.8-10.6)
[2018-08-05 08:14] LABS: Anion Gap 6 mmol/L; Blood Urea Nitrogen 5 mg/dL (7-17); Calcium 9.2 mg/dL (8.4-10.2); Carbon Dioxide 31 mmol/L (22-30); Chloride 101 mmol/L (98-107); Glucose 68 mg/dL (74-99); Magnesium 1.8 mg/dL (1.6-2.3); Sodium 138 mmol/L (137-145)
[2018-08-05] MEDS: FAMOTIDINE 20 MG/2 ML VIAL IV SCH (10:16)
[2018-08-05] MEDS: ENOXAPARIN 40 MG/0.4 ML SYRINGE SQ SCH (10:16)
[2018-08-05] MEDS: METOPROLOL TARTRATE 25 MG TAB PO SCH ×2 (10:16→20:37)
[2018-08-05] MEDS: amLODIPine 5 MG TAB PO SCH (10:17)
[2018-08-05] MEDS: HYDROcodone/APAP 7.5-325MG 1 EACH TAB PO PRN (10:26)
[2018-08-05] MEDS: POTASSIUM CHLORIDE ER 20 MEQ TAB.ER PO SCH ×3 (13:19→16:09)
--- NOTE | 2018-08-05 14:06 | P.PN ---
Subjective Progress Note Date: 08/05/18 CHIEF COMPLAINT: abdominal pain HISTORY OF PRESENT ILLNESS: 63-year-old female who underwent sigmoid colectomy with end colostomy, partial omentectomy, and repair of incarcerated ventral hernia. POD #8. Patient is tolerating regular diet. Ostomy with stool and gas present. Denies nausea or vomiting. Patient continues to have some oozing from distal end of the midline incision this morning. AUGUSTIN drain intact with minimal serous fluid. PHYSICAL EXAM: VITAL SIGNS: Currently stable. GENERAL: Well-developed in no acute distress. HEENT: No sclera icterus. Extraocular movements grossly intact. Moist buccal mucosa. Head is atraumatic, normocephalic. Hears conversational speech. No nasal drainage. NECK: Supple without lymphadenopathy. CHEST: Non-labored respirations and equal bilateral excursions. CARDIOVASCULAR: Regular rate with regular rhythm. Palpable 2+ radial pulses. ABDOMEN: Soft. Nondistended. Dressing to midline incision. Ostomy to left lower quadrant with stool present. AUGUSTIN with minimal serous fluid. MUSCULOSKELETAL: No clubbing, cyanosis or edema. NEUROLOGIC: No focal or lateralizing signs. Cranial nerves II through XII grossly intact. PSYCH: Awake and alert and oriented. SKIN: Good skin turgor. Well-perfused. No cyanosis. ASSESSMENT: 1. Pneumoperitoneum, perforated viscus s/p sigmoid colectomy with end colostomy, partial omentectomy, and repair of incarcerated ventral hernia 2. Sepsis, present on admission, secondary to above PLAN: Continue current diet. DC AUGUSTIN drain today. Remove every other staple today per Dr. Coats. Patient is cleared for discharge from a surgical standpoint. [facility] likely tomorrow after oncology evaluates patient. Nurse practitioner note has been reviewed by physician. Signing provider agrees with the documented findings, assessment, and plan of care. Objective - Vital Signs Vital signs: Vital Signs Temp 98.3 F 08/05/18 07:00 Pulse 117 H 08/05/18 07:00 Resp 20 08/05/18 07:00 BP 147/94 08/05/18 07:00 Pulse Ox 92 L 08/05/18 07:57 Intake & Output 08/04/18 08/05/18 08/05/18 18:59 06:59 18:59 Intake Total 400 550 Output Total 0 20 Balance 400 550 -20 Intake: IV 400 Lactated Ringers 1,000 ml 400 @ 50 mls/hr IV .Q20H [facility] Rx#:[id number] Intake, IV Titration 550 Amount Acyclovir Sodium 750 mg 250 In Sodium Chloride 0.9% 250 ml @ 265 mls/hr IVPB Q8H [facility] Rx#:[id number] Sodium Chloride 0.9% 50 300 ml @ 0 mls/hr IV .STK-MED ONE with ceFAZolin 2,000 mg Rx#:[id number] Output: Drainage 0 20 Right Abdomen 0 20 Other: Voiding Method Toilet # Voids 2 2 - Labs CBC & Chem 7: 08/05/18 07:04 08/05/18 07:04 Labs: Abnormal Lab Results - Last 24 Hours (Table) 08/05/18 08/05/18 Range/Units 07:04 07:04 RBC 3.24 L (3.80-5.40) m/uL Hgb 9.6 L (11.4-16.0) gm/dL Hct 30.4 L (34.0-46.0) % RDW 16.5 H (11.5-15.5) % Potassium 3.0 L (3.5-5.1) mmol/L Carbon Dioxide 31 H (22-30) mmol/L BUN 5 L (7-17) mg/dL Glucose 68 L (74-99) mg/dL Microbiology - Last 24 Hours (Table) 07/30/18 12:51 Blood Culture - Preliminary Blood No Growth after 120 hours
[2018-08-05] MEDS: MAGNESIUM SULFATE-D5W PMX 1 GM in DEXTROSE/WATER 1 100ML.BAG IVPB SCH ×2 (14:37→16:07)
[2018-08-05] MEDS: HYDROmorphone 0.5 MG/0.5 ML SYRINGE IVP PRN (20:37)
--- NOTE | 2018-08-06 00:04 | P.CONS ---
History of Present Illness - Reason for Consult Consult date: 08/05/18 Hx: Breast Cancer Requesting physician: Dannielle Skelton - Chief Complaint Status Post Colectomy - History of Present Illness Ms Posada is a 63-year-old white female, with overall well-controlled medical Problems. The patient was brought in by her family in June (07/17/18), because they had noted decreased responsiveness starting around 07/14/18. This had steadily progressed to where the patient had become barely arousable. Oral intake was markedly reduced since the onset of these symptoms. No seizure activity or actual loss of consciousness noted. The patient was brought into the emergency room, where labs revealed a markedly increased calcium of 18. Kahlil ibanez clinically appeared to be quite dehydrated, and creatinine was also elevated from her baseline. She underwent a CT scan of the chest abdomen and pelvis that showed widespread metastatic-appearing lesions in the skeleton. There was concern regarding the patient being able to protect her airway. She was therefore admitted to the ICU for further management. She was treated for hypercalcemia aggressively with IV hydration, as well as calcitonin. She also underwent a lumbar puncture to rule out meningitis. She was placed on IV antibiotics empirically. She was found to have positive CSF for meningitis and ID treating with antibiotics. She was discharged but returned shortly after with increased abdominal pain and shortness of breath. She underwent surgical intervention for strangulated hernia and possible pneumoperitoneum resulting in colectomy and colostomy. She is now recovering. Oncologic History consisted of breast cancer, estrogen positive in 2010. She underwent bilateral mastectomy. According to the family, based on stage, chemotherapy and/or radiation was not recommended and the patient was treated with anastrozole, although could not tolerate therefore was discontinued about a year after starting. Her care so far had been under Dr. Bonnie Doan at [facility] and [facility]. Her last visit with her was in 02/2018. According to the family, since then the patient had been having some back pain and chest wall pain that seems to have been somewhat nonspecific. Patient seen and evaluated today as consult after her surgical intervention with sigmoid colectomy and end colostomy. She is recovering well although the patient and family are very concerned about the new apparent picture of metastatic cancer. We discussed the plan for further work-up of her diffuse bone lesions seen on CT and Bone scan. She is planning on needing to recover in outpatient rehab center from this recent surgery. With her known history of breast cancer and elevated Breast tumor markers and picture of likely metastatic recurrent breast cancer to the bones it is resonable to obtain bone biopsy prior to discharge to allow time to run pathology, assess ER, HER2 if breast cancer or other molecular pertinent tests. She may potentially be able to begin Hormonal therapy while recovering in rehab. I have discussed this in detail with Dr. Skelton, Dr. Myers. We will proceed with IR consultation for bone biopsy. Another complaint is her right sided weakness on lower extremity, she has had right foot drop noted prior to infectious diagnosis and states the weakness appears to be worsening and not improved. We will need to closely assess and monitor, if not improved come close to abx completion and physical therapy involvement MRI of spine is resonable. MRI of brain was performed last admission and failed to show evidence of metasttic disease. Review of Systems A 14 point review of systems assessed and completed and all negative except HPII Past Medical History Past Medical History: Thyroid Disorder Additional Past Medical History / Comment(s): Breast cancer, with bilateral mastectomy followed by Arimidex treatment, hypothyroidism, COPD History of Any Multi-Drug Resistant Organisms: None Reported Past Surgical History: Appendectomy, Breast Surgery Additional Past Surgical History / Comment(s): double mastectomy,PICC line Past Anesthesia/Blood Transfusion Reactions: No Reported Reaction Past Psychological History: Anxiety Smoking Status: Former smoker Past Alcohol Use History: None Reported Past Drug Use History: None Reported - Past Family History Mother Family Medical History: Liver Disease Additional Family Medical History / Comment(s): young from cirrhosis/etoh related Father Family Medical History: Cancer Additional Family Medical History / Comment(s): age 87 Medications and Allergies Home Medications Medication Instructions Recorded Confirmed Type Levothyroxine Sodium [Synthroid] 100 mcg PO DAILY@0630 #30 tab 07/23/18 07/28/18 Rx Metoprolol Tartrate [Lopressor] 25 mg PO BID #60 tab 07/23/18 07/28/18 Rx amLODIPine [Norvasc] 5 mg PO DAILY #30 tab 07/23/18 07/28/18 Rx Acyclovir 750mg Infusion 750 mg IVPB TID@0000,0800,1600 07/28/18 07/28/18 History Dexamethasone [Decadron] See Taper PO TID 07/28/18 07/28/18 History HYDROcodone/APAP 7.5-325MG [Kountze 1 tab PO Q4H PRN 3 Days #18 tab 08/01/18 Rx 7.5-325] Allergies Allergy/AdvReac Type Severity Reaction Status Date / Time ciprofloxacin [From Cipro] AdvReac Nausea & Verified 07/28/18 14:25 Vomiting codeine AdvReac "GETS THE Verified 07/28/18 14:25 SHAKES" Physical Exam Vitals: Vital Signs Temp Pulse Resp BP Pulse Ox 08/05/18 15:15 97.8 F 115 H 20 151/100 91 L 08/05/18 07:57 92 L 08/05/18 07:00 98.3 F 117 H 20 147/94 94 L 08/04/18 23:15 97.8 F 91 18 138/84 90 L 08/04/18 19:10 98.5 F 105 H 18 141/79 92 L Intake and Output 08/05/18 08/05/18 08/05/18 06:59 14:59 22:59 Intake Total 550 950 Output Total 20 Balance 550 930 Intake: IV 350 Lactated Ringers 1,000 ml 350 @ 50 mls/hr IV .Q20H [facility] Rx#:[id number] Intake, IV Titration 550 100 Amount Acyclovir Sodium 750 mg 250 In Sodium Chloride 0.9% 250 ml @ 265 mls/hr IVPB Q8H [facility] Rx#:[id number] Piperacillin-Tazobactam 3 100 .375 gm In Sodium Chloride 0.9% 100 ml @ 25 mls/hr IVPB Q8H [facility] Rx#: [id number] Sodium Chloride 0.9% 50 300 ml @ 0 mls/hr IV .STK-MED ONE with ceFAZolin 2,000 mg Rx#:[id number] Oral 500 Output: Drainage 20 Right Abdomen 20 Other: # Voids 2 2 Weight 88.8 kg - Constitutional General appearance: Present: average body habitus, cooperative, no acute distress - EENT Eyes: Present: anicteric sclerae, EOMI ENT: Present: hearing grossly normal, normal oropharynx - Respiratory Respiratory: bilateral: CTA - Cardiovascular Heart sounds: normal: S1, S2 - Peripheral edema leg Peripheral Edema: bilateral: None - Gastrointestinal Evidence Colostomy with output pink stoma - Integumentary Integumentary: Present: pale - Neurologic Neurologic: Present: CNII-XII intact - Musculoskeletal Musculoskeletal: Present: generalized weakness, strength equal bilaterally Right sided lower extremity weakness Results CBC & Chem 7: 08/05/18 07:04 08/05/18 07:04 Labs: Abnormal Lab Results - Last 24 Hours (Table) 08/05/18 08/05/18 Range/Units 07:04 07:04 RBC 3.24 L (3.80-5.40) m/uL Hgb 9.6 L (11.4-16.0) gm/dL Hct 30.4 L (34.0-46.0) % RDW 16.5 H (11.5-15.5) % Potassium 3.0 L (3.5-5.1) mmol/L Carbon Dioxide 31 H (22-30) mmol/L BUN 5 L (7-17) mg/dL Glucose 68 L (74-99) mg/dL Microbiology - Last 24 Hours (Table) 07/30/18 12:51 Blood Culture - Final Blood No Growth after 144 hours Chest x-ray: report reviewed CT scan - abdomen: report reviewed CT scan - chest: report reviewed CT Scan - head: report reviewed MRI - head: report reviewed Assessment and Plan (1) Carcinoma of breast metastatic to bone Current Visit: Yes Status: Acute Priority: High Code(s): C50.919 - MALIGNANT NEOPLASM OF UNSP SITE OF UNSPECIFIED FEMALE BREAST; C79.51 - SECONDARY MALIGNANT NEOPLASM OF BONE SNOMED Code(s): 779890536 (2) Surgical pneumoperitoneum Current Visit: Yes Status: Acute Code(s): K66.8 - OTHER SPECIFIED DISORDERS OF PERITONEUM SNOMED Code(s): 08838502 (3) Hypercalcemia Current Visit: No Status: Acute Priority: High Code(s): E83.52 - HYPERCALCEMIA SNOMED Code(s): 92294778 Plan: Assessment and Recommendations: 1. Metastatic Breast Cancer - Bone - Patient follows with Dr. Fajardo as outpatient She is planning on needing to recover in outpatient rehab center from this recent surgery. With her known history of breast cancer and elevated Breast tumor markers and picture of likely metastatic recurrent breast cancer to the bones it is resonable to obtain bone biopsy prior to discharge to allow time to run pathology, assess ER, HER2 if breast cancer or other molecular pertinent tests. She may potentially be able to begin Hormonal therapy while recovering in rehab. I have discussed this in detail with Dr. Skelton, Dr. Myers. We will proceed with IR consultation for bone biopsy. - IR for bone Biopsy prior to Discharge: HER2 and ER/MI Testing on sample - If it has been 30 days since last aredia or zometa rec another dose prior to discharge - COntinue to monitor RLE weakness and footdrop, may need MRI SPine - Discussed in detail with Infectious disease and primary team and will hold discharge for biopsy. 2. Normocytic anemia: Secondary to post operative blood loss and component of malignancy - Check Iron studies and anemia work-up Physician Attest: I have discussed the complete history and physical as well as the improession and plan, agree with dictation by [employer]ASS[employer] ENGRAVER, dictated as a scribe Greater than 30 minutes spent counseling and coordinating care face to face with patient, and son today. Time with Patient: Greater than 30
[2018-08-06] MEDS: HYDROcodone/APAP 7.5-325MG 1 EACH TAB PO PRN ×3 (00:23→20:23)
[2018-08-06] MEDS: METOCLOPRAMIDE 5 MG/ML 2 ML VIAL IVP SCH ×5 (00:34→23:49)
[2018-08-06] MEDS: PIPERACILLIN-TAZOBACTAM 3.375 GM in SODIUM CHLORIDE 0.9% 100 ML IVPB SCH ×4 (00:35→23:48)
--- NOTE | 2018-08-06 01:01 | P.PN ---
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 CT abdomen and pelvis in the ER showed moderate pneumoperitoneum. Site of perforation is difficult to induce date. Suspect colonic site. Small bowel ileus and extensive osseous metastasis was redemonstrated. Patient was seen by general surgery and underwent sigmoid colectomy with end colostomy. Patient was extubated postoperatively. Currently abdominal pain is controlled with medications. No nausea vomiting. Able to tolerate ice cubes. No nausea vomiting. No complaints of chest pain or shortness of breath. No fever no chills. 07/30/2018 Patient says that her abdominal pain is better. Patient is able to tolerate ice chips. No stool noted in the colostomy back. No fever no chills. Continued on IV hydration and antibiotics. No fever no chills. ID and surgery is following. No nausea vomiting. No chest pain or shortness of breath. 07/31/2018 Patient is able to sit in the chair today. No bowel movement or gas noted in the colostomy bag. No complains of nausea vomiting. Tolerating clear liquid diet. No fever no chills. Urine culture showed enterococcus faecalis. Wound cultures showed E. coli and enterococcus fecalis and Citrobacter. Continued on antibiotics the form of Zosyn. 08/01/2018 Patient is able to tolerate liquid diet. No bowel movement or gas found in the colostomy bag. Otherwise patient is able to sit in the chair. Encourage ambulation continue with current management. Current with antibiotics. Patient is being transferred to medical floor today. 08/02/2018 Patient denied any complains of chest pain or shortness of breath. No complaints of abdominal pain. Patient does have some decreased urine the colostomy back. Tolerating liquid diet and will be advanced. No fever no chills. No other acute overnight issues. 08/03/2018 Patient denied any complaints of chest pain or shortness of. Abdominal pain is much improved. Small amount of stool in the colostomy bag. Tolerating clear liquid diet and is being advanced. No fever no chills. No nausea vomiting or diarrhea. Current medications reviewed Objective - Vital Signs Vital signs: Vital Signs Temp 98.4 F 08/03/18 14:45 Pulse 100 08/03/18 14:45 Resp 18 08/03/18 14:45 BP 154/81 08/03/18 14:45 Pulse Ox 92 L 08/03/18 14:45 Intake & Output 08/02/18 08/03/18 08/03/18 18:59 06:59 18:59 Intake Total 950 400 Output Total 20 20 Balance -20 930 400 Intake: IV 400 Lactated Ringers 1,000 ml 400 @ 50 mls/hr IV .Q20H [facility] Rx#:[id number] Intake, IV Titration 950 Amount Acyclovir Sodium 750 mg 250 In Sodium Chloride 0.9% 250 ml @ 265 mls/hr IVPB Q8H [facility] Rx#:[id number] Lactated Ringers 1,000 ml 500 @ 50 mls/hr IV .Q20H [facility] Rx#:[id number] Magnesium Sulfate-D5w Pmx 100 1 gm In Dextrose/Water 1 100ml.bag @ 100 mls/hr IVPB Q1H [facility] Rx#: [id number] Piperacillin-Tazobactam 3 100 .375 gm In Sodium Chloride 0.9% 100 ml @ 25 mls/hr IVPB Q8H [facility] Rx#: [id number] Output: Drainage 20 20 Right Abdomen 20 20 Other: Voiding Method Bedside Commode Bedpan # Voids 2 2 2 - Exam PHYSICAL EXAMINATION: Patient is lying in the bed comfortably, no acute distress, awake alert and oriented.. HEENT: Normocephalic. Neck is supple. Pupils reactive. Nostrils clear. Oral cavity is moist. Ears reveal no drainage. Neck reveals no JVD, carotid bruits, or thyromegaly. CHEST EXAMINATION: Trachea is central. Symmetrical expansion. Decreased bibasilar air entry. No wheezing.. CARDIAC: Normal S1, S2 with no gallops. No murmurs ABDOMEN: Soft. Bowel sounds diminished. Colostomy bag in place. No organomegaly. No abdominal bruits. Extremities: reveal no edema. No clubbing or cyanosis Neurologically awake, alert, oriented x3 with well-coordinated movements. No focal deficits noted Skin: No rash or skin lesions. Psychiatric: Coperative. Nonsuicidal Musculoskeletal: No joint swelling or deformity. Normal range of motion. - Labs CBC & Chem 7: 08/05/18 07:04 08/05/18 07:04 Labs: Microbiology - Last 24 Hours (Table) 07/30/18 12:51 Blood Culture - Preliminary Blood No Growth after 96 hours 07/28/18 15:35 Blood Culture Gram Stain - Final Blood Blood Culture - Final Eubacterium limosum Assessment and Plan Assessment: Pneumoperitoneum due to perforated viscus status post sigmoid colectomy with and colostomy, partial omentectomy and repair of incarcerated ventral hernia on 07/28/2018 Metastatic breast cancer with metastases to bone, with history of bilateral mast ectomy. On Arimidex treatment Recent history of HSV encephalitis. Currently on acyclovir and dexamethasone at home Hypothyroidism COPD Hypertension. Currently blood pressure is not elevated. Anxiety Acute kidney injury most likely prerenal history of smoking Plan: Patient will be continued on IV hydration and pain management with Dilaudid. Antibiotics in the form of Zosyn. Will be continued on acyclovir. Patient is tolerating liquid diet.. Bowel function is improving. Continued supportive management. Pulmonary and general surgery is on board. Further recommendations based on the clinical course. Prognosis is guarded. We will continue to follow with you. Time with Patient: Greater than 30
--- NOTE | 2018-08-06 01:04 | P.PN ---
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 CT abdomen and pelvis in the ER showed moderate pneumoperitoneum. Site of perforation is difficult to induce date. Suspect colonic site. Small bowel ileus and extensive osseous metastasis was redemonstrated. Patient was seen by general surgery and underwent sigmoid colectomy with end colostomy. Patient was extubated postoperatively. Currently abdominal pain is controlled with medications. No nausea vomiting. Able to tolerate ice cubes. No nausea vomiting. No complaints of chest pain or shortness of breath. No fever no chills. 07/30/2018 Patient says that her abdominal pain is better. Patient is able to tolerate ice chips. No stool noted in the colostomy back. No fever no chills. Continued on IV hydration and antibiotics. No fever no chills. ID and surgery is following. No nausea vomiting. No chest pain or shortness of breath. 07/31/2018 Patient is able to sit in the chair today. No bowel movement or gas noted in the colostomy bag. No complains of nausea vomiting. Tolerating clear liquid diet. No fever no chills. Urine culture showed enterococcus faecalis. Wound cultures showed E. coli and enterococcus fecalis and Citrobacter. Continued on antibiotics the form of Zosyn. 08/01/2018 Patient is able to tolerate liquid diet. No bowel movement or gas found in the colostomy bag. Otherwise patient is able to sit in the chair. Encourage ambulation continue with current management. Current with antibiotics. Patient is being transferred to medical floor today. 08/02/2018 Patient denied any complains of chest pain or shortness of breath. No complaints of abdominal pain. Patient does have some decreased urine the colostomy back. Tolerating liquid diet and will be advanced. No fever no chills. No other acute overnight issues. 08/03/2018 Patient denied any complaints of chest pain or shortness of. Abdominal pain is much improved. Small amount of stool in the colostomy bag. Tolerating clear liquid diet and is being advanced. No fever no chills. No nausea vomiting or diarrhea. 08/04/2018 Patient denied any abdominal pain today. Tolerating oral diet. Changed to regular diet now. Patient did have bowel movement in the ostomy bag. No complaints of nausea or vomiting. Patient was found have some oozing from the distal end of the midline surgical incision. No fever no chills. No leukocytosis. No complaints of chest pain or shortness of breath. Current medications reviewed Objective - Vital Signs Vital signs: Vital Signs Temp 98.5 F 08/04/18 19:10 Pulse 105 H 08/04/18 19:10 Resp 18 08/04/18 19:10 BP 141/79 08/04/18 19:10 Pulse Ox 92 L 08/04/18 19:10 Intake & Output 08/04/18 08/04/18 08/05/18 06:59 18:59 06:59 Intake Total 1440 400 Output Total 10 0 Balance 1430 400 Intake: IV 400 Lactated Ringers 1,000 ml 400 @ 50 mls/hr IV .Q20H [facility] Rx#:[id number] Intake, IV Titration 850 Amount Acyclovir Sodium 750 mg 250 In Sodium Chloride 0.9% 250 ml @ 265 mls/hr IVPB Q8H [facility] Rx#:[id number] Lactated Ringers 1,000 ml 500 @ 50 mls/hr IV .Q20H [facility] Rx#:[id number] Piperacillin-Tazobactam 3 100 .375 gm In Sodium Chloride 0.9% 100 ml @ 25 mls/hr IVPB Q8H [facility] Rx#: [id number] Oral 590 Output: Drainage 10 0 Right Abdomen 10 0 Other: Voiding Method Bedside Commode Toilet # Voids 2 2 - Exam PHYSICAL EXAMINATION: Patient is lying in the bed comfortably, no acute distress, awake alert and oriented.. HEENT: Normocephalic. Neck is supple. Pupils reactive. Nostrils clear. Oral cav ity is moist. Ears reveal no drainage. Neck reveals no JVD, carotid bruits, or thyromegaly. CHEST EXAMINATION: Trachea is central. Symmetrical expansion. Decreased bibasilar air entry. No wheezing.. CARDIAC: Normal S1, S2 with no gallops. No murmurs ABDOMEN: Soft. Bowel sounds diminished. Colostomy bag in place. No organomegaly. No abdominal bruits. Extremities: reveal no edema. No clubbing or cyanosis Neurologically awake, alert, oriented x3 with well-coordinated movements. No focal deficits noted Skin: No rash or skin lesions. Psychiatric: Coperative. Nonsuicidal Musculoskeletal: No joint swelling or deformity. Normal range of motion. - Labs CBC & Chem 7: 08/05/18 07:04 08/05/18 07:04 Labs: Microbiology - Last 24 Hours (Table) 07/30/18 12:51 Blood Culture - Preliminary Blood No Growth after 120 hours Assessment and Plan Assessment: Pneumoperitoneum due to perforated viscus status post sigmoid colectomy with and colostomy, partial omentectomy and repair of incarcerated ventral hernia on 07/28/2018 Metastatic breast cancer with metastases to bone, with history of bilateral mastectomy. On Arimidex treatment Recent history of HSV encephalitis. Currently on acyclovir and dexamethasone at home Hypothyroidism COPD Hypertension. Currently blood pressure is not elevated. Anxiety Acute kidney injury most likely prerenal history of smoking Plan: Patient will be continued on IV hydration and pain management with Dilaudid. Antibiotics in the form of Zosyn. Will be continued on acyclovir. Patient is tolerating liquid diet. Advance as tolerated.. Bowel function is improving. Continued supportive management. Pulmonary and general surgery is on board. Further recommendations based on the clinical course. Prognosis is guarded. We will continue to follow with you.
[2018-08-06] MEDS ORDERED: Potassium Replacement Protocol 1 EACH MISC MISCELLANE PRN (01:07)
--- NOTE | 2018-08-06 01:09 | P.PN ---
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 CT abdomen and pelvis in the ER showed moderate pneumoperitoneum. Site of perforation is difficult to induce date. Suspect colonic site. Small bowel ileus and extensive osseous metastasis was redemonstrated. Patient was seen by general surgery and underwent sigmoid colectomy with end colostomy. Patient was extubated postoperatively. Currently abdominal pain is controlled with medications. No nausea vomiting. Able to tolerate ice cubes. No nausea vomiting. No complaints of chest pain or shortness of breath. No fever no chills. 07/30/2018 Patient says that her abdominal pain is better. Patient is able to tolerate ice chips. No stool noted in the colostomy back. No fever no chills. Continued on IV hydration and antibiotics. No fever no chills. ID and surgery is following. No nausea vomiting. No chest pain or shortness of breath. 07/31/2018 Patient is able to sit in the chair today. No bowel movement or gas noted in the colostomy bag. No complains of nausea vomiting. Tolerating clear liquid diet. No fever no chills. Urine culture showed enterococcus faecalis. Wound cultures showed E. coli and enterococcus fecalis and Citrobacter. Continued on antibiotics the form of Zosyn. 08/01/2018 Patient is able to tolerate liquid diet. No bowel movement or gas found in the colostomy bag. Otherwise patient is able to sit in the chair. Encourage ambulation continue with current management. Current with antibiotics. Patient is being transferred to medical floor today. 08/02/2018 Patient denied any complains of chest pain or shortness of breath. No complaints of abdominal pain. Patient does have some decreased urine the colostomy back. Tolerating liquid diet and will be advanced. No fever no chills. No other acute overnight issues. 08/03/2018 Patient denied any complaints of chest pain or shortness of. Abdominal pain is much improved. Small amount of stool in the colostomy bag. Tolerating clear liquid diet and is being advanced. No fever no chills. No nausea vomiting or diarrhea. 08/04/2018 Patient denied any abdominal pain today. Tolerating oral diet. Changed to regular diet now. Patient did have bowel movement in the ostomy bag. No complaints of nausea or vomiting. Patient was found have some oozing from the distal end of the midline surgical incision. No fever no chills. No leukocytosis. No complaints of chest pain or shortness of breath. 08/05/2018 Patient denied any complaints of abdominal pain or nausea or vomiting. Tolerating diet very well. Ostomy is functioning. Due to metastatic lesions in the bone and possible recurrence of breast cancer oncology was consulted and recommends bone biopsy right to discharge. Previously there was a concern that patient wants to follow with her own physician. No fever no chills. No headache or dizziness or lightheadedness. Discussed with her at bedside in detail. Current medications reviewed Objective - Vital Signs Vital signs: Vital Signs Temp 98.8 F 08/05/18 19:15 Pulse 125 H 08/05/18 19:15 Resp 18 08/05/18 19:15 BP 143/86 08/05/18 19:15 Pulse Ox 92 L 08/05/18 19:15 Intake & Output 08/05/18 08/05/18 08/06/18 06:59 18:59 06:59 Intake Total 550 950 Output Total 20 0 Balance 550 930 0 Weight 88.8 kg Intake: IV 350 Lactated Ringers 1,000 ml 350 @ 50 mls/hr IV .Q20H [facility] Rx#:[id number] Intake, IV Titration 550 100 Amount Acyclovir Sodium 750 mg 250 In Sodium Chloride 0.9% 250 ml @ 265 mls/hr IVPB Q8H [facility] Rx#:[id number] Piperacillin-Tazobactam 3 100 .375 gm In Sodium Chloride 0.9% 100 ml @ 25 mls/hr IVPB Q8H [facility] Rx#: [id number] Sodium Chloride 0.9% 50 300 ml @ 0 mls/hr IV .STK-MED ONE with ceFAZolin 2,000 mg Rx#:[id number] Oral 500 Output: Drainage 20 0 Right Abdomen 20 0 Other: Voiding Method Toilet Toilet Bedside Commode # Voids 2 2 1 - Exam PHYSICAL EXAMINATION: Patient is lying in the bed comfortably, no acute distress, awake alert and oriented.. HEENT: Normocephalic. Neck is supple. Pupils reactive. Nostrils clear. Oral cavity is moist. Ears reveal no drainage. Neck reveals no JVD, carotid bruits, or thyromegaly. CHEST EXAMINATION: Trachea is central. Symmetrical expansion. Decreased bibasilar air entry. No wheezing.. CARDIAC: Normal S1, S2 with no gallops. No murmurs ABDOMEN: Soft. Bowel sounds diminished. Colostomy bag in place. No organomegaly. No abdominal bruits. Extremities: reveal no edema. No clubbing or cyanosis Neurologically awake, alert, oriented x3 with well-coordinated movements. No focal deficits noted Skin: No rash or skin lesions. Psychiatric: Coperative. Nonsuicidal Musculoskeletal: No joint swelling or deformity. Normal range of motion. - Labs CBC & Chem 7: 08/05/18 07:04 08/05/18 07:04 Labs: Abnormal Lab Results - Last 24 Hours (Table) 08/05/18 08/05/18 Range/Units 07:04 07:04 RBC 3.24 L (3.80-5.40) m/uL Hgb 9.6 L (11.4-16.0) gm/dL Hct 30.4 L (34.0-46.0) % RDW 16.5 H (11.5-15.5) % Potassium 3.0 L (3.5-5.1) mmol/L Carbon Dioxide 31 H (22-30) mmol/L BUN 5 L (7-17) mg/dL Glucose 68 L (74-99) mg/dL Microbiology - Last 24 Hours (Table) 07/30/18 12:51 Blood Culture - Final Blood No Growth after 144 hours Assessment and Plan Assessment: Pneumoperitoneum due to perforated viscus status post sigmoid colectomy with and colostomy, partial omentectomy and repair of incarcerated ventral hernia on 07/28/2018 Metastatic breast cancer with metastases to bone, with history of bilateral mastectomy. On Arimidex treatment Recent history of HSV encephalitis. Currently on acyclovir and dexamethasone at home Hypothyroidism COPD Hypertension. Currently blood pressure is not elevated. Anxiety Acute kidney injury most likely prerenal history of smoking Plan: Patient will be continued on IV hydration and pain management with Dilaudid. Antibiotics in the form of Zosyn. Will be continued on acyclovir. Patient is tolerating liquid diet. Advanced to regular diet as tolerated.. Bowel function is improving. Continued supportive management. Pulmonary and general surgery is on board. Oncologic was bone marrow biopsy and anemia workup has been ordered. Further recommendations based on the clinical course. Prognosis is guarded. We will continue to follow with you. Time with Patient: Greater than 30
[2018-08-06] MEDS: POTASSIUM CHLORIDE ER 20 MEQ TAB.ER PO SCH ×6 (03:05→22:24)
[2018-08-06] MEDS: LEVOTHYROXINE 100 MCG TAB PO SCH (05:23)
[2018-08-06] MEDS: ACYCLOVIR SODIUM 750 MG in SODIUM CHLORIDE 0.9% 250 ML IVPB SCH ×3 (05:23→22:24)
--- NOTE | 2018-08-06 06:50 | XR ---
EXAMINATION TYPE: XR chest 1V DATE OF EXAM: 08/06/2018 CLINICAL HISTORY: Hypoxia. TECHNIQUE: Single AP portable frontal view view of the chest is obtained. COMPARISON: Chest x-ray from 2 days earlier. FINDINGS: Cardiac silhouette size is stable and mildly enlarged with apposed sclerotic thoracic aort a. Right-sided PICC line is redemonstrated. This chronic parenchymal change with left greater than ri ght bibasilar opacities. Underlying scoliosis is redemonstrated. IMPRESSION: Overall stable findings, cardiomegaly and chronic parenchymal change with small bilater al pleural effusions and left greater than right bibasilar atelectasis and/or infiltrate all are rede monstrated.
--- NOTE | 2018-08-06 06:57 | PN ---
PROGRESS NOTE DATE OF SERVICE: 08/05/2018 REASON FOR FOLLOWUP: 1. Acute herpes encephalitis. 2. Secondary peritonitis abdominal abscess from an incarcerated abdominal hernia. INTERVAL HISTORY: The patient is afebrile. The patient has been breathing comfortably. Denies having any chest pain. No shortness of breath or cough. No significant abdominal pain or any diarrhea. PHYSICAL EXAMINATION: On examination, blood pressure 143/86 with pulse of 115, temperature 98.8. She is 92% on room air. General description is middle aged female lying in bed in no distress. RESPIRATORY SYSTEM: Unlabored breathing, clear to auscultation anteriorly. HEART: S1, S2. Regular rate and rhythm. ABDOMEN: Soft, no tenderness. EXTREMITIES: No edema of the feet. LABS: Hemoglobin 9.6, white count 8.1 with a BUN of 5 creatinine 0.57. DIAGNOSTIC IMPRESSION AND PLAN: 1. Patient with abdominal abscess from an incarcerated hernia, status post laparotomy and resection and repair of the hernia and diverting colostomy. The abdominal cultures with Escherichia coli, Enterococcus faecalis, Citrobacter as well as anaerobic gram-negative and the patient is currently covered with Zosyn. Should be continued for another 5 to 7 days to finish her course of therapy. 2. Patient with herpes encephalitis, currently on acyclovir to finish a week course of therapy. Continue with supportive care. MMODL / GABRIELLEN: [id number] /
[2018-08-06 08:23] LABS: Ionized Calcium 5.6 mg/dL (4.5-5.3)
[2018-08-06 08:35] LABS: Anisocytosis Slight; Basophils % (A) 0 %; Eosinophils # (A) 0.2 k/uL (0-0.7); Eosinophils % (A) 2 %; HCT 30.8 % (34.0-46.0); HGB 9.4 gm/dL (11.4-16.0); Lymphocytes # (A) 1.9 k/uL (1.0-4.8); Lymphocytes % (A) 23 %; MCH 29.4 pg (25.0-35.0); MCHC 30.7 g/dL (31.0-37.0); MCV 95.8 fL (80.0-100.0); Macrocytosis Slight; Mean Platelet Volume 7.1; Monocytes # (A) 0.2 k/uL (0-1.0); Monocytes % (A) 3 %; Neutrophils # (A) 5.6 k/uL (1.3-7.7); Neutrophils % (A) 70 %; Platelet Count 367 k/uL (150-450); RBC 3.22 m/uL (3.80-5.40); RDW 16.8 % (11.5-15.5)
[2018-08-06 09:04] LABS: ALT 50 U/L (9-52); AST 71 U/L (14-36); Albumin 2.2 g/dL (3.5-5.0); Alkaline Phosphatase 628 U/L (38-126); Anion Gap 3 mmol/L; Blood Urea Nitrogen 4 mg/dL (7-17); Calcium 9.7 mg/dL (8.4-10.2); Carbon Dioxide 32 mmol/L (22-30); Chloride 102 mmol/L (98-107); Glucose 74 mg/dL (74-99); Magnesium 1.8 mg/dL (1.6-2.3); Potassium 3.5 mmol/L (3.5-5.1); Sodium 137 mmol/L (137-145); Total Bilirubin 1.3 mg/dL (0.2-1.3); Total Protein 4.8 g/dL (6.3-8.2)
[2018-08-06] MEDS: METOPROLOL TARTRATE 25 MG TAB PO SCH ×2 (09:22→20:23)
[2018-08-06] MEDS: FAMOTIDINE 20 MG/2 ML VIAL IV SCH (09:23)
[2018-08-06] MEDS: amLODIPine 5 MG TAB PO SCH (09:23)
[2018-08-06] MEDS: ENOXAPARIN 40 MG/0.4 ML SYRINGE SQ SCH (09:23)
--- NOTE | 2018-08-06 12:43 | P.PN ---
Subjective Progress Note Date: 08/06/18 CHIEF COMPLAINT: abdominal pain HISTORY OF PRESENT ILLNESS: 63-year-old female who underwent sigmoid colectomy with end colostomy, partial omentectomy, and repair of incarcerated ventral hernia. POD #9. Patient is tolerating regular diet. Ostomy with stool and gas present. WBC 8.0. Hemoglobin 9.4. Patient was hypoxic overnight and pulmonary has been consulted. PHYSICAL EXAM: VITAL SIGNS: Currently stable. GENERAL: Well-developed in no acute distress. HEENT: No sclera icterus. Extraocular movements grossly intact. Moist buccal mucosa. Head is atraumatic, normocephalic. Hears conversational speech. No nasal drainage. NECK: Supple without lymphadenopathy. CHEST: Non-labored respirations and equal bilateral excursions. CARDIOVASCULAR: Regular rate with regular rhythm. Palpable 2+ radial pulses. ABDOMEN: Soft. Nondistended. Dressing to midline incision with serosanguineous drainage. Ostomy to left lower quadrant with stool present. MUSCULOSKELETAL: No clubbing, cyanosis or edema. NEUROLOGIC: No focal or lateralizing signs. Cranial nerves II through XII grossly intact. PSYCH: Awake and alert and oriented. SKIN: Good skin turgor. Well-perfused. No cyanosis. ASSESSMENT: 1. Pneumoperitoneum, perforated viscus s/p sigmoid colectomy with end colostomy, partial omentectomy, and repair of incarcerated ventral hernia 2. Sepsis, present on admission, secondary to above PLAN: Remove distal 1 inch of yesi to allow for better drainage. Cover with optif oam. Pulmonary toilet. Patient encouraged to be out of bed and ambulatory. Encouraged to use incentive spirometer 10 times an hour. Nurse practitioner note has been reviewed by physician. Signing provider agrees with the documented findings, assessment, and plan of care. Objective - Vital Signs Vital signs: Vital Signs Temp 97.8 F 08/06/18 07:00 Pulse 113 H 08/06/18 07:00 Resp 16 08/06/18 07:00 BP 155/93 08/06/18 07:00 Pulse Ox 95 08/06/18 07:00 Intake & Output 08/05/18 08/06/18 08/06/18 18:59 06:59 18:59 Intake Total 950 600 Output Total 20 0 350 Balance 930 600 -350 Weight 88.8 kg Intake: IV 350 600 Lactated Ringers 1,000 ml 350 600 @ 50 mls/hr IV .Q20H [facility] Rx#:[id number] Intake, IV Titration 100 Amount Piperacillin-Tazobactam 3 100 .375 gm In Sodium Chloride 0.9% 100 ml @ 25 mls/hr IVPB Q8H [facility] Rx#: [id number] Oral 500 Output: Drainage 20 0 Right Abdomen 20 0 Urine 350 Other: Voiding Method Bedside Commode # Voids 2 1 - Labs CBC & Chem 7: 08/06/18 07:36 08/06/18 07:36 Labs: Abnormal Lab Results - Last 24 Hours (Table) 08/06/18 08/06/18 08/06/18 Range/Units 02:06 07:36 07:36 RBC 3.22 L (3.80-5.40) m/uL Hgb 9.4 L (11.4-16.0) gm/dL Hct 30.8 L (34.0-46.0) % MCHC 30.7 L (31.0-37.0) g/dL RDW 16.8 H (11.5-15.5) % Potassium 3.0 L (3.5-5.1) mmol/L Carbon Dioxide 32 H (22-30) mmol/L BUN 4 L (7-17) mg/dL Ionized Calcium Ashley 5.6 H (4.5-5.3) mg/dL AST 71 H (14-36) U/L Alkaline Phosphatase 628 H (38-126) U/L Total Protein 4.8 L (6.3-8.2) g/dL Albumin 2.2 L (3.5-5.0) g/dL Microbiology - Last 24 Hours (Table) 07/30/18 12:51 Blood Culture - Final Blood No Growth after 144 hours
[2018-08-06] MEDS: LACTATED RINGERS 1,000 ML IV SCH (13:25)
--- NOTE | 2018-08-06 13:33 | P.PN ---
Subjective Progress Note Date: 08/06/18 Principal diagnosis: Abdominal pain, status post sigmoid colectomy and end colostomy, partial omentectomy, repair of incarcerated ventral hernia, postop day #9, hypoxemic respiratory failure This is a 63-year-old white female patient that was admitted with the acute abdominal pain, and patient is status post sigmoid colectomy with end colostomy, partial omentectomy, and repair of incarcerated ventral hernia, this is postop day #9, following the patient in the postoperative period in the intensive care unit, patient was transferred out to the floor, and is doing well. We were asked to see the patient again today in view of creasing oxygen demands, chest x-ray was obtained and showed cardiomegaly, chronic parenchymal changes with small bilateral pleural effusions and left greater than the right basilar atelectasis. Patient was on 4 L of oxygen, and this morning she was placed on 6 L of oxygen and her pulse ox currently is 92%, she is awake and alert, oriented 3, she is in no distress, lung sounds reveal diminished breath sounds at bilateral bases, and some scattered crackles, no rhonchi, wheezing, no cough or chest congestion. Patient has a strong affective cough, she is working on her incentive spirometer, she is able to achieve about 1000 mL on the today. Culture of the abdominal fluid showed polymicrobial growth including E. coli, Citrobacter, Enterococcus faecalis, patient also had positive blood cultures with a Eubacterium Tony some, and urine culture with Enterococcus faecalis. Recently abdominal wound culture showed 2 separate anaerobic gram-negative bacilli species, all up blood culture showed no growth. Current antibiotic coverage includes Acyclovir, and Zosyn. Patient's colostomy is producing liquid brown stool, patient is tolerating oral intake, she told me she was able to ambulate, and tolerated fairly well, this morning she states she is a little tired, she would like to get some rest, she states she was not able to sleep w ell last night. Objective - Vital Signs Vital signs: Vital Signs Temp 97.8 F 08/06/18 07:00 Pulse 113 H 08/06/18 07:00 Resp 16 08/06/18 07:00 BP 155/93 08/06/18 07:00 Pulse Ox 95 08/06/18 07:00 Intake & Output 08/05/18 08/06/1808/06/19 18:59 06:59 18:59 Intake Total 950 600 Output Total 20 0 350 Balance 930 600 -350 Weight 88.8 kg Intake: IV 350 600 Lactated Ringers 1,000 ml 350 600 @ 50 mls/hr IV .Q20H [facility] Rx#:[id number] Intake, IV Titration 100 Amount Piperacillin-Tazobactam 3 100 .375 gm In Sodium Chloride 0.9% 100 ml @ 25 mls/hr IVPB Q8H [facility] Rx#: [id number] Oral 500 Output: Drainage 20 0 Right Abdomen 20 0 Urine 350 Other: Voiding Method Bedside Commode # Voids 2 1 - Exam GENERAL EXAM: Alert, pleasant, 63-year-old white female alert and oriented 3, currently on 6 L of oxygen with a pulse ox of 92%, breathing comfortably, in no acute distress in no apparent distress. HEAD: Normocephalic/atraumatic. EYES: Normal reaction of pupils, equal size. Conjunctiva pink, sclera white. NOSE: Clear with pink turbinates. THROAT: No erythema or exudates. NECK: No masses, no JVD, no thyroid enlargement, no adenopathy. CHEST: No chest wall deformity. Symmetrical expansion. LUNGS: Equal air entry diminished breath sounds at bilateral bases, and some scattered rales CVS: Regular rate and rhythm, normal S1 and S2, no gallops, no murmurs, no rubs ABDOMEN: Soft, nontender. No hepatosplenomegaly, normal bowel sounds, no guarding or rigidity. Midline abdominal incision is clean dry and intact, covered with a dressing, ostomy to the left lower quadrant with liquid stool EXTREMITIES: No clubbing, no edema, no cyanosis, 2+ pulses and upper and lower extremities. MUSCULOSKELETAL: Muscle strength and tone normal. SPINE: No scoliosis or deformity SKIN: No rashes CENTRAL NERVOUS SYSTEM: Alert and oriented -3. No focal deficits, tone is normal in all 4 extremities. PSYCHIATRIC: Alert and oriented -3. Appropriate affect. Intact judgment and insight. - Labs CBC & Chem 7: 08/06/18 07:36 08/06/18 07:36 Labs: Abnormal Lab Results - Last 24 Hours (Table) 08/06/18 08/06/18 08/06/18 Range/Units 02:06 07:36 07:36 RBC 3.22 L (3.80-5.40) m/uL Hgb 9.4 L (11.4-16.0) gm/dL Hct 30.8 L (34.0-46.0) % MCHC 30.7 L (31.0-37.0) g/dL RDW 16.8 H (11.5-15.5) % Potassium 3.0 L (3.5-5.1) mmol/L Carbon Dioxide 32 H (22-30) mmol/L BUN 4 L (7-17) mg/dL Ionized Calcium Ashley 5.6 H (4.5-5.3) mg/dL AST 71 H (14-36) U/L Alkaline Phosphatase 628 H (38-126) U/L Total Protein 4.8 L (6.3-8.2) g/dL Albumin 2.2 L (3.5-5.0) g/dL Microbiology - Last 24 Hours (Table) 07/30/18 12:51 Blood Culture - Final Blood No Growth after 144 hours Assessment and Plan Plan: Assessment: #1. Acute hypoxemic respiratory failure secondary to atelectasis, and small pleural effusions. #2. Acute abdominal pain present on admission related to perforated viscus, diverticulitis with interloop abscess, incarcerated ventral hernia, status post sigmoid colectomy with end colostomy, takedown of flexure, partial omentectomy, incarcerated ventral hernia, postop day 9 #3. Metastatic breast cancer with multiple osseous metastasis, with history of bilateral mastectomy #4. 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 To status currently is back to baseline, she is alert and oriented 3, and she is completing her course of acyclovir #5. Hypothyroidism #6. Hypertension Plan: Today's chest x-ray has been reviewed with Dr. Narayanan, showed minimal pleural effusions, and bibasilar atelectasis, encourage deep breathing and coughing, no fever or chills. No signs are stable, wean FiO2, encourage ablation I performed a history & physical examination of the patient and discussed their management with my nurse practitioner, Nereida Cage. I reviewed the nurse practitioner's note and agree with the documented findings and plan of care. Lung sounds are positive for diminished breath sounds bilateral crackles. The findings and the impression was discussed with the patient. I attest to the documentation by the nurse practitioner. Time with Patient: Less than 30
[2018-08-06 13:35] LABS: INR 1.2 (<1.2); Prothrombin Time 12.1 sec (9.0-12.0)
--- NOTE | 2018-08-06 13:47 | P.PN ---
Subjective Progress Note Date: 08/06/18 Principal diagnosis: Metastatic cancer Hypoxia overnight with chest xray revealing small pleural effusions and atelectasis Objective - Vital Signs Vital signs: Vital Signs Temp 97.8 F 08/06/18 07:00 Pulse 113 H 08/06/18 07:00 Resp 16 08/06/18 07:00 BP 155/93 08/06/18 07:00 Pulse Ox 95 08/06/18 07:00 Intake & Output 08/05/18 08/06/18 08/06/18 18:59 06:59 18:59 Intake Total 950 600 Output Total 20 0 350 Balance 930 600 -350 Weight 88.8 kg Intake: IV 350 600 Lactated Ringers 1,000 ml 350 600 @ 50 mls/hr IV .Q20H [facility] Rx#:[id number] Intake, IV Titration 100 Amount Piperacillin-Tazobactam 3 100 .375 gm In Sodium Chloride 0.9% 100 ml @ 25 mls/hr IVPB Q8H [facility] Rx#: [id number] Oral 500 Output: Drainage 20 0 Right Abdomen 20 0 Urine 350 Other: Voiding Method Bedside Commode # Voids 2 1 - Exam - Constitutional General appearance: Present: average body habitus, cooperative, no acute distress - EENT Eyes: Present: anicteric sclerae, EOMI ENT: Present: hearing grossly normal, normal oropharynx - Respiratory Respiratory: bilateral: CTA - Cardiovascular Heart sounds: normal: S1, S2 - Peripheral edema leg Peripheral Edema: bilateral: None - Gastrointestinal Evidence Colostomy with output pink stoma - Integumentary Integumentary: Present: pale - Neurologic Neurologic: Present: CNII-XII intact - Musculoskeletal Musculoskeletal: Present: generalized weakness, strength equal bilaterally Right sided lower extremity weakness - Labs CBC & Chem 7: 08/06/18 07:36 08/06/18 17:59 Labs: Abnormal Lab Results - Last 24 Hours (Table) 08/06/18 08/06/18 08/06/18 Range/Units 02:06 07:36 07:36 RBC 3.22 L (3.80-5.40) m/uL Hgb 9.4 L (11.4-16.0) gm/dL Hct 30.8 L (34.0-46.0) % MCHC 30.7 L (31.0-37.0) g/dL RDW 16.8 H (11.5-15.5) % PT (9.0-12.0) sec INR (<1.2) Potassium 3.0 L (3.5-5.1) mmol/L Carbon Dioxide 32 H (22-30) mmol/L BUN 4 L (7-17) mg/dL Ionized Calcium Ashley 5.6 H (4.5-5.3) mg/dL AST 71 H (14-36) U/L Alkaline Phosphatase 628 H (38-126) U/L Total Protein 4.8 L (6.3-8.2) g/dL Albumin 2.2 L (3.5-5.0) g/dL 08/06/18 Range/Units 12:38 RBC (3.80-5.40) m/uL Hgb (11.4-16.0) gm/dL Hct (34.0-46.0) % MCHC (31.0-37.0) g/dL RDW (11.5-15.5) % PT 12.1 H (9.0-12.0) sec INR 1.2 H (<1.2) Potassium (3.5-5.1) mmol/L Carbon Dioxide (22-30) mmol/L BUN (7-17) mg/dL Ionized Calcium Ashley (4.5-5.3) mg/dL AST (14-36) U/L Alkaline Phosphatase (38-126) U/L Total Protein (6.3-8.2) g/dL Albumin (3.5-5.0) g/dL Microbiology - Last 24 Hours (Table) 07/30/18 12:51 Blood Culture - Final Blood No Growth after 144 hours Assessment and Plan (1) Carcinoma of breast metastatic to bone Current Visit: Yes Status: Acute Priority: High Code(s): C50.919 - MALIGNANT NEOPLASM OF UNSP SITE OF UNSPECIFIED FEMALE BREAST; C79.51 - SECONDARY MALIGNANT NEOPLASM OF BONE SNOMED Code(s): 181671362 (2) Surgical pneumoperitoneum Current Visit: Yes Status: Acute Code(s): K66.8 - OTHER SPECIFIED DISORDERS OF PERITONEUM SNOMED Code(s): 59758651 (3) Hypercalcemia Current Visit: No Status: Acute Priority: High Code(s): E83.52 - HYPERCAL CEMIA SNOMED Code(s): 52966467 Plan: Assessment and Recommendations: 1. Metastatic Breast Cancer - Bone - Patient follows with Dr. Fajardo as outpatient She is planning on needing to recover in outpatient rehab center from this recent surgery. With her known history of breast cancer and elevated Breast tumor markers and picture of likely metastatic recurrent breast cancer to the bones it is resonable to obtain bone biopsy prior to discharge to allow time to run pathology, assess ER, HER2 if breast cancer or other molecular pertinent tests. She may potentially be able to begin Hormonal therapy while recovering in rehab. I have discussed this in detail with Dr. Skelton, Dr. Myers. We will proceed with IR consultation for bone biopsy. - IR for bone Biopsy prior to Discharge: HER2 and ER/MN Testing on sample - If it has been 30 days since last aredia or zometa rec another dose prior to discharge - Continue to monitor RLE weakness and footdrop, may need MRI SPine - Discussed in detail with Infectious disease and primary team and will hold discharge for biopsy. 2. Normocytic anemia: Secondary to post operative blood loss and component of malignancy - Check Iron studies and anemia work-up I discussed case with IR, we will plan for biopsy tomorrow, NPO after Midnight and hold Lovenox in am. Will be done under anesthesia I will ask To send for Estrogen, Progesterone and HER2 I spoke to Physician Bisque Finisher in Dr. Pierre office today, Patients Oncotype was 14 at diagnosis with a 9% metastatic recurrence rate. Discussed case with pulmonary as well Check Immunoglobulins Physician Attest: I have discussed the complete history and physical as well as the improession and plan, agree with dictation by PAYMENT REP, dictated as a scribe Greater than 30 minutes spent counseling and coordinating care face to face with patient, and son today.
[2018-08-06] MEDS ORDERED: ALPRAZolam 0.25 MG TAB PO PRN (13:59)
--- NOTE | 2018-08-06 14:00 | PN ---
PROGRESS NOTE DATE OF SERVICE: 08/06/2018 REASON FOR FOLLOWUP: 1. Herpes encephalitis. 2. Abdominal abscess. INTERVAL HISTORY: The patient is afebrile. The patient is breathing comfortably. Did have some difficulty breathing this morning, though no chest pain or cough. No abdominal pain. No diarrhea. PHYSICAL EXAMINATION: Blood pressure is 155/93 with a pulse of 85, temperature 97.8, she is 95% on 6 L high- flow oxygen. General description is a middle-aged female, up in the bed in no distress. RESPIRATORY SYSTEM: Unlabored breathing with decreased breath sounds at the base. HEART: S1, S2. Regular rate and rhythm. ABDOMEN: Soft. The has been taken of, very minimal erythema, no foul smelling drainage. LABS: Hemoglobin 9.4, white count 8.0, BUN of 4, creatinine 0.56. DIAGNOSTIC IMPRESSION AND PLAN: 1. Patient with abdominal abscess from an incarcerated abdominal hernia, status post repair of the same and colectomy and diverting colostomy. Patient abdominal culture did grow multiple pathogen. Patient is currently on Zosyn to continue for another 5-7 days to finish course of therapy. 2. Patient with herpes encephalitis, currently on acyclovir, tolerating so far, duration of IV for a total of 3 weeks including the antibiotic on last admission and at home. MMODL / IJN: [id number] /
[2018-08-06] MEDS ORDERED: FUROSEMIDE 10 MG/ML 4 ML VIAL IV STA (15:07)
[2018-08-06 16:21] LABS: Iron Saturation 24.02 (12.00-45.00)
[2018-08-06] MEDS: MAGNESIUM SULFATE-D5W PMX 1 GM in DEXTROSE/WATER 1 100ML.BAG IVPB SCH ×2 (16:51→18:26)
[2018-08-06 16:56] LABS: Vitamin B12 >4000.0 pg/mL (211-911)
[2018-08-07] MEDS: ACYCLOVIR SODIUM 750 MG in SODIUM CHLORIDE 0.9% 250 ML IVPB SCH ×3 (05:32→22:18)
[2018-08-07] MEDS: METOCLOPRAMIDE 5 MG/ML 2 ML VIAL IVP SCH ×4 (05:32→23:44)
[2018-08-07] MEDS: LEVOTHYROXINE 100 MCG TAB PO SCH (05:32)
[2018-08-07] MEDS: HYDROcodone/APAP 7.5-325MG 1 EACH TAB PO PRN ×3 (05:44→23:57)
[2018-08-07] MEDS: amLODIPine 5 MG TAB PO SCH (09:09)
[2018-08-07] MEDS: FAMOTIDINE 20 MG TAB PO SCH (09:09)
[2018-08-07] MEDS: METOPROLOL TARTRATE 25 MG TAB PO SCH ×2 (09:15→22:17)
[2018-08-07] MEDS: PIPERACILLIN-TAZOBACTAM 3.375 GM in SODIUM CHLORIDE 0.9% 100 ML IVPB SCH ×3 (09:15→23:44)
[2018-08-07 12:51] LABS: Immunoglobulin M 64.6 mg/dL (40.0-280.0)
[2018-08-07] MEDS ORDERED: LIDOCAINE 1% INJ 10MG/ML (20 ML MDV) ONE (13:19)
[2018-08-07] MEDS ORDERED: fentaNYL (PF) 50 MCG/ML 2 ML AMP ONE (13:19)
[2018-08-07] MEDS ORDERED: PROPOFOL 10 MG/ML 20 ML VIAL IV ONE (13:19)
[2018-08-07] MEDS ORDERED: MIDAZOLAM 2 MG/2 ML VIAL ONE (13:19)
[2018-08-07] MEDS ORDERED: IV FLUID CONTINUATION 200 ML IV ONE ×2 (14:20)
--- NOTE | 2018-08-07 14:24 | P.PN ---
Subjective Progress Note Date: 08/07/18 CHIEF COMPLAINT: abdominal pain HISTORY OF PRESENT ILLNESS: 63-year-old female who underwent sigmoid colectomy with end colostomy, partial omentectomy, and repair of incarcerated ventral hernia. POD #10. Patient is tolerating regular diet. Ostomy with stool and gas present. PHYSICAL EXAM: VITAL SIGNS: Currently stable. GENERAL: Well-developed in no acute distress. HEENT: No sclera icterus. Extraocular movements grossly intact. Moist buccal mucosa. Head is atraumatic, normocephalic. Hears conversational speech. No nasal drainage. NECK: Supple without lymphadenopathy. CHEST: Non-labored respirations and equal bilateral excursions. CARDIOVASCULAR: Regular rate with regular rhythm. Palpable 2+ radial pulses. ABDOMEN: Soft. Nondistended. Dressing to midline incision with serosanguineous drainage. Ostomy to left lower quadrant with stool present. MUSCULOSKELETAL: No clubbing, cyanosis or edema. NEUROLOGIC: No focal or lateralizing signs. Cranial nerves II through XII grossly intact. PSYCH: Awake and alert and oriented. SKIN: Good skin turgor. Well-perfused. No cyanosis. ASSESSMENT: 1. Pneumoperitoneum, perforated viscus s/p sigmoid colectomy with end colostomy, partial omentectomy, and repair of incarcerated ventral hernia 2. Sepsis, present on admission, secondary to above, resolved PLAN: Aquacel silver packing to distal end of abdominal incision. Cover with gauze. Pulmonary toilet. Patient encouraged to be out of bed and ambulatory. [facility] ed to use incentive spirometer 10 times an hour. Nurse practitioner note has been reviewed by physician. Signing provider agrees with the documented findings, assessment, and plan of care. Objective - Vital Signs Vital signs: Vital Signs Temp 98.1 F 08/07/18 07:00 Pulse 105 H 08/07/18 07:00 Resp 16 08/07/18 07:00 BP 141/76 08/07/18 07:00 Pulse Ox 94 L 08/07/18 07:00 Intake & Output 08/06/18 08/07/18 08/07/18 18:59 06:59 18:59 Intake Total 1690 540 Output Total 351 Balance 1339 540 Intake: IV 140 Lactated Ringers 1,000 ml 140 @ 20 mls/hr IV .Q24H [facility] Rx#:[id number] Intake, IV Titration 350 Amount Acyclovir Sodium 750 mg 250 In Sodium Chloride 0.9% 250 ml @ 265 mls/hr IVPB Q8H [facility] Rx#:[id number] Piperacillin-Tazobactam 3 100 .375 gm In Sodium Chloride 0.9% 100 ml @ 25 mls/hr IVPB Q8HR [facility] Rx# :[id number] Oral 1200 540 Output: Urine 351 Other: # Voids 2 - Labs CBC & Chem 7: 08/06/18 07:36 08/06/18 17:59 Labs: Abnormal Lab Results - Last 24 Hours (Table) 08/06/18 Range/Units 07:36 Ferritin 1144.2 H (10.0-291.0) ng/mL Vitamin B12 >4000.0 H (211-911) pg/mL Microbiology - Last 24 Hours (Table) 08/06/18 10:17 Gram Stain - Preliminary Abdomen Wound Culture - Preliminary Gram Neg Bacilli Carmella albicans 08/06/18 10:17 Anaerobic Culture - Preliminary Abdomen
--- NOTE | 2018-08-07 14:31 | PN ---
PROGRESS NOTE DATE OF SERVICE: 08/07/2018 REASON FOR FOLLOWUP: 1. Herpes encephalitis. 2. Abdominal abscess from an incarcerated hernia, status post repair. INTERVAL HISTORY: The patient is currently afebrile. Patient is breathing comfortably. Patient denies having any chest pain. No shortness of breath or cough. Denies having any worsening abdominal pain. No further drainage has been noticed. PHYSICAL EXAMINATION: Blood pressure is 141/76 with a pulse of 105, temperature 98.1, she is 94% on 5 L nasal cannula. GENERAL DESCRIPTION: Patient is a middle-aged female, up in the bed in no distress. RESPIRATORY SYSTEM: Unlabored breathing with decreased breath sounds at the base, no wheeze. HEART: S1, S2. Regular rate and rhythm. ABDOMEN: Soft, the incision is currently intact. No significant drainage was noticed. EXTREMITIES: No edema of the feet. LABS: Hemoglobin 9.4, white count 8.0, BUN of 4, creatinine 0.5. DIAGNOSTIC IMPRESSION AND PLAN: 1. Patient with abdominal abscess from an incarcerated ventral hernia, status post repair of the same. Patient is currently covered with Zosyn to continue in view of the sensitivities of the pathogen. Recommend to continue Zosyn for about a week through the PICC line at the senior care with the patient getting discharged. Will add oral Diflucan for another week to 10 days. 2. Patient with herpes encephalitis for which the patient is currently on IV acyclovir. We recommended a total of 3 week course of therapy with the patient to complete on 08/11/2018. MMODL / IJN: [id number] /
--- NOTE | 2018-08-07 14:55 | CT ---
EXAMINATION TYPE: CT biopsy bone deep DATE OF EXAM: 08/07/2018 HISTORY: Metastatic disease, lytic bone lesion in the pelvis COMPARISON: CT 07/28/2017 Maximal barrier technique was utilized. The skin overlying a suitable path to the lesion in the post erior right ilium was localized using CT and the overlying skin was prepped and draped. Lidocaine ed for local anesthesia. A skin stuart made with a scalpel. Using CT guidance, access was gained to t he lesion with a 17-gauge guide needle. Coaxial placement of an 18-gauge needle was performed, core s pecimen obtained. Core specimen submitted to of bowel. Single pass performed in all. Following the p rocedure no immediate complications. The patient is discharged in stable condition. Hemostasis ach ieved. IMPRESSION: SUCCESSFUL CT GUIDED CORE BIOPSY of pelvic mass, lytic bone lesion. PATHOLOGY PENDING. THIS PROCEDU RE WAS PERFORMED BY THE UNDERSIGNED.
[2018-08-07] MEDS: LACTATED RINGERS 1,000 ML IV SCH ×2 (15:39→23:44)
[2018-08-07] MEDS: FLUCONAZOLE 100 MG TAB PO SCH (15:40)
[2018-08-07] MEDS ORDERED: amLODIPine 5 MG TAB PO STA (15:41)
[2018-08-07] MEDS ORDERED: RX INFO: IV CONTRAST WAS GIVEN 1 EACH MISC MISCELLANE PRN (15:45)
--- NOTE | 2018-08-07 15:48 | P.PN ---
Subjective Progress Note Date: 08/07/18 Principal diagnosis: Metastatic cancer Hypoxia appears worsened as she required 6 Liters and Hi Flow overnight. She continues with hypoxia and requiring more oxygen, pulmonary is following. Tachycardia. CT Pending. Objective - Vital Signs Vital signs: Vital Signs Temp 98.1 F 08/07/18 15:00 Pulse 99 08/07/18 15:00 Resp 16 08/07/18 15:00 BP 159/99 08/07/18 15:00 Pulse Ox 94 L 08/07/18 15:00 Intake & Output 08/06/18 08/07/18 08/07/18 18:59 06:59 18:59 Intake Total 1690 540 Output Total 351 Balance 1339 540 Intake: IV 140 Lactated Ringers 1,000 ml 140 @ 20 mls/hr IV .Q24H [facility] Rx#:[id number] Intake, IV Titration 350 Amount Acyclovir Sodium 750 mg 250 In Sodium Chloride 0.9% 250 ml @ 265 mls/hr IVPB Q8H [facility] Rx#:[id number] Piperacillin-Tazobactam 3 100 .375 gm In Sodium Chloride 0.9% 100 ml @ 25 mls/hr IVPB Q8HR [facility] Rx# :[id number] Oral 1200 540 Output: Urine 351 Other: # Voids 2 2 - Exam - Constitutional General appearance: Present: average body habitus, cooperative, no acute distress - EENT Eyes: Present: anicteric sclerae, EOMI ENT: Present: hearing grossly normal, normal oropharynx - Respiratory Respiratory: bilateral: CTA - Cardiovascular Heart sounds: normal: S1, S2 - Peripheral edema leg Peripheral Edema: bilateral: None - Gastrointestinal Evidence Colostomy with output pink stoma - Integumentary Integumentary: Present: pale - Neurologic Neurologic: Present: CNII-XII intact - Musculoskeletal Musculoskeletal: Present: generalized weakness, strength equal bilaterally Right sided lower extremity weakness - Labs CBC & Chem 7: 08/08/18 07:20 08/08/18 07:20 Labs: Abnormal Lab Results - Last 24 Hours (Table) 08/06/18 Range/Units 07:36 Ferritin 1144.2 H (10.0-291.0) ng/mL Vitamin B12 >4000.0 H (211-911) pg/mL Microbiology - Last 24 Hours (Table) 08/06/18 10:17 Gram Stain - Preliminary Abdomen Wound Culture - Preliminary Gram Neg Bacilli Carmella albicans 08/06/18 10:17 Anaerobic Culture - Preliminary Abdomen Assessment and Plan (1) Carcinoma of breast metastatic to bone Current Visit: Yes Status: Acute Priority: High Code(s): C50.919 - MALIGNANT NEOPLASM OF UNSP SITE OF UNSPECIFIED FEMALE BREAST; C79.51 - SECONDARY MALIGNANT NEOPLASM OF BONE SNOMED Code(s): 870965123 (2) Surgical pneumoperitoneum Current Visit: Yes Status: Acute Code(s): K66.8 - OTHER SPECIFIED DISORDERS OF PERITONEUM SNOMED Code(s): 19253551 (3) Hypercalcemia Current Visit: No Status: Acute Priority: High Code(s): E83.52 - HYPERCALCEMIA SNOMED Code(s): 98025544 Plan: Assessment and Recommendations: 1. Metastatic Breast Cancer - Bone - Patient follows with Dr. Fajardo as outpatient She is planning on needing to recover in outpatient rehab center from this recent surgery. With her known history of breast cancer and elevated Breast tumor markers and picture of likely metastatic recurrent breast cancer to the bones it is resonable to obtain bone biopsy prior to discharge to allow time to run pathology, assess ER, HER2 if breast cancer or other molecular pertinent tests. She may potentially be able to begin Hormonal therapy while recovering in rehab. I have discussed this in detail with Dr. Skelton, Dr. Myers. We will proceed with IR consultation for bone biopsy. - IR for bone Biopsy prior today 08/07/18: HER2 and ER/MA Testing on sample - She received Aredia on 07/17/18, will be due for another 08/14/18 - Continue to monitor RLE weakness and footdrop, may need MRI SPine 2. Normocytic anemia: Secondary to post operative blood loss and component of malignancy - Check Iron studies and anemia work-up - Check CBC today I discussed case with IR, we will plan for biopsy tomorrow, NPO after Midnight and hold Lovenox in am. Will be done under anesthesia I will ask To send for Estrogen, Progesterone and HER2 I spoke to Physician Rn Case Manager Hospice in Dr. Pierre office today, Patients Oncotype was 14 at diagnosis with a 9% metastatic recurrence rate. Discussed case with pulmonary as well DISPO: - Concern for discharge with persistent Hypoxia, discussed with Dr. Skelton and diuresis again in am. - Tachycardia TMS on overnight - [facility] Physician Attest: I have discussed the complete history and physical as well as the improession and plan, agree with dictation by RENDERING EQUIPMENT TENDER, dictated as a scribe Greater than 30 minutes spent counseling and coordinating care face to face with patient, and son today.
--- NOTE | 2018-08-07 17:26 | CT ---
EXAMINATION TYPE: CT chest w con DATE OF EXAM: 08/07/2018 COMPARISON: 07/16/2018 HISTORY: worsening hypoxia CT DLP: 258.2 mGycm Automated exposure control for dose reduction was used. CONTRAST: CT scan of the chest is performed with IV Contrast, patient injected with 100 mL of Isovue 300. FINDINGS: There are bilateral mild pleural effusions. There is atelectasis at the lung bases. There is no media stinal adenopathy. Thoracic aorta is atheromatous. There is no aneurysm or dissection. There are no h ilar masses. There is normal contrast opacification of the pulmonary arteries. There are emphysematou s changes throughout both lungs. There is variable sclerosis and lucency throughout the thoracic spine. There are multiple healed rib fractures. There is mild compression deformity of multiple vertebra up to 20%. IMPRESSION: Osteolytic areas in the thoracic spine and bony thorax consistent with metastatic diseas e unchanged. Increased atelectasis in both lower lobes compared to last exam. Increased pleural fluid compared to last exam. Emphysema. No evidence of pulmonary embolism.
[2018-08-07 22:27] LABS: Anisocytosis Slight; Basophils % (A) 0 %; Eosinophils # (A) 0.2 k/uL (0-0.7); Eosinophils % (A) 3 %; HCT 30.7 % (34.0-46.0); HGB 9.3 gm/dL (11.4-16.0); Hypochromasia Slight; Lymphocytes # (A) 1.7 k/uL (1.0-4.8); Lymphocytes % (A) 25 %; MCH 29.4 pg (25.0-35.0); MCHC 30.2 g/dL (31.0-37.0); MCV 97.2 fL (80.0-100.0); Macrocytosis Slight; Mean Platelet Volume 7.3; Monocytes # (A) 0.3 k/uL (0-1.0); Monocytes % (A) 5 %; Neutrophils # (A) 4.4 k/uL (1.3-7.7); Neutrophils % (A) 66 %; Platelet Count 387 k/uL (150-450); RBC 3.15 m/uL (3.80-5.40); RDW 17.5 % (11.5-15.5); WBC 6.7 k/uL (3.8-10.6)
--- NOTE | 2018-08-08 00:36 | P.PN ---
Subjective Progress Note Date: 08/06/18 Principal diagnosis: perforated viscus status post sigmoid colectomy with and colostomy, partial omentectomy and repair of incarcerated ventral hernia Patient is a 63-year-old female with a known history of breast cancer status post bilateral mastectomy followed by Arimidex treatment, hypothyroidism, COPD, anxiety and other multiple medical problems, recent history of HSV encephalitis currently on acyclovir and dexamethasone at home presents to ER with complaints of abdominal pain mainly in the lower abdomen. CT abdomen and pelvis in the ER showed moderate pneumoperitoneum. Site of perforation is difficult to induce date. Suspect colonic site. Small bowel ileus and extensive osseous metastasis was redemonstrated. Patient was seen by general surgery and underwent sigmoid colectomy with end colostomy. Patient was extubated postoperatively. Currently abdominal pain is controlled with medications. No nausea vomiting. Able to tolerate ice cubes. No nausea vomiting. No complaints of chest pain or shortness of breath. No fever no chills. 07/30/2018 Patient says that her abdominal pain is better. Patient is able to tolerate ice chips. No stool noted in the colostomy back. No fever no chills. Continued on IV hydration and antibiotics. No fever no chills. ID and surgery is following. No nausea vomiting. No chest pain or shortness of breath. 07/31/2018 Patient is able to sit in the chair today. No bowel movement or gas noted in the colostomy bag. No complains of nausea vomiting. Tolerating clear liquid diet. No fever no chills. Urine culture showed enterococcus faecalis. Wound cultures showed E. coli and enterococcus fecalis and Citrobacter. Continued on antibiotics the form of Zosyn. 08/01/2018 Patient is able to tolerate liquid diet. No bowel movement or gas found in the colostomy bag. Otherwise patient is able to sit in the chair. Encourage ambulation continue with current management. Current with antibiotics. Patient is being transferred to medical floor today. 08/02/2018 Patient denied any complains of chest pain or shortness of breath. No complaints of abdominal pain. Patient does have some decreased urine the colostomy back. Tolerating liquid diet and will be advanced. No fever no chills. No other acute overnight issues. 08/03/2018 Patient denied any complaints of chest pain or shortness of. Abdominal pain is much improved. Small amount of stool in the colostomy bag. Tolerating clear liquid diet and is being advanced. No fever no chills. No nausea vomiting or diarrhea. 08/04/2018 Patient denied any abdominal pain today. Tolerating oral diet. Changed to regular diet now. Patient did have bowel movement in the ostomy bag. No complaints of nausea or vomiting. Patient was found have some oozing from the distal end of the midline surgical incision. No fever no chills. No leukocytosis. No complaints of chest pain or shortness of breath. 08/05/2018 Patient denied any complaints of abdominal pain or nausea or vomiting. Tolerating diet very well. Ostomy is functioning. Due to metastatic lesions in the bone and possible recurrence of breast cancer oncology was consulted and recommends bone biopsy right to discharge. Previously there was a concern that patient wants to follow with her own physician. No fever no chills. No headache or dizziness or lightheadedness. Discussed with her at bedside in detail. 08/06/2018 Patient denied any complaints of abdominal pain. Ostomy is functioning. Due to metastatic lesions in the bone with unknown primary., Oncology is planning for bone marrow biopsy tomorrow. Otherwise patient denied any nausea vomiting or abdominal pain. No fever no chills. Current medications reviewed Objective - Vital Signs Vital signs: Vital Signs Temp 98 F 08/06/18 14:09 Pulse 88 08/06/18 14:09 Resp 16 08/06/18 14:09 BP 136/81 08/06/18 14:09 Pulse Ox 93 L 08/06/18 20:47 Intake & Output 08/06/18 08/06/18 08/07/18 06:59 18:59 06:59 Intake Total 600 1690 Output Total 0 351 Balance 600 1339 Intake: IV 600 140 Lactated Ringers 1,000 ml 600 140 @ 20 mls/hr IV .Q24H [facility] Rx#:[id number] Intake, IV Titration 350 Amount Acyclovir Sodium 750 mg 250 In Sodium Chloride 0.9% 250 ml @ 265 mls/hr IVPB Q8H [facility] Rx#:[id number] Piperacillin-Tazobactam 3 100 .375 gm In Sodium Chloride 0.9% 100 ml @ 25 mls/hr IVPB Q8HR [facility] Rx# :[id number] Oral 1200 Output: Drainage 0 Right Abdomen 0 Urine 351 Other: Voiding Method Bedside Commode # Voids 1 - Exam PHYSICAL EXAMINATION: Patient is lying in the bed comfortably, no acute distress, awake alert and or iented.. HEENT: Normocephalic. Neck is supple. Pupils reactive. Nostrils clear. Oral cavity is moist. Ears reveal no drainage. Neck reveals no JVD, carotid bruits, or thyromegaly. CHEST EXAMINATION: Trachea is central. Symmetrical expansion. Decreased bibasilar air entry. No wheezing.. CARDIAC: Normal S1, S2 with no gallops. No murmurs ABDOMEN: Soft. Bowel sounds diminished. Colostomy bag in place. No organomegaly. No abdominal bruits. Extremities: reveal no edema. No clubbing or cyanosis Neurologically awake, alert, oriented x3 with well-coordinated movements. No focal deficits noted Skin: No rash or skin lesions. Psychiatric: Coperative. Nonsuicidal Musculoskeletal: No joint swelling or deformity. Normal range of motion. - Labs CBC & Chem 7: 08/07/18 21:53 08/06/18 17:59 Labs: Abnormal Lab Results - Last 24 Hours (Table) 08/06/18 08/06/18 08/06/18 Range/Units 02:06 07:36 07:36 RBC 3.22 L (3.80-5.40) m/uL Hgb 9.4 L (11.4-16.0) gm/dL Hct 30.8 L (34.0-46.0) % MCHC 30.7 L (31.0-37.0) g/dL RDW 16.8 H (11.5-15.5) % PT (9.0-12.0) sec INR (<1.2) Potassium 3.0 L (3.5-5.1) mmol/L Carbon Dioxide 32 H (22-30) mmol/L BUN 4 L (7-17) mg/dL Ionized Calcium Ashley 5.6 H (4.5-5.3) mg/dL Ferritin (10.0-291.0) ng/mL AST 71 H (14-36) U/L Alkaline Phosphatase 628 H (38-126) U/L Total Protein 4.8 L (6.3-8.2) g/dL Albumin 2.2 L (3.5-5.0) g/dL Vitamin B12 (211-911) pg/mL 08/06/18 08/06/18 Range/Units 07:36 12:38 RBC (3.80-5.40) m/uL Hgb (11.4-16.0) gm/dL Hct (34.0-46.0) % MCHC (31.0-37.0) g/dL RDW (11.5-15.5) % PT 12.1 H (9.0-12.0) sec INR 1.2 H (<1.2) Potassium (3.5-5.1) mmol/L Carbon Dioxide (22-30) mmol/L BUN (7-17) mg/dL Ionized Calcium Ashley (4.5-5.3) mg/dL Ferritin 1144.2 H (10.0-291.0) ng/mL AST (14-36) U/L Alkaline Phosphatase (38-126) U/L Total Protein (6.3-8.2) g/dL Albumin (3.5-5.0) g/dL Vitamin B12 >4000.0 H (211-911) pg/mL Microbiology - Last 24 Hours (Table) 08/06/18 10:17 Wound Culture - Preliminary Abdomen 08/06/18 10:17 Anaerobic Culture - Preliminary Abdomen Assessment and Plan Assessment: Pneumoperitoneum due to perforated viscus status post sigmoid colectomy with and colostomy, partial omentectomy and repair of incarcerated ventral hernia on 07/28/2018 Metastatic bone lesions. Unknown primary. Bone biopsy tomorrow. History of breast cancer with bilateral mastectomy. On Arimidex treatment Recent history of HSV encephalitis. Currently on acyclovir and dexamethasone at home Hypothyroidism COPD Hypertension. Currently blood pressure is not elevated. Anxiety Acute kidney injury most likely prerenal history of smoking Plan: Patient will be continued on IV hydration and pain management with Dilaudid. Antibiotics in the form of Zosyn. Will be continued on acyclovir. Patient is tolerating liquid diet. Advanced to regular diet as tolerated.. Bowel function is improving. Continued supportive management. Pulmonary and general surgery is on board. Oncologic was bone marrow biopsy and anemia workup has been ordered. Further recommendations based on the clinical course. Prognosis is guarded. We will continue to follow with you. Time with Patient: Greater than 30
--- NOTE | 2018-08-08 00:39 | P.PN ---
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 CT abdomen and pelvis in the ER showed moderate pneumoperitoneum. Site of perforation is difficult to induce date. Suspect colonic site. Small bowel ileus and extensive osseous metastasis was redemonstrated. Patient was seen by general surgery and underwent sigmoid colectomy with end colostomy. Patient was extubated postoperatively. Currently abdominal pain is controlled with medications. No nausea vomiting. Able to tolerate ice cubes. No nausea vomiting. No complaints of chest pain or shortness of breath. No fever no chills. 07/30/2018 Patient says that her abdominal pain is better. Patient is able to tolerate ice chips. No stool noted in the colostomy back. No fever no chills. Continued on IV hydration and antibiotics. No fever no chills. ID and surgery is following. No nausea vomiting. No chest pain or shortness of breath. 07/31/2018 Patient is able to sit in the chair today. No bowel movement or gas noted in the colostomy bag. No complains of nausea vomiting. Tolerating clear liquid diet. No fever no chills. Urine culture showed enterococcus faecalis. Wound cultures showed E. coli and enterococcus fecalis and Citrobacter. Continued on antibiotics the form of Zosyn. 08/01/2018 Patient is able to tolerate liquid diet. No bowel movement or gas found in the colostomy bag. Otherwise patient is able to sit in the chair. Encourage ambulation continue with current management. Current with antibiotics. Patient is being transferred to medical floor today. 08/02/2018 Patient denied any complains of chest pain or shortness of breath. No complaints of abdominal pain. Patient does have some decreased urine the colostomy back. Tolerating liquid diet and will be advanced. No fever no chills. No other acute overnight issues. 08/03/2018 Patient denied any complaints of chest pain or shortness of. Abdominal pain is much improved. Small amount of stool in the colostomy bag. Tolerating clear liquid diet and is being advanced. No fever no chills. No nausea vomiting or diarrhea. 08/04/2018 Patient denied any abdominal pain today. Tolerating oral diet. Changed to regular diet now. Patient did have bowel movement in the ostomy bag. No complaints of nausea or vomiting. Patient was found have some oozing from the distal end of the midline surgical incision. No fever no chills. No leukocytosis. No complaints of chest pain or shortness of breath. 08/05/2018 Patient denied any complaints of abdominal pain or nausea or vomiting. Tolerating diet very well. Ostomy is functioning. Due to metastatic lesions in the bone and possible recurrence of breast cancer oncology was consulted and recommends bone biopsy right to discharge. Previously there was a concern that patient wants to follow with her own physician. No fever no chills. No headache or dizziness or lightheadedness. Discussed with her at bedside in detail. 08/06/2018 Patient denied any complaints of abdominal pain. Ostomy is functioning. Due to metastatic lesions in the bone with unknown primary., Oncology is planning for bone marrow biopsy tomorrow. Otherwise patient denied any nausea vomiting or abdominal pain. No fever no chills. 08/07/2018 Patient was initially admitted to the hospital with pneumoperitoneum status post surgery and ostomy bag placement. Currently tolerating oral diet and ostomy bag is functioning. Due to metastatic bony lesions patient underwent bone biopsy today. Patient otherwise denied any complaints of chest pain or shortness of breath. No nausea vomiting or abdominal pain. No fever no chills. Possible discharge to rehab in next 24-48 hours. Current medications reviewed Objective - Vital Signs Vital signs: Vital Signs Temp 98.0 F 08/07/18 19:09 Pulse 112 H 08/07/18 19:09 Resp 18 08/07/18 19:09 BP 121/79 08/07/18 19:09 Pulse Ox 96 08/07/18 19:09 Intake & Output 08/07/18 08/07/18 08/08/18 06:59 18:59 06:59 Intake Total 540 Balance 540 Intake: Oral 540 Other: # Voids 2 2 - Exam PHYSICAL EXAMINATION: Patient is lying in the bed comfortably, no acute distress, awake alert and oriented.. HEENT: Normocephalic. Neck is supple. Pupils reactive. Nostrils clear. Oral cavity is moist. Ears reveal no drainage. Neck reveals no JVD, carotid bruits, or thyromegaly. CHEST EXAMINATION: Trachea is central. Symmetrical expansion. Decreased bibasilar air entry. No wheezing.. CARDIAC: Normal S1, S2 with no gallops. No murmurs ABDOMEN: Soft. Bowel sounds diminished. Colostomy bag in place. Stool present. No organomegaly. No abdominal bruits. Extremities: reveal no edema. No clubbing or cyanosis Neurologically awake, alert, oriented x3 with well-coordinated movements. No focal deficits noted Skin: No rash or skin lesions. Psychiatric: Coperative. Nonsuicidal Musculoskeletal: No joint swelling or deformity. Normal range of motion. - Labs CBC & Chem 7: 08/07/18 21:53 08/06/18 17:59 Labs: Abnormal Lab Results - Last 24 Hours (Table) 08/07/18 Range/Units 21:53 RBC 3.15 L (3.80-5.40) m/uL Hgb 9.3 L (11.4-16.0) gm/dL Hct 30.7 L (34.0-46.0) % MCHC 30.2 L (31.0-37.0) g/dL RDW 17.5 H (11.5-15.5) % Microbiology - Last 24 Hours (Table) 08/06/18 10:17 Gram Stain - Preliminary Abdomen Wound Culture - Preliminary Gram Neg Bacilli Carmella albicans Assessment and Plan Assessment: Pneumoperitoneum due to perforated viscus status post sigmoid colectomy with and colostomy, partial omentectomy and repair of incarcerated ventral hernia on 07/28/2018 Metastatic bone lesions. Unknown primary. Bone biopsy done today.. History of breast cancer with bilateral mastectomy. On Arimidex treatment Recent history of HSV encephalitis. Currently on acyclovir and dexamethasone at home Hypothyroidism COPD Hypertension. Currently blood pressure is not elevated. Anxiety Acute kidney injury most likely prerenal history of smoking Plan: Patient will be continued on IV hydration and pain management with Dilaudid. Antibiotics in the form of Zosyn. Will be continued on acyclovir. Patient is tolerating liquid diet. Advanced to regular diet as tolerated.. Bowel function is improving. Continued supportive management. Pulmonary and general surgery is on board. Oncologic is following. Bone marrow biopsy and anemia workup has been ordered. Further recommendations based on the clinical course. Prognosis is guarded. We will continue to follow with you. Time with Patient: Greater than 30
[2018-08-08 01:20] LABS: Appearance,Urine Clear (Clear); Bilirubin,Urine Negative (Negative); Blood,Urine Negative (Negative); Color,Urine Light Yellow; Glucose,Urine (UA) Negative (Negative); Ketones,Urine Negative (Negative); Leukocyte Esterase,Urine Negative (Negative); Nitrite,Urine Negative (Negative); PH, Urine 7.5 (5.0-8.0); Protein,Urine Negative (Negative); Specific Gravity,Urine 1.011 (1.001-1.035); Urobilinogen,Urine <2.0 mg/dL (<2.0)
[2018-08-08] MEDS: METOCLOPRAMIDE 5 MG/ML 2 ML VIAL IVP SCH ×4 (05:49→23:42)
[2018-08-08] MEDS: ACYCLOVIR SODIUM 750 MG in SODIUM CHLORIDE 0.9% 250 ML IVPB SCH ×3 (05:49→22:00)
[2018-08-08] MEDS: LEVOTHYROXINE 100 MCG TAB PO SCH (05:49)
[2018-08-08] MEDS: PIPERACILLIN-TAZOBACTAM 3.375 GM in SODIUM CHLORIDE 0.9% 100 ML IVPB SCH ×3 (07:56→23:42)
[2018-08-08] MEDS: FUROSEMIDE 10 MG/ML 2 ML VIAL IV SCH (07:56)
[2018-08-08] MEDS: FLUCONAZOLE 100 MG TAB PO SCH (08:07)
[2018-08-08] MEDS: amLODIPine 5 MG TAB PO SCH (08:07)
[2018-08-08] MEDS: FAMOTIDINE 20 MG TAB PO SCH (08:07)
[2018-08-08] MEDS: METOPROLOL TARTRATE 25 MG TAB PO SCH ×2 (08:07→21:25)
[2018-08-08] MEDS: POTASSIUM CHLORIDE ER 20 MEQ TAB.ER PO SCH (08:08)
[2018-08-08 08:17] LABS: Anisocytosis Slight; Basophils % (A) 0 %; Eosinophils # (A) 0.2 k/uL (0-0.7); Eosinophils % (A) 4 %; HCT 28.3 % (34.0-46.0); HGB 8.9 gm/dL (11.4-16.0); Lymphocytes # (A) 1.8 k/uL (1.0-4.8); Lymphocytes % (A) 27 %; MCH 30.3 pg (25.0-35.0); MCHC 31.3 g/dL (31.0-37.0); MCV 96.7 fL (80.0-100.0); Macrocytosis Slight; Mean Platelet Volume 6.9; Monocytes # (A) 0.3 k/uL (0-1.0); Monocytes % (A) 4 %; Neutrophils # (A) 4.3 k/uL (1.3-7.7); Neutrophils % (A) 65 %; Platelet Count 405 k/uL (150-450); RBC 2.93 m/uL (3.80-5.40); RDW 18.2 % (11.5-15.5); WBC 6.7 k/uL (3.8-10.6)
[2018-08-08 08:32] LABS: ALT 52 U/L (9-52); AST 66 U/L (14-36); Albumin 2.2 g/dL (3.5-5.0); Alkaline Phosphatase 832 U/L (38-126); Anion Gap 5 mmol/L; Blood Urea Nitrogen 7 mg/dL (7-17); Calcium 10.1 mg/dL (8.4-10.2); Carbon Dioxide 32 mmol/L (22-30); Chloride 100 mmol/L (98-107); Glucose 64 mg/dL (74-99); Magnesium 1.7 mg/dL (1.6-2.3); Potassium 3.6 mmol/L (3.5-5.1); Sodium 137 mmol/L (137-145); Total Bilirubin 0.7 mg/dL (0.2-1.3); Total Protein 4.7 g/dL (6.3-8.2)
--- NOTE | 2018-08-08 12:29 | P.PN ---
Subjective Progress Note Date: 08/08/18 Principal diagnosis: Metastatic cancer Hypoxia is a little better today, appears to have nasal canula to 5L. She did receive a dose of lasix this am. Objective - Vital Signs Vital signs: Vital Signs Temp 97.6 F 08/08/18 08:42 Pulse 78 08/08/18 08:42 Resp 18 08/08/18 08:42 BP 141/85 08/08/18 08:42 Pulse Ox 96 08/08/18 08:42 Intake & Output 08/07/18 08/08/18 08/08/18 18:59 06:59 18:59 Intake Total 760 Balance 760 Intake: IV 200 Lactated Ringers 1,000 ml 200 @ 20 mls/hr IV .Q24H [facility] Rx#:[id number] Intake, IV Titration 410 Amount Acyclovir Sodium 750 mg 250 In Sodium Chloride 0.9% 250 ml @ 265 mls/hr IVPB Q8H [facility] Rx#:[id number] Lactated Ringers 1,000 ml 60 @ 20 mls/hr IV .Q24H [facility] Rx#:[id number] Piperacillin-Tazobactam 3 100 .375 gm In Sodium Chloride 0.9% 100 ml @ 25 mls/hr IVPB Q8HR [facility] Rx# :[id number] Oral 150 Other: Voiding Method Toilet # Voids 2 2 - Exam - Constitutional General appearance: Present: average body habitus, cooperative, no acute distress - EENT Eyes: Present: anicteric sclerae, EOMI ENT: Present: hearing grossly normal, normal oropharynx - Respiratory Respiratory: bilateral: CTA - Cardiovascular Heart sounds: normal: S1, S2 - Peripheral edema leg Peripheral Edema: bilateral: None - Gastrointestinal Evidence Colostomy with output pink stoma - Integumentary Integumentary: Present: pale - Neurologic Neurologic: Present: CNII-XII intact - Musculoskeletal Musculoskeletal: Present: generalized weakness, strength equal bilaterally Right sided lower extremity weakness - Labs CBC & Chem 7: 08/08/18 07:20 08/08/18 07:20 Labs: Abnormal Lab Results - Last 24 Hours (Table) 08/07/18 08/08/18 08/08/18 Range/Units 21:53 07:20 07:20 RBC 3.15 L 2.93 L (3.80-5.40) m/uL Hgb 9.3 L 8.9 L (11.4-16.0) gm/dL Hct 30.7 L 28.3 L (34.0-46.0) % MCHC 30.2 L (31.0-37.0) g/dL RDW 17.5 H 18.2 H (11.5-15.5) % Carbon Dioxide 32 H (22-30) mmol/L Glucose 64 L (74-99) mg/dL AST 66 H (14-36) U/L Alkaline Phosphatase 832 H (38-126) U/L Total Protein 4.7 L (6.3-8.2) g/dL Albumin 2.2 L (3.5-5.0) g/dL Microbiology - Last 24 Hours (Table) 08/06/18 10:17 Gram Stain - Preliminary Abdomen Wound Culture - Preliminary Gram Neg Bacilli Carmella albicans Citrobacter species Assessment and Plan (1) Carcinoma of breast metastatic to bone Current Visit: Yes Status: Acute Priority: High Code(s): C50.919 - MALIGNANT NEOPLASM OF UNSP SITE OF UNSPECIFIED FEMALE BREAST; C79.51 - SECONDARY MALIGNANT NEOPLASM OF BONE SNOMED Code(s): 827639425 (2) Surgical pneumoperitoneum Current Visit: Yes Status: Acute Code(s): K66.8 - OTHER SPECIFIED DISORDERS OF PERITONEUM SNOMED Code(s): 45754321 (3) Hypercalcemia Current Visit: No Status: Acute Priority: High Code(s): E83.52 - HYPERCALCEMIA SNOMED Code(s): 19829247 Plan: Assessment and Recommendations: 1. Metastatic Breast Cancer - Bone - Patient follows with Dr. Fajardo as outpatient - patient has history of breast cancer in 2011, unknown if recurrence with metastatic breast cancer versus new metastatic disease - Ca15-3 and [id number] greatly increased 900s - IR for bone Biopsy prior today 08/07/18: HER2 and ER/IL Testing on sample - Status Post Pelvic Mass Lytic lesion Biopsy - She received Aredia on 07/17/18, will be due for another 08/14/18 - Continue to monitor RLE weakness and footdrop, may need MRI SPine 2. Normocytic anemia: Secondary to post operative blood loss and component of malignancy - Check Iron studies and anemia work-up - Check CBC today 3. Acute Hypoxic Respiratory Failure: worsening - Likely secondary to exacerbation COPD, bilateral pleural effusions, atelectasis plus/minus component of pneumonia - She is now on 5Liter, concern as she was not on oxygen prior to admission and now requiring 5Liters to maintain oxygenation greater than 92% - Pulmonary is following, this appears to have improved after pulmonary gave dose of lasix, another dose given today at direction of primary team. Discussed with Dr. Skelton - Continues on Abx 4. Sinus Tachycardia: Likely reactive - MS Monitoring overnight and this improved this am - moscoso cultures and urinalysis negative. 5. Hypercalcemia: Calcium is trending back up at 10.1 today - She is status post Pamidronate on 07/16/18, therefore may receive second dose 08/13/18 - This is secondary to her diffuse bone mets 6. Debility and weakness: Secondary to recurrent hospitalizations, recent surgery - Plan is for sub-acute rehab at discharge 7. Status Post Sigmoid Colectomy and end colostomy - Emergent surgery for pneuperitoneum and incarcerated hernia - Recovering well and good outpt from ostomy. 8. Hx: Hyperplasia cells on EGD in 2016 at [facility] DISPO: - Concern for discharge with persistent Hypoxia, discussed with Dr. Skelton and diuresis again in am. - Defer to Pulmonary related to discharge, although no oxygen required prior to admission. Now requiring 5L and episodes of Hi-Flow over past 48 hours. - Plan for second dose bone strengthener on or after 08/11/18, prior to dicharge Greater than 30 minutes spent counseling and coordinating care face to face with patient, and son today.
--- NOTE | 2018-08-08 14:25 | P.PN ---
Subjective Progress Note Date: 08/08/18 CHIEF COMPLAINT: abdominal pain HISTORY OF PRESENT ILLNESS: 63-year-old female who underwent sigmoid colectomy with end colostomy, partial omentectomy, and repair of incarcerated ventral hernia. POD #11. Patient is tolerating regular diet. Ostomy with stool and gas present. Sitting up in the chair. at bedside. PHYSICAL EXAM: VITAL SIGNS: Currently stable. GENERAL: Well-developed in no acute distress. HEENT: No sclera icterus. Extraocular movements grossly intact. Moist buccal mucosa. Head is atraumatic, normocephalic. Hears conversational speech. No nasal drainage. NECK: Supple without lymphadenopathy. CHEST: Non-labored respirations and equal bilateral excursions. CARDIOVASCULAR: Regular rate with regular rhythm. Palpable 2+ radial pulses. ABDOMEN: Soft. Nondistended. Dressing to midline incision with serosanguineous drainage. Ostomy to left lower quadrant with stool present. MUSCULOSKELETAL: No clubbing, cyanosis or edema. NEUROLOGIC: No focal or lateralizing signs. Cranial nerves II through XII grossly intact. PSYCH: Awake and alert and oriented. SKIN: Good skin turgor. Well-perfused. No cyanosis. ASSESSMENT: 1. Pneumoperitoneum, perforated viscus s/p sigmoid colectomy with end colostomy, partial omentectomy, and repair of incarcerated ventral hernia 2. Sepsis, present on admission, secondary to above, resolved PLAN: Distal end of yesi removed at the bedside by Dr. Coats. Incision opened and packed with gauze. Nursing to perform daily dressing changes with wet to dry gauze dressings. Cover with ABD Pulmonary toilet. Patient encouraged to be out of bed and ambulatory. Encouraged to use incentive spirometer 10 times an hour. Paper prescription for Emma left in patient's chart Nurse practitioner note has been reviewed by physician. Signing provider agrees with the documented findings, assessment, and plan of care. Objective - Vital Signs Vital signs: Vital Signs Temp 97.6 F 08/08/18 08:42 Pulse 78 08/08/18 08:42 Resp 18 08/08/18 08:42 BP 141/85 08/08/18 08:42 Pulse Ox 96 08/08/18 08:42 Intake & Output 08/07/18 08/08/18 08/08/18 18:59 06:59 18:59 Intake Total 760 Balance 760 Intake: IV 200 Lactated Ringers 1,000 ml 200 @ 20 mls/hr IV .Q24H [facility] Rx#:[id number] Intake, IV Titration 410 Amount Acyclovir Sodium 750 mg 250 In Sodium Chloride 0.9% 250 ml @ 265 mls/hr IVPB Q8H [facility] Rx#:[id number] Lactated Ringers 1,000 ml 60 @ 20 mls/hr IV .Q24H [facility] Rx#:[id number] Piperacillin-Tazobactam 3 100 .375 gm In Sodium Chloride 0.9% 100 ml @ 25 mls/hr IVPB Q8HR [facility] Rx# :[id number] Oral 150 Other: Voiding Method Toilet # Voids 2 2 - Labs CBC & Chem 7: 08/08/18 07:20 08/08/18 07:20 Labs: Abnormal Lab Results - Last 24 Hours (Table) 08/07/18 08/08/18 08/08/18 Range/Units 21:53 07:20 07:20 RBC 3.15 L 2.93 L (3.80-5.40) m/uL Hgb 9.3 L 8.9 L (11.4-16.0) gm/dL Hct 30.7 L 28.3 L (34.0-46.0) % MCHC 30.2 L (31.0-37.0) g/dL RDW 17.5 H 18.2 H (11.5-15.5) % Carbon Dioxide 32 H (22-30) mmol/L Glucose 64 L (74-99) mg/dL AST 66 H (14-36) U/L Alkaline Phosphatase 832 H (38-126) U/L Total Protein 4.7 L (6.3-8.2) g/dL Albumin 2.2 L (3.5-5.0) g/dL Microbiology - Last 24 Hours (Table) 08/06/18 10:17 Gram Stain - Preliminary Abdomen Wound Culture - Preliminary Gram Neg Bacilli Carmella albicans
--- NOTE | 2018-08-08 15:29 | PN ---
PROGRESS NOTE DATE OF SERVICE: 08/08/2018 REASON FOR FOLLOWUP: 1. Abdominal abscess from incarcerated ventral hernia. 2. Herpes encephalitis. INTERVAL HISTORY: The patient is currently afebrile. The patient is breathing comfortably. Denies having any chest pain or any cough. Abdominal pain is currently controlled. No drainage from the incision. No nausea, no vomiting or diarrhea. PHYSICAL EXAMINATION: Blood pressure 144/85 with a pulse of 70 temperature 97.6 he is 96% on 5 L nasal cannula description is a middle-aged female, up in the chair in no distress. RESPIRATORY SYSTEM: Unlabored breathing, clear to auscultation. HEART: S1, S2. Regular rate and rhythm. ABDOMEN: Soft, no tenderness. LABS: Hemoglobin 8.8, white count of 6.7, BUN of 7, creatinine 0.73. DIAGNOSTIC IMPRESSION AND PLAN: 1. Patient with abdominal abscess from incarcerated hernia, status post laparotomy, resection of the bowel and diverting colostomy. The abdominal culture of an E coli Citrobacter faecalis. Patient currently on Zosyn and continue follow up with addition culture showing Carmella albicans, Diflucan was added. 2. Patient with herpes encephalitis. She will continue with Azactam. She will finish therapy as of 08/11/2018. MMODL / IJN: [id number] /
[2018-08-08] MEDS: HYDROcodone/APAP 7.5-325MG 1 EACH TAB PO PRN ×2 (15:52→22:38)
[2018-08-09] MEDS: LEVOTHYROXINE 100 MCG TAB PO SCH (05:29)
[2018-08-09] MEDS: ACYCLOVIR SODIUM 750 MG in SODIUM CHLORIDE 0.9% 250 ML IVPB SCH ×3 (05:29→22:19)
[2018-08-09] MEDS: METOCLOPRAMIDE 5 MG/ML 2 ML VIAL IVP SCH ×4 (05:29→23:58)
[2018-08-09] MEDS: HYDROcodone/APAP 7.5-325MG 1 EACH TAB PO PRN ×2 (05:36→15:19)
[2018-08-09] MEDS: FAMOTIDINE 20 MG TAB PO SCH (08:33)
[2018-08-09] MEDS: amLODIPine 5 MG TAB PO SCH (08:33)
[2018-08-09] MEDS: FLUCONAZOLE 100 MG TAB PO SCH (08:33)
[2018-08-09] MEDS: FUROSEMIDE 10 MG/ML 2 ML VIAL IV SCH (08:34)
[2018-08-09] MEDS: METOPROLOL TARTRATE 25 MG TAB PO SCH ×2 (08:34→20:16)
[2018-08-09] MEDS: POTASSIUM CHLORIDE ER 20 MEQ TAB.ER PO SCH (08:34)
[2018-08-09] MEDS: PIPERACILLIN-TAZOBACTAM 3.375 GM in SODIUM CHLORIDE 0.9% 100 ML IVPB SCH ×3 (09:56→23:58)
--- NOTE | 2018-08-09 11:52 | P.PN ---
Subjective Progress Note Date: 08/09/18 CHIEF COMPLAINT: Perforated sigmoid diverticulitis HISTORY OF PRESENT ILLNESS: The patient is a 63-year-old female admitted for perforated sigmoid diverticulitis. She status post sigmoid colectomy in the descending colostomy creation, 07/28/2018. Patient clinically doing well. She is tolerating diet. PHYSICAL EXAM: VITAL SIGNS: Reviewed CONSTITUTIONAL: Well developed and in no acute distress. EYES: Conjuctivae without sclera icterus. Extraocular movements grossly intact. HEAD, EARS, NOSE, THROAT: Moist buccal mucosa. Head is atraumatic, normocephalic. Hears conversational speech. No nasal drainage. NECK: Supple. No thyroidomegaly. RESPIRATORY: Non-labored respirations and equal bilateral excursions. CARDIOVASCULAR: Palpable 2+ radial pulses. Regular rate and regular rhythm. ABDOMEN: Soft. Nontender. Minimal distention. Ostomy pink patent function with semisolid brown stool. Incisions clean dry and intact. MUSCULOSKELETAL: No gross deformity of the lower extremities noted. No clubbing. No cyanosis. SKIN: Good skin turgor .Well perfused. NEUROLOGIC: Cranial nerves I through XII grossly intact. No focal or lateralizing signs. PSYCH: Appropriate affect. Alert and oriented to person, place and time. CLINCAL LABS: Reviewed ASSESSMENT: 1. Perforated diverticulitis status post descending colostomy 2. History of breast cancer PLAN: 1. She is clinically stable. 2. Agreeable with discharge to rehab or home on Saturday. Objective - Vital Signs Vital signs: Vital Signs Temp 98.6 F 08/09/18 07:15 Pulse 76 08/09/18 07:15 Resp 20 08/09/18 07:15 BP 127/57 08/09/18 07:15 Pulse Ox 92 L 08/09/18 02:18 Intake & Output 08/08/18 08/09/18 08/09/18 18:59 06:59 18:59 Intake Total 796 900 200 Output Total 200 Balance 596 900 200 Weight 88.8 kg Intake: Intake, IV Titration 100 600 Amount Acyclovir Sodium 750 mg 500 In Sodium Chloride 0.9% 250 ml @ 265 mls/hr IVPB Q8H [facility] Rx#:[id number] Piperacillin-Tazobactam 3 100 100 .375 gm In Sodium Chloride 0.9% 100 ml @ 25 mls/hr IVPB Q8HR [facility] Rx# :[id number] Oral 696 300 200 Output: Urine 200 Other: Voiding Method Toilet Bedside Commode # Voids 2 3 - Labs CBC & Chem 7: 08/08/18 07:20 08/08/18 07:20 Labs: Microbiology - Last 24 Hours (Table) 08/06/18 10:17 Gram Stain - Final Abdomen Wound Culture - Final Hafnia alvei Carmella albicans Citrobacter species 08/07/18 21:53 Blood Culture - Preliminary Blood No Growth after 24 hours Assessment and Plan (1) Perforation of sigmoid colon due to diverticulitis Current Visit: Yes Status: Acute Code(s): K57.20 - DVTRCLI OF LG INT W PERFORATION AND ABSCESS W/O BLEEDING SNOMED Code(s): 1665861866861587 (2) Colostomy in place Current Visit: Yes Status: Acute Code(s): Z93.3 - COLOSTOMY STATUS SNOMED Code(s): 357421165 (3) Carcinoma of breast metastatic to bone Current Visit: Yes Status: Acute Priority: High Code(s): C50.919 - MALIGNANT NEOPLASM OF UNSP SITE OF UNSPECIFIED FEMALE BREAST; C79.51 - SECONDARY MALIGNANT NEOPLASM OF BONE SNOMED Code(s): 246473977 (4) Sepsis Current Visit: Yes Status: Acute Code(s): A41.9 - SEPSIS, UNSPECIFIED ORGANISM SNOMED Code(s): 49384639
--- NOTE | 2018-08-09 16:25 | P.PN ---
Subjective Progress Note Date: 08/09/18 Principal diagnosis: Abdominal pain, status post sigmoid colectomy and end colostomy, partial omentectomy, repair of incarcerated ventral hernia. Approximate respiratory failure. This is a 63-year-old white female patient that was admitted with the acute abdominal pain, and patient is status post sigmoid colectomy with end colostomy, partial omentectomy, and repair of incarcerated ventral hernia, this is postop day #9, following the patient in the postoperative period in the intensive care unit, patient was transferred out to the floor, and is doing well. We were asked to see the patient again today in view of creasing oxygen demands, chest x-ray was obtained and showed cardiomegaly, chronic parenchymal changes with small bilateral pleural effusions and left greater than the right basilar atelectasis. Patient was on 4 L of oxygen, and this morning she was placed on 6 L of oxygen and her pulse ox currently is 92%, she is awake and alert, oriented 3, she is in no distress, lung sounds reveal diminished breath sounds at bilateral bases, and some scattered crackles, no rhonchi, wheezing, no cough or chest congestion. Patient has a strong affective cough, she is working on her incentive spirometer, she is able to achieve about 1000 mL on the today. Culture of the abdominal fluid showed polymicrobial growth including E. coli, Citrobacter, Enterococcus faecalis, patient also had positive blood cultures with a Eubacterium Tony some, and urine culture with Enterococcus faecalis. Recently abdominal wound culture showed 2 separate anaerobic gram-negative bacilli species, all up blood culture showed no growth. Current antibiotic coverage includes Acyclovir, and Zosyn. Patient's colostomy is producing liquid brown stool, patient is tolerating oral intake, she told me she was able to ambulate, and tolerated fairly well, this morning she states she is a little tired, she would like to get some rest, she states she was not able to sleep well last night. The patient is seen today 08/09/2018 in follow-up on the regular medical floor. She is awake and alert in no acute distress. She denies any worsening shortness of breath, cough or congestion. She is maintaining good O2 saturations in the mid 90s on 5 L/m per nasal cannula. previous computed tomography scan of the chest revealed osteolytic areas in the thoracic spine and bony thorax consistent with metastatic disease unchanged. Increase atelectasis in the both lower lobes compared to previous exam. Pleural effusion noted. She remains on Lasix 20 mg IV daily. She remains on Zosyn. Objective - Vital Signs Vital signs: Vital Signs Temp 98.4 F 08/09/18 15:00 Pulse 101 H 08/09/18 15:00 Resp 16 08/09/18 15:00 BP 136/82 08/09/18 15:00 Pulse Ox 95 08/09/18 15:00 Intake & Output 08/08/18 08/09/18 08/09/18 18:59 06:59 18:59 Intake Total 796 900 200 Output Total 200 Balance 596 900 200 Weight 88.8 kg Intake: Intake, IV Titration 100 600 Amount Acyclovir Sodium 750 mg 500 In Sodium Chloride 0.9% 250 ml @ 265 mls/hr IVPB Q8H [facility] Rx#:[id number] Piperacillin-Tazobactam 3 100 100 .375 gm In Sodium Chloride 0.9% 100 ml @ 25 mls/hr IVPB Q8HR [facility] Rx# :[id number] Oral 696 300 200 Output: Urine 200 Other: Voiding Method Toilet Bedside Commode # Voids 2 3 - Exam GENERAL EXAM: Alert, pleasant, 63-year-old white female alert and oriented 3, currently on 5 L of oxygen with a pulse ox of 92%, breathing comfortably, in no acute distress in no apparent distress. HEAD: Normocephalic/atraumatic. EYES: Normal reaction of pupils, equal size. Conjunctiva pink, sclera white. NOSE: Clear with pink turbinates. THROAT: No erythema or exudates. NECK: No masses, no JVD, no thyroid enlargement, no adenopathy. CHEST: No chest wall deformity. Symmetrical expansion. LUNGS: Equal air entry diminished breath sounds at bilateral bases, and some scattered rales CVS: Regular rate and rhythm, normal S1 and S2, no gallops, no murmurs, no rubs ABDOMEN: Soft, nontender. No hepatosplenomegaly, normal bowel sounds, no guarding or rigidity. Midline abdominal incision is clean dry and intact, covered with a dressing, ostomy to the left lower quadrant with liquid stool EXTREMITIES: No clubbing, no edema, no cyanosis, 2+ pulses and upper and lower extremities. MUSCULOSKELETAL: Muscle strength and tone normal. SPINE: No scoliosis or deformity SKIN: No rashes CENTRAL NERVOUS SYSTEM: Alert and oriented -3. No focal deficits, tone is normal in all 4 extremities. PSYCHIATRIC: Alert and oriented -3. Appropriate affect. Intact judgment and insight. - Labs CBC & Chem 7: 08/08/18 07:20 08/08/18 07:20 Labs: Microbiology - Last 24 Hours (Table) 08/06/18 10:17 Anaerobic Culture - Final Abdomen Anaerobic Gm Negative Bacilli 08/06/18 10:17 Gram Stain - Final Abdomen Wound Culture - Final Hafnia alvei Carmella albicans Citrobacter species 08/07/18 21:53 Blood Culture - Preliminary Blood No Growth after 24 hours Assessment and Plan Assessment: Assessment: #1. Acute hypoxemic respiratory failure secondary to atelectasis, and small pleural effusions. #2. Acute abdominal pain present on admission related to perforated viscus, diverticulitis with interloop abscess, incarcerated ventral hernia, status post sigmoid colectomy with end colostomy, takedown of flexure, partial omentectomy, incarcerated ventral hernia, postop day 9 #3. Metastatic breast cancer with multiple osseous metastasis, with history of bilateral mastectomy #4. 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 To status currently is back to baseline, she is alert and oriented 3, and she is completing her course of acyclovir #5. Hypothyroidism #6. Hypertension Plan: The patient was seen and evaluated by Dr. Narayanan. We'll continue to titrate down her FiO2 as tolerated. Increase her activity as tolerated. We will follow the patient on as-needed basis. I, the cosigning physician, performed a history & physical examination of the patient. Lungs sounds crackles in the posterior basesr. Maintaining good O2 saturations in the 90s on 5liters nasal cannula. I discussed the assessment and plan of care with my nurse practitioner, Leilani Briscoe. I attest to the above note as dictated by her.
--- NOTE | 2018-08-09 16:35 | P.PN ---
Subjective Progress Note Date: 08/08/18 Principal diagnosis: Acute hypoxic respiratory failure; COPD exacerbation/ possible pneumonia/ bilateral pleural effusions Patient is a 63-year-old female with a known history of breast cancer status post bilateral mastectomy followed by Arimidex treatment, hypothyroidism, COPD, anxiety and other multiple medical problems, recent history of HSV encephalitis currently on acyclovir and dexamethasone at home presents to ER with complaints of abdominal pain mainly in the lower abdomen. CT abdomen and pelvis in the ER showed moderate pneumoperitoneum. Site of perforation is difficult to induce date. Suspect colonic site. Small bowel ileus and extensive osseous metastasis was redemonstrated. Patient was seen by general surgery and underwent sigmoid colectomy with end colostomy. Patient was extubated postoperatively. 08/07/2018 Patient was initially admitted to the hospital with pneumoperitoneum status post surgery and ostomy bag placement. Currently tolerating oral diet and ostomy bag is functioning. Due to metastatic bony lesions patient underwent bone biopsy today. Patient otherwise denied any complaints of chest pain or shortness of breath. No nausea vomiting or abdominal pain. No fever no chills. Possible discharge to rehab in next 24-48 hours. 08/08/2018; Patient is seen and evaluated in the room at bedside; does report improvement in breathing; patient remains on oxygen 5 L per nasal cannula; patient did receive an extra dose of Lasix this morning Objective - Vital Signs Vital signs: Vital Signs Temp 97.6 F 08/08/18 08:42 Pulse 78 08/08/18 08:42 Resp 18 08/08/18 08:42 BP 141/85 08/08/18 08:42 Pulse Ox 96 08/08/18 08:42 Intake & Output 08/07/18 08/08/18 08/08/18 18:59 06:59 18:59 Intake Total 760 500 Output Total 200 Balance 760 300 Intake: IV 200 Lactated Ringers 1,000 ml 200 @ 20 mls/hr IV .Q24H [facility] Rx#:[id number] Intake, IV Titration 410 100 Amount Acyclovir Sodium 750 mg 250 In Sodium Chloride 0.9% 250 ml @ 265 mls/hr IVPB Q8H [facility] Rx#:[id number] Lactated Ringers 1,000 ml 60 @ 20 mls/hr IV .Q24H [facility] Rx#:[id number] Piperacillin-Tazobactam 3 100 100 .375 gm In Sodium Chloride 0.9% 100 ml @ 25 mls/hr IVPB Q8HR [facility] Rx# :[id number] Oral 150 400 Output: Urine 200 Other: Voiding Method Toilet # Voids 2 2 2 - Exam Patient is lying in the bed comfortably, no acute distress, awake alert and oriented.. HEENT: Normocephalic. Neck is supple. Pupils reactive. Nostrils clear. Oral cavity is moist. Ears reveal no drainage. Neck reveals no JVD, carotid bruits, or thyromegaly. CHEST EXAMINATION: Trachea is central. Symmetrical expansion. Decreased bibasilar air entry. No wheezing.. CARDIAC: Normal S1, S2 with no gallops. No murmurs ABDOMEN: Soft. Bowel sounds diminished. Colostomy bag in place. Stool present. No organomegaly. No abdominal bruits. Extremities: reveal no edema. No clubbing or cyanosis - Labs CBC & Chem 7: 08/08/18 07:20 08/08/18 07:20 Labs: Abnormal Lab Results - Last 24 Hours (Table) 08/07/18 08/08/18 08/08/18 Range/Units 21:53 07:20 07:20 RBC 3.15 L 2.93 L (3.80-5.40) m/uL Hgb 9.3 L 8.9 L (11.4-16.0) gm/dL Hct 30.7 L 28.3 L (34.0-46.0) % MCHC 30.2 L (31.0-37.0) g/dL RDW 17.5 H 18.2 H (11.5-15.5) % Carbon Dioxide 32 H (22-30) mmol/L Glucose 64 L (74-99) mg/dL AST 66 H (14-36) U/L Alkaline Phosphatase 832 H (38-126) U/L Total Protein 4.7 L (6.3-8.2) g/dL Albumin 2.2 L (3.5-5.0) g/dL Microbiology - Last 24 Hours (Table) 08/06/18 10:17 Gram Stain - Preliminary Abdomen Wound Culture - Preliminary Gram Neg Bacilli Carmella albicans Citrobacter species Assessment and Plan Assessment: 1. Metastatic Breast Cancer - Bone - Patient follows with Dr. Fajardo as outpatient - patient has history of breast cancer in 2011, unknown if recurrence with metastatic breast cancer versus new metastatic disease - IR for bone Biopsy prior today 08/07/18: HER2 and ER/SC Testing on sample - Status Post Pelvic Mass Lytic lesion Biopsy - She received Aredia on 07/17/18, will be due for another 08/14/18 - Continue to monitor RLE weakness and footdrop, may need MRI SPine 2. Normocytic anemia: Secondary to post operative blood loss and component of malignancy - Check Iron studies and anemia work-up - Check CBC today 3. Acute Hypoxic Respiratory Failure: worsening - Likely secondary to exacerbation COPD, bilateral pleural effusions, atelect asis plus/minus component of pneumonia - She is now on 5Liter, concern as she was not on oxygen prior to admission and now requiring 5Liters to maintain oxygenation greater than 92% - Pulmonary is following, this appears to have improved after pulmonary gave dose of lasix, another dose given today at direction of primary team. Discussed with Dr. Skelton - Continues on Abx 4. Hypercalcemia: Calcium is trending back up at 10.1 today - She is status post Pamidronate on 07/16/18, therefore may receive second dose 08/13/18 - This is secondary to her diffuse bone mets 5. Debility and weakness: Secondary to recurrent hospitalizations, recent angeli zeeshan - Plan is for sub-acute rehab at discharge 6. Status Post Sigmoid Colectomy and end colostomy - Emergent surgery for pneuperitoneum and incarcerated hernia - Recovering well and good outpt from ostomy. 7. DVT prophylaxis CODE STATUS; full code Time with Patient: Greater than 30
[2018-08-09] MEDS: LACTATED RINGERS 1,000 ML IV SCH (17:22)
--- NOTE | 2018-08-09 23:06 | PN ---
PROGRESS NOTE DATE OF SERVICE: 08/09/2018. REASON FOR FOLLOWUP: 1. Abdominal abscess from incarcerated hernia. 2. Herpes encephalitis. INTERVAL HISTORY: The patient is currently afebrile. The patient is breathing comfortably. Denies any chest pain, cough, no abdominal pain. No nausea, vomiting, or any diarrhea. PHYSICAL EXAMINATION: Blood pressure 149/95 with a pulse of 101, temperature 98.4, she is 95% on 5 L nasal cannula. General description is a middle-aged female up in the bed in no distress. Respiratory system: Unlabored breathing. Decreased breath sounds in the bases. No wheeze. Heart S1, S2. Regular rate and rhythm. Abdomen soft, no tenderness. LABS: Hemoglobin is 8.8, white count 6.7, BUN of 7, creatinine 0.73. DIAGNOSTIC IMPRESSION AND PLAN: 1. Patient with abdominal abscess from incarcerated hernia, status post reduction and diverting colostomy. Patient is currently on Zosyn and Diflucan to continue for course of therapy. 2. Patient with herpes cephalitis, currently on Acyclovir. She will complete antibiotic dual therapy as of 08/11. present at bedside. Questions and concerns were answered. MMODL / IJN: [id number] /
[2018-08-10] MEDS: ACYCLOVIR SODIUM 750 MG in SODIUM CHLORIDE 0.9% 250 ML IVPB SCH ×3 (05:54→22:20)
[2018-08-10] MEDS: METOCLOPRAMIDE 5 MG/ML 2 ML VIAL IVP SCH ×4 (05:54→23:56)
[2018-08-10] MEDS: LEVOTHYROXINE 100 MCG TAB PO SCH (05:54)
[2018-08-10 06:54] LABS: Anisocytosis Slight; Basophils % (A) 1 %; Eosinophils # (A) 0.2 k/uL (0-0.7); Eosinophils % (A) 3 %; HCT 30.8 % (34.0-46.0); HGB 9.6 gm/dL (11.4-16.0); Lymphocytes # (A) 2.4 k/uL (1.0-4.8); Lymphocytes % (A) 35 %; MCH 30.3 pg (25.0-35.0); MCHC 31.2 g/dL (31.0-37.0); MCV 97.3 fL (80.0-100.0); Macrocytosis Slight; Mean Platelet Volume 6.7; Monocytes # (A) 0.4 k/uL (0-1.0); Monocytes % (A) 6 %; Neutrophils # (A) 3.6 k/uL (1.3-7.7); Neutrophils % (A) 53 %; Platelet Count 494 k/uL (150-450); RBC 3.17 m/uL (3.80-5.40); RDW 18.3 % (11.5-15.5); WBC 6.8 k/uL (3.8-10.6)
[2018-08-10 07:09] LABS: Calcium 11.3 mg/dL (8.4-10.2); Potassium 3.2 mmol/L (3.5-5.1)
[2018-08-10] MEDS: POTASSIUM CHLORIDE ER 20 MEQ TAB.ER PO SCH (07:30)
[2018-08-10] MEDS: HYDROcodone/APAP 7.5-325MG 1 EACH TAB PO PRN ×3 (07:30→20:37)
[2018-08-10] MEDS: amLODIPine 5 MG TAB PO SCH (07:30)
[2018-08-10] MEDS: METOPROLOL TARTRATE 25 MG TAB PO SCH ×2 (07:31→20:37)
[2018-08-10] MEDS: FUROSEMIDE 10 MG/ML 2 ML VIAL IV SCH (07:31)
[2018-08-10] MEDS: FAMOTIDINE 20 MG TAB PO SCH ×2 (07:31→20:37)
[2018-08-10] MEDS: FLUCONAZOLE 100 MG TAB PO SCH (07:31)
[2018-08-10] MEDS: PIPERACILLIN-TAZOBACTAM 3.375 GM in SODIUM CHLORIDE 0.9% 100 ML IVPB SCH ×3 (07:59→23:56)
--- NOTE | 2018-08-10 10:29 | P.PN ---
Subjective Progress Note Date: 08/09/18 Principal diagnosis: Acute hypoxic respiratory failure; COPD exacerbation/ possible pneumonia/ bilateral pleural effusions Patient is a 63-year-old female with a known history of breast cancer status post bilateral mastectomy followed by Arimidex treatment, hypothyroidism, COPD, anxiety and other multiple medical problems, recent history of HSV encephalitis currently on acyclovir and dexamethasone at home presents to ER with complaints of abdominal pain mainly in the lower abdomen. CT abdomen and pelvis in the ER showed moderate pneumoperitoneum. Site of perforation is difficult to induce date. Suspect colonic site. Small bowel ileus and extensive osseous metastasis was redemonstrated. Patient was seen by general surgery and underwent sigmoid colectomy with end colostomy. Patient was extubated postoperatively. 08/07/2018 Patient was initially admitted to the hospital with pneumoperitoneum status post surgery and ostomy bag placement. Currently tolerating oral diet and ostomy bag is functioning. Due to metastatic bony lesions patient underwent bone biopsy today. Patient otherwise denied any complaints of chest pain or shortness of breath. No nausea vomiting or abdominal pain. No fever no chills. Possible discharge to rehab in next 24-48 hours. 08/08/2018; Patient is seen and evaluated in the room at bedside; does report improvement in breathing; patient remains on oxygen 5 L per nasal cannula; patient did receive an extra dose of Lasix this morning 08/09/2018 Patient seen in follow-up on the regular medical floor. She is awake and alert in no acute distress. She denies any worsening shortness of breath, cough or congestion. She is maintaining good O2 saturations in the mid 90s on 5 L/m per nasal cannula. previous computed tomography scan of the chest revealed osteolytic areas in the thoracic spine and bony thorax consistent with metastatic disease unchanged. Increase atelectasis in the both lower lobes compared to previous exam. Pleural effusion noted. She remains on Lasix 20 mg IV daily. She remains on Zosyn. Pulmonary service is recommending to continue to titrate down her FiO2 as tolerated. Increase her activity as tolerated. Pulmonary service will be following peripherally Surgical service is recommending to continue with current diet as patient is tolerating well with the clearance for discharge to rehab or home on Saturday Objective - Vital Signs Vital signs: Vital Signs Temp 98.4 F 08/09/18 15:00 Pulse 101 H 08/09/18 15:00 Resp 16 08/09/18 15:00 BP 136/82 08/09/18 15:00 Pulse Ox 95 08/09/18 15:00 Intake & Output 08/08/18 08/09/18 08/09/18 18:59 06:59 18:59 Intake Total 796 900 200 Output Total 200 Balance 596 900 200 Weight 88.8 kg Intake: Intake, IV Titration 100 600 Amount Acyclovir Sodium 750 mg 500 In Sodium Chloride 0.9% 250 ml @ 265 mls/hr IVPB Q8H [facility] Rx#:[id number] Piperacillin-Tazobactam 3 100 100 .375 gm In Sodium Chloride 0.9% 100 ml @ 25 mls/hr IVPB Q8HR [facility] Rx# :[id number] Oral 696 300 200 Output: Urine 200 Other: Voiding Method Toilet Bedside Commode # Voids 2 3 2 - Exam Patient is lying in the bed comfortably, no acute distress, awake alert and oriented.. HEENT: Normocephalic. Neck is supple. Pupils reactive. Nostrils clear. Oral cavity is moist. Ears reveal no drainage. Neck reveals no JVD, carotid bruits, or thyromegaly. CHEST EXAMINATION: Trachea is central. Symmetrical expansion. Decreased bibasilar air entry. No wheezing.. CARDIAC: Normal S1, S2 with no gallops. No murmurs ABDOMEN: Soft. Bowel sounds diminished. Colostomy bag in place. Stool present. No organomegaly. No abdominal bruits. Extremities: reveal no edema. No clubbing or cyanosis - Labs CBC & Chem 7: 08/10/18 06:24 08/10/18 06:24 Labs: Microbiology - Last 24 Hours (Table) 08/06/18 10:17 Anaerobic Culture - Final Abdomen Anaerobic Gm Negative Bacilli 08/06/18 10:17 Gram Stain - Final Abdomen Wound Culture - Final Hafnia alvei Carmella albicans Citrobacter species 08/07/18 21:53 Blood Culture - Preliminary Blood No Growth after 24 hours Assessment and Plan Assessment: 1. Metastatic Breast Cancer - Bone - Patient follows with Dr. Fajardo as outpatient - patient has history of breast cancer in 2011, unknown if recurrence with metastatic breast cancer versus new metastatic disease - IR for bone Biopsy prior today 08/07/18: HER2 and ER/[place] Testing on sample - Status Post Pelvic Mass Lytic lesion Biopsy - She received Aredia on 07/17/18, will be due for another 08/14/18 - Continue to monitor RLE weakness and footdrop, may need MRI SPine 2. Normocytic anemia: Secondary to post operative blood loss and component of malignancy - Check Iron studies and anemia work-up - Check CBC today 3. Acute Hypoxic Respiratory Failure: worsening - Likely secondary to exacerbation COPD, bilateral pleural effusions, atelectasis plus/minus component of pneumonia - She is now on 5Liter, concern as she was not on oxygen prior to admission and now requiring 5Liters to maintain oxygenation greater than 92% - Pulmonary is following, this appears to have improved after pulmonary gave dose of lasix, another dose given today at direction of primary team. Discussed with Dr. Skelton - Continues on Abx 4. Hypercalcemia: Calcium is trending back up at 10.1 today - She is status post Pamidronate on 07/16/18, therefore may receive second dose 08/13/18 - This is secondary to her diffuse bone mets 5. Debility and weakness: Secondary to recurrent hospitalizations, recent surgery - Plan is for sub-acute rehab at discharge 6. Status Post Sigmoid Colectomy and end colostomy - Emergent surgery for pneuperitoneum and incarcerated hernia - Recovering well and good outpt from ostomy. 7. DVT prophylaxis CODE STATUS; full code Time with Patient: Greater than 30
[2018-08-10] MEDS ORDERED: POTASSIUM CHLORIDE ER 10 MEQ TAB.ER.PRT PO STA (10:31)
--- NOTE | 2018-08-10 13:54 | P.PN ---
Subjective Progress Note Date: 08/10/18 CHIEF COMPLAINT: Perforated sigmoid diverticulitis HISTORY OF PRESENT ILLNESS: The patient is a 63-year-old female admitted for perforated sigmoid diverticulitis. She status post sigmoid colectomy in the descending colostomy creation, 07/28/2018. She is tolerating diet. She complains of back pain. "I want to go home." Ostomy is functioning. No reports of abdominal pain. PHYSICAL EXAM: VITAL SIGNS: Reviewed CONSTITUTIONAL: Well developed and in no acute distress. EYES: Conjuctivae without sclera icterus. Extraocular movements grossly intact. HEAD, EARS, NOSE, THROAT: Moist buccal mucosa. Head is atraumatic, normocephalic. Hears conversational speech. No nasal drainage. NECK: Supple. No thyroidomegaly. RESPIRATORY: Non-labored respirations and equal bilateral excursions. CARDIOVASCULAR: Palpable 2+ radial pulses. Regular rate and regular rhythm. ABDOMEN: Soft. Nontender. Ostomy pink patent function with semisolid brown stool. No signs of infection. MUSCULOSKELETAL: No gross deformity of the lower extremities noted. No clubbing. No cyanosis. SKIN: Good skin turgor .Well perfused. NEUROLOGIC: Cranial nerves I through XII grossly intact. No focal or lateralizing signs. PSYCH: Appropriate affect. Alert and oriented to person, place and time. CLINCAL LABS: Reviewed ASSESSMENT: 1. Perforated diverticulitis status post descending colostomy 2. History of breast cancer 3. Metastatic disease to the spine 4. Bone pain from metastatic disease to the spine PLAN: 1. Per patient and review of records, evaluation for rehab pending. 2. Agreeable with discharge to rehab or home on Saturday. Objective - Vital Signs Vital signs: Vital Signs Temp 98.6 F 08/10/18 07:00 Pulse 80 08/10/18 08:12 Resp 20 08/10/18 07:00 BP 115/74 08/10/18 07:00 Pulse Ox 93 L 08/10/18 02:25 Intake & Output 08/09/18 08/10/18 08/10/18 18:59 06:59 18:59 Intake Total 200 290 Balance 200 290 Intake: Intake, IV Titration 290 Amount Acyclovir Sodium 750 mg 250 In Sodium Chloride 0.9% 250 ml @ 265 mls/hr IVPB Q8H [facility] Rx#:[id number] Lactated Ringers 1,000 ml 40 @ 20 mls/hr IV .Q24H [facility] Rx#:[id number] Oral 200 Other: # Voids 2 1 - Labs CBC & Chem 7: 08/10/18 06:24 08/10/18 06:24 Labs: Abnormal Lab Results - Last 24 Hours (Table) 08/10/18 08/10/18 Range/Units 06:24 06:24 RBC 3.17 L (3.80-5.40) m/uL Hgb 9.6 L (11.4-16.0) gm/dL Hct 30.8 L (34.0-46.0) % RDW 18.3 H (11.5-15.5) % Plt Count 494 H (150-450) k/uL Potassium 3.2 L (3.5-5.1) mmol/L Carbon Dioxide 33 H (22-30) mmol/L BUN 6 L (7-17) mg/dL Calcium 11.3 H (8.4-10.2) mg/dL Microbiology - Last 24 Hours (Table) 08/07/18 21:53 Blood Culture - Preliminary Blood No Growth after 48 hours 08/06/18 10:17 Anaerobic Culture - Final Abdomen Anaerobic Gm Negative Bacilli Assessment and Plan (1) Perforation of sigmoid colon due to diverticulitis Current Visit: Yes Status: Acute Code(s): K57.20 - DVTRCLI OF LG INT W PERFORATION AND ABSCESS W/O BLEEDING SNOMED Code(s): 1734601204070498 (2) Colostomy in place Current Visit: Yes Status: Acute Code(s): Z93.3 - COLOSTOMY STATUS SNOMED Code(s): 155840566 (3) Carcinoma of breast metastatic to bone Current Visit: Yes Status: Acute Priority: High Code(s): C50.919 - MALIGNANT NEOPLASM OF UNSP SITE OF UNSPECIFIED FEMALE BREAST; C79.51 - SECONDARY MALIGNANT NEOPLASM OF BONE SNOMED Code(s): 363083408 (4) Sepsis Current Visit: Yes Status: Acute Code(s): A41.9 - SEPSIS, UNSPECIFIED ORGANISM SNOMED Code(s): 04267685
[2018-08-10] MEDS: LACTATED RINGERS 1,000 ML IV SCH (16:07)
--- NOTE | 2018-08-10 22:52 | PN ---
PROGRESS NOTE DATE OF SERVICE: 08/10/2018 REASON FOR FOLLOWUP: 1. Herpes encephalitis. 2. Abdominal abscess. INTERVAL HISTORY: The patient is afebrile. The patient is breathing comfortably. Patient denies having any chest pain. No shortness of breath or cough. No abdominal pain. ( ) in her colostomy bag. PHYSICAL EXAMINATION: Her blood pressure is 149/82 with a pulse of 110, temperature 98.7; she is 95% on 5 L nasal cannula. General description is a middle-aged female up in the bed in no distress. Respiratory system: Unlabored breathing. Decreased breath sounds at the bases. No wheeze. Heart S1, S2. Regular rate and rhythm. Abdomen soft. Lower abdomen incision is open, currently being packed. Extremities: No edema of the feet. LABS: Hemoglobin 9.6, white count 6.8. BUN of 6, creatinine 0.81. DIAGNOSTIC IMPRESSION/PLAN: 1. Patient with abdominal sepsis from incarcerated hernia, status post resection and diverting colostomy. Subsequently did have dehiscence of her wound. The patient at this time covered with Zosyn and Diflucan and will be continued as the patient is currently allergic to Cipro and this pathogen is known to have a resistant pattern. 2. Patient with herpes encephalitis. She will finish her ( ) treatment tomorrow. 3. We will discuss with her the need for possible ( ) of the wound. was present at bedside. Questions were answered. BETH / AGATHA: [id number] /
[2018-08-11] MEDS: LEVOTHYROXINE 100 MCG TAB PO SCH (05:56)
[2018-08-11] MEDS: ACYCLOVIR SODIUM 750 MG in SODIUM CHLORIDE 0.9% 250 ML IVPB SCH ×2 (05:56→19:53)
[2018-08-11] MEDS: METOCLOPRAMIDE 5 MG/ML 2 ML VIAL IVP SCH ×3 (05:56→19:55)
[2018-08-11] MEDS: FAMOTIDINE 20 MG TAB PO SCH ×2 (08:40→21:12)
[2018-08-11] MEDS: FUROSEMIDE 10 MG/ML 2 ML VIAL IV SCH (08:40)
[2018-08-11] MEDS: POTASSIUM CHLORIDE ER 20 MEQ TAB.ER PO SCH ×3 (08:40→15:27)
[2018-08-11] MEDS: FLUCONAZOLE 100 MG TAB PO SCH (08:41)
[2018-08-11] MEDS: METOPROLOL TARTRATE 25 MG TAB PO SCH ×2 (08:41→21:12)
[2018-08-11] MEDS: amLODIPine 5 MG TAB PO SCH (08:41)
[2018-08-11 08:51] LABS: Magnesium 1.4 mg/dL (1.6-2.3); Potassium 3.3 mmol/L (3.5-5.1)
[2018-08-11] MEDS: HYDROcodone/APAP 7.5-325MG 1 EACH TAB PO PRN ×2 (08:57→19:55)
[2018-08-11] MEDS: PIPERACILLIN-TAZOBACTAM 3.375 GM in SODIUM CHLORIDE 0.9% 100 ML IVPB SCH ×2 (09:19→18:09)
--- NOTE | 2018-08-11 12:36 | P.PN ---
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 CT abdomen and pelvis in the ER showed moderate pneumoperitoneum. Site of perforation is difficult to induce date. Suspect colonic site. Small bowel ileus and extensive osseous metastasis was redemonstrated. Patient was seen by general surgery and underwent sigmoid colectomy with end colostomy. Patient was extubated postoperatively. 08/07/2018 Patient was initially admitted to the hospital with pneumoperitoneum status post surgery and ostomy bag placement. Currently tolerating oral diet and ostomy bag is functioning. Due to metastatic bony lesions patient underwent bone biopsy today. Patient otherwise denied any complaints of chest pain or shortness of breath. No nausea vomiting or abdominal pain. No fever no chills. Possible discharge to rehab in next 24-48 hours. 08/08/2018; Patient is seen and evaluated in the room at bedside; does report improvement in breathing; patient remains on oxygen 5 L per nasal cannula; patient did receive an extra dose of Lasix this morning 08/09/2018 Patient seen in follow-up on the regular medical floor. She is awake and alert in no acute distress. She denies any worsening shortness of breath, cough or congestion. She is maintaining good O2 saturations in the mid 90s on 5 L/m per nasal cannula. previous computed tomography scan of the chest revealed osteolytic areas in the thoracic spine and bony thorax consistent with metastatic disease unchanged. Increase atelectasis in the both lower lobes compared to previous exam. Pleural effusion noted. She remains on Lasix 20 mg IV daily. She remains on Zosyn. Pulmonary service is recommending to continue to titrate down her FiO2 as tolerated. Increase her activity as tolerated. Pulmonary service will be following peripherally Surgical service is recommending to continue with current diet as patient is tolerating well with the clearance for discharge to rehab or home on Saturday08/10/2018 Patient is seen and evaluated in follow-up in room with aspirin at bedside; we did discuss clearance for discharge by surgery and pulmonary service; patient has been maintaining O2 saturation 91-93% on 5 L of oxygen per nasal cannula; we will need to be evaluated for possible home O2 upon discharge Patient is being followed by ID for abdominal sepsis from incarcerated hernia, patient is status post resection with diverting colostomy with subsequent wound dehiscence; patient is currently on Zosyn and Diflucan; she remains on IV acyclovir for herpes encephalitis; per ID patient will be completed her treatment tomorrow Objective - Vital Signs Vital signs: Vital Signs Temp 98.6 F 08/10/18 07:00 Pulse 80 08/10/18 08:12 Resp 20 08/10/18 07:00 BP 115/74 08/10/18 07:00 Pulse Ox 93 L 08/10/18 02:25 Intake & Output 08/09/18 08/10/18 08/10/18 18:59 06:59 18:59 Intake Total 200 290 Balance 200 290 Intake: Intake, IV Titration 290 Amount Acyclovir Sodium 750 mg 250 In Sodium Chloride 0.9% 250 ml @ 265 mls/hr IVPB Q8H [facility] Rx#:[id number] Lactated Ringers 1,000 ml 40 @ 20 mls/hr IV .Q24H [facility] Rx#:[id number] Oral 200 Other: # Voids 2 1 - Exam Patient is lying in the bed comfortably, no acute distress, awake alert and oriented.. HEENT: Normocephalic. Neck is supple. Pupils reactive. Nostrils clear. Oral cavity is moist. Ears reveal no drainage. Neck reveals no JVD, carotid bruits, or thyromegaly. CHEST EXAMINATION: Trachea is central. Symmetrical expansion. Decreased bib asilar air entry. No wheezing.. CARDIAC: Normal S1, S2 with no gallops. No murmurs ABDOMEN: Soft. Bowel sounds diminished. Colostomy bag in place. Stool present. No organomegaly. No abdominal bruits. Extremities: reveal no edema. No clubbing or cyanosis - Labs CBC & Chem 7: 08/10/18 06:24 08/11/18 07:40 Labs: Abnormal Lab Results - Last 24 Hours (Table) 08/10/18 08/10/18 Range/Units 06:24 06:24 RBC 3.17 L (3.80-5.40) m/uL Hgb 9.6 L (11.4-16.0) gm/dL Hct 30.8 L (34.0-46.0) % RDW 18.3 H (11.5-15.5) % Plt Count 494 H (150-450) k/uL Potassium 3.2 L (3.5-5.1) mmol/L Carbon Dioxide 33 H (22-30) mmol/L BUN 6 L (7-17) mg/dL Calcium 11.3 H (8.4-10.2) mg/dL Microbiology - Last 24 Hours (Table) 08/07/18 21:53 Blood Culture - Preliminary Blood No Growth after 48 hours 08/06/18 10:17 Anaerobic Culture - Final Abdomen Anaerobic Gm Negative Bacilli 08/06/18 10:17 Gram Stain - Final Abdomen Wound Culture - Final Hafnia alvei Carmella albicans Citrobacter species Assessment and Plan Assessment: 1. Metastatic Breast Cancer - Bone - Patient follows with Dr. Fajardo as outpatient - patient has history of breast cancer in 2011, unknown if recurrence with metastatic breast cancer versus new metastatic disease - IR for bone Biopsy prior today 08/07/18: HER2 and [place] Testing on sample - Status Post Pelvic Mass Lytic lesion Biopsy - She received Aredia on 07/17/18, will be due for another 08/14/18 - Continue to monitor RLE weakness and footdrop, may need MRI SPine 2. Normocytic anemia: Secondary to post operative blood loss and component of malignancy - Check Iron studies and anemia work-up - Check CBC today 3. Acute Hypoxic Respiratory Failure: worsening - Likely secondary to exacerbation COPD, bilateral pleural effusions, atelectasis plus/minus component of pneumonia - She is now on 5Liter, concern as she was not on oxygen prior to admission and now requiring 5Liters to maintain oxygenation greater than 92% - Pulmonary is following, this appears to have improved after pulmonary gave dose of lasix, another dose given today at direction of primary team. Discussed with Dr. Skelton - Continues on Abx 4. Hypercalcemia: Calcium is trending back up at 10.1 today - She is status post Pamidronate on 07/16/18, therefore may receive second dose 08/13/18 - This is secondary to her diffuse bone mets 5. Debility and weakness: Secondary to recurrent hospitalizations, recent surgery - Plan is for sub-acute rehab at discharge 6. Status Post Sigmoid Colectomy and end colostomy - Emergent surgery for pneuperitoneum and incarcerated hernia - Recovering well and good outpt from ostomy. 7. DVT prophylaxis CODE STATUS; full code Time with Patient: Greater than 30
[2018-08-11] MEDS: MAGNESIUM SULFATE-D5W PMX 1 GM in DEXTROSE/WATER 1 100ML.BAG IVPB SCH ×3 (12:51→18:08)
[2018-08-11] MEDS ORDERED: POTASSIUM CHLORIDE 10 MEQ in WATER FOR INJECTION 1 100ML.BAG IVPB SCH (13:00)
--- NOTE | 2018-08-11 13:54 | P.PN ---
Subjective Progress Note Date: 08/11/18 CHIEF COMPLAINT: abdominal pain HISTORY OF PRESENT ILLNESS: 63-year-old female who underwent sigmoid colectomy with end colostomy, partial omentectomy, and repair of incarcerated ventral hernia. Patient is tolerating regular diet. Ostomy with stool and gas present. Sitting up in the chair. at bedside. PHYSICAL EXAM: VITAL SIGNS: Currently stable. GENERAL: Well-developed in no acute distress. HEENT: No sclera icterus. Extraocular movements grossly intact. Moist buccal mucosa. Head is atraumatic, normocephalic. Hears conversational speech. No nasal drainage. NECK: Supple without lymphadenopathy. CHEST: Non-labored respirations and equal bilateral excursions. CARDIOVASCULAR: Regular rate with regular rhythm. Palpable 2+ radial pulses. ABDOMEN: Soft. Nondistended. Dressing to midline incision with serosanguineous drainage. Ostomy to left lower quadrant with stool present. MUSCULOSKELETAL: No clubbing, cyanosis or edema. NEUROLOGIC: No focal or lateralizing signs. Cranial nerves II through XII gr ossly intact. PSYCH: Awake and alert and oriented. SKIN: Good skin turgor. Well-perfused. No cyanosis. ASSESSMENT: 1. Pneumoperitoneum, perforated viscus s/p sigmoid colectomy with end colostomy, partial omentectomy, and repair of incarcerated ventral hernia 2. Sepsis, present on admission, secondary to above, resolved PLAN: Stable for discharge from a surgical standpoint Wound care per infectious disease. If Dr. Myers recommends wound vac, surgery is agreeable Follow up with Dr. Coats in 1 week Nurse practitioner note has been reviewed by physician. Signing provider agrees with the documented findings, assessment, and plan of care. Objective - Vital Signs Vital signs: Vital Signs Temp 97.8 F 08/11/18 07:13 Pulse 118 H 08/11/18 09:15 Resp 18 08/10/18 23:00 BP 143/76 08/11/18 07:13 Pulse Ox 93 L 08/11/18 07:13 Intake & Output 08/10/18 08/11/18 08/11/18 18:59 06:59 18:59 Intake Total 200 550 Balance 200 550 Intake: Intake, IV Titration 550 Amount Acyclovir Sodium 750 mg 250 In Sodium Chloride 0.9% 250 ml @ 265 mls/hr IVPB Q8H [facility] Rx#:[id number] Lactated Ringers 1,000 ml 200 @ 20 mls/hr IV .Q24H [facility] Rx#:[id number] Piperacillin-Tazobactam 3 100 .375 gm In Sodium Chloride 0.9% 100 ml @ 25 mls/hr IVPB Q8HR [facility] Rx# :[id number] Oral 200 Other: Voiding Method Bedside Commode # Voids 2 1 - Labs CBC & Chem 7: 08/10/18 06:24 08/11/18 07:40 Labs: Abnormal Lab Results - Last 24 Hours (Table) 08/11/18 Range/Units 07:40 Potassium 3.3 L (3.5-5.1) mmol/L Magnesium 1.4 L (1.6-2.3) mg/dL Microbiology - Last 24 Hours (Table) 08/07/18 21:53 Blood Culture - Preliminary Blood No Growth after 72 hours
[2018-08-11] MEDS: LACTATED RINGERS 1,000 ML IV SCH (15:27)
--- NOTE | 2018-08-11 17:57 | P.PN ---
Subjective Progress Note Date: 08/11/18 Principal diagnosis: Hernia repair abscess. Bone mets, s/p biopsy In f/u pt has no acute c/o, no fever, nausea, KATLYN, she is weak, has MS discomforts, her abd incision is not unrealistically tender, no bloating Objective - Vital Signs Vital signs: Vital Signs Temp 97.8 F 08/11/18 07:13 Pulse 118 H 08/11/18 09:15 Resp 18 08/10/18 23:00 BP 143/76 08/11/18 07:13 Pulse Ox 93 L 08/11/18 07:13 Intake & Output 08/10/18 08/11/18 08/11/18 18:59 06:59 18:59 Intake Total 200 550 Balance 200 550 Intake: Intake, IV Titration 550 Amount Acyclovir Sodium 750 mg 250 In Sodium Chloride 0.9% 250 ml @ 265 mls/hr IVPB Q8H [facility] Rx#:[id number] Lactated Ringers 1,000 ml 200 @ 20 mls/hr IV .Q24H [facility] Rx#:[id number] Piperacillin-Tazobactam 3 100 .375 gm In Sodium Chloride 0.9% 100 ml @ 25 mls/hr IVPB Q8HR [facility] Rx# :[id number] Oral 200 Other: Voiding Method Bedside Commode # Voids 2 1 - Constitutional General appearance: Present: average body habitus, cooperative, no acute distress - EENT Eyes: Present: anicteric sclerae, EOMI - Respiratory Respiratory: bilateral: CTA - Cardiovascular Heart sounds: normal: S1, S2 - Gastrointestinal Gastrointestinal Comment(s): Rt sided ostomy, midline incision mild redness, edges approximated General gastrointestinal: Present: decreased bowel sounds, soft - Integumentary Integumentary: Present: pale - Neurologic Neurologic: Present: CNII-XII intact - Musculoskeletal Musculoskeletal: Present: generalized weakness - Psychiatric Psychiatric: Present: A&O x's 3, appropriate affect, intact judgment & insight - Labs CBC & Chem 7: 08/10/18 06:24 08/11/18 07:40 Labs: Abnormal Lab Results - Last 24 Hours (Table) 08/11/18 Range/Units 07:40 Potassium 3.3 L (3.5-5.1) mmol/L Magnesium 1.4 L (1.6-2.3) mg/dL Microbiology - Last 24 Hours (Table) 08/07/18 21:53 Blood Culture - Preliminary Blood No Growth after 72 hours Assessment and Plan (1) Carcinoma of breast metastatic to bone Narrative/Plan: Pending bone biopsy results. I reviewed with the pt that likely what we are dealing with is cancer, whether this is a new primary metastasized to the bone or her mets from her previous malignancy is yet to be determined, pending the bone biopsy results. We discussed all treatment would be palliative in nature. We also reinforced that there she would not receive any treatment until she heals from her surgery (about 4-5 weeks). was at bedside, all questions answered to the best of my ability Current Visit: Yes Status: Acute Priority: High Code(s): C50.919 - MALIGNANT NEOPLASM OF UNSP SITE OF UNSPECIFIED FEMALE BREAST; C79.51 - SECONDARY MALIGNANT NEOPLASM OF BONE SNOMED Code(s): 964202065 (2) Perforation of sigmoid colon due to diverticulitis Narrative/Plan: S/P surgery for abscess, on abx, defer to surgery for mgmt. Current Visit: Yes Status: Acute Code(s): K57.20 - DVTRCLI OF LG INT W PERFORATION AND ABSCESS W/O BLEEDING SNOMED Code(s): 1238310687311709 (3) S/P PICC central line placement Current Visit: No Status: Acute Code(s): Z95.828 - PRESENCE OF OTHER VASCULAR IMPLANTS AND GRAFTS SNOMED Code(s): 973117294
--- NOTE | 2018-08-11 21:49 | P.PN ---
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 CT abdomen and pelvis in the ER showed moderate pneumoperitoneum. Site of perforation is difficult to induce date. Suspect colonic site. Small bowel ileus and extensive osseous metastasis was redemonstrated. Patient was seen by general surgery and underwent sigmoid colectomy with end colostomy. Patient was extubated postoperatively. 08/07/2018 Patient was initially admitted to the hospital with pneumoperitoneum status post surgery and ostomy bag placement. Currently tolerating oral diet and ostomy bag is functioning. Due to metastatic bony lesions patient underwent bone biopsy today. Patient otherwise denied any complaints of chest pain or shortness of breath. No nausea vomiting or abdominal pain. No fever no chills. Possible discharge to rehab in next 24-48 hours. 08/08/2018; Patient is seen and evaluated in the room at bedside; does report improvement in breathing; patient remains on oxygen 5 L per nasal cannula; patient did receive an extra dose of Lasix this morning 08/09/2018 Patient seen in follow-up on the regular medical floor. She is awake and alert in no acute distress. She denies any worsening shortness of breath, cough or congestion. She is maintaining good O2 saturations in the mid 90s on 5 L/m per nasal cannula. previous computed tomography scan of the chest revealed osteolytic areas in the thoracic spine and bony thorax consistent with metastatic disease unchanged. Increase atelectasis in the both lower lobes compared to previous exam. Pleural effusion noted. She remains on Lasix 20 mg IV daily. She remains on Zosyn. Pulmonary service is recommending to continue to titrate down her FiO2 as tolerated. Increase her activity as tolerated. Pulmonary service will be following peripherally Surgical service is recommending to continue with current diet as patient is tolerating well with the clearance for discharge to rehab or home on Saturday08/10/2018 Patient is seen and evaluated in follow-up in room with aspirin at bedside; we did discuss clearance for discharge by surgery and pulmonary service; patient has been maintaining O2 saturation 91-93% on 5 L of oxygen per nasal cannula; we will need to be evaluated for possible home O2 upon discharge Patient is being followed by ID for abdominal sepsis from incarcerated hernia, patient is status post resection with diverting colostomy with subsequent wound dehiscence; patient is currently on Zosyn and Diflucan; she remains on IV acyclovir for herpes encephalitis; per ID patient will be completed her treatment tomorrow 08/11/18; Stable for discharge from a surgical standpoint; Wound care per infectious disease. ID recommends wound vac, surgery is agreeable; Follow up with Dr. Coats in 1 week CM to arrange for DC; need ID final recs for antibiotics Objective - Vital Signs Vital signs: Vital Signs Temp 97.8 F 08/11/18 07:13 Pulse 118 H 08/11/18 09:15 Resp 18 08/10/18 23:00 BP 143/76 08/11/18 07:13 Pulse Ox 93 L 08/11/18 07:13 Intake & Output 08/10/18 08/11/18 08/11/18 18:59 06:59 18:59 Intake Total 200 550 Balance 200 550 Intake: Intake, IV Titration 550 Amount Acyclovir Sodium 750 mg 250 In Sodium Chloride 0.9% 250 ml @ 265 mls/hr IVPB Q8H [facility] Rx#:[id number] Lactated Ringers 1,000 ml 200 @ 20 mls/hr IV .Q24H [facility] Rx#:[id number] Piperacillin-Tazobactam 3 100 .375 gm In Sodium Chloride 0.9% 100 ml @ 25 mls/hr IVPB Q8HR [facility] Rx# :[id number] Oral 200 Other: Voiding Method Bedside Commode # Voids 2 1 - Exam Patient is lying in the bed comfortably, no acute distress, awake alert and oriented.. HEENT: Normocephalic. Neck is supple. Pupils reactive. Nostrils clear. Oral cavity is moist. Ears reveal no drainage. Neck reveals no JVD, carotid bruits, or thyromegaly. CHEST EXAMINATION: Trachea is central. Symmetrical expansion. Decreased bibasilar air entry. No wheezing.. CARDIAC: Normal S1, S2 with no gallops. No murmurs ABDOMEN: Soft. Bowel sounds diminished. Colostomy bag in place. Stool present. No organomegaly. No abdominal bruits. Extremities: reveal no edema. No clubbing or cyanosis - Labs CBC & Chem 7: 08/10/18 06:24 08/11/18 19:21 Labs: Abnormal Lab Results - Last 24 Hours (Table) 08/11/18 Range/Units 07:40 Potassium 3.3 L (3.5-5.1) mmol/L Magnesium 1.4 L (1.6-2.3) mg/dL Microbiology - Last 24 Hours (Table) 08/07/18 21:53 Blood Culture - Preliminary Blood No Growth after 72 hours Assessment and Plan Assessment: 1. Metastatic Breast Cancer - Bone - Patient follows with Dr. Fajardo as outpatient - patient has history of breast cancer in 2011, unknown if recurrence with metastatic breast cancer versus new metastatic disease - IR for bone Biopsy prior today 08/07/18: HER2 and ER/[place] Testing on sample - Status Post Pelvic Mass Lytic lesion Biopsy - She received Aredia on 07/17/18, will be due for another 08/14/18 - Continue to monitor RLE weakness and footdrop, may need MRI SPine 2. Normocytic anemia: Secondary to post operative blood loss and component of malignancy - Check Iron studies and anemia work-up - Check CBC today 3. Acute Hypoxic Respiratory Failure: worsening - Likely secondary to exacerbation COPD, bilateral pleural effusions, atelectasis plus/minus component of pneumonia - She is now on 5Liter, concern as she was not on oxygen prior to admission and now requiring 5Liters to maintain oxygenation greater than 92% - Pulmonary is following, this appears to have improved after pulmonary gave dose of lasix, another dose given today at direction of primary team. Discussed with Dr. Skelton - Continues on Abx 4. Hypercalcemia: Calcium is trending back up at 10.1 today - She is status post Pamidronate on 07/16/18, therefore may receive second dose 08/13/18 - This is secondary to her diffuse bone mets 5. Debility and weakness: Secondary to recurrent hospitalizations, recent surgery - Plan is for sub-acute rehab at discharge 6. Status Post Sigmoid Colectomy and end colostomy - Emergent surgery for pneuperitoneum and incarcerated hernia - Recovering well and good outpt from ostomy. 7. DVT prophylaxis CODE STATUS; full code Time with Patient: Greater than 30
[2018-08-12] MEDS: METOCLOPRAMIDE 5 MG/ML 2 ML VIAL IVP SCH ×3 (00:21→11:31)
[2018-08-12] MEDS: PIPERACILLIN-TAZOBACTAM 3.375 GM in SODIUM CHLORIDE 0.9% 100 ML IVPB SCH ×2 (00:21→08:42)
[2018-08-12] MEDS: POTASSIUM CHLORIDE ER 20 MEQ TAB.ER PO SCH ×3 (00:22→08:44)
--- NOTE | 2018-08-12 00:28 | PN ---
PROGRESS NOTE DATE OF SERVICE: 08/11/2018. REASON FOR FOLLOWUP VISIT: 1. Abdominal abscess . 2. Colitis. 3. Family history of . INTERVAL HISTORY: The patient is currently afebrile. Breathing comfortably. Denies having any chest pain or any cough. No abdominal pain or any diarrhea. PHYSICAL EXAMINATION: Blood pressure 156/89 with a pulse of 94, temperature 98.2. She is 96% on 5 L oxygen. General description is a middle-aged female up in the bed in no distress. Respiratory system: Unlabored breathing. Clear to auscultation anteriorly. Heart S1, S2. Regular rate and rhythm. Abdomen soft, no tenderness. LABS: No new labs have been obtained today. DIAGNOSTIC IMPRESSION AND PLAN: 1. Patient with incarcerated abdominal wound, hernia with an abscess, status post resection bowel and diverting colostomy, subsequent did have abdominal wound dehiscence. The repeat culture with Carmella albicans, Citrobacter and hyphema with no anaerobic gram negative bacilli. Currently on Zosyn, we transitioned that to Invanz 1 g daily for about a week along with oral Diflucan. Local wound care with the wound VAC continuous pressure of 125 mmHg with black wound which is Saturday, Saturday and Saturday. 2. The patient with colitis, adequately treated, vinh wrap will be discontinued. Thank you for the consultation. MMLEEANNL / IJN: [id number] /
[2018-08-12] MEDS: HYDROcodone/APAP 7.5-325MG 1 EACH TAB PO PRN ×3 (02:09→16:51)
[2018-08-12 03:55] LABS: Magnesium 1.8 mg/dL (1.6-2.3); Potassium 3.6 mmol/L (3.5-5.1)
[2018-08-12] MEDS: ACYCLOVIR SODIUM 750 MG in SODIUM CHLORIDE 0.9% 250 ML IVPB SCH (04:59)
[2018-08-12] MEDS: LEVOTHYROXINE 100 MCG TAB PO SCH (06:15)
[2018-08-12 08:07] VITALS: RESP 15
[2018-08-12] MEDS: METOPROLOL TARTRATE 25 MG TAB PO SCH (08:43)
[2018-08-12] MEDS: amLODIPine 5 MG TAB PO SCH (08:43)
[2018-08-12] MEDS: FUROSEMIDE 10 MG/ML 2 ML VIAL IV SCH (08:43)
[2018-08-12] MEDS: FAMOTIDINE 20 MG TAB PO SCH (08:43)
[2018-08-12] MEDS: FLUCONAZOLE 100 MG TAB PO SCH (08:44)
--- NOTE | 2018-08-12 08:57 | P.PN ---
Subjective Progress Note Date: 08/12/18 CHIEF COMPLAINT: abdominal pain HISTORY OF PRESENT ILLNESS: 63-year-old female who underwent sigmoid colectomy with end colostomy, partial omentectomy, and repair of incarcerated ventral hernia. Patient is tolerating regular diet. Ostomy with stool and gas present. PHYSICAL EXAM: VITAL SIGNS: Currently stable. GENERAL: Well-developed in no acute distress. HEENT: No sclera icterus. Extraocular movements grossly intact. Moist buccal mucosa. Head is atraumatic, normocephalic. Hears conversational speech. No nasal drainag e. NECK: Supple without lymphadenopathy. CHEST: Non-labored respirations and equal bilateral excursions. CARDIOVASCULAR: Regular rate with regular rhythm. Palpable 2+ radial pulses. ABDOMEN: Soft. Nondistended. Wound vac to distal end of incision. Ostomy to left lower quadrant with stool present. MUSCULOSKELETAL: No clubbing, cyanosis or edema. NEUROLOGIC: No focal or lateralizing signs. Cranial nerves II through XII grossly intact. PSYCH: Awake and alert and oriented. SKIN: Good skin turgor. Well-perfused. No cyanosis. ASSESSMENT: 1. Pneumoperitoneum, perforated viscus s/p sigmoid colectomy with end colostomy, partial omentectomy, and repair of incarcerated ventral hernia 2. Sepsis, present on admission, secondary to above, resolved PLAN: Stable for discharge from a surgical standpoint Continue wound vac per Dr. Myers Follow up with Dr. Coats in 1 week Nurse practitioner note has been reviewed by physician. Signing provider agrees with the documented findings, assessment, and plan of care. Objective - Vital Signs Vital signs: Vital Signs Temp 98.7 F 08/12/18 07:00 Pulse 98 08/12/18 07:00 Resp 15 08/12/18 07:00 BP 138/80 08/12/18 07:00 Pulse Ox 93 L 08/12/18 07:00 Intake & Output 08/11/18 08/12/18 08/12/18 18:59 06:59 18:59 Intake Total 1440 850 Balance 1440 850 Intake: IV 140 Lactated Ringers 1,000 ml 140 @ 20 mls/hr IV .Q24H [facility] Rx#:[id number] Intake, IV Titration 300 550 Amount Acyclovir Sodium 750 mg 250 In Sodium Chloride 0.9% 250 ml @ 265 mls/hr IVPB Q8H [facility] Rx#:[id number] Lactated Ringers 1,000 ml 200 @ 20 mls/hr IV .Q24H [facility] Rx#:[id number] Magnesium Sulfate-D5w Pmx 100 1 gm In Dextrose/Water 1 100ml.bag @ 100 mls/hr IVPB Q1H [facility] Rx#: [id number] Piperacillin-Tazobactam 3 100 .375 gm In Sodium Chloride 0.9% 100 ml @ 25 mls/hr IVPB Q8HR [facility] Rx# :[id number] Piperacillin-Tazobactam 3 100 100 .375 gm In Sodium Chloride 0.9% 100 ml @ 25 mls/hr IVPB Q8HR [facility] Rx# :[id number] Oral 1000 300 Other: Voiding Method Toilet Bedside Commode # Voids 2 2 1 - Labs CBC & Chem 7: 08/10/18 06:24 08/12/18 03:14 Labs: Abnormal Lab Results - Last 24 Hours (Table) 08/11/18 Range/Units 19:21 Potassium 3.0 L (3.5-5.1) mmol/L Microbiology - Last 24 Hours (Table) 08/07/18 21:53 Blood Culture - Preliminary Blood No Growth after 96 hours
[2018-08-12] MEDS ORDERED: ERTAPENEM 1 GM in SODIUM CHLORIDE 0.9% 50 ML IVPB SCH (13:00)
[2018-08-12 14:54] VITALS: BMI 33.5
[2018-08-12 15:23] VITALS: BP 138/79; PULSE 97; TEMP 98.5
--- NOTE | 2018-08-12 15:50 | P.DS ---
Providers Date of admission: 07/28/18 17:01 Expected date of discharge: 08/12/18 Attending physician: Dannielle Skelton Consults: 07/28/18 18:39 Consult Physician Urgent Consulting Provider: Fritz Mata Consult Reason/Comments: ICU Management Do you want consulting provider notified?: Already Contacted 07/28/18 19:18 Consult Physician Routine Consulting Provider: Fritz Mata Consult Reason/Comments: Medical medical management Do you want consulting provider notified?: Already Contacted Consult Physician Routine Consulting Provider: Kellie Moran Consult Reason/Comments: Diverticulitis Do you want consulting provider notified?: Yes 07/28/18 19:25 Consult Physician Routine Consulting Provider: Gordon Cole Consult Reason/Comments: Medical management Do you want consulting provider notified?: Yes 08/05/18 10:13 Consult Physician Routine Consulting Provider: Angel Oneill Consult Reason/Comments: mets/hx breast cancer Do you want consulting provider notified?: Yes 08/06/18 08:10 Consult Physician Routine Consulting Provider: Chuy Coats Consult Reason/Comments: surgery Do you want consulting provider notified?: Already Contacted Primary care physician: [facility] Course: 63-year-old female with a known history of breast cancer status post mastectomy comes to the ER with abdominal pain. CT of the abdomen showed pneumoperitoneum with site of perforation difficult to pinpoint. Patient was seen by general surgery and underwent sigmoid colectomy and end colostomy. Patient is intubated and eventually extubated postoperatively. Patient was initially in the ICU but later on transferred to the medical floor. She was followed by surgery and infectious disease. On the day of discharge on 08/12/2018 On exam, alert and oriented x3. HEENT: Conjunctivae normal. eyes normal. NECK: No JVD. No thyroid enlargement. No LNs CARDIOVASCULAR: S1, S2 muffled. No murmur RESPIRATION: Breath sounds diminished in the bases. No rhonchi or crackles. No bronchial breathing. ABDOMEN: Soft, mild tenderness appreciated she has colostomy site and as output from the colostomy site. She has a wound VAC at the site of incision. LEGS: No edema. no swelling NERVOUS SYSTEM: Cranial N 2-12 grossly normal. Moves all 4 limbs. No focal deficits. No sensory deficit. No signs of cerebellar dysfucntion. Skin: no ulcer no rash Patient will be discharged to rehab. Patient is to follow with surgery at the date entered in the discharge summary. Patient is to follow and finish the course of antibiotics as per ID recommendations. Patient Condition at Discharge: Stable Plan - Discharge Summary Discharge Rx Participant: No New Discharge Prescriptions: New HYDROcodone/APAP 7.5-325MG [[place] 7.5-325] 1 tab PO Q4H PRN 3 Days #18 tab PRN Reason: Pain Fluconazole [Diflucan] 200 mg PO DAILY #7 tab Ertapenem [INVanz] 1 gm IVPB Q24H #7 bag Continue amLODIPine [Norvasc] 5 mg PO DAILY #30 tab Levothyroxine Sodium [Synthroid] 100 mcg PO DAILY@0630 #30 tab Metoprolol Tartrate [Lopressor] 25 mg PO BID #60 tab Dexamethasone [Decadron] See Taper PO TID Discontinued Acyclovir 750mg Infusion 750 mg IVPB TID@0000,0800,1600 Discharge Medication List Levothyroxine Sodium [Synthroid] 100 mcg PO DAILY@0630 #30 tab 07/23/18 [Rx] Metoprolol Tartrate [Lopressor] 25 mg PO BID #60 tab 07/23/18 [Rx] amLODIPine [Norvasc] 5 mg PO DAILY #30 tab 07/23/18 [Rx] Dexamethasone [Decadron] See Taper PO TID 07/28/18 [History] HYDROcodone/APAP 7.5-325MG [[place] 7.5-325] 1 tab PO Q4H PRN 3 Days #18 tab 08/08/18 [Rx] Ertapenem [INVanz] 1 gm IVPB Q24H #7 bag 08/12/18 [Rx] Fluconazole [Diflucan] 200 mg PO DAILY #7 tab 08/12/18 [Rx] Follow up Appointment(s)/Referral(s): Angel Oneill MD [STAFF PHYSICIAN] - 4 Weeks Ninoska Tovar MD [Primary Care Provider] - 1-2 days Chuy Coats MD [STAFF PHYSICIAN] - 1 Week Patient Instructions/Handouts: Diverticulitis (GEN), Colostomy Care (GEN), Negative Pressure Wound Therapy (DC) Activity/Diet/Wound Care/Special Instructions: Colosotmy Care Instructions: Last pouching system change: 08-11-2018 Home Supplies recommendations: Convate one piece cut to fit pouching #[id number] (three from the hospital) No sting Prep Pads (12) Osotmy Powder (1) Change pouching system every 3-5 days Empty pouching system when it is 1/3 to 1/2 full Home [facility] please arrange for osotmy supplies with Durable Medical Equipment in 2-[address] while taking [place] No lifting over 10 pounds You may shower. No soaking or tub baths Very light activity until you are reevaluated at your follow up appointment with your surgeon Wound Vac orders: continuous 120mm Hg. change Saturday and Saturday Black granulofoam Follow-up with Dr. moran in the wound care center 1 week Call [phone] to make an appointment Discharge Disposition: TRANSFER TO SNF/ECF
--- NOTE | 2018-08-12 16:23 | PN ---
PROGRESS NOTE DATE OF SERVICE: 08/12/2018 REASON FOR FOLLOWUP: 1. Herpes encephalitis. 2. Abdominal abscess. 3. Incarcerated ventral hernia. INTERVAL HISTORY: The patient is currently afebrile. The patient is breathing comfortably. The patient denies having any chest pain or any cough. Denies any abdominal pain. The patient did have a wound V.A.C. applied on the lower abdominal wound, which the patient has been tolerating so far. PHYSICAL EXAMINATION: Blood pressure 132/80 with a pulse of 98, temperature 98.7. She is 93% on 3 L nasal cannula. General description is a middle-aged female lying in bed in no distress. RESPIRATORY SYSTEM: Unlabored breathing. Clear to auscultation anteriorly. HEART: S1, S2. Regular rate and rhythm. ABDOMEN: Soft. No tenderness. LABS: Blood culture has been negative. DIAGNOSTIC IMPRESSION AND PLAN: 1. Patient with herpes encephalitis, adequately treated, currently off acyclovir. 2. Patient with an abdominal abscess from incarcerated hernia, status post resection and diverting colostomy with wound dehiscence. Culture positive for multiple pathogens. Patient's antibiotic adjusted to Invanz 1 gram daily along with Diflucan, to continue for about a week in the outpatient setting. Local wound care with the wound V.A.C. to be changed Saturday, Saturday and Saturday and follow up in the wound care center next week. cultures were also taken. MMODL / IJN: [id number] /
--- NOTE | 2018-08-12 17:39 | P.PN ---
Subjective Progress Note Date: 08/12/18 Principal diagnosis: Hernia repair abscess. Bone mets, s/p biopsy In follow-up today patient has a wound VAC placed on her abdomen status post hernia repair with abscess formation. Patient denies any complaints on a 10 point review of systems Objective - Vital Signs Vital signs: Vital Signs Temp 98.5 F 08/12/18 15:00 Pulse 97 08/12/18 15:00 Resp 15 08/12/18 15:00 BP 138/79 08/12/18 15:00 Pulse Ox 94 L 08/12/18 15:00 Intake & Output 08/11/18 08/12/18 08/12/18 18:59 06:59 18:59 Intake Total 1440 850 Balance 1440 850 Weight 88.8 kg Intake: IV 140 Lactated Ringers 1,000 ml 140 @ 20 mls/hr IV .Q24H [facility] Rx#:[id number] Intake, IV Titration 300 550 Amount Acyclovir Sodium 750 mg 250 In Sodium Chloride 0.9% 250 ml @ 265 mls/hr IVPB Q8H [facility] Rx#:[id number] Lactated Ringers 1,000 ml 200 @ 20 mls/hr IV .Q24H [facility] Rx#:[id number] Magnesium Sulfate-D5w Pmx 100 1 gm In Dextrose/Water 1 100ml.bag @ 100 mls/hr IVPB Q1H [facility] Rx#: [id number] Piperacillin-Tazobactam 3 100 .375 gm In Sodium Chloride 0.9% 100 ml @ 25 mls/hr IVPB Q8HR [facility] Rx# :[id number] Piperacillin-Tazobactam 3 100 100 .375 gm In Sodium Chloride 0.9% 100 ml @ 25 mls/hr IVPB Q8HR [facility] Rx# :[id number] Oral 1000 300 Other: Voiding Method Toilet Toilet Bedside Commode Bedside Commode # Voids 2 2 2 - Exam Well-developed, well-nourished female sitting up in bed, no acute distress, alert and oriented 4, normocephalic, atraumatic, anicteric sclera, respirations are even and unlabored, wound VAC is in place on the abdomen, no swelling in the legs, patient is able to adjust her weight in the bed, is at the bedside - Labs CBC & Chem 7: 08/10/18 06:24 08/12/18 03:14 Labs: Abnormal Lab Results - Last 24 Hours (Table) 08/11/18 Range/Units 19:21 Potassium 3.0 L (3.5-5.1) mmol/L Microbiology - Last 24 Hours (Table) 08/07/18 21:53 Blood Culture - Preliminary Blood No Growth after 96 hours Assessment and Plan (1) Carcinoma of breast metastatic to bone Narrative/Plan: We discussed the pathology of the bone biopsy today. This did confirm metastatic breast cancer. ER, MI, HER-2 are pending. It was explained to patient that her cancer is a stage IV, her disease is not curable but it is treatable. Treatment for her disease cannot begin until wound vac is removed and her abscess is healed It is also important for the hormone receptors to be reported, as that can impact treatment options and prognosis. All of patient and her 's questions were answered to the best of my ability. Plan is to follow up with Dr. Oneill in 3-4 weeks after discharge for evaluation of how her wound is healing and plan of care for malignancy. Status: Acute Priority: High Code(s): C50.919 - MALIGNANT NEOPLASM OF UNSP SITE OF UNSPECIFIED FEMALE BREAST; C79.51 - SECONDARY MALIGNANT NEOPLASM OF BONE SNOMED Code(s): 638752134 (2) Perforation of sigmoid colon due to diverticulitis Status: Acute Code(s): K57.20 - DVTRCLI OF LG INT W PERFORATION AND ABSCESS W/O BLEEDING SNOMED Code(s): 8119472834829472 (3) S/P PICC central line placement Status: Acute Code(s): Z95.828 - PRESENCE OF OTHER VASCULAR IMPLANTS AND GRAFTS SNOMED Code(s): 218226368
== END 2018-08-12 17:25 | DRG 853 ==
LOC: EC 13:35 → 4SSUR 17:01 → 2SICU 18:55 → 4SSUR 08-01 16:18
PROVIDERS: ADMIT Internal Medicine; ATTEND Internal Medicine
PROC: 0DBU0ZZ Excision of Omentum, Open Approach (ICD-10-PCS; 2018-07-28)
PROC: 0WQF0ZZ Repair Abdominal Wall, Open Approach (ICD-10-PCS; 2018-07-28)
PROC: 0DTN0ZZ Resection of Sigmoid Colon, Open Approach (ICD-10-PCS; principal; 2018-07-28 16:57)
PROC: 0QB23ZX Excision of Right Pelvic Bone, Percutaneous Approach, Diagnostic (ICD-10-PCS; 2018-08-07)
DX: A41.89 Other specified sepsis (principal); B00.4 Herpesviral encephalitis; J18.9 Pneumonia, unspecified organism; J96.01 Acute respiratory failure with hypoxia; C79.51 Secondary malignant neoplasm of bone; J44.0 Chronic obstructive pulmonary disease with (acute) lower respiratory infection; J44.1 Chronic obstructive pulmonary disease with (acute) exacerbation; J98.11 Atelectasis; K56.7 Ileus, unspecified; K57.20 Diverticulitis of large intestine with perforation and abscess without bleeding; K43.6 Other and unspecified ventral hernia with obstruction, without gangrene; N17.9 Acute kidney failure, unspecified; D62 Acute posthemorrhagic anemia; B96.89 Other specified bacterial agents as the cause of diseases classified elsewhere; B95.2 Enterococcus as the cause of diseases classified elsewhere; E83.52 Hypercalcemia; I11.9 Hypertensive heart disease without heart failure; C50.919 Malignant neoplasm of unspecified site of unspecified female breast; B96.20 Unspecified Escherichia coli [E. coli] as the cause of diseases classified elsewhere; E03.9 Hypothyroidism, unspecified; F41.9 Anxiety disorder, unspecified; G89.3 Neoplasm related pain (acute) (chronic); K52.9 Noninfective gastroenteritis and colitis, unspecified; M21.371 Foot drop, right foot; K21.9 Gastro-esophageal reflux disease without esophagitis; D63.0 Anemia in neoplastic disease; Z79.811 Long term (current) use of aromatase inhibitors; Z79.890 Hormone replacement therapy; Z79.899 Other long term (current) drug therapy; Z88.1 Allergy status to other antibiotic agents; Z88.5 Allergy status to narcotic agent; Z87.891 Personal history of nicotine dependence; Z90.13 Acquired absence of bilateral breasts and nipples; Z90.49 Acquired absence of other specified parts of digestive tract
CPT/HCPCS: 20225; 36415; 71045; 71046; 71260; 74177; 80048; 80053; 81003; 82330; 82607; 82728; 82746; 82784; 83540; 83550; 83605; 83735; 84100; 84132; 84484; 85025; 85610; 85730; 87040; 87070; 87075; 87077; 87086; 87186; 87205; 88302; 88307; 88311; 88341; 88342; 93005; 94760; 96365; 96375; 99285

== ENCOUNTER 2018-09-03 13:37 | Emergency (ER) | payer BC ==
[2018-09-03] MEDS ORDERED: ACETAMINOPHEN TAB 500 MG TAB PO STA (14:01)
--- NOTE | 2018-09-03 14:09 | ED ---
General Adult HPI - General Chief complaint: Recheck/Abnormal Lab/Rx Stated complaint: Sepsis Time Seen by Provider: 09/03/18 13:40 Source: patient, RN notes reviewed Mode of arrival: ambulatory Limitations: no limitations - History of Present Illness Initial comments: This a 63-year-old female who presents emergency Department because at the [facility] they thought her wound looked infected. Patient had a recent colostomy secondary to a colonic rupture. Patient states the bottom part of the incision open prior to being discharge. Patient states the upper part of the incision opened on Saturday and today nursing was concerned that it might be i nfected. Patient states she does not feel any different. Patient denies any abdominal pain patient denies nausea vomiting diarrhea. Patient denies any chest pain or difficulty breathing. Patient denies any dysuria hematuria urinary frequency. Patient states she was sent in by the nurses at the [facility] and her opinion she has no new symptoms. - Related Data Home Medications Medication Instructions Recorded Confirmed Bisacodyl [Dulcolax] 10 mg RECTAL DAILY PRN 09/03/18 09/03/18 [place] Instant Breakfast 1 packet PO W/BRKFST 09/03/18 09/03/18 Letrozole [Femara] 2.5 mg PO DAILY 09/03/18 09/03/18 Levothyroxine Sodium [Synthroid] 100 mcg PO SUTUTHSA 09/03/18 09/03/18 Levothyroxine Sodium [Synthroid] 112 mcg PO MOWEFR 09/03/18 09/03/18 Magic Cup 2,400 ml PO HS 09/03/18 09/03/18 Magnesium Hydroxide [Milk of 2,400 mg PO DAILY PRN 09/03/18 09/03/18 Magnesia] Metoprolol Tartrate [Lopressor] 25 mg PO BID@0800,1700 09/03/18 09/03/18 Na Phos,M-B/Na Phos,Di-Ba [Fleet 133 ml RECTAL DAILY PRN 09/03/18 09/03/18 Adult] Prostat 30 ml PO DAILY 09/03/18 09/03/18 clonazePAM 0.5 mg PO DAILY PRN 09/03/18 09/03/18 Previous Rx's Medication Instructions Recorded amLODIPine [Norvasc] 5 mg PO DAILY #30 tab 07/23/18 HYDROcodone/APAP 7.5-325MG [[place] 1 tab PO Q4H PRN 3 Days #18 tab 08/08/18 7.5-325] Amoxicillin/Potassium Clav 1 each PO Q12HR #20 tab 09/03/18 [Augmentin 875-125 Tablet] Allergies Allergy/AdvReac Type Severity Reaction Status Date / Time ciprofloxacin [From Cipro] AdvReac Nausea & Verified 09/03/18 14:19 Vomiting codeine AdvReac "GETS THE Verified 09/03/18 14:19 SHAKES" Review of Systems ROS Statement: Those systems with pertinent positive or pertinent negative responses have been documented in the HPI. ROS Other: All systems not noted in ROS Statement are negative. Past Medical History Past Medical History: Thyroid Disorder Additional Past Medical History / Comment(s): Breast cancer, with bilateral mastectomy followed by Arimidex treatment, hypothyroidism, COPD History of Any Multi-Drug Resistant Organisms: None Reported Past Surgical History: Appendectomy, Breast Surgery Additional Past Surgical History / Comment(s): double mastectomy,PICC line Past Anesthesia/Blood Transfusion Reactions: No Reported Reaction Past Psychological History: Anxiety Smoking Status: Former smoker - Past Family History Mother Family Medical History: Liver Disease Additional Family Medical History / Comment(s): young from cirrhosis/etoh related Father Family Medical History: Cancer Additional Family Medical History / Comment(s): age 87 General Exam - General Exam Comments Initial Comments: GENERAL: Patient is well-developed and well-nourished. Patient is nontoxic and well- hydrated and is in no acute distress. ENT: Neck is soft and supple. No significant lymphadenopathy is noted. Oropharynx is clear. Moist mucous membranes. Neck has full range of motion without eliciting any pain. EYES: The sclera were anicteric and conjunctiva were pink and moist. Extraocular movements were intact and pupils were equal round and reactive to light. Eyelids were unremarkable. PULMONARY: Unlabored respirations. Good breath sounds bilaterally. No audible rales rhonchi or wheezing was noted. CARDIOVASCULAR: There is a regular rate and rhythm without any murmurs gallops or rubs. ABDOMEN: Soft and nontender with normal bowel sounds. Patient is no palpable pain SKIN: She has to open wounds on the abdomen along the incision site one distal one proximal. The proximal does seem to penetrate into the abdomen but neither is obviously infected. NEUROLOGIC: Patient is alert and oriented x3. Cranial nerves II through XII are grossly intact. Motor and sensory are also intact. Normal speech, volume and content. Symmetrical smile. MUSCULOSKELETAL: Normal extremities with adequate strength and full range of motion. No lower extremity swelling or edema. No calf tenderness. LYMPHATICS: No significant lymphadenopathy is noted PSYCHIATRIC: Normal psychiatric evaluation. 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 After all the results came back and the patient she still had no complaints. I gave the patient does of Unasyn. I spoke with Dr. Arellano . Dr. Arellano was comfortable as well as I was look patient to home and follow-up with Dr. Carmen tomorrow. - Lab Data Result diagrams: 09/03/18 15:54 09/03/18 14:23 Lab Results 09/03/18 09/03/18 09/03/18 Range/Units 14:23 14:23 15:38 WBC (3.8-10.6) k/uL RBC (3.80-5.40) m/uL Hgb (11.4-16.0) gm/dL Hct (34.0-46.0) % MCV (80.0-100.0) fL MCH (25.0-35.0) pg MCHC (31.0-37.0) g/dL RDW (11.5-15.5) % Plt Count (150-450) k/uL Neutrophils % % Lymphocytes % % Monocytes % % Eosinophils % % Basophils % % Neutrophils # (1.3-7.7) k/uL Lymphocytes # (1.0-4.8) k/uL Monocytes # (0-1.0) k/uL Eosinophils # (0-0.7) k/uL Basophils # (0-0.2) k/uL Anisocytosis Macrocytosis PT (9.0-12.0) sec INR (<1.2) APTT (22.0-30.0) sec Sodium 138 (137-145) mmol/L Potassium 3.5 (3.5-5.1) mmol/L Chloride 103 (98-107) mmol/L Carbon Dioxide 26 (22-30) mmol/L Anion Gap 9 mmol/L BUN 5 L (7-17) mg/dL Creatinine 0.49 L (0.52-1.04) mg/dL Est GFR (CKD-EPI)AfAm >90 (>60 ml/min/1.73 sqM) Est GFR (CKD-EPI)NonAf >90 (>60 ml/min/1.73 sqM) Glucose 96 (74-99) mg/dL Plasma Lactic Acid Maximino 2.7 H* (0.7-2.0) mmol/L Calcium 8.5 (8.4-10.2) mg/dL Total Bilirubin 0.5 (0.2-1.3) mg/dL AST 37 H (14-36) U/L ALT 17 (9-52) U/L Alkaline Phosphatase 289 H (38-126) U/L Total Protein 6.1 L (6.3-8.2) g/dL Albumin 3.1 L (3.5-5.0) g/dL Urine Color Urine Appearance (Clear) Urine pH (5.0-8.0) Ur Specific [place] (1.001-1.035) Urine Protein (Negative) Urine Glucose (UA) (Negative) Urine Ketones (Negative) Urine Blood (Negative) Urine Nitrite (Negative) Urine Bilirubin (Negative) Urine Urobilinogen (<2.0) mg/dL Ur Leukocyte Esterase (Negative) Urine RBC (0-5) /hpf Urine WBC (0-5) /hpf Ur Squamous Epith Cells (0-4) /hpf Urine Bacteria (None) /hpf Hyaline Casts (0-2) /lpf Urine Mucus (None) /hpf Influenza Type A RNA Not Detected (Not Detectd) Influenza Type B (PCR) Not Detected (Not Detectd) 09/03/18 09/03/18 09/03/18 Range/Units 15:38 15:54 15:54 WBC 8.9 (3.8-10.6) k/uL RBC 3.18 L (3.80-5.40) m/uL Hgb 10.2 L (11.4-16.0) gm/dL Hct 31.3 L (34.0-46.0) % MCV 98.4 (80.0-100.0) fL MCH 32.0 (25.0-35.0) pg MCHC 32.5 (31.0-37.0) g/dL RDW 18.9 H (11.5-15.5) % Plt Count 505 H (150-450) k/uL Neutrophils % 58 % Lymphocytes % 29 % Monocytes % 6 % Eosinophils % 4 % Basophils % 0 % Neutrophils # 5.2 (1.3-7.7) k/uL Lymphocytes # 2.5 (1.0-4.8) k/uL Monocytes # 0.5 (0-1.0) k/uL Eosinophils # 0.4 (0-0.7) k/uL Basophils # 0.0 (0-0.2) k/uL Anisocytosis Slight Macrocytosis Slight PT 11.1 (9.0-12.0) sec INR 1.0 (<1.2) APTT 25.8 (22.0-30.0) sec Sodium (137-145) mmol/L Potassium (3.5-5.1) mmol/L Chloride (98-107) mmol/L Carbon Dioxide (22-30) mmol/L Anion Gap mmol/L BUN (7-17) mg/dL Creatinine (0.52-1.04) mg/dL Est GFR (CKD-EPI)AfAm (>60 ml/min/1.73 sqM) Est GFR (CKD-EPI)NonAf (>60 ml/min/1.73 sqM) Glucose (74-99) mg/dL Plasma Lactic Acid [place] (0.7-2.0) mmol/L Calcium (8.4-10.2) mg/dL Total Bilirubin (0.2-1.3) mg/dL AST (14-36) U/L ALT (9-52) U/L Alkaline Phosphatase (38-126) U/L Total Protein (6.3-8.2) g/dL Albumin (3.5-5.0) g/dL Urine Color Yellow Urine Appearance Clear (Clear) Urine pH 7.0 (5.0-8.0) Ur Specific [place] 1.014 (1.001-1.035) Urine Protein Trace H (Negative) Urine Glucose (UA) Negative (Negative) Urine Ketones Negative (Negative) Urine Blood Negative (Negative) Urine Nitrite Negative (Negative) Urine Bilirubin Negative (Negative) Urine Urobilinogen <2.0 (<2.0) mg/dL Ur Leukocyte Esterase Trace H (Negative) Urine RBC 1 (0-5) /hpf Urine WBC 4 (0-5) /hpf Ur Squamous Epith Cells 1 (0-4) /hpf Urine Bacteria Rare H (None) /hpf Hyaline Casts 1 (0-2) /lpf Urine Mucus Rare H (None) /hpf Influenza Type A RNA (Not Detectd) Influenza Type B (PCR) (Not Detectd) Disposition Clinical Impression: Wound dehiscence Disposition: HOME SELF-CARE Condition: Good Prescriptions: Amoxicillin/Potassium Clav [Augmentin 875-125 Tablet] 1 each PO Q12HR #20 tab Is patient prescribed a controlled substance at d/c from ED?: No Referrals: Chuy Coats MD [STAFF PHYSICIAN] - 09/04/18
[2018-09-03 14:46] LABS: ALT 17 U/L (9-52); AST 37 U/L (14-36); Albumin 3.1 g/dL (3.5-5.0); Alkaline Phosphatase 289 U/L (38-126); Anion Gap 9 mmol/L; Blood Urea Nitrogen 5 mg/dL (7-17); Calcium 8.5 mg/dL (8.4-10.2); Carbon Dioxide 26 mmol/L (22-30); Chloride 103 mmol/L (98-107); Glucose 96 mg/dL (74-99); Potassium 3.5 mmol/L (3.5-5.1); Sodium 138 mmol/L (137-145); Total Bilirubin 0.5 mg/dL (0.2-1.3); Total Protein 6.1 g/dL (6.3-8.2)
[2018-09-03] MEDS: SODIUM CHLORIDE 0.9% 500 ML 500 ML IV SCH (14:53)
[2018-09-03 15:54] LABS: Appearance,Urine Clear (Clear); Bacteria,Urine Rare /hpf; Bilirubin,Urine Negative (Negative); Blood,Urine Negative (Negative); Color,Urine Yellow; Glucose,Urine (UA) Negative (Negative); Hyaline Casts,Urine 1 /lpf (0-2); Ketones,Urine Negative (Negative); Leukocyte Esterase,Urine Trace (Negative); Mucus,Urine Rare /hpf; Nitrite,Urine Negative (Negative); Protein,Urine Trace (Negative); RBC,Urine 1 /hpf (0-5); Specific Gravity,Urine 1.014 (1.001-1.035); Squamous Epithelial Cell,Urine 1 /hpf (0-4); Urobilinogen,Urine <2.0 mg/dL (<2.0); WBC,Urine 4 /hpf (0-5)
[2018-09-03 16:14] LABS: Partial Thromboplastin Time 25.8 sec (22.0-30.0); Prothrombin Time 11.1 sec (9.0-12.0)
[2018-09-03 16:31] LABS: Anisocytosis Slight; Basophils % (A) 0 %; Eosinophils # (A) 0.4 k/uL (0-0.7); Eosinophils % (A) 4 %; HCT 31.3 % (34.0-46.0); HGB 10.2 gm/dL (11.4-16.0); Lymphocytes # (A) 2.5 k/uL (1.0-4.8); Lymphocytes % (A) 29 %; MCHC 32.5 g/dL (31.0-37.0); MCV 98.4 fL (80.0-100.0); Macrocytosis Slight; Mean Platelet Volume 7.4; Monocytes # (A) 0.5 k/uL (0-1.0); Monocytes % (A) 6 %; Neutrophils # (A) 5.2 k/uL (1.3-7.7); Neutrophils % (A) 58 %; Platelet Count 505 k/uL (150-450); RBC 3.18 m/uL (3.80-5.40); RDW 18.9 % (11.5-15.5); WBC 8.9 k/uL (3.8-10.6)
[2018-09-03] MEDS ORDERED: AMPICILLIN-SULBACTAM 3 GM in SODIUM CHLORIDE 0.9% 100 ML IVPB STA (17:45)
[2018-09-04 18:05] VITALS: BP 126/78; PULSE 98; RESP 18; TEMP 98.6
== END 2018-09-03 19:50 | disposition home or self-care (01) ==
LOC: EC 13:37
DX: T81.30XA Disruption of wound, unspecified, initial encounter (principal); E03.9 Hypothyroidism, unspecified; Z87.891 Personal history of nicotine dependence; Z88.1 Allergy status to other antibiotic agents; Z88.5 Allergy status to narcotic agent; Z79.890 Hormone replacement therapy; Z79.899 Other long term (current) drug therapy; Z85.3 Personal history of malignant neoplasm of breast; Z90.13 Acquired absence of bilateral breasts and nipples; Z87.19 Personal history of other diseases of the digestive system; Z90.49 Acquired absence of other specified parts of digestive tract; Z83.79 Family history of other diseases of the digestive system
CPT/HCPCS: 36415; 93005; 80053; 83605; 85025; 85610; 85730; 81001; 87040; 87086; 87502; 99285; 96365; 96361; J0295

== ENCOUNTER 2018-09-05 12:46 | Inpatient (IN) | payer BC ==
--- NOTE | 2018-09-05 13:17 | ED ---
General Adult HPI - General Chief complaint: Recheck/Abnormal Lab/Rx Stated complaint: Poss Infection Time Seen by Provider: 09/05/18 12:57 Source: patient, family, EMS, RN notes reviewed Mode of arrival: EMS Limitations: no limitations - History of Present Illness Initial comments: Patient is a pleasant 63-year-old female presenting to the emergency department with fever. Patient has had fevers over the past couple of days, today up to 102. Patient was in the hospital recently for no peritoneal and bowel resection and discharged to alf. Patient does have 2 wounds that are still healing. Patient was seen by surgeon yesterday who does not have concern for infection. Dr. Bentley did evaluate patient today and does have some concern reg arding infection. Family also adds that patient was in the hospital here with encephalopathy and new diagnosis of bone cancer from previous history of breast cancer. Patient has not undergone treatment for bone cancer yet at this point. - Related Data Home Medications Medication Instructions Recorded Confirmed Bisacodyl [Dulcolax] 10 mg RECTAL DAILY PRN 09/03/18 09/05/18 [place] Instant Breakfast 1 packet PO W/BRKFST 09/03/18 09/05/18 Letrozole [Femara] 2.5 mg PO DAILY 09/03/18 09/05/18 Levothyroxine Sodium [Synthroid] 100 mcg PO SUTUTHSA 09/03/18 09/05/18 Levothyroxine Sodium [Synthroid] 112 mcg PO MOWEFR 09/03/18 09/05/18 Magic Cup 2,400 ml PO HS 09/03/18 09/05/18 Magnesium Hydroxide [Milk of 2,400 mg PO DAILY PRN 09/03/18 09/05/18 Magnesia] Metoprolol Tartrate [Lopressor] 25 mg PO BID@0800,1700 09/03/18 09/05/18 Na Phos,M-B/Na Phos,Di-Ba [Fleet 133 ml RECTAL DAILY PRN 09/03/18 09/05/18 Adult] clonazePAM 0.5 mg PO DAILY PRN 09/03/18 09/05/18 Previous Rx's Medication Instructions Recorded amLODIPine [Norvasc] 5 mg PO DAILY #30 tab 07/23/18 HYDROcodone/APAP 7.5-325MG [[place] 1 tab PO Q4H PRN 3 Days #18 tab 03/22/19 7.5-325] Allergies Allergy/AdvReac Type Severity Reaction Status Date / Time ciprofloxacin [From Cipro] AdvReac Nausea & Verified 09/05/18 12:55 Vomiting codeine AdvReac "GETS THE Verified 09/05/18 12:55 SHAKES" Review of Systems ROS Statement: Those systems with pertinent positive or pertinent negative responses have been documented in the HPI. ROS Other: All systems not noted in ROS Statement are negative. Constitutional: Reports: fever Eyes: Denies: eye pain ENT: Denies: ear pain Respiratory: Denies: cough, dyspnea Cardiovascular: Denies: palpitations Endocrine: Denies: fatigue Gastrointestinal: Denies: abdominal pain Genitourinary: Denies: dysuria Musculoskeletal: Denies: back pain Skin: Denies: rash Neurological: Denies: weakness Past Medical History Past Medical History: Thyroid Disorder Additional Past Medical History / Comment(s): Breast cancer, with bilateral mastectomy followed by Arimidex treatment, hypothyroidism, COPD History of Any Multi-Drug Resistant Organisms: None Reported Past Surgical History: Appendectomy, Breast Surgery Additional Past Surgical History / Comment(s): double mastectomy,PICC line, colostomy Past Anesthesia/Blood Transfusion Reactions: No Reported Reaction Past Psychological History: Anxiety Smoking Status: Former smoker - Past Family History Mother Family Medical History: Liver Disease Additional Family Medical History / Comment(s): young from cirrhosis/etoh related Father Family Medical History: Cancer Additional Family Medical History / Comment(s): age 87 General Exam Limitations: no limitations General appearance: alert, in no apparent distress Head exam: Present: atraumatic Eye exam: Present: normal appearance, PERRL ENT exam: Present: normal oropharynx Neck exam: Present: normal inspection Respiratory exam: Present: normal lung sounds bilaterally. Absent: chest wall tenderness Cardiovascular Exam: Present: regular rate, normal rhythm GI/Abdominal exam: Present: soft. Absent: distended, tenderness Extremities exam: Present: normal inspection Neurological exam: Present: alert Psychiatric exam: Present: normal affect, normal mood Skin exam: Present: other (Patient is to midline abdominal wounds. The upper one is packed and is somewhat deep. Lower one is more superficial. Neither wit h any discharge or erythematous changes.) Course Vital Signs 09/05/18 09/05/18 09/05/18 12:49 12:54 13:00 Temperature 99.2 F Pulse Rate 104 H Respiratory 18 Rate Blood Pressure 129/78 129/78 O2 Sat by Pulse 96 97 93 L Oximetry 09/05/18 09/05/18 09/05/18 13:10 13:20 13:30 Temperature Pulse Rate 80 81 82 Respiratory 18 18 18 Rate Blood Pressure 129/78 129/78 129/78 O2 Sat by Pulse 93 L 94 L 94 L Oximetry 09/05/18 09/05/18 09/05/18 13:40 13:50 15:20 Temperature 98.4 F Pulse Rate 80 Respiratory 18 Rate Blood Pressure 129/78 129/78 O2 Sat by Pulse 94 L 93 L Oximetry - Reevaluation(s) Reevaluation #1: 09/05/18 16:24 Patient has pneumonia with concern for sepsis diagnosed at 1624. Blood culture and lactic acid have been ordered. IV antibiotics will be ordered. EKG Findings - EKG Comments: EKG Findings:: Normal sinus rhythm 95. NH 146. QRS 80. QT 382. QTC 40. Normal axis. Normal QRS. No acute ST change. Medical Decision Making - Medical Decision Making Patient reevaluated and updated. Chest x-ray with possible pneumonia. Patient is having continued fevers despite recent illnesses. Patient and family updated on results and plan. Case was discussed with Dr. reyes, who will admit covering for Dr. Bentley. Patient has previously seen Dr. Pack and he will be placed on consult along with surgery, Dr. Coats. - Lab Data Result diagrams: 09/05/18 13:30 09/05/18 13:30 Lab Results 09/05/18 09/05/18 09/05/18 Range/Units 13:30 13:30 13:30 WBC 12.5 H (3.8-10.6) k/uL RBC 2.82 L (3.80-5.40) m/uL Hgb 9.1 L (11.4-16.0) gm/dL Hct 27.2 L (34.0-46.0) % MCV 96.3 (80.0-100.0) fL MCH 32.2 (25.0-35.0) pg MCHC 33.5 (31.0-37.0) g/dL RDW 18.5 H (11.5-15.5) % Plt Count 512 H (150-450) k/uL Neutrophils % 74 % Lymphocytes % 18 % Monocytes % 5 % Eosinophils % 2 % Basophils % 0 % Neutrophils # 9.2 H (1.3-7.7) k/uL Lymphocytes # 2.2 (1.0-4.8) k/uL Monocytes # 0.6 (0-1.0) k/uL Eosinophils # 0.2 (0-0.7) k/uL Basophils # 0.1 (0-0.2) k/uL Anisocytosis Slight Macrocytosis Slight PT (9.0-12.0) sec INR (<1.2) APTT (22.0-30.0) sec Sodium 137 (137-145) mmol/L Potassium 3.3 L (3.5-5.1) mmol/L Chloride 103 (98-107) mmol/L Carbon Dioxide 26 (22-30) mmol/L Anion Gap 8 mmol/L BUN 4 L (7-17) mg/dL Creatinine 0.38 L (0.52-1.04) mg/dL Est GFR (CKD-EPI)AfAm >90 (>60 ml/min/1.73 sqM) Est GFR (CKD-EPI)NonAf >90 (>60 ml/min/1.73 sqM) Glucose 105 H (74-99) mg/dL Plasma Lactic Acid Maximino (0.7-2.0) mmol/L Calcium 7.9 L (8.4-10.2) mg/dL Total Bilirubin 0.6 (0.2-1.3) mg/dL AST 45 H (14-36) U/L ALT 21 (9-52) U/L Alkaline Phosphatase 292 H (38-126) U/L Total Protein 5.5 L (6.3-8.2) g/dL Albumin 2.7 L (3.5-5.0) g/dL Urine Color Urine Appearance (Clear) Urine pH (5.0-8.0) Ur Specific [place] (1.001-1.035) Urine Protein (Negative) Urine Glucose (UA) (Negative) Urine Ketones (Negative) Urine Blood (Negative) Urine Nitrite (Negative) Urine Bilirubin (Negative) Urine Urobilinogen (<2.0) mg/dL Ur Leukocyte Esterase (Negative) Influenza Type A RNA Not Detected (Not Detectd) Influenza Type B (PCR) Not Detected (Not Detectd) 09/05/18 09/05/18 09/05/18 Range/Units 13:30 13:30 14:35 WBC (3.8-10.6) k/uL RBC (3.80-5.40) m/uL Hgb (11.4-16.0) gm/dL Hct (34.0-46.0) % MCV (80.0-100.0) fL MCH (25.0-35.0) pg MCHC (31.0-37.0) g/dL RDW (11.5-15.5) % Plt Count (150-450) k/uL Neutrophils % % Lymphocytes % % Monocytes % % Eosinophils % % Basophils % % Neutrophils # (1.3-7.7) k/uL Lymphocytes # (1.0-4.8) k/uL Monocytes # (0-1.0) k/uL Eosinophils # (0-0.7) k/uL Basophils # (0-0.2) k/uL Anisocytosis Macrocytosis PT 12.1 H (9.0-12.0) sec INR 1.2 H (<1.2) APTT 27.0 (22.0-30.0) sec Sodium (137-145) mmol/L Potassium (3.5-5.1) mmol/L Chloride (98-107) mmol/L Carbon Dioxide (22-30) mmol/L Anion Gap mmol/L BUN (7-17) mg/dL Creatinine (0.52-1.04) mg/dL Est GFR (CKD-EPI)AfAm (>60 ml/min/1.73 sqM) Est GFR (CKD-EPI)NonAf (>60 ml/min/1.73 sqM) Glucose (74-99) mg/dL Plasma Lactic Acid [place] 1.6 (0.7-2.0) mmol/L Calcium (8.4-10.2) mg/dL Total Bilirubin (0.2-1.3) mg/dL AST (14-36) U/L ALT (9-52) U/L Alkaline Phosphatase (38-126) U/L Total Protein (6.3-8.2) g/dL Albumin (3.5-5.0) g/dL Urine Color Yellow Urine Appearance Clear (Clear) Urine pH 6.5 (5.0-8.0) Ur Specific [place] 1.011 (1.001-1.035) Urine Protein Trace H (Negative) Urine Glucose (UA) Negative (Negative) Urine Ketones Negative (Negative) Urine Blood Negative (Negative) Urine Nitrite Negative (Negative) Urine Bilirubin Negative (Negative) Urine Urobilinogen <2.0 (<2.0) mg/dL Ur Leukocyte Esterase Negative (Negative) Influenza Type A RNA (Not Detectd) Influenza Type B (PCR) (Not Detectd) - Radiology Data Radiology results: image reviewed (Chest x-ray shows stable small fusion, left greater than right with associated by basilar airspace disease.) Critical Care Time Critical Care Time: Yes Total Critical Care Time: 31 Disposition Clinical Impression: Pneumonia, Sepsis Disposition: ADMITTED IP TO THIS HOSP Is patient prescribed a controlled substance at d/c from ED?: No Referrals: Ninoska Tovar MD [Primary Care Provider] - 1-2 days Decision Time: 16:26
[2018-09-05 14:00] LABS: Anisocytosis Slight; Basophils # (A) 0.1 k/uL (0-0.2); Basophils % (A) 0 %; Eosinophils # (A) 0.2 k/uL (0-0.7); Eosinophils % (A) 2 %; HCT 27.2 % (34.0-46.0); HGB 9.1 gm/dL (11.4-16.0); Lymphocytes # (A) 2.2 k/uL (1.0-4.8); Lymphocytes % (A) 18 %; MCH 32.2 pg (25.0-35.0); MCHC 33.5 g/dL (31.0-37.0); MCV 96.3 fL (80.0-100.0); Macrocytosis Slight; Mean Platelet Volume 7.3; Monocytes # (A) 0.6 k/uL (0-1.0); Monocytes % (A) 5 %; Neutrophils # (A) 9.2 k/uL (1.3-7.7); Neutrophils % (A) 74 %; Platelet Count 512 k/uL (150-450); RBC 2.82 m/uL (3.80-5.40); RDW 18.5 % (11.5-15.5); WBC 12.5 k/uL (3.8-10.6)
[2018-09-05 14:05] LABS: INR 1.2 (<1.2); Prothrombin Time 12.1 sec (9.0-12.0)
[2018-09-05 14:07] LABS: ALT 21 U/L (9-52); AST 45 U/L (14-36); Albumin 2.7 g/dL (3.5-5.0); Alkaline Phosphatase 292 U/L (38-126); Anion Gap 8 mmol/L; Blood Urea Nitrogen 4 mg/dL (7-17); Calcium 7.9 mg/dL (8.4-10.2); Carbon Dioxide 26 mmol/L (22-30); Chloride 103 mmol/L (98-107); Glucose 105 mg/dL (74-99); Potassium 3.3 mmol/L (3.5-5.1); Sodium 137 mmol/L (137-145); Total Bilirubin 0.6 mg/dL (0.2-1.3); Total Protein 5.5 g/dL (6.3-8.2)
--- NOTE | 2018-09-05 14:11 | XR ---
EXAMINATION TYPE: XR chest 2V DATE OF EXAM: 09/05/2018 COMPARISON: 08/06/2018 HISTORY: Fever TECHNIQUE: Frontal and lateral views of the chest are obtained. FINDINGS: There are similar layering small pleural effusions. Main pulmonary arteries appear enlarge d suggesting underlying pulmonary arterial hypertension. Cardia mediastinal silhouette is upper limit s of normal. Right-sided PICC terminates in the distal superior vena cava. No acute osseous pathology . Osseous lesions are better appreciated on CT. IMPRESSION: Stable small pleural effusions, left greater than right with associated bibasilar airspa ce disease.
[2018-09-05 15:33] LABS: Appearance,Urine Clear (Clear); Bilirubin,Urine Negative (Negative); Blood,Urine Negative (Negative); Color,Urine Yellow; Glucose,Urine (UA) Negative (Negative); Ketones,Urine Negative (Negative); Leukocyte Esterase,Urine Negative (Negative); Nitrite,Urine Negative (Negative); PH, Urine 6.5 (5.0-8.0); Protein,Urine Trace (Negative); Specific Gravity,Urine 1.011 (1.001-1.035); Urobilinogen,Urine <2.0 mg/dL (<2.0)
[2018-09-05] MEDS ORDERED: AZITHROMYCIN 500 MG in SODIUM CHLORIDE 0.9% 250 ML IVPB STA (16:26)
[2018-09-05] MEDS ORDERED: PNEUMONIA PROTOCOL UTILIZED 1 EACH MISC PO PRN (16:26)
[2018-09-05] MEDS: SODIUM CHLORIDE 0.9% 1,000 ML IV SCH (17:11)
[2018-09-05] MEDS ORDERED: clonazePAM 0.5 MG TAB PO PRN (19:37)
[2018-09-05] MEDS ORDERED: MAGNESIUM HYDROXIDE 2,400 MG/10 ML CUP PO PRN (19:37)
[2018-09-05] MEDS ORDERED: POTASSIUM CHLORIDE ER 20 MEQ TAB.ER PO STA (19:44)
[2018-09-06] MEDS: SODIUM CHLORIDE 0.9% 1,000 ML IV SCH ×2 (04:15→16:21)
[2018-09-06] MEDS: LEVOTHYROXINE 100 MCG TAB PO SCH (05:43)
--- NOTE | 2018-09-06 08:38 | XR ---
EXAMINATION TYPE: XR chest 2V DATE OF EXAM: 09/06/2018 COMPARISON: 09/05/2018 HISTORY: 63-year-old female follow-up pneumonia TECHNIQUE: Frontal and lateral views FINDINGS: The heart is normal size. Aorta and pulmonary vasculature within normal limits. Small left greater th an right pleural effusions with adjacent bibasilar opacities persist without significant change. Incr eased AP chest dimension, possible underlying emphysema. Right PICC tip at the mid SVC level IMPRESSION: Continued small left greater than right pleural effusions with bibasilar atelectasis and/or consolida tion.
[2018-09-06] MEDS: amLODIPine 5 MG TAB PO SCH (08:39)
[2018-09-06] MEDS: LETROZOLE 2.5 MG TAB PO SCH (08:39)
[2018-09-06] MEDS: METOPROLOL TARTRATE 25 MG TAB PO SCH ×2 (08:39→16:55)
[2018-09-06] MEDS: AZITHROMYCIN 500 MG TAB PO SCH (08:51)
[2018-09-06] MEDS ORDERED: Potassium Replacement Protocol 1 EACH MISC MISCELLANE PRN (10:07)
[2018-09-06] MEDS: POTASSIUM CHLORIDE ER 20 MEQ TAB.ER PO SCH ×2 (10:26→11:36)
--- NOTE | 2018-09-06 14:46 | P.GSCN ---
History of Present Illness Consult date: 09/06/18 Requesting physician: Darrion Hernandez History of present illness: CHIEF COMPLAINT: Abdominal pain HISTORY OF PRESENT ILLNESS: The patient is a 63-year-old female who reports seeing her surgeon Dr. Coats less than 5 days ago upon follow-up for a descending colostomy creation from perforated diverticulitis, 07/28/2018. Her history is significant for metastatic breast cancer to the bone of the spine. She has not started treatments with chemotherapy. Separately, she has minimal drainage from a midline incision which is being also addressed by infectious disease. She reports drinking a laxative at the rehab center that caused abdominal pain hence her presentation to the emergency room. Additional workup is positive for pneumonia. General surgery is consulted for abdominal pain. She reports change in bowel habits with constipation since being placed on laxative for minimal output from her ostomy. As of today, she is tolerating di et and now has stool in her ostomy. "I want to go home and see my dog." She is a transfer from rehab facility. PAST MEDICAL HISTORY: See list. PAST SURGICAL HISTORY: See list. MEDICATIONS: See list. ALLERGIES: See list. SOCIAL HISTORY: No illicit drug use FAMILY HISTORY: No reports of Crohn's disease or inflammatory bowel disease REVIEW OF ORGAN SYSTEMS: CONSTITUTIONAL: No fevers or chills. Has recent weight loss. EYES: Denies any trouble with vision. No glasses. HEENT: No difficulties with hearing. No nosebleeds. No difficulty swallowing. RESPIRATORY: Has pneumonia. Has COPD. CARDIOVASCULAR: Denies current chest pain, palpitations, or recent heart attacks. Has hypertension. GASTROINTESTINAL: Denies fatty food intolerance. Has change in bowel habits and gas bloat. GENITOURINARY: Denies any blood in urine or increased urinary frequency. NEUROLOGICAL: Has numbness or tingling along the distal extremities. No seizure disorders or headaches. MUSCULOSKELETAL: Has back pain, stiffness or joint arthritis. SKIN: No current skin cancer. No rash. PSYCHIATRIC: Has depression or suicidal thoughts. ENDOCRINE: Has current thyroid disorders. Denies any blood sugar glucose intolerance. HEME/LYMPHATIC: Denies any lumps and bumps around the neck. No recent deep venous thrombosis. ALLERGY/IMMUNOLOGY: No immunoglobulin therapy. No immune deficiencies. BREAST: Has metastatic breast cancer. History of bilateral mastectomy. PHYSICAL EXAM: VITALS: Reviewed CONSTITUTIONAL: Well developed and in no acute distress. EYES: Conjuctivae without sclera icterus. Extraocular movements grossly intact. HEAD, EARS, NOSE, THROAT: Moist buccal mucosa. Head is atraumatic, no rmocephalic. Hears conversational speech. No nasal drainage. NECK: Supple. No JV distention. No thyroidomegaly. RESPIRATORY: Non-labored respirations and equal bilateral excursions. CARDIOVASCULAR: Regular rate and rhythm. Extremities without moderate edema. Palpable 2+ radial pulses. ABDOMEN: Soft. Mild distention. Dressing midline clean dry and intact. Ostomy with firm stool in [place] with minimal air. MUSCULOSKELETAL: Nail and fingers with good capillary refill. No clubbing or cyanosis. SKIN: Warm and well perfused with good skin turgor. NEUROLOGIC: Cranial nerves II through XII grossly intact. No focal or lateralizing signs. PSYCH: Appropriate affect. Alert and oriented to person, place and time. Displays appropriate insight. CLINCAL LABS: Reviewed with new leukocytosis in 7 days. RADIOLOGY: Report reviewed with bilateral pleural effusion IMAGING: Independently reviewed without pneumoperitoneum or consolidation RECORDS: previous old records reviewed from prior full hospitalization ASSESSMENT: 1. History of abdominal pain resolving 2. Metastatic breast cancer to the spine 3. Descending colostomy status 4. Pneumonia 5. Constipation PLAN: 1. No surgical intervention needed 2. Diet as tolerated 3. Antibiotics for pneumonia 4. Recommend gentle laxative such as MiraLAX or lactulose for constipation 5. Wound care per infectious disease Thank you for this kind consultation. Past Medical History Past Medical History: COPD, Thyroid Disorder Additional Past Medical History / Comment(s): Breast cancer with bilateral mastectomy followed by Arimidex treatment, hypothyroidism, UTIs, diverticulitis w/ interloop abscess/incarcerated ventral hernia. History of Any Multi-Drug Resistant Organisms: None Reported Past Surgical History: Appendectomy, Breast Surgery Additional Past Surgical History / Comment(s): Double mastectomy, PICC line, sigmoid colectomy w/ end colostomy. Past Anesthesia/Blood Transfusion Reactions: No Reported Reaction Past Psychological History: Anxiety Smoking Status: Former smoker Past Alcohol Use History: None Reported Additional Past Alcohol Use History / Comment(s): Started smoking age 17 and quit 2013 - smoked 1 ppd. Past Drug Use History: None Reported - Past Family History Mother Family Medical History: Liver Disease Additional Family Medical History / Comment(s): young from cirrhosis/etoh related Father Family Medical History: Cancer Additional Family Medical History / Comment(s): age 87 Medications and Allergies Home Medications Medication Instructions Recorded Confirmed Type amLODIPine [Norvasc] 5 mg PO DAILY #30 tab 07/23/18 09/05/18 Rx HYDROcodone/APAP 7.5-325MG [[place] 1 tab PO Q4H PRN 3 Days #18 tab 08/08/18 09/05/18 Rx 7.5-325] Bisacodyl [Dulcolax] 10 mg RECTAL DAILY PRN 09/03/18 09/05/18 History [place] Instant Breakfast 1 packet PO W/BRKFST 09/03/18 09/05/18 History Letrozole [Femara] 2.5 mg PO DAILY 09/03/18 09/05/18 History Levothyroxine Sodium [Synthroid] 100 mcg PO SUTUTHSA 09/03/18 09/05/18 History Levothyroxine Sodium [Synthroid] 112 mcg PO MOWEFR 09/03/18 09/05/18 History Magic Cup 2,400 ml PO HS 09/03/18 09/05/18 History Magnesium Hydroxide [Milk of 2,400 mg PO DAILY PRN 09/03/18 09/05/18 History Magnesia] Metoprolol Tartrate [Lopressor] 25 mg PO BID@0800,1700 09/03/18 09/05/18 History Na Phos,M-B/Na Phos,Di-Ba [Fleet 133 ml RECTAL DAILY PRN 09/03/18 09/05/18 History Adult] clonazePAM 0.5 mg PO DAILY PRN 09/03/18 09/05/18 History Allergies Allergy/AdvReac Type Severity Reaction Status Date / Time ciprofloxacin [From Cipro] AdvReac Nausea & Verified 09/05/18 12:55 Vomiting codeine AdvReac "GETS THE Verified 09/05/18 12:55 SHAKES" Surgical - Exam Vital Signs Temp Pulse Resp BP Pulse Ox 99.2 F 104 H 18 129/78 96 09/05/18 12:49 09/05/18 12:49 09/05/18 12:49 09/05/18 12:49 09/05/18 12:49 Results - Labs 09/05/18 13:30 09/05/18 13:30 Abnormal Lab Results - Last 24 Hours (Table) 09/05/18 Range/Units 14:35 Urine Protein Trace H (Negative) Microbiology - Last 24 Hours (Table) 09/05/18 14:35 Urine Culture - Preliminary Urine,Voided - Imaging Chest x-ray: report reviewed, image reviewed Assessment and Plan (1) Colostomy status Current Visit: Yes Status: Acute Code(s): Z93.3 - COLOSTOMY STATUS SNOMED Code(s): 512516902 (2) Generalized abdominal pain Current Visit: Yes Status: Acute Code(s): R10.84 - GENERALIZED ABDOMINAL PAIN SNOMED Code(s): 175327384 (3) Hypokalemia Current Visit: Yes Status: Acute Code(s): E87.6 - HYPOKALEMIA SNOMED Code(s): 65324262 (4) Pneumonia Current Visit: Yes Status: Acute Code(s): J18.9 - PNEUMONIA, UNSPECIFIED ORGANISM SNOMED Code(s): 810857448 (5) Carcinoma of breast metastatic to bone Current Visit: No Status: Acute Priority: High Code(s): C50.919 - MALIGNANT NEOPLASM OF UNSP SITE OF UNSPECIFIED FEMALE BREAST; C79.51 - SECONDARY MALIGNANT NEOPLASM OF BONE SNOMED Code(s): 781350600 (6) Perforation of sigmoid colon due to diverticulitis Current Visit: No Status: Acute Code(s): K57.20 - DVTRCLI OF LG INT W PERFORATION AND ABSCESS W/O BLEEDING SNOMED Code(s): 6131442360701547 (7) Leukocytosis Current Visit: Yes Status: Acute Code(s): D72.829 - ELEVATED WHITE BLOOD CELL COUNT, UNSPECIFIED SNOMED Code(s): 661537903 (8) Anemia, chronic disease Current Visit: Yes Status: Acute Code(s): D63.8 - ANEMIA IN OTHER CHRONIC DISEASES CLASSIFIED ELSEWHERE SNOMED Code(s): 068990250
[2018-09-06] MEDS ORDERED: POLYETHYLENE GLYCOL 3350 17 GM POWD.PACK PO SCH (15:00)
--- NOTE | 2018-09-06 15:43 | P.CONS ---
History of Present Illness - Reason for Consult Consult date: 09/05/18 - Chief Complaint Progressive abdominal pain - History of Present Illness 63 1 who is known to the infectious disease service from her recent hospitalization which point in time she was having difficulties with her abdominal incision status post a repair of her perforated sigmoid diverticula of 07/28/2018. The patient however does have significant disease process related to her metastatic breast carcinoma and during that stay she was having severe pain in biopsy of her sacrum reveal evidence of the bony metastasis of her breast carcinoma. She has been in rehab receiving antibiotic therapy and wound care to her nonhealing abdominal incision from her recent surgery. However she developed some increasing abdominal pain she started to have very little output throughout the ostomy and constantly was brought into hospital for further intervention. At admission it was noted that there was complaint of a fever at the rehab center and consequently further advice was requested. At this time she still feels poorly. She's been able to eat a bit of her lunch. This has improved some developed discomfort that she was having. In as of now she is not having significant nausea or emesis. Review of Systems 63-year-old woman, appears chronically ill HEENT:Denies headache or acute visual change. Denies sinus or mouth discomforts. Denies neck stiffness or pain. Denies significant oral cavity pain. Denies difficulty on swallowing. Lungs: Denies significant shortness of breath, cough, sputum production, or hemoptysis. Cardiovascular: Denies significant shortness of breath, chest pain, chest wall pain, orthopnea, dyspnea on exertion, syncope Gastrointestinal: As per the HPI Musculoskeletal: Has chronic musculoskeletal pain especially to the pelvis Skin: Denies new rash or lesions. No new ulcers or wounds are related.. Neuro: Denies headache or visual change. Denies any new onset weakness or difficulty with ambulation. Denies falls or seizures. Psychiatric:Denies anxiety or depression. Endocrine: Significant fatigue and has been losing weight Past Medical History Past Medical History: COPD, Thyroid Disorder Additional Past Medical History / Comment(s): Breast cancer with bilateral mastectomy followed by Arimidex treatment, hypothyroidism, UTIs, diverticulitis w/ interloop abscess/incarcerated ventral hernia. History of Any Multi-Drug Resistant Organisms: None Reported Past Surgical History: Appendectomy, Breast Surgery Additional Past Surgical History / Comment(s): Double mastectomy, PICC line, sigmoid colectomy w/ end colostomy. Past Anesthesia/Blood Transfusion Reactions: No Reported Reaction Past Psychological History: Anxiety Additional Psychological History / Comment(s): and lives in the family home before her recent illnesses is now in rehab. Has a pet dog that she is wanting to see. Data current tobacco smoker. No history of significant recreational drug use or alcohol abuse. No experience. No international travel. Retired Smoking Status: Former smoker Past Alcohol Use History: None Reported Additional Past Alcohol Use History / Comment(s): Started smoking age 17 and quit 2013 - smoked 1 ppd. Past Drug Use History: None Reported - Past Family History Mother Family Medical History: Liver Disease Additional Family Medical History / Comment(s): young from cirrhosis/etoh related Father Family Medical History: Cancer Additional Family Medical History / Comment(s): age 87 Medications and Allergies Home Medications and Allergies Comment(s): Current Medications Hydrocodone Bitart/Acetaminophen ([place] 7.5-325) 1 each PO Q4H PRN PRN Reason: Pain Amlodipine Besylate (Norvasc) 5 mg PO DAILY [facility] Last Admin: 09/06/18 08:39 Dose: 5 mg Documented by: Azithromycin (Zithromax) 500 mg PO DAILY [facility] Last Admin: 09/06/18 08:51 Dose: 500 mg Documented by: Clonazepam (Klonopin) 0.5 mg PO DAILY PRN PRN Reason: Anxiety Last Admin: 09/06/18 08:38 Dose: 0.5 mg Documented by: Ceftriaxone Sodium 1 gm/ (Sodium Chloride) 50 mls @ 100 mls/hr IVPB Q24HR [facility] Stop: 09/09/18 09:01 Last Admin: 09/06/18 08:38 Dose: 100 mls/hr Documented by: Sodium Chloride (Saline 0.9%) 1,000 mls @ 100 mls/hr IV .Q10H [facility] Last Admin: 09/06/18 04:15 Dose: 100 mls/hr Documented by: Letrozole (Femara) 2.5 mg PO DAILY [facility] Last Admin: 09/06/18 08:39 Dose: 2.5 mg Documented by: Levothyroxine Sodium (Synthroid) 100 mcg PO SUTUTHSA [facility] Last Admin: 09/06/18 05:43 Dose: 100 mcg Documented by: Levothyroxine Sodium (Synthroid) 112 mcg PO MOWEFR [facility] Magnesium Hydroxide (Milk Of Magnesia) 2,400 mg PO DAILY PRN PRN Reason: Constipation Metoprolol Tartrate (Lopressor) 25 mg PO BID@0800,1700 [facility] Last Admin: 09/06/18 08:39 Dose: 25 mg Documented by: Miscellaneous Information (Pneumonia Protocol Utilized) 1 each PO ONCE PRN PRN Reason: Per Protocol Miscellaneous Information (Potassium Per Protocol) 1 each MISCELLANE DAILY PRN; Protocol PRN Reason: Per Protocol Polyethylene Glycol (Miralax) 17 gm PO DAILY [facility] Home Medications Medication Instructions Recorded Confirmed Type amLODIPine [Norvasc] 5 mg PO DAILY #30 tab 07/23/18 09/05/18 Rx HYDROcodone/APAP 7.5-325MG [[place] 1 tab PO Q4H PRN 3 Days #18 tab 08/08/18 09/05/18 Rx 7.5-325] Bisacodyl [Dulcolax] 10 mg RECTAL DAILY PRN 09/03/18 09/05/18 History [place] Instant Breakfast 1 packet PO W/BRKFST 09/03/18 09/05/18 History Letrozole [Femara] 2.5 mg PO DAILY 09/03/18 09/05/18 History Levothyroxine Sodium [Synthroid] 100 mcg PO SUTUTHSA 09/03/18 09/05/18 History Levothyroxine Sodium [Synthroid] 112 mcg PO MOWEFR 09/03/18 09/05/18 History Magic Cup 2,400 ml PO HS 09/03/18 09/05/18 History Magnesium Hydroxide [Milk of 2,400 mg PO DAILY PRN 09/03/18 09/05/18 History Magnesia] Metoprolol Tartrate [Lopressor] 25 mg PO BID@0800,1700 09/03/18 09/05/18 History Na Phos,M-B/Na Phos,Di-Ba [Fleet 133 ml RECTAL DAILY PRN 09/03/18 09/05/18 History Adult] clonazePAM 0.5 mg PO DAILY PRN 09/03/18 09/05/18 History Allergies Allergy/AdvReac Type Severity Reaction Status Date / Time ciprofloxacin [From Cipro] AdvReac Nausea & Verified 09/05/18 12:55 Vomiting codeine AdvReac "GETS THE Verified 09/05/18 12:55 SHAKES" Physical Exam Vitals: Vital Signs Temp Pulse Pulse Resp BP BP BP 09/06/18 15:07 97 16 09/06/18 11:34 98.7 F 97 16 124/82 09/06/18 05:30 98.1 F 118 H 18 128/82 09/05/18 20:00 98.8 F 112 H 18 130/65 09/05/18 17:30 98.8 F 105 H 21 124/86 09/05/18 17:20 112 H 19 124/86 09/05/18 17:10 117 H 23 133/87 09/05/18 17:00 112 H 21 136/91 09/05/18 16:50 113 H 16 136/91 09/05/18 16:40 109 H 27 H 131/84 09/05/18 16:30 106 H 25 H 133/87 09/05/18 16:20 105 H 18 133/87 09/05/18 16:10 106 H 22 132/82 09/05/18 16:00 111 H 21 120/75 09/05/18 15:50 102 H 21 120/75 09/05/18 15:40 104 H 17 121/76 Pulse Ox 09/06/18 15:07 09/06/18 11:34 93 L 09/06/18 05:30 93 L 09/05/18 20:00 92 L 09/05/18 17:30 94 L 09/05/18 17:20 94 L 09/05/18 17:10 95 09/05/18 17:00 93 L 09/05/18 16:50 93 L 09/05/18 16:40 93 L 09/05/18 16:30 93 L 09/05/18 16:20 93 L 09/05/18 16:10 93 L 09/05/18 16:00 93 L 09/05/18 15:50 93 L 09/05/18 15:40 93 L Intake and Output 09/06/18 09/06/18 09/06/18 06:59 14:59 22:59 Intake Total 2400 Balance 2400 Intake: Intake, IV Titration 1250 Amount Sodium Chloride 0.9% 1, 1200 000 ml @ 100 mls/hr IV . Q10H [facility] Rx#:[id number] cefTRIAXone 1 gm In 50 Sodium Chloride 0.9% 50 ml @ 100 mls/hr IVPB ONCE [facility] Rx#:[id number] Oral 1150 Other: Voiding Method Bedside Commode Bedside Commode # Voids 1 3 63-year-old woman who appears about her stated age but does appear to be ch ronically ill HEENT: Anicteric conjunctiva are pink and moist nasal mucosa grossly intact without significant lesions, there is no thrush. Neck: The neck is supple without significant lymphadenopathy or thyromegaly. Lungs: Good bilateral air entry without significant crackles or wheezing. There is no significant bronchial sounds. There is no egophony or dullness. Heart: Regular rate and rhythm with an audible S1-S2, no S3 no S4. There is no significant murmur click or rub, PMI was nondisplaced. Abdomen : There are no positive bowel sounds that are easily heard throughout 4 quadrants. The abdomen is not significantly distended. The colostomy which is left lateral midline location has evidence of a healthy-appearing stoma. There is some small amount of stool in the pouch there is no hepatosplenomegaly. There is no rigidity or guarding. Along the midline incision are 2 open area of dehiscence the upper is 1.5x1.5x 2cm the lower is 4x1.5x0.5cm and lower has some thick yellow drainage on the dressing, culture obtained Extremities: The upper extremities have excellent pulses they are symmetric, no significant petechiae or telangiectasia. No splinter hemorrhages were noted. The lower extremities are free from significant edema. Lower extremities do reveal evidence of some symmetric bilateral lower extremity edema and open ulcerations are seen Neuro: Awake alert oriented to person place and time. There are no acute new gross focal sensory motor deficits. Results CBC & Chem 7: 09/05/18 13:30 09/05/18 13:30 Labs: Abnormal Lab Results - Last 24 Hours (Table) 09/05/18 Range/Units 14:35 Urine Protein Trace H (Negative) Microbiology - Last 24 Hours (Table) 09/05/18 14:35 Urine Culture - Preliminary Urine,Voided Laboratory Results WBC 12.5 k/uL (3.8-10.6) H 09/05/18 13:30 RBC 2.82 m/uL (3.80-5.40) L 09/05/18 13:30 Hgb 9.1 gm/dL (11.4-16.0) L 09/05/18 13:30 Hct 27.2 % (34.0-46.0) L 09/05/18 13:30 MCV 96.3 fL (80.0-100.0) 09/05/18 13:30 MCH 32.2 pg (25.0-35.0) 09/05/18 13:30 MCHC 33.5 g/dL (31.0-37.0) 09/05/18 13:30 RDW 18.5 % (11.5-15.5) H 09/05/18 13:30 Plt Count 512 k/uL (150-450) H 09/05/18 13:30 Neutrophils % 74 % 09/05/18 13:30 Lymphocytes % 18 % 09/05/18 13:30 Monocytes % 5 % 09/05/18 13:30 Eosinophils % 2 % 09/05/18 13:30 Basophils % 0 % 09/05/18 13:30 Neutrophils # 9.2 k/uL (1.3-7.7) H 09/05/18 13:30 Lymphocytes # 2.2 k/uL (1.0-4.8) 09/05/18 13:30 Monocytes # 0.6 k/uL (0-1.0) 09/05/18 13:30 Eosinophils # 0.2 k/uL (0-0.7) 09/05/18 13:30 Basophils # 0.1 k/uL (0-0.2) 09/05/18 13:30 Anisocytosis Slight 09/05/18 13:30 Macrocytosis Slight 09/05/18 13:30 PT 12.1 sec (9.0-12.0) H 09/05/18 13:30 INR 1.2 (<1.2) H 09/05/18 13:30 APTT 27.0 sec (22.0-30.0) 09/05/18 13:30 Sodium 137 mmol/L (137-145) 09/05/18 13:30 Potassium 3.3 mmol/L (3.5-5.1) L 09/05/18 13:30 Chloride 103 mmol/L (98-107) 09/05/18 13:30 Carbon Dioxide 26 mmol/L (22-30) 09/05/18 13:30 Anion Gap 8 mmol/L 09/05/18 13:30 BUN 4 mg/dL (7-17) L 09/05/18 13:30 Creatinine 0.38 mg/dL (0.52-1.04) L 09/05/18 13:30 Est GFR (CKD-EPI)AfAm >90 (>60 ml/min/1.73 sqM) 09/05/18 13:30 Est GFR (CKD-EPI)NonAf >90 (>60 ml/min/1.73 sqM) 09/05/18 13:30 Glucose 105 mg/dL (74-99) H 09/05/18 13:30 Plasma Lactic Acid Maximino 1.6 mmol/L (0.7-2.0) 09/05/18 13:30 Calcium 7.9 mg/dL (8.4-10.2) L 09/05/18 13:30 Total Bilirubin 0.6 mg/dL (0.2-1.3) 09/05/18 13:30 AST 45 U/L (14-36) H 09/05/18 13:30 ALT 21 U/L (9-52) 09/05/18 13:30 Alkaline Phosphatase 292 U/L (38-126) H 09/05/18 13:30 Total Protein 5.5 g/dL (6.3-8.2) L 09/05/18 13:30 Albumin 2.7 g/dL (3.5-5.0) L 09/05/18 13:30 Urine Color Yellow 09/05/18 14:35 Urine Appearance Clear (Clear) 09/05/18 14:35 Urine pH 6.5 (5.0-8.0) 09/05/18 14:35 Ur Specific [place] 1.011 (1.001-1.035) 09/05/18 14:35 Urine Protein Trace (Negative) H 09/05/18 14:35 Urine Glucose (UA) Negative (Negative) 09/05/18 14:35 Urine Ketones Negative (Negative) 09/05/18 14:35 Urine Blood Negative (Negative) 09/05/18 14:35 Urine Nitrite Negative (Negative) 09/05/18 14:35 Urine Bilirubin Negative (Negative) 09/05/18 14:35 Urine Urobilinogen <2.0 mg/dL (<2.0) 09/05/18 14:35 Ur Leukocyte Esterase Negative (Negative) 09/05/18 14:35 Influenza Type A RNA Not Detected (Not Detectd) 09/05/18 13:30 Influenza Type B (PCR) Not Detected (Not Detectd) 09/05/18 13:30 Microbiology 09/05/18 14:35 Urine,Voided Urine Culture - Preliminary Laboratory Results WBC 12.5 k/uL (3.8-10.6) H 09/05/18 13:30 RBC 2.82 m/uL (3.80-5.40) L 09/05/18 13:30 Hgb 9.1 gm/dL (11.4-16.0) L 09/05/18 13:30 Hct 27.2 % (34.0-46.0) L 09/05/18 13:30 MCV 96.3 fL (80.0-100.0) 09/05/18 13:30 MCH 32.2 pg (25.0-35.0) 09/05/18 13:30 MCHC 33.5 g/dL (31.0-37.0) 09/05/18 13:30 RDW 18.5 % (11.5-15.5) H 09/05/18 13:30 Plt Count 512 k/uL (150-450) H 09/05/18 13:30 Neutrophils % 74 % 09/05/18 13:30 Lymphocytes % 18 % 09/05/18 13:30 Monocytes % 5 % 09/05/18 13:30 Eosinophils % 2 % 09/05/18 13:30 Basophils % 0 % 09/05/18 13:30 Neutrophils # 9.2 k/uL (1.3-7.7) H 09/05/18 13:30 Lymphocytes # 2.2 k/uL (1.0-4.8) 09/05/18 13:30 Monocytes # 0.6 k/uL (0-1.0) 09/05/18 13:30 Eosinophils # 0.2 k/uL (0-0.7) 09/05/18 13:30 Basophils # 0.1 k/uL (0-0.2) 09/05/18 13:30 Anisocytosis Slight 09/05/18 13:30 Macrocytosis Slight 09/05/18 13:30 PT 12.1 sec (9.0-12.0) H 09/05/18 13:30 INR 1.2 (<1.2) H 09/05/18 13:30 APTT 27.0 sec (22.0-30.0) 09/05/18 13:30 Sodium 137 mmol/L (137-145) 09/05/18 13:30 Potassium 3.3 mmol/L (3.5-5.1) L 09/05/18 13:30 Chloride 103 mmol/L (98-107) 09/05/18 13:30 Carbon Dioxide 26 mmol/L (22-30) 09/05/18 13:30 Anion Gap 8 mmol/L 09/05/18 13:30 BUN 4 mg/dL (7-17) L 09/05/18 13:30 Creatinine 0.38 mg/dL (0.52-1.04) L 09/05/18 13:30 Est GFR (CKD-EPI)AfAm >90 (>60 ml/min/1.73 sqM) 09/05/18 13:30 Est GFR (CKD-EPI)NonAf >90 (>60 ml/min/1.73 sqM) 09/05/18 13:30 Glucose 105 mg/dL (74-99) H 09/05/18 13:30 Plasma Lactic Acid Maximino 1.6 mmol/L (0.7-2.0) 09/05/18 13:30 Calcium 7.9 mg/dL (8.4-10.2) L 09/05/18 13:30 Total Bilirubin 0.6 mg/dL (0.2-1.3) 09/05/18 13:30 AST 45 U/L (14-36) H 09/05/18 13:30 ALT 21 U/L (9-52) 09/05/18 13:30 Alkaline Phosphatase 292 U/L (38-126) H 09/05/18 13:30 Total Protein 5.5 g/dL (6.3-8.2) L 09/05/18 13:30 Albumin 2.7 g/dL (3.5-5.0) L 09/05/18 13:30 Urine Color Yellow 09/05/18 14:35 Urine Appearance Clear (Clear) 09/05/18 14:35 Urine pH 6.5 (5.0-8.0) 09/05/18 14:35 Ur Specific [place] 1.011 (1.001-1.035) 09/05/18 14:35 Urine Protein Trace (Negative) H 09/05/18 14:35 Urine Glucose (UA) Negative (Negative) 09/05/18 14:35 Urine Ketones Negative (Negative) 09/05/18 14:35 Urine Blood Negative (Negative) 09/05/18 14:35 Urine Nitrite Negative (Negative) 09/05/18 14:35 Urine Bilirubin Negative (Negative) 09/05/18 14:35 Urine Urobilinogen <2.0 mg/dL (<2.0) 09/05/18 14:35 Ur Leukocyte Esterase Negative (Negative) 09/05/18 14:35 Influenza Type A RNA Not Detected (Not Detectd) 09/05/18 13:30 Influenza Type B (PCR) Not Detected (Not Detectd) 09/05/18 13:30 Chest x-ray: image reviewed (Bibasilar effusions left greater than right with some atelectasis without melissa infiltration being seen) Assessment and Plan (1) Fever Narrative/Plan: 63-year-old woman [facility] to [facility] extended [facility] facility but he has fever noted to be 102 at the facility. The patient does feel poorly and has ongoing abdominal pain, poor appetite with nausea but no active emesis. She appeared to be a bit short of breath and consequently a chest x-ray was performed showing evidence of some effusion. There is concerns for potential pneumonia and antibiotic therapy with ceftriaxone and azithromycin have been initiated. There is no notation of aspiration occurring. The patient does have the abdominal incision that is having some drainage. Review of the prior hospitalization in prior notes reveal evidence of wound that was being utilized and antibiotic therapy was being utilized. He does appear the wound VAC is been discontinued and the intravenous antibiotic therapy she was receiving completed. However now is evidence of some of the some thick drainage from the inferior abdominal wall incision that seems to have some dehiscence. This is cultured. Will further help direct antibiotic therapy Wound care was silver alginate has been requested is over saline dressing and an ABG pending be changed every Saturday. The patient did have influenza testing at admission which was negative. Abdominal x-ray feels reveal evidence of small bowel obstruction. She does have evidence of white count 12.5 which is increased from the last check and is concerned about the potential pneumonia as well as potential infection to the abdominal incision. Current Visit: Yes Status: Acute Code(s): R50.9 - FEVER, UNSPECIFIED SNOMED Code(s): 806134239 (2) Carcinoma of breast metastatic to bone Current Visit: No Status: Acute Priority: High Code(s): C50.919 - MALIGNANT NEOPLASM OF UNSP SITE OF UNSPECIFIED FEMALE BREAST; C79.51 - SECONDARY MALIGNANT NEOPLASM OF BONE SNOMED Code(s): 660674327 (3) Generalized abdominal pain Current Visit: Yes Status: Acute Code(s): R10.84 - GENERALIZED ABDOMINAL PAIN SNOMED Code(s): 814225570
[2018-09-06] MEDS: 0.9% NACL WITH KCL 20 MEQ/L 1,000 ML IV SCH (18:13)
[2018-09-06] MEDS: DOCUSATE 100 MG CAP PO SCH (21:33)
[2018-09-06] MEDS: HYDROcodone/APAP 7.5-325MG 1 EACH TAB PO PRN (21:50)
--- NOTE | 2018-09-06 22:30 | P.HPIM ---
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 Patient was sent to extended care facility with IV antibiotic therapy and wound VAC which she has completed recently and is supposed to be discharged home in next couple of days. Patient was found have T-max of 102 at rehab and was sent to ER for evaluation. Patient has been having fevers for the past 2 days. Patient does have some discharge from the abdominal surgical wound/dehiscence.. Patient was seen by surgery yesterday and was not concern for infection. Due to patient being consistently febrile, she was sent to ER for evaluation. Patient denied any complaints of cough or sputum production. Patient says that she had couple of episodes of of vomiting at [facility] recently but denied any aspiration. No chest pain or shortness of breath. Denied any pleuritic chest pain. Patient is supposed to follow with oncology for metastatic breast cancer with recent bone biopsy showing metastatic disease. Patient also having constipation with no bowel movement in the colostomy bag for the past 2-3 days. Chest x-ray in the ER showed stable small pleural effusions, left greater than right with associated bibasilar airspace disease. RBC 12.5. Influenza screen negative. Review of Systems Constitutional: Fevers. No chills . Does have generalized weakness. Abdomen: Patient denied nausea vomiting and diarrhea and abdominal pain. Soreness at the surgical site. Constipation. Cardiovascular: Patient denies any chest pain or short of breath no palpitation s. Respiratory: patient denied any cough is from production. No shortness of breath Neurologic: Patient denied any numbness or tingling headache. Musculoskeletal: Patient denies any complaints of joint swelling or deformity. Skin: Negative Psychiatric: Negative Endocrine: No heat or cold intolerance. No recent weight gain. Genitourinary: No dysuria or hematuria. All other 14 point ROS negative except the above Past Medical History Past Medical History: COPD, Thyroid Disorder Additional Past Medical History / Comment(s): Breast cancer with bilateral mastectomy followed by Arimidex treatment, hypothyroidism, UTIs, diverticulitis w/ interloop abscess/incarcerated ventral hernia. History of Any Multi-Drug Resistant Organisms: None Reported Past Surgical History: Appendectomy, Breast Surgery Additional Past Surgical History / Comment(s): Double mastectomy, PICC line, sigmoid colectomy w/ end colostomy. Past Anesthesia/Blood Transfusion Reactions: No Reported Reaction Past Psychological History: Anxiety Smoking Status: Former smoker Past Alcohol Use History: None Reported Additional Past Alcohol Use History / Comment(s): Started smoking age 17 and quit 2013 - smoked 1 ppd. Past Drug Use History: None Reported - Past Family History Mother Family Medical History: Liver Disease Additional Family Medical History / Comment(s): young from cirrhosis/etoh related Father Family Medical History: Cancer Additional Family Medical History / Comment(s): age 87 Medications and Allergies Home Medications Medication Instructions Recorded Confirmed Type amLODIPine [Norvasc] 5 mg PO DAILY #30 tab 07/23/18 09/05/18 Rx HYDROcodone/APAP 7.5-325MG [Cheney 1 tab PO Q4H PRN 3 Days #18 tab 08/08/18 0 09/05/18 Rx 7.5-325] Bisacodyl [Dulcolax] 10 mg RECTAL DAILY PRN 09/03/18 09/05/18 History Leroy Instant Breakfast 1 packet PO W/BRKFST 09/03/18 09/05/18 History Letrozole [Femara] 2.5 mg PO DAILY 09/03/18 09/05/18 History Levothyroxine Sodium [Synthroid] 100 mcg PO SUTUTHSA 09/03/18 09/05/18 History Levothyroxine Sodium [Synthroid] 112 mcg PO MOWEFR 09/03/18 09/05/18 History Magic Cup 2,400 ml PO HS 09/03/18 09/05/18 History Magnesium Hydroxide [Milk of 2,400 mg PO DAILY PRN 09/03/18 09/05/18 History Magnesia] Metoprolol Tartrate [Lopressor] 25 mg PO BID@0800,1700 09/03/18 09/05/18 History Na Phos,M-B/Na Phos,Di-Ba [Fleet 133 ml RECTAL DAILY PRN 09/03/18 09/05/18 History Adult] clonazePAM 0.5 mg PO DAILY PRN 09/03/18 09/05/18 History Allergies Allergy/AdvReac Type Severity Reaction Status Date / Time ciprofloxacin [[facility]] AdvReac Nausea & Verified 09/05/18 12:55 Vomiting codeine AdvReac "GETS THE Verified 09/05/18 12:55 SHAKES" Physical Exam Vitals: Vital Signs Temp Pulse Pulse Resp BP BP BP 09/06/18 15:07 97 16 09/06/18 11:34 98.7 F 97 16 124/82 09/06/18 05:30 98.1 F 118 H 18 128/82 09/05/18 20:00 98.8 F 112 H 18 130/65 09/05/18 17:30 98.8 F 105 H 21 124/86 09/05/18 17:20 112 H 19 124/86 09/05/18 17:10 117 H 23 133/87 09/05/18 17:00 112 H 21 136/91 09/05/18 16:50 113 H 16 136/91 09/05/18 16:40 109 H 27 H 131/84 09/05/18 16:30 106 H 25 H 133/87 09/05/18 16:20 105 H 18 133/87 09/05/18 16:10 106 H 22 132/82 09/05/18 16:00 111 H 21 120/75 09/05/18 15:50 102 H 21 120/75 09/05/18 15:40 104 H 17 121/76 Pulse Ox 09/06/18 15:07 09/06/18 11:34 93 L 09/06/18 05:30 93 L 09/05/18 20:00 92 L 09/05/18 17:30 94 L 09/05/18 17:20 94 L 09/05/18 17:10 95 09/05/18 17:00 93 L 09/05/18 16:50 93 L 09/05/18 16:40 93 L 09/05/18 16:30 93 L 09/05/18 16:20 93 L 09/05/18 16:10 93 L 09/05/18 16:00 93 L 09/05/18 15:50 93 L 09/05/18 15:40 93 L Intake and Output 04/20/19 04/20/19 04/20/19 06:59 14:59 22:59 Intake Total 2400 Balance 2400 Intake: Intake, IV Titration 1250 Amount Sodium Chloride 0.9% 1, 1200 000 ml @ 100 mls/hr IV . Q10H [facility] Rx#:[id number] cefTRIAXone 1 gm In 50 Sodium Chloride 0.9% 50 ml @ 100 mls/hr IVPB ONCE STA Rx#:[id number] Oral 1150 Other: Voiding Method Bedside Commode Bedside Commode # Voids 1 3 PHYSICAL EXAMINATION: Patient is lying in the bed comfortably, no acute distress, awake alert and oriented.. HEENT: Normocephalic. Neck is supple. Pupils reactive. Nostrils clear. Oral cavity is moist. Ears reveal no drainage. Neck reveals no JVD, carotid bruits, or thyromegaly. CHEST EXAMINATION: Trachea is central. Symmetrical expansion. Bibasilar diminis hed air entry. Lung fairchild clear to auscultation and percussion. CARDIAC: Normal S1, S2 with no gallops. No murmurs ABDOMEN: Soft. Bowel sounds normal. No organomegaly. No abdominal bruits. Mild tenderness at the surgical sites. Abdominal wound with some thick drainage. Extremities: reveal no edema. No clubbing or cyanosis Neurologically awake, alert, oriented x3 with well-coordinated movements. No focal deficits noted Skin: No rash or skin lesions. Psychiatric: Coperative. Nonsuicidal Musculoskeletal: No joint swelling or deformity. Normal range of motion. Results CBC & Chem 7: 09/05/18 13:30 09/05/18 13:30 Labs: Microbiology - Last 24 Hours (Table) 09/05/18 14:35 Urine Culture - Preliminary Urine,Voided Thrombosis Risk Factor Assmnt - DVT/VTE Prophylaxis DVT/VTE Prophylaxis: Pharmacologic Prophylaxis ordered - Choose All That Apply Any of the Below Risk Factors Present?: Yes Each Factor Represents 1 point: Abnormal pulmonary function (COPD), Serious lung disease incl. pneumonia (< 1month) Each Risk Factor Represents 2 Points: Age 61-74 years Other congenital or acquired thrombophilia - If yes, enter type in comment: No Thrombosis Risk Factor Assessment Total Risk Factor Score: 4 Thrombosis Risk Factor Assessment Level: Moderate Risk Assessment and Plan Assessment: Fever etiology could be due to bibasilar atelectasis with possible pneumonia and abdominal wound Constipation Hypokalemia recent Pneumoperitoneum due to perforated viscus status post sigmoid colectomy with and colostomy, partial omentectomy and repair of incarcerated ventral hernia on 07/28/2018 Metastatic breast cancer with metastases to bone. bilateral mastectomy. On Arimidex treatment. Recent bone biopsy. Supposed to follow with oncology on Saturday. Recent history of HSV encephalitis. Was on acyclovir and dexamethasone Hypothyroidism COPD Hypertension. Currently blood pressure is not elevated. Anxiety history of smoking DVT prophylaxis Plan: Patient will be continued on IV hydration and pain management. Incentive spirometry. Patient will be continued on antibiotics in the form of ceftriaxone and azithromycin. Continue with stool softeners. Follow up wound culture report. Unlikely abdominal incision wound infection as per general surgery. ID is following. We will consult oncology. Further recommendations based on the clinical course. Discussed with the patient and her at bedside in detail. Prognosis is guarded. Time with Patient: Greater than 30
[2018-09-07 05:16] LABS: Anisocytosis Slight; Basophils # (A) 0.1 k/uL (0-0.2); Basophils % (A) 1 %; Eosinophils # (A) 0.6 k/uL (0-0.7); Eosinophils % (A) 7 %; HCT 28.9 % (34.0-46.0); HGB 9.3 gm/dL (11.4-16.0); Hypochromasia Slight; Lymphocytes # (A) 1.9 k/uL (1.0-4.8); Lymphocytes % (A) 22 %; MCHC 32.1 g/dL (31.0-37.0); MCV 99.8 fL (80.0-100.0); Macrocytosis Moderate; Mean Platelet Volume 7.2; Monocytes # (A) 0.3 k/uL (0-1.0); Monocytes % (A) 4 %; Neutrophils # (A) 5.4 k/uL (1.3-7.7); Neutrophils % (A) 64 %; Platelet Count 531 k/uL (150-450); RBC 2.89 m/uL (3.80-5.40); RDW 18.4 % (11.5-15.5); WBC 8.4 k/uL (3.8-10.6)
[2018-09-07 05:29] LABS: Anion Gap 7 mmol/L; Blood Urea Nitrogen <2 mg/dL (7-17); Calcium 8.2 mg/dL (8.4-10.2); Carbon Dioxide 25 mmol/L (22-30); Chloride 107 mmol/L (98-107); Glucose 81 mg/dL (74-99); Potassium 3.2 mmol/L (3.5-5.1); Sodium 139 mmol/L (137-145)
[2018-09-07] MEDS: LEVOTHYROXINE 100 MCG TAB PO SCH (05:35)
[2018-09-07] MEDS: 0.9% NACL WITH KCL 20 MEQ/L 1,000 ML IV SCH ×2 (05:36→12:44)
[2018-09-07] MEDS: METOPROLOL TARTRATE 25 MG TAB PO SCH ×2 (09:07→16:59)
[2018-09-07] MEDS: HYDROcodone/APAP 7.5-325MG 1 EACH TAB PO PRN ×2 (09:08→20:12)
[2018-09-07] MEDS: amLODIPine 5 MG TAB PO SCH (09:08)
[2018-09-07] MEDS: AZITHROMYCIN 500 MG TAB PO SCH (09:08)
[2018-09-07] MEDS: LETROZOLE 2.5 MG TAB PO SCH (09:09)
[2018-09-07] MEDS: DOCUSATE 100 MG CAP PO SCH ×2 (09:09→20:23)
--- NOTE | 2018-09-07 11:31 | P.PN ---
Subjective Progress Note Date: 09/07/18 CHIEF COMPLAINT: Abdominal pain HISTORY OF PRESENT ILLNESS: The patient is a 63-year-old female who reports seeing her surgeon Dr. Coats less than 5 days ago upon follow-up for a descending colostomy creation from perforated diverticulitis, 07/28/2018. Her history is significant for metastatic breast cancer to the bone of the spine. She has not started treatments with chemotherapy. She was admitted for pneumonia including leukocytosis. Since admission, she is having bowel movements. Abdominal pain is resolved. Her ostomy is working. White blood cell count is normal. PHYSICAL EXAM: VITALS: Reviewed CONSTITUTIONAL: Well developed and in no acute distress. EYES: Conjuctivae without sclera icterus. Extraocular movements grossly intact. HEAD, EARS, NOSE, THROAT: Moist buccal mucosa. Head is atraumatic, normocephalic. Hears conversational speech. No nasal drainage. NECK: Supple. No JV distention. No thyroidomegaly. RESPIRATORY: Non-labored respirations and equal bilateral excursions. CARDIOVASCULAR: Regular rate and rhythm. Extremities without moderate edema. Palpable 2+ radial pulses. ABDOMEN: Soft. Nondistended. Ostomy fold of soft brown stool. Flatus and ostomy. Nontender. MUSCULOSKELETAL: Nail and fingers with good capillary refill. No clubbing or cyanosis. SKIN: Warm and well perfused with good skin turgor. NEUROLOGIC: Cranial nerves II through XII grossly intact. No focal or lateralizing signs. PSYCH: Appropriate affect. Alert and oriented to person, place and time. Displays appropriate insight. CLINCAL LABS: Reviewed with resolved leukocytosis. ASSESSMENT: 1. History of abdominal pain resolved 2. Metastatic breast cancer to the spine 3. Descending colostomy status 4. Pneumonia 5. Constipation PLAN: 1. Diet as tolerated. 2. Patient cleared from a surgical standpoint for discharge. 3. Follow-up with Dr. Coats as outpatient Objective - Vital Signs Vital signs: Vital Signs Temp 97.9 F 09/07/18 04:47 Pulse 99 09/07/18 04:47 Resp 16 09/07/18 04:47 BP 134/84 09/07/18 04:47 Pulse Ox 93 L 09/07/18 04:47 Intake & Output 09/06/18 09/07/18 09/07/18 18:59 06:59 18:59 Intake Total 2400 Balance 2400 Intake: Intake, IV Titration 1250 Amount Sodium Chloride 0.9% 1, 1200 000 ml @ 100 mls/hr IV . Q10H [facility] Rx#:[id number] cefTRIAXone 1 gm In 50 Sodium Chloride 0.9% 50 ml @ 100 mls/hr IVPB ONCE STA Rx#:[id number] Oral 1150 Other: Voiding Method Bedside Commode Toilet Bedside Commode # Voids 3 2 - Labs CBC & Chem 7: 09/07/18 04:40 09/07/18 04:40 Labs: Abnormal Lab Results - Last 24 Hours (Table) 09/07/18 09/07/18 Range/Units 04:40 04:40 RBC 2.89 L (3.80-5.40) m/uL Hgb 9.3 L (11.4-16.0) gm/dL Hct 28.9 L (34.0-46.0) % RDW 18.4 H (11.5-15.5) % Plt Count 531 H (150-450) k/uL Potassium 3.2 L (3.5-5.1) mmol/L BUN <2 L (7-17) mg/dL Creatinine 0.40 L (0.52-1.04) mg/dL Calcium 8.2 L (8.4-10.2) mg/dL Microbiology - Last 24 Hours (Table) 09/06/18 13:38 Gram Stain - Preliminary Abdomen Wound Culture - Preliminary 09/06/18 13:38 Anaerobic Culture - Preliminary Abdomen 09/05/18 14:35 Urine Culture - Final Urine,Voided 09/05/18 13:30 Blood Culture - Preliminary Blood No Growth after 24 hours Assessment and Plan (1) Colostomy status Current Visit: Yes Status: Acute Code(s): Z93.3 - COLOSTOMY STATUS SNOMED Code(s): 418873644 (2) Generalized abdominal pain Current Visit: Yes Status: Acute Code(s): R10.84 - GENERALIZED ABDOMINAL PAIN SNOMED Code(s): 234022778 (3) Hypokalemia Current Visit: Yes Status: Acute Code(s): E87.6 - HYPOKALEMIA SNOMED Code(s): 10199708 (4) Pneumonia Current Visit: Yes Status: Acute Code(s): J18.9 - PNEUMONIA, UNSPECIFIED ORGANISM SNOMED Code(s): 684280306 (5) Carcinoma of breast metastatic to bone Current Visit: No Status: Acute Priority: High Code(s): C50.919 - MALIGNANT NEOPLASM OF UNSP SITE OF UNSPECIFIED FEMALE BREAST; C79.51 - SECONDARY MALIGNANT NEOPLASM OF BONE SNOMED Code(s): 855903241 (6) Perforation of sigmoid colon due to diverticulitis Current Visit: No Status: Acute Code(s): K57.20 - DVTRCLI OF LG INT W PERFORATION AND ABSCESS W/O BLEEDING SNOMED Code(s): 7772378826159652 (7) Leukocytosis Current Visit: Yes Status: Acute Code(s): D72.829 - ELEVATED WHITE BLOOD CELL COUNT, UNSPECIFIED SNOMED Code(s): 972554267 (8) Anemia, chronic disease Current Visit: Yes Status: Acute Code(s): D63.8 - ANEMIA IN OTHER CHRONIC DISEASES CLASSIFIED ELSEWHERE SNOMED Code(s): 243103312
[2018-09-07] MEDS ORDERED: POTASSIUM CHLORIDE ER 20 MEQ TAB.ER PO STA (12:35)
--- NOTE | 2018-09-08 00:08 | P.PN ---
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 Patient was sent to extended care facility with IV antibiotic therapy and wound VAC which she has completed recently and is supposed to be discharged home in next couple of days. Patient was found have T-max of 102 at rehab and was sent to ER for evaluation. Patient has been having fevers for the past 2 days. Patient does have some discharge from the abdominal surgical wound/dehiscence.. Patient was seen by surgery yesterday and was not concern for infection. Due to patient being consistently febrile, she was sent to ER for evaluation. Patient denied any complaints of cough or sputum production. Patient says that she had couple of episodes of of vomiting at [facility] recently but denied any aspiration. No chest pain or shortness of breath. Denied any pleuritic chest pain. Patient is supposed to follow with oncology for metastatic breast cancer with recent bone biopsy showing metastatic disease. Patient also having constipation with no bowel movement in the colostomy bag for the past 2-3 days. Chest x-ray in the ER showed stable small pleural effusions, left greater than right with associated bibasilar airspace disease. RBC 12.5. Influenza screen negative. 09/07/2018 Patient is more awake and oriented today. Patient has been afebrile. T-max was 100.3 last night. Patient is being continued on antibiotics. Unlikely abdominal surgical wound infection. General surgery is following. ID is on board. Oncology was consulted due to metastatic breast cancer to bones. Patient did have a bowel movement in the colostomy bag. No complaints of abdominal pain. No nausea vomiting or diarrhea. Tolerating oral diet. Current medications reviewed. Objective - Vital Signs Vital signs: Vital Signs Temp 98.3 F 09/07/18 21:37 Pulse 104 H 09/07/18 21:37 Resp 18 09/07/18 21:37 BP 133/84 09/07/18 21:37 Pulse Ox 96 09/07/18 21:37 Intake & Output 09/07/18 09/07/18 09/08/18 06:59 18:59 06:59 Other: Voiding Method Toilet Toilet Bedside Commode Bedside Commode # Voids 2 3 - Exam PHYSICAL EXAMINATION: Patient is lying in the bed comfortably, no acute distress, awake alert and oriented.. HEENT: Normocephalic. Neck is supple. Pupils reactive. Nostrils clear. Oral cavity is moist. Ears reveal no drainage. Neck reveals no JVD, carotid bruits, or thyromegaly. CHEST EXAMINATION: Trachea is central. Symmetrical expansion. Bibasilar diminished air entry. Lung fairchild clear to auscultation and percussion. CARDIAC: Normal S1, S2 with no gallops. No murmurs ABDOMEN: Soft. Bowel sounds normal. No organomegaly. No abdominal bruits. Colostomy bag with formed stool present. Mild tenderness at the surgical sites. Abdominal wound intact without drainage today.. Extremities: reveal no edema. No clubbing or cyanosis Neurologically awake, alert, oriented x3 with well-coordinated movements. No f ocal deficits noted Skin: No rash or skin lesions. Psychiatric: Coperative. Nonsuicidal Musculoskeletal: No joint swelling or deformity. Normal range of motion. - Labs CBC & Chem 7: 09/07/18 04:40 09/07/18 04:40 Labs: Abnormal Lab Results - Last 24 Hours (Table) 09/07/18 09/07/18 Range/Units 04:40 04:40 RBC 2.89 L (3.80-5.40) m/uL Hgb 9.3 L (11.4-16.0) gm/dL Hct 28.9 L (34.0-46.0) % RDW 18.4 H (11.5-15.5) % Plt Count 531 H (150-450) k/uL Potassium 3.2 L (3.5-5.1) mmol/L BUN <2 L (7-17) mg/dL Creatinine 0.40 L (0.52-1.04) mg/dL Calcium 8.2 L (8.4-10.2) mg/dL Microbiology - Last 24 Hours (Table) 09/05/18 13:30 Blood Culture - Preliminary Blood No Growth after 48 hours 09/06/18 13:38 Gram Stain - Preliminary Abdomen Wound Culture - Preliminary 09/06/18 13:38 Anaerobic Culture - Preliminary Abdomen 09/05/18 14:35 Urine Culture - Final Urine,Voided Assessment and Plan Assessment: Fever etiology could be due to bibasilar atelectasis with possible pneumonia and abdominal wound. Resolving now. Constipation. Resolved. Hypokalemia recent Pneumoperitoneum due to perforated viscus status post sigmoid colectomy with and colostomy, partial omentectomy and repair of incarcerated ventral hernia on 07/28/2018 Metastatic breast cancer with metastases to bone. bilateral mastectomy. On Arimidex treatment. Recent bone biopsy. Supposed to follow with oncology on Saturday. Recent history of HSV encephalitis. Was on acyclovir and dexamethasone Hypothyroidism COPD Hypertension. Currently blood pressure is not elevated. Anxiety history of smoking DVT prophylaxis Plan: Patient will be continued on gentle IV hydration and pain management. Incentive spirometry. Patient will be continued on antibiotics in the form of ceftriaxone and azithromycin. Continue with stool softeners as needed. Follow up wound culture report. Unlikely abdominal incision wound infection as per general surgery. ID is following. Oncology was consulted due to metastatic breast cancer to bones. Further recommendations based on the clinical course and oncology final recomme ndations regarding treatment goals.. Discussed with the patient and her at bedside in detail. Code status to be discussed . Prognosis is guarded. Time with Patient: Greater than 30
[2018-09-08] MEDS: 0.9% NACL WITH KCL 20 MEQ/L 1,000 ML IV SCH ×2 (04:38→17:01)
[2018-09-08 06:05] VITALS: TEMP 97.9
[2018-09-08] MEDS ORDERED: LEVOTHYROXINE 112 MCG TAB PO SCH (06:30)
[2018-09-08] MEDS: amLODIPine 5 MG TAB PO SCH (09:24)
[2018-09-08] MEDS: METOPROLOL TARTRATE 25 MG TAB PO SCH ×2 (09:24→17:05)
[2018-09-08] MEDS: DOCUSATE 100 MG CAP PO SCH (09:24)
[2018-09-08] MEDS: HYDROcodone/APAP 7.5-325MG 1 EACH TAB PO PRN ×2 (09:35→17:05)
[2018-09-08] MEDS: AZITHROMYCIN 500 MG TAB PO SCH (10:30)
[2018-09-08] MEDS: LETROZOLE 2.5 MG TAB PO SCH (10:30)
--- NOTE | 2018-09-08 11:10 | CDI ---
Documentation Clarification Form Date: 09/08/2018 10:47:46 AM From: Ceci Galeano RN, CCDS Admit Date: 09/05/2018 4:26:00 PM Patient Name: Melanie Posada Visit Number: [id number] Discharge Date: ATTENTION: The Clinical Documentation Specialists (CDI) and [facility] Coding Staff appreciate your assistance in clarifying documentation. Please respond to the clarification below the line at the bottom and electronically sign. The CDI & [facility] Coding staff will review the response and follow-up if needed. Please note: Queries are made part of the Legal Health Record. If you have any questions, please contact the author of this message via ITS. Dr. Dannielle Skelton The patient presented with fever over the past couple of days, up to 102. History/Risk Factors: Breast cancer with bone cancer Clinical Indicators: Patient was found to have T-max of 102 at rehab with fevers for the past 2 days. She was having discharge from abdominal surgical wound/dehiscence with concern for infection sent to ER for evaluation. H&P: Fever etiology could be due to bibasilar atelectasis with possible pneumonia, abdominal wound infection unlikely per general surgery. WBC 12.5 Lactic acid: 1.6 Blood cultures: Pending, no growth after 48 hours Wound culture abdomen: Pending Vitals signs on admission: 129/78 104 18 99.2 Other Clinical Indicators: ED evaluation: Patient has pneumonia with concern for sepsis diagnosed at 1624. CXR: small fusion, left greater than right with associated by basilar airspace disease. Treatment: Monitor CBC ID Consult: Fever at [facility] care facility noted to be 102. She has abdominal pain, poor appetite with nausea Antibiotics: Ceftriaxone IV, Azithromycin Po IV Fluids Other: In your professional opinion, please clarify if these findings signify one of the following conditions, whether the condition is POA, and cause, if known: Condition Sepsis ruled out Sepsis ruled in Other, please specify Unable to determine Present on Admission Yes No Identify the (suspected) organism Link or clarify if there is associated (due to/with): Organ failure Shock SIRS Criteria (2 or more of the following may indicate SIRS): -Temperature < 96.8F (36C) or > 101.0F (38.3C) -Heart Rate > 90 bpm -Respiratory Rate > 20 breaths/min or PaCO2 < 32 mmHg -White Blood Cell Count > 12,000 or < 4,000 cells/mm3 or > 10% bands -Lactate >2.0 mmol/L (>4.0 is equivalent to septic shock) (Last Revision: August 2017) Sepsis likely secondary to abdominal wound infection with MRSA MTDD
--- NOTE | 2018-09-08 11:13 | P.CONS ---
History of Present Illness - Reason for Consult Consult date: 09/08/18 metastatic Breast Cancer - Bone Requesting physician: Dannielle Skelton - Chief Complaint SOB and Fevers - History of Present Illness Ms Posada is a 63-year-old white female, with overall well-controlled medical Problems. The patient was brought in by her family in June (07/17/18), because they had noted decreased responsiveness starting around 07/14/18. This had steadily progressed to where the patient had become barely arousable. Oral intake was markedly reduced since the onset of these symptoms. No seizure activity or actual loss of consciousness noted. The patient was brought into the emergency room, where labs revealed a markedly increased calcium of 18. Patient clinically appeared to be quite dehydrated, and creatinine was also elevated from her baseline. She underwent a CT scan of the chest abdomen and pelvis that showed widespread metastatic-appearing lesions in the skeleton. There was concern regarding the patient being able to protect her airway. She was therefore admitted to the ICU for further management. She was treated for hypercalcemia aggressively with IV hydration, as well as calcitonin. She also underwent a lumbar puncture to rule out meningitis. She was placed on IV antibiotics empirically. She was found to have positive CSF for meningitis and ID treating with antibiotics. She was discharged but returned shortly after with increased abdominal pain and shortness of breath. She underwent surgical intervention for strangulated hernia and possible pneumoperitoneum resulting in colectomy and colostomy. She is now recovering. Oncologic History consisted of breast cancer, estrogen positive in 2010. She underwent bilateral mastectomy. According to the family, based on stage, chemotherapy and/or radiation was not recommended and the patient was treated with anastrozole, although could not tolerate therefore was discontinued about a year after starting. Her care so far had been under Dr. Bonnie Doan at [facility] and [facility]. Her last visit with her was in 02/2018. According to the family, since then the patient had been having some back pain and chest wall pain that seems to have been somewhat nonspecific. Patient seen and evaluated today as consult after her surgical intervention with sigmoid colectomy and end colostomy. She is recovering well although the patient and family are very concerned about the new apparent picture of metastatic cancer. We discussed the plan for further work-up of her diffuse bone lesions seen on CT and Bone scan. She is planning on needing to recover in outpatient rehab center from this recent surgery. With her known history of breast cancer and elevated Breast tumor markers and picture of likely metastatic recurrent breast cancer to the bones it is resonable to obtain bone biopsy prior to discharge to allow time to run pathology, assess ER, HER2 if breast cancer or other molecular pertinent tests. She may potentially be able to begin Hormonal therapy while recovering in rehab. I have discussed this in detail with Dr. Gildardo fall, Dr. Myers. We will proceed with IR consultation for bone biopsy. Another complaint is her right sided weakness on lower extremity, she has had right foot drop noted prior to infectious diagnosis and states the weakness appears to be worsening and not improved. We will need to closely assess and monitor, if not improved come close to abx completion and physical therapy involvement MRI of spine is resonable. MRI of brain was performed last admission and failed to show evidence of metastatic disease. She now presents from [facility] for increased fevers, although t max 100.3, moscoso cultr ues negative, possible tumor fever. She is up with PT and walking, she is eating overall doing well. Review of Systems A 14 point review of systems assessed and completed and all negative except HPI Past Medical History Past Medical History: COPD, Thyroid Disorder Additional Past Medical History / Comment(s): Breast cancer with bilateral mastectomy followed by Arimidex treatment, hypothyroidism, UTIs, diverticulitis w/ interloop abscess/incarcerated ventral hernia. History of Any Multi-Drug Resistant Organisms: None Reported Past Surgical History: Appendectomy, Breast Surgery Additional Past Surgical History / Comment(s): Double mastectomy, PICC line, sigmoid colectomy w/ end colostomy. Past Anesthesia/Blood Transfusion Reactions: No Reported Reaction Past Psychological History: Anxiety Smoking Status: Former smoker Past Alcohol Use History: None Reported Additional Past Alcohol Use History / Comment(s): Started smoking age 17 and quit 2013 - smoked 1 ppd. Past Drug Use History: None Reported - Past Family History Mother Family Medical History: Liver Disease Additional Family Medical History / Comment(s): young from cirrhosis/etoh related Father Family Medical History: Cancer Additional Family Medical History / Comment(s): age 87 Medications and Allergies Home Medications Medication Instructions Recorded Confirmed Type amLODIPine [Norvasc] 5 mg PO DAILY #30 tab 07/23/18 09/05/18 Rx HYDROcodone/APAP 7.5-325MG [[place] 1 tab PO Q4H PRN 3 Days #18 tab 08/08/18 09/05/18 Rx 7.5-325] Bisacodyl [Dulcolax] 10 mg RECTAL DAILY PRN 09/03/18 09/05/18 History [place] Instant Breakfast 1 packet PO W/BRKFST 09/03/18 09/05/18 History Letrozole [Femara] 2.5 mg PO DAILY 09/03/18 09/05/18 History Levothyroxine Sodium [Synthroid] 100 mcg PO SUTUTHSA 09/03/18 09/05/18 History Levothyroxine Sodium [Synthroid] 112 mcg PO MOWEFR 09/03/18 09/05/18 History Magic Cup 2,400 ml PO HS 09/03/18 09/05/18 History Magnesium Hydroxide [Milk of 2,400 mg PO DAILY PRN 09/03/18 09/05/18 History Magnesia] Metoprolol Tartrate [Lopressor] 25 mg PO BID@0800,1700 09/03/18 09/05/18 History Na Phos,M-B/Na Phos,Di-Ba [Fleet 133 ml RECTAL DAILY PRN 09/03/18 09/05/18 History Adult] clonazePAM 0.5 mg PO DAILY PRN 09/03/18 09/05/18 History Allergies Allergy/AdvReac Type Severity Reaction Status Date / Time ciprofloxacin [From Cipro] AdvReac Nausea & Verified 09/05/18 12:55 Vomiting codeine AdvReac "GETS THE Verified 09/05/18 12:55 SHAKES" Physical Exam Vitals: Vital Signs Temp Pulse Resp BP Pulse Ox 09/08/18 06:04 97.9 F 107 H 16 128/79 93 L 09/07/18 21:37 98.3 F 104 H 18 133/84 96 09/07/18 16:59 109 H 159/86 09/07/18 12:44 97.6 F 91 114/72 95 Intake and Output 09/07/18 09/08/18 09/08/18 22:59 06:59 14:59 Other: # Voids 3 Gen: Alert, NAD Head: NC, NT Neck: Supple, Trachea Midline No lymphadenopathy palpable supraclavicular, Cervical or Axillary Lungs: Diminished Bilateral Bases, Mild increased effort Heart: Tachycardia, reg Abdomen: Firm, tender, Mild Distention Ext: Positive BLE Edema Neuro: No sensory or motor deficits Results CBC & Chem 7: 09/08/18 11:25 09/08/18 11:25 Labs: Microbiology - Last 24 Hours (Table) 09/05/18 13:30 Blood Culture - Preliminary Blood No Growth after 48 hours Chest x-ray: report reviewed CT scan - chest: report reviewed Assessment and Plan Plan: PROBLEM LIST (1) Carcinoma of breast metastatic to bone Current Visit: Yes Status: Acute Priority: High Code(s): C50.919 - MALIGNANT NEOPLASM OF UNSP SITE OF UNSPECIFIED FEMALE BREAST; C79.51 - SECONDARY MALIGNANT NEOPLASM OF BONE SNOMED Code(s): 489684460 (2) Surgical pneumoperitoneum Current Visit: Yes Status: Acute Code(s): K66.8 - OTHER SPECIFIED DISORDERS OF PERITONEUM SNOMED Code(s): 91637150 (3) Hypercalcemia Current Visit: No Status: Acute Priority: High Code(s): E83.52 - HYPERCALCEMIA SNOMED Code(s): 10791205 Assessment and Recommendations: 1. Metastatic Breast Cancer - Bone - Patient follows with Dr. Fajardo as outpatient - Patient has history of breast cancer in 2011, - Ca15-3 and Qu2540 greatly increased 900s - IR for bone Biopsy 08/07/18: Pathology resulted positive for metastatic breast to bone, ER Positive. 90% Estrogen Receptive from Right Iliac biopsy - She received Aredia on 07/17/18, will be due for another 08/14/18 - Continue to monitor RLE weakness and footdrop, may need MRI Spine 2. Normocytic anemia: Secondary to post operative blood loss and component of malignancy - Check Iron studies and anemia work-up - Check CBC today 3. Acute Hypoxic Respiratory Failure: -Started at last admission requiring her to leave to Rehab with oxygen. - Unknown etiology not completely clear, acute exacerbation liekly secondary to pneumonia, new pleural effusions 4. Sinus Tachycardia: Likely reactive - Complete moscoso cultures on admisison 5. Hypercalcemia: Resolved - She is status post Pamidronate on 07/16/18, therefore may receive second dose 08/13/18 - This is secondary to her diffuse bone mets 6. Debility and weakness: Secondary to recurrent hospitalizations, recent surgery - Plan is for sub-acute rehab at discharge 7. Status Post Sigmoid Colectomy and end colostomy - Emergent surgery for pneuperitoneum and incarcerated hernia - Recovering well and good outpt from ostomy. 8. Hx: Hyperplasia cells on EGD in 2016 at [facility] DISPO: Per Primary Team Plan: - Continue Femara - Will Schedule follow-up for patient next week in office and attempt to obtain Ibrance for patient Physician Attest: I have completed the full history and physical and agree with above dictation, dictated as a scribe.
[2018-09-08 12:03] LABS: Anisocytosis Slight; Basophils % (A) 1 %; Eosinophils # (A) 0.6 k/uL (0-0.7); Eosinophils % (A) 9 %; HCT 28.7 % (34.0-46.0); Hypochromasia Slight; Lymphocytes # (A) 1.8 k/uL (1.0-4.8); Lymphocytes % (A) 24 %; MCH 31.2 pg (25.0-35.0); MCHC 31.2 g/dL (31.0-37.0); Macrocytosis Moderate; Mean Platelet Volume 6.8; Monocytes # (A) 0.3 k/uL (0-1.0); Monocytes % (A) 4 %; Neutrophils # (A) 4.3 k/uL (1.3-7.7); Neutrophils % (A) 60 %; Platelet Count 566 k/uL (150-450); RBC 2.87 m/uL (3.80-5.40); WBC 7.2 k/uL (3.8-10.6)
[2018-09-08 12:18] LABS: ALT 23 U/L (9-52); AST 40 U/L (14-36); Albumin 2.7 g/dL (3.5-5.0); Alkaline Phosphatase 323 U/L (38-126); Anion Gap 4 mmol/L; Blood Urea Nitrogen <2 mg/dL (7-17); Calcium 8.3 mg/dL (8.4-10.2); Carbon Dioxide 28 mmol/L (22-30); Chloride 107 mmol/L (98-107); Glucose 87 mg/dL (74-99); Magnesium 1.4 mg/dL (1.6-2.3); Potassium 3.8 mmol/L (3.5-5.1); Sodium 139 mmol/L (137-145); Total Bilirubin 0.3 mg/dL (0.2-1.3); Total Protein 5.5 g/dL (6.3-8.2)
[2018-09-08 12:20] VITALS: BP 134/82; RESP 18
--- NOTE | 2018-09-08 14:18 | P.PN ---
Subjective Progress Note Date: 09/08/18 Principal diagnosis: Abdominal wounds Patient doing well today. No additional fevers. Tolerating diet. Good ostomy function. Objective - Vital Signs Vital signs: Vital Signs Temp 97.9 F 09/08/18 12:19 Pulse 102 H 09/08/18 12:19 Resp 18 09/08/18 12:19 BP 134/82 09/08/18 12:19 Pulse Ox 96 09/08/18 12:37 Intake & Output 09/07/18 09/08/18 09/08/18 18:59 06:59 18:59 Other: Voiding Method Toilet Bedside Commode # Voids 3 3 - Exam Abdomen: Soft, nondistended, midline wounds with small amount of serosanguineous drainage, nontender - Labs CBC & Chem 7: 09/08/18 11:25 09/08/18 11:25 Labs: Abnormal Lab Results - Last 24 Hours (Table) 09/08/18 09/08/18 Range/Units 11:25 11:25 RBC 2.87 L (3.80-5.40) m/uL Hgb 9.0 L (11.4-16.0) gm/dL Hct 28.7 L (34.0-46.0) % RDW 18.0 H (11.5-15.5) % Plt Count 566 H (150-450) k/uL BUN <2 L (7-17) mg/dL Creatinine 0.40 L (0.52-1.04) mg/dL Calcium 8.3 L (8.4-10.2) mg/dL Magnesium 1.4 L (1.6-2.3) mg/dL AST 40 H (14-36) U/L Alkaline Phosphatase 323 H (38-126) U/L Total Protein 5.5 L (6.3-8.2) g/dL Albumin 2.7 L (3.5-5.0) g/dL Microbiology - Last 24 Hours (Table) 09/05/18 13:30 Blood Culture - Preliminary Blood No Growth after 48 hours Assessment and Plan (1) Wound dehiscence Narrative/Plan: Patient doing fairly well from a surgical standpoint. Continue local wound care. Stable for discharge per surgery. Current Visit: No Status: Acute Code(s): T81.30XA - DISRUPTION OF WOUND, UNSPECIFIED, INITIAL ENCOUNTER SNOMED Code(s): 005628314
[2018-09-08 14:27] VITALS: PULSE 103
[2018-09-08 18:25] LABS: Iron Saturation 20.73 (12.00-45.00)
--- NOTE | 2018-09-08 21:40 | P.PN ---
Subjective Progress Note Date: 09/08/18 63 year old woman who is known to the infectious disease service from her recent hospitalization which point in time she was having difficulties with her abdominal incision status post a repair of her perforated sigmoid diverticula of 07/28/2018. The patient however does have significant disease process related to her metastatic breast carcinoma and during that stay she was having severe pain in biopsy of her sacrum reveal evidence of the bony metastasis of her breast carcinoma. She has been in rehab receiving antibiotic therapy and wound care to her nonhealing abdominal incision from her recent surgery. However she developed some increasing abdominal pain she started to have very little output throughout the ostomy and constantly was brought into hospital for further intervention. At admission it was noted that there was complaint of a fever at the rehab center and consequently further advice was requested. At this time she still feels poorly. She's been able to eat a bit of her lunch. This has improved some developed discomfort that she was having. In as of now not having significant nausea or emesis. 09/08/2018 patient is now feeling considerably better. Is looking forward to her discharge to home. Request for antibiotic therapy is made. The discharge plan is discussed with the nurse and the company is contacted to ensure her home oxygen will be delivered to her home. Is the patient's feeling better. Looks forward to going home. Her shortness of breath is improved. Set him in consultation production. In the abdomen also feels somewhat better. Seen by surgery without the need for any surgical intervention Objective - Vital Signs Vital signs: Vital Signs Temp 97.9 F 09/08/18 12:19 Pulse 103 H 09/08/18 14:25 Resp 18 09/08/18 12:19 BP 134/82 09/08/18 12:19 Pulse Ox 93 L 09/08/18 14:25 Intake & Output 09/08/18 09/08/18 09/09/18 06:59 18:59 06:59 Other: # Voids 3 2 - Exam 63-year-old woman who appears about her stated age but does appear to be chronically ill HEENT: Anicteric conjunctiva are pink and moist nasal mucosa grossly intact without significant lesions, there is no thrush. Neck: The neck is supple without significant lymphadenopathy or thyromegaly. Lungs: Good bilateral air entry without significant crackles or wheezing. There is no significant bronchial sounds. There is no egophony or dullness. Heart: Regular rate and rhythm with an audible S1-S2, no S3 no S4. There is no significant murmur click or rub, PMI was nondisplaced. Abdomen : There are no positive bowel sounds that are easily heard throughout 4 quadrants. The abdomen is not significantly distended. The colostomy which is left lateral midline location has evidence of a healthy-appearing stoma. There is some small amount of stool in the pouch there is no hepatosplenomegaly. There is no rigidity or guarding. Along the midline incision are 2 open area of dehiscence the upper is 1.5x1.5x 2cm the lower is 4x1.5x0.5cm and lower has some thick yellow drainage on the dressing, culture obtained Extremities: The upper extremities have excellent pulses they are symmetric, no significant petechiae or telangiectasia. No splinter hemorrhages were noted. The lower extremities are free from significant edema. Lower extremities do reveal evidence of some symmetric bilateral lower extremity edema and open ulcerations are seen Neuro: Awake alert oriented to person place and time. There are no acute new gross focal sensory motor deficits. - Labs CBC & Chem 7: 09/08/18 11:25 09/08/18 11:25 Labs: Abnormal Lab Results - Last 24 Hours (Table) 09/08/18 09/08/18 09/08/18 Range/Units 11:25 11:25 11:25 RBC 2.87 L (3.80-5.40) m/uL Hgb 9.0 L (11.4-16.0) gm/dL Hct 28.7 L (34.0-46.0) % RDW 18.0 H (11.5-15.5) % Plt Count 566 H (150-450) k/uL BUN <2 L (7-17) mg/dL Creatinine 0.40 L (0.52-1.04) mg/dL Calcium 8.3 L (8.4-10.2) mg/dL Magnesium 1.4 L (1.6-2.3) mg/dL Iron 40 L (50-170) ug/dL TIBC 193 L (228-460) ug/dL Ferritin 822.6 H (10.0-291.0) ng/mL AST 40 H (14-36) U/L Alkaline Phosphatase 323 H (38-126) U/L Total Protein 5.5 L (6.3-8.2) g/dL Albumin 2.7 L (3.5-5.0) g/dL Vitamin B12 1648.0 H (200.0-944.0) pg/mL Microbiology - Last 24 Hours (Table) 09/06/18 13:38 Gram Stain - Preliminary Abdomen Wound Culture - Preliminary Presumptive MRSA 09/05/18 13:30 Blood Culture - Preliminary Blood No Growth after 72 hours Laboratory Results WBC 7.2 k/uL (3.8-10.6) 09/08/18 11:25 RBC 2.87 m/uL (3.80-5.40) L 09/08/18 11:25 Hgb 9.0 gm/dL (11.4-16.0) L 09/08/18 11:25 Hct 28.7 % (34.0-46.0) L 09/08/18 11:25 MCV 100.0 fL (80.0-100.0) 09/08/18 11:25 MCH 31.2 pg (25.0-35.0) 09/08/18 11:25 MCHC 31.2 g/dL (31.0-37.0) 09/08/18 11:25 RDW 18.0 % (11.5-15.5) H 09/08/18 11:25 Plt Count 566 k/uL (150-450) H 09/08/18 11:25 Neutrophils % 60 % 09/08/18 11:25 Lymphocytes % 24 % 09/08/18 11:25 Monocytes % 4 % 09/08/18 11:25 Eosinophils % 9 % 09/08/18 11:25 Basophils % 1 % 09/08/18 11:25 Neutrophils # 4.3 k/uL (1.3-7.7) 09/08/18 11:25 Lymphocytes # 1.8 k/uL (1.0-4.8) 09/08/18 11:25 Monocytes # 0.3 k/uL (0-1.0) 09/08/18 11:25 Eosinophils # 0.6 k/uL (0-0.7) 09/08/18 11:25 Basophils # 0.0 k/uL (0-0.2) 09/08/18 11:25 Hypochromasia Slight 09/08/18 11:25 Anisocytosis Slight 09/08/18 11:25 Macrocytosis Moderate 09/08/18 11:25 PT 12.1 sec (9.0-12.0) H 09/05/18 13:30 INR 1.2 (<1.2) H 09/05/18 13:30 APTT 27.0 sec (22.0-30.0) 09/05/18 13:30 Sodium 139 mmol/L (137-145) 09/08/18 11:25 Potassium 3.8 mmol/L (3.5-5.1) 09/08/18 11:25 Chloride 107 mmol/L (98-107) 09/08/18 11:25 Carbon Dioxide 28 mmol/L (22-30) 09/08/18 11:25 Anion Gap 4 mmol/L 09/08/18 11:25 BUN <2 mg/dL (7-17) L 09/08/18 11:25 Creatinine 0.40 mg/dL (0.52-1.04) L 09/08/18 11:25 Est GFR (CKD-EPI)AfAm >90 (>60 ml/min/1.73 sqM) 09/08/18 11:25 Est GFR (CKD-EPI)NonAf >90 (>60 ml/min/1.73 sqM) 09/08/18 11:25 Glucose 87 mg/dL (74-99) 09/08/18 11:25 Plasma Lactic Acid [place] 0.9 mmol/L (0.7-2.0) 09/07/18 04:40 Calcium 8.3 mg/dL (8.4-10.2) L 09/08/18 11:25 Magnesium 1.4 mg/dL (1.6-2.3) L 09/08/18 11:25 Iron 40 ug/dL (50-170) L 09/08/18 11:25 TIBC 193 ug/dL (228-460) L 09/08/18 11:25 Iron Saturation 20.73 (12.00-45.00) 09/08/18 11:25 Ferritin 822.6 ng/mL (10.0-291.0) H 09/08/18 11:25 Total Bilirubin 0.3 mg/dL (0.2-1.3) 09/08/18 11:25 AST 40 U/L (14-36) H 09/08/18 11:25 ALT 23 U/L (9-52) 09/08/18 11:25 Alkaline Phosphatase 323 U/L (38-126) H 09/08/18 11:25 Total Protein 5.5 g/dL (6.3-8.2) L 09/08/18 11:25 Albumin 2.7 g/dL (3.5-5.0) L 09/08/18 11:25 Vitamin B12 1648.0 pg/mL (200.0-944.0) H 09/08/18 11:25 Urine Color Yellow 09/05/18 14:35 Urine Appearance Clear (Clear) 09/05/18 14:35 Urine pH 6.5 (5.0-8.0) 09/05/18 14:35 Ur Specific [place] 1.011 (1.001-1.035) 09/05/18 14:35 Urine Protein Trace (Negative) H 09/05/18 14:35 Urine Glucose (UA) Negative (Negative) 09/05/18 14:35 Urine Ketones Negative (Negative) 09/05/18 14:35 Urine Blood Negative (Negative) 09/05/18 14:35 Urine Nitrite Negative (Negative) 09/05/18 14:35 Urine Bilirubin Negative (Negative) 09/05/18 14:35 Urine Urobilinogen <2.0 mg/dL (<2.0) 09/05/18 14:35 Ur Leukocyte Esterase Negative (Negative) 09/05/18 14:35 Influenza Type A RNA Not Detected (Not Detectd) 09/05/18 13:30 Influenza Type B (PCR) Not Detected (Not Detectd) 09/05/18 13:30 Microbiology 09/06/18 13:38 Abdomen Gram Stain - Preliminary 09/06/18 13:38 Abdomen Wound Culture - Preliminary Presumptive MRSA 09/05/18 13:30 Blood Blood Culture - Preliminary No Growth after 72 hours 09/06/18 13:38 Abdomen Anaerobic Culture - Preliminary 09/05/18 14:35 Urine,Voided Urine Culture - Final Assessment and Plan (1) Fever Narrative/Plan: 63-year-old woman presents to [facility] care facility but he has fever noted to be 102 at the facility. The patient does feel poorly and has ongoing abdominal pain, poor appetite with nausea but no active emesis. She appeared to be a bit short of breath and consequently a chest x-ray was performed showing evidence of some effusion. There is concerns for potential pneumonia and antibiotic therapy with ceftriaxone and azithromycin have been initiated. There is no notation of aspiration occurring. The patient does have the abdominal incision that is having some drainage. Review of the prior hospitalization in prior notes reveal evidence of wound that was being utilized and antibiotic therapy was being utilized. He does appear the wound VAC is been discontinued and the intravenous antibiotic therapy she was receiving completed. However now is evidence of some of the some thick drainage from the inferior abdominal wall incision that seems to have some dehiscence. This is cultured. Will further help direct antibiotic therapy Wound care was silver alginate has been requested is over saline dressing and an ABG pending be changed every Saturday. The patient did have influenza testing at admission which was negative. Abdominal x-ray feels reveal evidence of small bowel obstruction. She does have evidence of white count 12.5 which is increased from the last check and is concerned about the potential pneumonia as well as potential infection to the abdominal incision. 09/06/2018 patient has now had marked improvement and is being readied for discharge to home. Local wound care with the silver alginate change Saturday has been initiated and home care will come and start help with wound dressings for her antibiotic therapy Bactrim will be utilized minimal strength twice a day for prior isolate a pathogens including the potential for MRSA. This is sent to her pharmacy in [place]. She may be discharged home today. Surgery finds it necessary she can follow-up in the office Status: Acute Code(s): R50.9 - FEVER, UNSPECIFIED SNOMED Code(s): 437129240 (2) Carcinoma of breast metastatic to bone Status: Acute Priority: High Code(s): C50.919 - MALIGNANT NEOPLASM OF UNSP SITE OF UNSPECIFIED FEMALE BREAST; C79.51 - SECONDARY MALIGNANT NEOPLASM OF BONE SNOMED Code(s): 708421672 (3) Generalized abdominal pain Status: Acute Code(s): R10.84 - GENERALIZED ABDOMINAL PAIN SNOMED Code(s): 815102456
--- NOTE | 2018-09-15 11:01 | P.DS ---
Providers Date of admission: 09/05/18 16:26 Expected date of discharge: 09/08/18 Attending physician: Dannielle Skelton Consults: 09/05/18 16:26 Consult Physician Routine Consulting Provider: Jaydon Jin Consult Reason/Comments: fevers Do you want consulting provider notified?: Already Contacted 09/05/18 16:27 Consult Physician Routine Consulting Provider: Chuy Coats Consult Reason/Comments: Abdominal wound evaluation, postsurgical Do you want consulting provider notified?: Yes 09/06/18 16:41 Consult Physician Routine Consulting Provider: Angel Oneill Consult Reason/Comments: oncology patient, kown to you Do you want consulting provider notified?: Yes Primary care physician: [facility] Course: Discharge diagnosis Fever etiology could be due to bibasilar atelectasis and MRSA abdominal wound infection. Possible sepsis secondary to above Constipation. Resolved. Hypokalemia recent Pneumoperitoneum due to perforated viscus status post sigmoid colectomy with and colostomy, partial omentectomy and repair of incarcerated ventral hernia on 07/28/2018 Metastatic breast cancer with metastases to bone. bilateral mastectomy. On Arimidex treatment. Recent bone biopsy. Supposed to follow with oncology on Saturday. Recent history of HSV encephalitis. Was on acyclovir and dexamethasone Hypothyroidism COPD Hypertension. Currently blood pressure is not elevated. Anxiety history of smoking DVT prophylaxis Hospital course Patient is a 63-year-old female with a known history of COPD, hypothyroidism, metastatic breast cancer status post bilateral mastectomy followed by Imitrex treatment and recent bone biopsy showed metastatic breast cancer, history of HSV encephalitis-was on acyclovir and dexamethasone, was recently admitted to hospital with perforated viscus status post sigmoid colectomy with colostomy and repair of the incarcerated ventral hernia. Patient was sent to extended care facility with IV antibiotic therapy and wound VAC which she has completed recently and is supposed to be discharged home in next couple of days. Patient was found have T-max of 102 at rehab and was sent to ER for evaluation. Patient has been having fevers for the past 2 days. Patient does have some discharge from the abdominal surgical wound/dehiscence.. Patient was seen by surgery yesterday and was not concern for infection. Due to patient being consistently febrile, she was sent to ER for evaluation. Patient denied any complaints of cough or sputum production. Patient says that she had couple of episodes of of vomiting at [facility] recently but denied any aspiration. No chest pain or shortness of breath. Denied any pleuritic chest pain. Patient is supposed to follow with oncology for metastatic breast cancer with recent bone biopsy showing metastatic disease. Patient also having constipation with no bowel movement in the colostomy bag for the past 2-3 days. Chest x-ray in the ER showed stable small pleural effusions, left greater than right with associated bibasilar airspace disease. RBC 12.5. Influenza screen negative. 09/07/2018 Patient is more awake and oriented today. Patient has been afebrile. T-max was 100.3 last night. Patient is being continued on antibiotics. Unlikely abdominal surgical wound infection. General surgery is following. ID is on board. Oncology was consulted due to metastatic breast cancer to bones. Patient did have a bowel movement in the colostomy bag. No complaints of abdominal pain. No nausea vomiting or diarrhea. Tolerating oral diet. 09/08/2018 Patient did improve symptomatically. Able to tolerate oral diet. No problems with a bowel movement in the colostomy bag. Wound cultures grew MRSA. Patient will be continued on Bactrim as per ID recommendations. Patient otherwise stable to be discharged home. Patient has been afebrile otherwise. Patient was seen by oncology and diagnosed to follow-up in the clinic. Patient does have metastatic breast cancer to bones. PHYSICAL EXAMINATION: Patient is lying in the bed comfortably, no acute distress, awake alert and oriented.. HEENT: Normocephalic. Neck is supple. Pupils reactive. Nostrils clear. Oral cavity is moist. Ears reveal no drainage. Neck reveals no JVD, carotid bruits, or thyromegaly. CHEST EXAMINATION: Trachea is central. Symmetrical expansion. Bibasilar diminished air entry. Lung fairchild clear to auscultation and percussion. CARDIAC: Normal S1, S2 with no gallops. No murmurs ABDOMEN: Soft. Bowel sounds normal. No organomegaly. No abdominal bruits. Colostomy bag with formed stool present. Mild tenderness at the surgical sites. Abdominal wound intact without drainage today.. Extremities: reveal no edema. No clubbing or cyanosis Neurologically awake, alert, oriented x3 with well-coordinated movements. No focal deficits noted Skin: No rash or skin lesions. Psychiatric: Coperative. Nonsuicidal Musculoskeletal: No joint swelling or deformity. Normal range of motion. Vital Signs Temp 97.9 F 09/08/18 12:19 Pulse 103 H 09/08/18 14:25 Resp 18 09/08/18 12:19 BP 134/82 09/08/18 12:19 Pulse Ox 93 L 09/08/18 14:25 Intake & Output 09/08/18 09/08/18 09/09/18 06:59 18:59 06:59 Other: # Voids 3 2 Total time taken greater than 35 minutes including 18 minutes for counseling and coordination of care. Patient Condition at Discharge: Stable Plan - Discharge Summary Discharge Rx Participant: No New Discharge Prescriptions: New RX: Sulfamethox-Tmp 800-160Mg [Bactrim DS 800-160 mg] 1 tab PO Q12HR #14 tab Continue RX: Bisacodyl [Dulcolax] 10 mg RECTAL DAILY PRN PRN Reason: Constipation RX: Fenton Instant Breakfast 1 packet PO W/BRKFST RX: Letrozole [Femara] 2.5 mg PO DAILY RX: Magic Cup 2,400 ml PO HS RX: Magnesium Hydroxide [Milk of Magnesia] 2,400 mg PO DAILY PRN PRN Reason: Constipation RX: Na Phos,M-B/Na Phos,Di-Ba [Fleet Adult] 133 ml RECTAL DAILY PRN PRN Reason: Constipation RX: clonazePAM 0.5 mg PO DAILY PRN #7 tablet PRN Reason: Anxiety RX: Metoprolol Tartrate [Lopressor] 25 mg PO BID@0800,1700 #60 tab RX: HYDROcodone/APAP 7.5-325MG [Lilburn 7.5-325] 1 tab PO Q4H PRN 3 Days #18 tab PRN Reason: Pain RX: amLODIPine [Norvasc] 5 mg PO DAILY #30 tab RX: Levothyroxine Sodium [Synthroid] 112 mcg PO MOWEFR #30 tab RX: Levothyroxine Sodium [Synthroid] 100 mcg PO SUTUTHSA #30 tab Discharge Medication List RX: Bisacodyl [Dulcolax] 10 mg RECTAL DAILY PRN 09/03/18 [History] RX: Fenton Instant Breakfast 1 packet PO W/BRKFST 09/03/18 [History] RX: Letrozole [Femara] 2.5 mg PO DAILY 09/03/18 [History] RX: Magic Cup 2,400 ml PO HS 09/03/18 [History] RX: Magnesium Hydroxide [Milk of Magnesia] 2,400 mg PO DAILY PRN 09/03/18 [History] RX: Na Phos,M-B/Na Phos,Di-Ba [Fleet Adult] 133 ml RECTAL DAILY PRN 09/03/18 [History] RX: HYDROcodone/APAP 7.5-325MG [Lilburn 7.5-325] 1 tab PO Q4H PRN 3 Days #18 tab 09/08/18 [Rx] RX: Levothyroxine Sodium [Synthroid] 100 mcg PO SUTUTHSA #30 tab 09/08/18 [Rx] RX: Levothyroxine Sodium [Synthroid] 112 mcg PO MOWEFR #30 tab 09/08/18 [Rx] RX: Metoprolol Tartrate [Lopressor] 25 mg PO BID@0800,1700 #60 tab 09/08/18 [Rx] RX: Sulfamethox-Tmp 800-160Mg [Bactrim DS 800-160 mg] 1 tab PO Q12HR #14 tab 09/08/18 [Rx] RX: amLODIPine [Norvasc] 5 mg PO DAILY #30 tab 09/08/18 [Rx] RX: clonazePAM 0.5 mg PO DAILY PRN #7 tablet 09/08/18 [Rx] Follow up Appointment(s)/Referral(s): Ninoska Tovar MD [Primary Care Provider] - 09/09/18 4:20 pm [facility], [NON-STAFF] - Patient Instructions/Handouts: Sulfamethoxazole/Trimethoprim (By mouth), Sepsis (GEN), Pneumonia (DC) Discharge Disposition: HOME WITH HOME HEALTH SERVICES
== END 2018-09-08 18:15 | disposition home health service (06) | DRG 871 ==
LOC: EC 12:46 → 3NMEDONC 16:26
PROVIDERS: ADMIT Internal Medicine; ATTEND Internal Medicine
DX: A41.02 Sepsis due to Methicillin resistant Staphylococcus aureus (principal); J18.9 Pneumonia, unspecified organism; J44.0 Chronic obstructive pulmonary disease with (acute) lower respiratory infection; C79.51 Secondary malignant neoplasm of bone; G93.40 Encephalopathy, unspecified; T81.31XA Disruption of external operation (surgical) wound, not elsewhere classified, initial encounter; D63.8 Anemia in other chronic diseases classified elsewhere; E03.9 Hypothyroidism, unspecified; E87.6 Hypokalemia; F41.9 Anxiety disorder, unspecified; I10 Essential (primary) hypertension; Z79.811 Long term (current) use of aromatase inhibitors; Z79.890 Hormone replacement therapy; Z79.899 Other long term (current) drug therapy; Z85.3 Personal history of malignant neoplasm of breast; Z87.891 Personal history of nicotine dependence; Z90.13 Acquired absence of bilateral breasts and nipples; Z90.49 Acquired absence of other specified parts of digestive tract; Z93.3 Colostomy status; Z88.1 Allergy status to other antibiotic agents; Z88.5 Allergy status to narcotic agent
CPT/HCPCS: 36415; 71046; 80048; 80053; 81003; 82607; 82728; 83540; 83550; 83605; 83735; 85025; 85610; 85730; 87040; 87070; 87075; 87077; 87086; 87186; 87205; 87502; 93005; 96365; 96367; 99285

== ENCOUNTER → 2018-10-15 | Outpatient (CLI) | payer BC ==
--- NOTE | 2018-10-15 14:42 | US ---
EXAMINATION TYPE: US venous doppler duplex LE LT DATE OF EXAM: 10/15/2018 2:07 PM COMPARISON: NONE CLINICAL HISTORY: R22.42 Localized swelling, mass and lump, left low. Left knee pain and swelling x 2 days SIDE PERFORMED: Left TECHNIQUE: The lower extremity deep venous system is examined utilizing real time linear array sonog elizabeth with graded compression, doppler sonography and color-flow sonography. VESSELS IMAGED: External Iliac Vein (EIV) Common Femoral Vein Deep Femoral Vein Greater Saphenous Vein * Femoral Vein Popliteal Vein Small Saphenous Vein * Proximal Calf Veins (* superficial vessels) Left Leg: Appears negative for DVT, 5.4 x 1.1 x 2.7cm complex cystic area left popliteal fossa media l to vessels, probable Sullivan's cyst IMPRESSION: 1. Left lower extremity ultrasound negative for deep venous thrombosis. 2. Left Popliteal cyst
--- NOTE | 2018-10-15 15:05 | XR ---
EXAMINATION TYPE: XR knee complete LT DATE OF EXAM: 10/15/2018 CLINICAL HISTORY: pain TECHNIQUE: Three views of the left knee are obtained. COMPARISON: None. FINDINGS: There is no acute fracture/dislocation. The tri-compartment joint spaces appear within no rmal limits. The overlying soft tissue appears unremarkable. Suprapatellar joint effusion noted. IMPRESSION: There is no acute fracture or dislocation ICD 10 NO FRACTURE, INITIAL EVALUATION
--- NOTE | 2018-10-15 15:08 | XR ---
EXAMINATION TYPE: XR abdomen complete w decub DATE OF EXAM: 10/15/2018 COMPARISON: None INDICATION: Z 17.0 c 79.51, E03.9, I 10 TECHNIQUE: Abdomen is examined in the upright view, supine and left lateral decubitus view. FINDINGS: Nonspecific bowel gas is present. Vascular calcification is within the aorta. Psoas margins are normal. No suspicious air-fluid levels or differential air-fluid levels are present . No free air is present. No organomegaly is present. Small bilateral pleural effusions are present. Scoliosis is present. There is diffuse patchy density through the visualized structures. Correlate fo r osseous metastasis. IMPRESSION: 1. Nonspecific abdomen. 2. Osseous metastasis
== END | disposition home or self-care (01) ==
LOC: RADUSWWP 13:26
PROVIDERS: ATTEND Internal Medicine Hematology & Oncology
DX: M71.22 Synovial cyst of popliteal space [Baker], left knee (principal); I10 Essential (primary) hypertension; E03.9 Hypothyroidism, unspecified; C79.51 Secondary malignant neoplasm of bone; Z17.0 Estrogen receptor positive status [ER+]
CPT/HCPCS: 74021

== ENCOUNTER → 2019-03-14 | Outpatient (CLI) | payer MEDICARE ==
--- NOTE | 2019-03-14 20:29 | CT ---
EXAMINATION TYPE: CT ChestAbdPelvis w con DATE OF EXAM: 03/14/2019 INDICATION: f/u bone ca, hx of breast ca. COMPARISON: CT chest 08/07/2018, CT abdomen 07/28/2018 CT DLP: 895.8 mGycm CONTRAST: Performed with Oral Contrast and with IV Contrast, patient injected with 100 mL of Isovue 300. TECHNIQUE: Axial images at 5 mm thick sections. Reconstructed images in the coronal plane. Delayed images through the kidneys. FINDINGS: CT CHEST: Portion of the thyroid visualized is normal. No suspicious lung nodules or focal infiltrates are present. Emphysematous changes are present. No enlarged mediastinal or hilar adenopathy is evident. The ascending aorta diameter at the level of the main pulmonary artery is 3.4 cm. The main pulmonary artery diameter at the bifurcation is 2.[address] ABDOMEN: Anterior abdominal wall hernia containing loops of colon and small bowel are present. No obstruction is evident. This extends into the periumbilical region. Ostomy is present in the left midabdomen. No suspicious changes for obstruction are evident. Oral con trast extends to the ascending colon. Liver: Normal Spleen: Normal Pancreas: Normal Adrenal glands: The adrenal glands are normal. Gallbladder: Normal Kidneys: No masses are evident. No hydronephrosis is present. No cysts are present. Delayed images were obtained through the kidneys, which remain unremarkable. Aorta: Vascular calcification is within the aorta. Inferior vena cava: Normal. CT PELVIS: Loops of bowel within the abdomen and pelvis are normal. Rectal stump appears unremarkable. There are loops of bowel which are incompletely distended or lack oral contrast limiting their evaluation. Appendix: Not identified. Urinary bladder: Normal. Genitourinary structures: Large cysts are within the left adnexa measuring 5.8 and 3.3 cm. Additional workup is recommended. Osseous structures: Multilevel vertebral body lytic metastases are present. Multiple lytic metastases are through the iliac wings and into the lower pelvis. IMPRESSIONS: 1. Extensive and apparently progressive lytic lesions through the thoracic and lumbar spine. Osseous metastasis extends to the pelvis. 2. Interval development of 2 large left ovarian cyst. Evaluation further workup with ultrasound is re commended. 3. Anterior abdominal wall hernia without evidence of obstruction or stricture
== END | disposition home or self-care (01) ==
LOC: RADCTMAIN 12:34
PROVIDERS: ATTEND Internal Medicine Hematology & Oncology
DX: K43.9 Ventral hernia without obstruction or gangrene (principal); N83.202 Unspecified ovarian cyst, left side; C80.1 Malignant (primary) neoplasm, unspecified; C79.51 Secondary malignant neoplasm of bone; C79.89 Secondary malignant neoplasm of other specified sites; Z17.0 Estrogen receptor positive status [ER+]; Z88.1 Allergy status to other antibiotic agents; Z88.5 Allergy status to narcotic agent
CPT/HCPCS: 71260; 74177; Q9967

== ENCOUNTER → 2020-02-25 | Outpatient (CLI) | payer MEDICARE ==
--- NOTE | 2020-02-25 11:57 | CT ---
EXAMINATION TYPE: CT ChestAbdPelvis w con DATE OF EXAM: 02/25/2020 COMPARISON: CT March 14, 2019 and older CTs HISTORY: breast CA with bone mets CT DLP: 1758.5 mGycm. Automated Exposure Control for Dose Reduction was Utilized. CONTRAST: CT scan of the thorax, abdomen and pelvis is performed without oral but with IV Contrast, patient inj ected with 80 mL of Isovue 300. FINDINGS: LUNGS: Mild to moderate underlying emphysematous changes greatest in the upper lobes. [id number] e bibasilar linear scarring and/or atelectasis redemonstrated. No pleural effusion or pneumothorax. N o new suspicious nodules MEDIASTINUM: There are no greater than 1 cm hilar or mediastinal lymph nodes. No pericardial effus ion is seen. Heart size upper limits of normal. Coronary artery calcification redemonstrated which i s noted marked underlying coronary artery disease. Tortuous course to descending thoracic aorta redem onstrated with moderate mixed plaque. Other: Bilateral mastectomy changes redemonstrated. LIVER/GB: No significant abnormality is appreciated. PANCREAS: No significant abnormality is seen. SPLEEN: No significant abnormality is seen. ADRENALS: No significant abnormality is seen. KIDNEYS: No significant abnormality is seen. BOWEL: Suboptimal evaluation of bowel without enteric contrast. No suspicious small or large bowel di latation. Surgical sutures seen in colonic loops in the pelvis. Mild wall thickening noted in the tra nsverse colon and left colon. Additional surgical sutures right midabdomen anteriorly. Interval colos jarrod reversal. GENITAL ORGANS: Uterus now surgically absent. LYMPH NODES: No greater than 1cm abdominal or pelvic lymph nodes are appreciated. OSSEOUS STRUCTURES: Diffuse osseous metastatic disease with complete involvement through entire pelvi s and thoracolumbar spine. Diffuse dural involvement redemonstrated. Multifocal areas of bilateral ri b involvement again seen. There is involvement of the clavicles bilaterally redemonstrated. Moderate degenerative changes in both hips with subchondral cystic change greater on the left again seen. No d efinitive new osseous of metastatic progression. Mild height loss at multiple levels in the thoracolu mbar spine with scoliotic curvature is redemonstrated. OTHER: No significant additional abnormality is seen. IMPRESSION: Diffuse osseous metastatic disease redemonstrated. Interval hysterectomy. Interval coloni c re-anastomosis. No new metastatic lesions clearly identified.
--- NOTE | 2020-02-25 15:26 | NM ---
EXAMINATION TYPE: NM bone scan whole body DATE OF EXAM: 02/25/2020 COMPARISON: 07/21/2018 HISTORY: Breast cancer bone metastases Delayed whole-body scanning was performed following the injection of 22.7 mCi Tc 99m MDP. Images wer e acquired 3 hours post injection. FINDINGS: Radiotracer accumulation is within the 01/27/2011 posterior medial left RIBS. Some mild uptake is cent rally at the L5-S1 level posteriorly. Some mild uptake is within the T12-L1 pedicle region. Some cent ral T9 posterior uptake may be present. There is been significant improvement of the radiotracer distribution over the interval. The uptake w ithin the humeri is less well visualized. The uptake within the axial spine is significantly diminish ed over the interval. There is diminished radiotracer within the ribs. IMPRESSION: 1. Diminished and fewer identified focal areas of radiotracer accumulation suggestive for metastatic disease. This is an improvement from the comparison of 2019.
== END | disposition home or self-care (01) ==
LOC: RADCTMAIN 09:28
PROVIDERS: ATTEND Internal Medicine Hematology & Oncology
DX: C79.51 Secondary malignant neoplasm of bone (principal); R93.7 Abnormal findings on diagnostic imaging of other parts of musculoskeletal system; Z90.710 Acquired absence of both cervix and uterus; Z93.3 Colostomy status; C50.912 Malignant neoplasm of unspecified site of left female breast; Z88.5 Allergy status to narcotic agent; Z88.1 Allergy status to other antibiotic agents
CPT/HCPCS: 82565; 84520; 71260; 74177; 36415; 78306; A9503; Q9967

== ENCOUNTER → 2020-05-24 | Outpatient (CLI) | payer MEDICARE ==
--- NOTE | 2020-05-24 12:34 | CT ---
EXAMINATION TYPE: CT ChestAbdPelvis w con DATE OF EXAM: 05/24/2020 COMPARISON: 02/25/2020, 03/14/2019 HISTORY: 65-year-old female Follow up breast, lung, ovarian cancer TECHNIQUE: Contiguous axial scanning of the chest, abdomen, and pelvis performed with IV Contrast, pa tient injected with 100 mL of Isovue 300. Delayed images through the kidneys were obtained. Coronal/s agittal reconstructions performed. CT DLP: 1558.1 mGycm Automated exposure control for dose reduction was used. FINDINGS: CHEST: Heart upper limits of normal in size without pericardial effusion. Scattered three-vessel coronary ar luis calcifications are present. Mild atherosclerotic arch calcifications with conventional arch vessel branching anatomy. Status post bilateral mastectomies. Some nonspecific nodularity along the substernal anterior mediastinum measuring up to 6 mm remains un changed back to 03/14/2019. No thoracic lymphadenopathy by CT size criteria. Moderate upper lung centrilobular emphysema. Some strandy basilar atelectasis or scarring. Some minimal tree-in-bud nodularity at the right middle lobe, axial image 41 suggests a small infecti ous/inflammatory focus. No consolidation or pleural effusion. ABDOMEN: Liver shows low-attenuation suggesting fatty infiltration. There is borderline size at 17.0 cm. No fo jesika liver lesion. Portal venous system is patent. No biliary ductal dilatation. Tiny 1.2 cm diverticu lum of the third portion of the duodenum projecting superiorly. Gallbladder, adrenal glands, kidneys, spleen, and pancreas appear within normal limits. No dilated small bowel, free fluid, or free air. No mesenteric or retroperitoneal lymphadenopathy see n. Scarring along the anterior abdominal wall as well as a rectus diastases is redemonstrated. Mild stoo l burden. Some chronic submucosal fat deposition within the transverse colon, unchanged from 0. No pericolonic inflammatory change. Patulous cecum located towards the midline is unchanged. PELVIS: Bladder is partially collapsed. Pelvic phleboliths. Uterus surgically absent. Neither ovary is visual ized. No abnormal fluid collection in the pelvis or pelvic lymphadenopathy. BONES: Diffuse osseous metastatic disease characterized by areas of mixed sclerosis and lucency is redemonst rated throughout the osseous structures. Grade 1 retrolistheses at L2-L3, L3-L4, and L4-L5 are unchanged with accentuated kyphosis at the thor acolumbar junction and a few scattered superior endplate deformities in the thoracic spine. IMPRESSION: 1. STATUS POST BILATERAL MASTECTOMIES. STATUS POST HYSTERECTOMY AND BILATERAL SALPINGO-OOPHORECTOMIES . 2. NO SUSPICIOUS MASS OR LYMPHADENOPATHY TO SUGGEST NEOPLASTIC PROGRESSION. KNOWN DIFFUSE OSSEOUS ME TASTATIC DISEASE IS UNCHANGED. 3. COPD WITH MODERATE UPPER LUNG EMPHYSEMA. SOME MINIMAL TREE-IN-BUD OPACITY IN THE RIGHT MIDDLE LOBE SUGGESTS A NONSPECIFIC INFECTIOUS/INFLAMMATORY FOCUS. CORRELATE WITH PATIENT'S SYMPTOMS. 4. CAD, HEPATIC STEATOSIS, AND PRIOR RESECTION AND REANASTOMOSIS AT THE RECTOSIGMOID JUNCTION.
--- NOTE | 2020-05-24 15:26 | NM ---
EXAMINATION TYPE: NM bone scan whole body DATE OF EXAM: 05/24/2020 COMPARISON: NONE HISTORY: Breast cancer ovarian cancer Delayed whole-body scanning was performed following the injection of 24.8 mCi Tc 99m MDP. Images wer e acquired 3 hours post injection. FINDINGS: There is a focus of radiotracer accumulation at the left vertex. Correlate for metastasis. Small amount of radiotracer accumulation may be along the anterior right lower rib in the region of t he seventh rib. May be posttraumatic in nature. Some suspicious uptake may be along the anterior right third rib. Metastatic lesion is not excluded There is focal radiotracer accumulation in the region of the pedicles at T12. Focal uptake may be wit hin the T9 vertebral body. Correlate for metastasis IMPRESSION: 1. Uptake within the left parietal vertex posterior left third rib possibly within T12 pedicles. [place] stasis should be considered. 2. Anterior right rib uptake most likely posttraumatic in nature
== END | disposition home or self-care (01) ==
LOC: RADNMMAIN 09:49
PROVIDERS: ATTEND Internal Medicine Hematology & Oncology
DX: C50.912 Malignant neoplasm of unspecified site of left female breast (principal); C56.2 Malignant neoplasm of left ovary; C79.51 Secondary malignant neoplasm of bone; J43.9 Emphysema, unspecified; R91.8 Other nonspecific abnormal finding of lung field; I25.10 Atherosclerotic heart disease of native coronary artery without angina pectoris; K76.0 Fatty (change of) liver, not elsewhere classified; Z90.13 Acquired absence of bilateral breasts and nipples; Z98.0 Intestinal bypass and anastomosis status; Z90.710 Acquired absence of both cervix and uterus; Z90.722 Acquired absence of ovaries, bilateral; Z88.5 Allergy status to narcotic agent; Z88.1 Allergy status to other antibiotic agents
CPT/HCPCS: 82565; 84520; 71260; 74177; 36415; 78306; A9503; Q9967

== ENCOUNTER → 2020-11-11 | Outpatient (CLI) | payer MEDICARE ==
--- NOTE | 2020-11-15 12:39 | PE ---
EXAMINATION TYPE: PET CT fusion skull to thigh DATE OF EXAM: 11/11/2020 COMPARISON: 05/24/2020 CT chest abdomen pelvis Prior PET/CT: None HISTORY: Ovarian cancer with bone metastases TECHNIQUE: Following the intravenous administration of 11.61 mCi of F-18 FDG, whole body images are performed from the skull base to the midthigh. Images are reviewed on the computer in the coronal, a xial, and sagittal planes. Reconstructed rotating images are created on independent workstation and reviewed on the computer. A localization and attenuation correction CT is performed in conjunction with the PET scan. DLP: 445.90 mGycm SCAN: Initial Scan Blood glucose: 94 mg/dL Average Mediastinum SUV: 1.73 Average Liver SUV: 2.84 FINDINGS: NECK: No abnormal uptake THORAX: No suspicious mediastinal or lung field uptake ABDOMEN: No abnormal uptake. Normal excretion to the kidneys is evident. PELVIS: No suspicious abnormal uptake OSSEOUS STRUCTURES: There is a focus of radiotracer accumulation within the C1 vertebral body on the left with an SUV value of 5.23. Some uptake may be within the right mandible. This could be related t o dental work however. SUV value is 4.83. Some faint uptake may be within the medial right scapula wi th an SUV value of 2.19. Some uptake within the left acromioclavicular junction could be related to d egenerative change with an SUV value of 1.98. Uptake within the bilateral shoulders likely related to degenerative changes. Subtle focal area of radiotracer may be within the medial posterior right mid rib, image 77, SUV value 1.33 there is uptake within the left mid sternum with an SUV value of 2.4, i mage 93. Subtle uptake is within the lateral left rib, image 102, SUV value 1.22. Some mild anterior left rib uptake may be present, image 133 SUV value 1.46. There may be some uptake within the spinous process of L5 with an SUV value 2.75. There is some abnormal uptake within the right T12 pedicle wit h an SUV value of 3.88. Osseous structures especially to the vertebral bodies is heterogenous lytic. LOCALIZATION CT: Postsurgical changes within the distal sigmoid colon. COMPARISON: Findings appear stable from May 2020 CT comparison IMPRESSION: 1. Scattered small areas of hyperintensity within the osseous structures suspicious for metastatic di sease discussed above. The localization CT appears to overestimate the active osseous metastasis. 2. No suspicious soft tissue metastatic disease
== END | disposition home or self-care (01) ==
LOC: RADPETMAIN 13:03
PROVIDERS: ATTEND Internal Medicine Hematology & Oncology
DX: C56.9 Malignant neoplasm of unspecified ovary (principal); C79.51 Secondary malignant neoplasm of bone
CPT/HCPCS: 78815; A9552

== ENCOUNTER → 2020-12-07 | Outpatient (CLI) | payer MEDICARE ==
--- NOTE | 2020-12-08 04:35 | MR ---
EXAMINATION TYPE: MR brain wo/w con DATE OF EXAM: 12/07/2020 COMPARISON: 07/21/2018 HISTORY: Hx of Breast CA and Bone CA CONTRAST: Standard multiplanar, multisequence MRI departmental protocol utilizing 9ml mL intravenous Gadavist g adolinium contrast. There is mild cerebral atrophy. There is no mass effect nor midline shift. There is no evidence of in tracranial hemorrhage. Diffusion images show no evidence of an acute infarct. On the T2 and FLAIR chantell ges there is increased signal in the medial aspect both occipital lobes. These areas show no patholog ic enhancement. The lesions are fairly symmetric and measure 3 x 1.5 cm on each side. There are multiple scattered foci of increased white matter signal in the FLAIR and T2 images in both cerebral hemispheres. The total number is approximately 25 There is normal enhancement of the venous sinuses. Corpus callosum is intact. Sella turcica appears i ntact. There is no evidence of orbital mass. And these measure up to almost 1 cm. Most of these are s mall and measure less than 4 mm. There is a small sessile area of enhancement at the cribriform plate in the midline at the base of the frontal lobes not changed compared to old exam. This could be some venous enhancement. IMPRESSION: Bilateral medial occipital lobe lesions could be old infarcts and appear new on the left side and inc reased in size on the right side compared to old MR scan of 07/21/2018. Numerous white matter lesions are nonspecific and could relate to microvascular ischemia or demyelina ting disease. No pathologic enhancement seen to suggest metastatic disease.
== END | disposition home or self-care (01) ==
LOC: RADMRIMAIN 20:20
PROVIDERS: ATTEND Internal Medicine Hematology & Oncology
DX: G93.9 Disorder of brain, unspecified (principal); I63.9 Cerebral infarction, unspecified
CPT/HCPCS: 70553; A9585

== ENCOUNTER → 2021-02-23 | Outpatient (CLI) | payer MEDICARE ==
--- NOTE | 2021-02-23 11:57 | CT ---
EXAMINATION TYPE: CT ChestAbdPelvis w con DATE OF EXAM: 02/23/2021 COMPARISON: Most recent CT May 24, 2020. Most recent PET CT October 22, 2020 HISTORY: Bone mets, breast ca. CT DLP: 1438.6 mGycm. Automated Exposure Control for Dose Reduction was Utilized. CONTRAST: CT scan of the thorax, abdomen and pelvis is performed with IV Contrast, patient injected with 80 mL of Isovue M300. FINDINGS: LUNGS: Moderate underlying emphysematous change greatest in the upper lungs is redemonstrated. No alvaro picious nodules or masses. Mild linear scarring in both bases. No pleural effusion or pneumothorax. MEDIASTINUM: There are no greater than 1 cm hilar or mediastinal lymph nodes. No cardiomegaly or pe ricardial effusion is seen. Moderate three-vessel coronary artery calcification. Other: Postsurgical changes from bilateral mastectomy redemonstrated. New prominent subcentimeter lym ph nodes in the right axilla. LIVER/GB: No significant abnormality is appreciated. PANCREAS: No significant abnormality is seen. SPLEEN: No significant abnormality is seen. ADRENALS: No significant abnormality is seen. KIDNEYS: No significant abnormality is seen. BOWEL: Low-lying cecum with surgical sutures from appendectomy surgical changes sigmoid rectal colon and the pelvis redemonstrated. GENITAL ORGANS: Uterus surgically absent. LYMPH NODES: No greater than 1cm abdominal or pelvic lymph nodes are appreciated. OSSEOUS STRUCTURES: Diffuse osseous lytic and sclerotic metastatic disease is redemonstrated. Moderat e disc space narrowing L2-L3 level no spondylolisthesis again seen. OTHER: Moderate calcified plaque of the aorta extends into branch vessels. IMPRESSION: New prominent but subcentimeter lymph nodes in the right axilla. Findings are concerning for patient with history of breast cancer. Correlate clinically if patient had recent vaccine inject ion in the right upper extremity otherwise consider repeat PET/CT imaging. Diffuse osseous metastatic disease redemonstrated. No new masses or adenopathy otherwise clearly seen.
--- NOTE | 2021-02-23 17:03 | NM ---
EXAMINATION TYPE: NM bone scan whole body DATE OF EXAM: 02/23/2021 COMPARISON: 05/24/2020. HISTORY: 66-year-old female history of breast cancer. C79.1 bone mets, C50.912 TECHNIQUE: Delayed whole-body scanning was performed following the injection of 21.9 mCi Tc 99m MDP. Images acquired 3.75 hours post injection. Anterior and posterior projection images are obtained. FINDINGS: Metastatic foci are redemonstrated scattered throughout the bilateral ribs, sternum, midthoracic spin e, thoracolumbar junction, and right pubic bone. Also within the anterior superior left hemicalvarium . Small focus of activity along the right posterior midthoracic spine and right iliac crest may be new from prior bone scan. A focus within the left posteriora calvarium also appears new. IMPRESSION: 1. Direct comparison is made to the patient's previous nuclear medicine bone scan of 05/24/2020. There is redemonstrated osseous metastatic disease within the spine, sternum, bilateral ribs, right pubic b one, and left skull. 2. Small foci within the right posterior midthoracic spine, right iliac crest, and left posterior jesika varium appear new from 05/24/2020.
== END | disposition home or self-care (01) ==
LOC: RADNMMAIN 09:31
PROVIDERS: ATTEND Internal Medicine Hematology & Oncology
DX: Z03.89 Encounter for observation for other suspected diseases and conditions ruled out (principal); C79.51 Secondary malignant neoplasm of bone; C50.912 Malignant neoplasm of unspecified site of left female breast
CPT/HCPCS: 82565; 84520; 71260; 74177; 36415; 78306; A9503; Q9967 ×2

== ENCOUNTER → 2021-06-16 | Outpatient (CLI) | payer MEDICARE ==
--- NOTE | 2021-06-16 12:44 | XR ---
EXAMINATION TYPE: XR shoulder limited RT DATE OF EXAM: 06/16/2021 COMPARISON: NONE HISTORY: Pain TECHNIQUE: Shoulder examined in 2 projections FINDINGS: The humeral head articulates with the glenoid. The acromio-clavicular junction has some degenerative change. No significant spurring is evident. No acute fractures or dislocations are evident. A follow up study can be performed 7-10 days from acute trauma for continued pain. IMPRESSION: 1. No acute osseous abnormality right shoulder.
--- NOTE | 2021-06-16 12:49 | XR ---
EXAMINATION TYPE: XR cervical spine comp DATE OF EXAM: 06/16/2021 COMPARISON: None HISTORY: Cervicalgia right-sided posterior neck pain TECHNIQUE: 5 view cervical spine FINDINGS: Foraminal stenosis is present to a moderate degree at C4-5 and to a mild degree C5-6 and C6 -7 on the right. Mild foraminal narrowing may be present C4-5 on the left. Degenerative disc changes are present at C4-5 and C5-6 . Posterior endplate spurring is present at C4 -5 and C5-6. Posterior spinal lamellar line is intact. Odontoid on the submental vertex view appears normal. IMPRESSION: 1. Degenerative disc changes and posterior endplate spurring C4-5 and C5-6. 2. Foraminal stenosis greater on the right C4-5 and slightly less at C5-6 C6-7. 3. MRI could BE performed for additional evaluation.
== END | disposition home or self-care (01) ==
LOC: RADXRMAIN 12:01
PROVIDERS: ATTEND Internal Medicine Hematology & Oncology
DX: C50.912 Malignant neoplasm of unspecified site of left female breast (principal); C79.51 Secondary malignant neoplasm of bone; M87.88 Other osteonecrosis, other site; Z17.0 Estrogen receptor positive status [ER+]; M50.321 Other cervical disc degeneration at C4-C5 level; M48.02 Spinal stenosis, cervical region; M50.322 Other cervical disc degeneration at C5-C6 level
CPT/HCPCS: 72050

== ENCOUNTER → 2021-06-18 | Outpatient (CLI) | payer MEDICARE ==
--- NOTE | 2021-06-19 06:42 | MR ---
EXAMINATION TYPE: MR brain/cspine wo/w DATE OF EXAM: 06/19/2021 COMPARISON: CT brain July 16, 2018. MRI brain December 07, 2020. Cervical spine x-ray June 16 2 HISTORY: Headache and neck pain, history of breast cancer TECHNIQUE: Brain: Multiplanar, multisequence images of the brain and brainstem along the cervical spine are all perform ed without and with IV contrast, utilizing 8.5 mL intravenous Gadavist . FINDINGS: Diffusion weighted images demonstrate no evidence of a recent infarct or other diffusion ab normality. There is mild ventricular and sulcal prominence. There are scattered foci of T2 hyperinte nsity seen throughout the white matter bilaterally. Approximately 40 scattered lesions are present. L esions are nonspecific in appearance and distribution. Old infarcts bilateral occipital lobe axial im age 16 are redemonstrated. Midline structures redemonstrate normal morphology. The craniocervical junction appears within ottoniel l limits. Post contrast images demonstrate no abnormal enhancing masses. The dural venous sinuses ap pear patent. The visualized sinuses are clear and the globes are intact. Nasal septum redemonstrated deviated to right of midline. 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 No suspicious new enhancing mass to suggest metastatic disease is identified. C-SPINE: FINDINGS: Coronal images show levoconvex scoliosis centered in the upper thoracic spine. Sagittal chantell ges of the cervical spine show the craniocervical junction to appear within normal limits. There is g rade 1 retrolisthesis C5 on C6. Vertebral body heights are normal. Mild disc space narrowing with mil d to moderate anterior spurring C4-C5 level. Moderate disc space narrowing and spurring C5-C6 level. Bone marrow signal intensity is heterogeneous with suspicious areas of diminished T1 and increased T2 signal with enhancement worrisome for diffuse osseous metastatic disease when correlating with most recent bone scan and PET/CT studies. Most prominent involvement is diffusely through the T1 vertebra for reference. Axial images show C2-C3 and C3-C4 levels to appear within normal limits. Axial images at C4-C5 level showed broad based central disc protrusion effaces the anterior thecal sa c notably of the ventral surface of the spinal cord with uncovertebral facet degenerative changes cau sing moderate right and [id number] left-sided neural foraminal narrowing. Axial images at C5-C6 levels with spondylolisthesis with broad-based right paracentral disc protrusio n effacing the anterior thecal sac indenting the ventral surface of spinal cord sagittal image 9, pat ent bilateral neural foramina. Axial images at C6-C7 level shows mild right paracentral disc protrusion mildly effacing the anterior thecal sac, patent bilateral neural foramina. Axial images at C7-T1 level appear within normal limits. IMPRESSION: Diffuse osseous metastatic disease. Spondylosis and multilevel degenerative changes great est at C4-C5 and C5-C6 levels as detailed above.
== END | disposition home or self-care (01) ==
LOC: RADMRIMAIN 14:37
PROVIDERS: ATTEND Internal Medicine Hematology & Oncology
DX: C50.912 Malignant neoplasm of unspecified site of left female breast (principal); M47.892 Other spondylosis, cervical region; M50.321 Other cervical disc degeneration at C4-C5 level; M50.322 Other cervical disc degeneration at C5-C6 level
CPT/HCPCS: 70553; 72156; A9585